=== PATIENT | female | born 1945 | race Caucasian/White ===

== ENCOUNTER → 2017-08-22 08:49 | Outpatient (CLI) | payer BC, MEDICARE, SELFPAY ==
[2017-08-22 11:10] LABS: Color, Urine Yellow (Yellow); Glucose, Dipstick Normal (Normal); Ketone-Dipstick Negative (Negative); Leukocyte Esterase-Dipstick 25 /ul (Negative); Nitrite-Dipstick Negative (Negative); Occult Blood-Urine Negative /ul (Negative); Protein-Dipstick 15 mg/dl (Negative); Urine Bilirubin Dipstick Negative (Negative); Urine Clarity Clear (Clear); Urine Urobilinogen Normal (Normal); Urine pH 6.5 (5.0 - 8.0)
[2017-08-22 11:22] LABS: Absolute Lymphocyte Count 2.54 X10^3/ul (0.83-4.51); Basophil# 0.05 X10^3/uL; Basophil% 0.8 % (0-1); Eosinophil# 0.22 X10^3/uL; Eosinophils% 3.4 % (0-5); Hematocrit 49.9 % (37-47); Hemoglobin 16.4 g/dl (12.0-15.0); Lymphocyte # 2.54 X10^3/ul (4.0); Lymphocyte % 39.8 % (19-41); Mean Corp Hgb Conc 32.9 g/gl (32-36); Mean Corpuscular Hgb 31.9 pg (27.0-32.0); Mean Corpuscular Volume 97.1 fL (81-99); Mean Platelet Vol. 11.7 fl (6.2-12.0); Monocyte# 0.52 X10^3/uL; Monocyte% 8.2 % (0-10); Neutrophil # 3.04 X10^3/uL (2.7-7.7); Neutrophil % 47.6 % (47-70); Platelet Count 203 K/mm3 (150-450); RBC Distribution Width CV 13.6 % (11.6-14.6); RBC Distribution Width SD 47.7 fl (35.1-43.9); Red Blood Count 5.14 M/mm3 (4.2-5.4); White Blood Count 6.4 K/mm3 (4.4-11.0)
[2017-08-22 11:25] LABS: POSITIVE COUNT NO; POSITIVE DIFFERENTIAL NO; POSITIVE MORPHOLOGY NO
[2017-08-22 11:36] LABS: Vitamin D,25 Hydroxy 32.9 ng/mL
[2017-08-22 12:19] LABS: ALB/GLOB Ratio 1.4 RATIO (0.9-2.4); AST(SGOT) 22 U/L (15-37); Alanine Aminotransfer ALT/SGPT 27 U/L (13-56); Albumin, Serum 3.9 g/dL (3.2-5.0); Alkaline Phosphatase 77 U/L (45-117); Anion Gap 7 (5-15); BUN 13 mg/dL (7-18); BUN/Creat Ratio 18.2 RATIO (10-20); Chloride 106 mmol/L (98-107); Cholesterol 159 mg/dL (200); Creatinine, Serum 0.72 mg/dL (0.55-1.02); EST Glomerular Filtration Rate 86 mL/min (>60); Est Glom Filt Rate - Afr Amer 104 mL/min (>60); Globulin 2.8 g/dL (2.2-4.2); Glucose 88 mg/dL (70-110); High Density Lipoprotein 81 mg/dL; Potassium 4.4 mmol/L (3.5-5.1); Protein, Total 6.7 g/dL (6.4-8.2); Sodium Level 142 mmol/L (136-145); Triglycerides 85 mg/dL; Very Low Density Lipoprotein 17 mg/dL (5-40)
== END ==
PROVIDERS: Family Provider Family Medicine; PCP Family Medicine; Visit Provider Family Medicine
DX: Z12.31 Encounter for screening mammogram for malignant neoplasm of breast (principal); Z00.00 Encounter for general adult medical examination without abnormal findings
CPT/HCPCS: 36415; 80053; 80061; 81002; 82306; 85025

== ENCOUNTER → 2017-08-29 12:22 | Outpatient (CLI) | payer BC, MEDICARE, SELFPAY ==
--- NOTE | 2017-08-29 12:25 | US_ITS ---
STUDY: ULTRASOUND TRANSVAGINAL CLINICAL: Female, 72 years old. Pelvic pain. TECHNIQUE: Transabdominal and transvaginal. COMPARISON: None. FINDINGS: The uterus is anteverted and tilted to the right. Uterus measures 5.4 x 4.2 x 3.3 cm. Scattered calcifications throughout the uterus suggestive of small calcified fibroids. No IUD. Cervix is normal. Endometrium measures 3 mm and is hyperechoic. Ovaries not visualized. There is no free fluid in the pelvis. Bladder volume 428 mL. US/Transvaginal Non- IMPRESSION: Small calcified uterine fibroids. Ovaries not visualized. Electronically Signed: Al Cornell MD at 4:41 EST , Service support ,
--- NOTE | 2017-08-29 12:25 | US_ITS ---
STUDY: ULTRASOUND TRANSVAGINAL CLINICAL: Female, 72 years old. Pelvic pain. TECHNIQUE: Transabdominal and transvaginal. COMPARISON: None. FINDINGS: The uterus is anteverted and tilted to the right. Uterus measures 5.4 x 4.2 x 3.3 cm. Scattered calcifications throughout the uterus suggestive of small calcified fibroids. No IUD. Cervix is normal. Endometrium measures 3 mm and is hyperechoic. Ovaries not visualized. There is no free fluid in the pelvis. Bladder volume 428 mL. US/Pelvic (Non ) IMPRESSION: Small calcified uterine fibroids. Ovaries not visualized. Electronically Signed: Al Cornell MD at 4:41 EST , Service support ,
== END ==
PROVIDERS: Family Provider Family Medicine; PCP Family Medicine; Visit Provider Nurse Practitioner Women's Health
DX: R10.2 Pelvic and perineal pain (principal)
CPT/HCPCS: 76830; 76856

== ENCOUNTER → 2017-09-07 07:51 | Outpatient (CLI) | payer BC, MEDICARE, SELFPAY ==
--- NOTE | 2017-09-07 07:56 | US_ITS ---
STUDY: ABDOMINAL ULTRASOUND - RIGHT UPPER QUADRANT REASON FOR VISIT: Female, 72 years old. Generalized abdominal pain. TECHNIQUE: Ultrasound evaluation of the right upper quadrant was performed with real-time and static scruggs-scale imaging. TECHNICAL QUALITY: Adequate. COMPARISON: None. FINDINGS: Liver: The liver measures 11.3 cm. There is normal echogenicity of the liver. The bile ducts are within normal limits. There is hepatic color flow. The direction of portal flow is hepatopetal. There is no demonstrated mass lesion. Gallbladder: Normal distended gallbladder. The gallbladder wall measures 2.4 mm. There is a negative sonographic Smith's sign. There is no pericholecystic fluid. There are no gallstones. Common Bile Duct (C.B.D.): The common bile duct measures 3.4 mm. Pancreas: Normal size of the head, body and tail of the pancreas. There is normal echogenicity of the pancreas. There is no demonstrated pancreatic mass or cyst. Right Kidney: Normal size of the right kidney. The right kidney measures 10.8 cm x 4.3 cm x 4.6 cm. Normal renal cortex. The right cortex measures 1.3 cm. There is no demonstrated renal mass or cyst. There is no right hydronephrosis. US/Gallbladder IMPRESSION: Normal right upper quadrant ultrasound examination. Electronically Signed: Marques Ford MD at 12:06 EST Tel [phone], Service support ,
== END ==
DX: R10.9 Unspecified abdominal pain (principal)
CPT/HCPCS: 76705

== ENCOUNTER → 2017-09-08 08:28 | Outpatient (CLI) | payer BC, MEDICARE, SELFPAY ==
--- NOTE | 2017-09-08 08:32 | RAD_ITS ---
STUDY: X-RAY - ACUTE ABDOMINAL SERIES REASON FOR EXAM: Female, 72 years old. Abdominal pain. TECHNIQUE: Single view of the chest. Supine, and erect view(s) of the abdomen were obtained. COMPARISON: None. FINDINGS: The lungs are clear and expanded. Normal size heart. Normal mediastinum and grace. Normal visualized pulmonary arteries. There is atherosclerotic calcification of the aortic arch with tortuosity. There is an abundance of fecal material throughout the colon. The soft tissue structures of the abdomen and pelvis are unremarkable. There are diffuse degenerative changes of the visualized lumbar spine. Dextroscoliosis. RAD/Acute Abdomen Inc Chest IMPRESSION: Large amount of fecal material is seen in the colon. Electronically Signed: Marques Ford MD at 12:42 EST Tel [phone], Service support ,
== END ==
DX: R10.9 Unspecified abdominal pain (principal)
CPT/HCPCS: 74022

== ENCOUNTER → 2017-09-15 10:25 | Outpatient (CLI) | payer BC, MEDICARE, SELFPAY ==
--- NOTE | 2017-09-15 10:30 | HPBI_ITS ---
MAMMOGRAPHY - BILATERAL SCREENING REASON FOR EXAM: Female, 72 years old. Routine annual screening examination. PERTINENT HISTORY: Sister with breast cancer. Aunt with breast cancer. TECHNIQUE: Digital bilateral breast brea (3D mammographic acquisition) in the CC and MLO projections. 2-D mediolateral oblique (MLO) and craniocaudad (CC) views of both breasts were obtained. CAD: Full Field Digital Mammography with Computer Added Detection was performed. COMPARISON: Comparison is made with prior study dated February 17, 2017 and August 18, 2015. FINDINGS: Breast Composition: There are scattered areas of fibroglandular density. There are no dominant masses or suspicious calcifications. No other significant abnormalities are identified. There has been no significant change since the prior study. HPBI/SCREENING MAMM (CAD), BILAT IMPRESSION: Stable bilateral screening mammogram. Yearly follow-up mammogram recommended. (A) ASSESSMENT CATEGORY: BIRADS Category 1: Negative. A letter regarding these results will be sent to the patient by the facility within 30 days. Approximately 10% of breast cancers are not detected by mammography. A normal mammogram should not delay biopsy of a clinically suspicious abnormality. [id number] Electronically Signed: Marques Ford MD at 13:07 EST Tel [phone], Service support ,
== END ==
PROVIDERS: Visit Provider Family Medicine
DX: Z12.31 Encounter for screening mammogram for malignant neoplasm of breast (principal)
CPT/HCPCS: 77063; 77067

== ENCOUNTER 2018-01-13 09:21 | Emergency (ER) | payer BC, MEDICARE, SELFPAY ==
[2018-01-13 09:21] VITALS: BP 158/81; PULSE 95; RESP 12; TEMP 36.5; O2SAT 97; BMI 25.4
[2018-01-13 09:38] VITALS: BP 137/79; PULSE 91; RESP 22; O2SAT 96
[2018-01-13 09:45] VITALS: BP 141/74; BP 143/60; BP 143/68; PULSE 88; PULSE 89; PULSE 98
--- NOTE | 2018-01-13 09:45 | CT_ITS ---
STUDY: CT BRAIN WITHOUT CONTRAST REASON FOR EXAM: Female, 72 years old. Dizziness and weakness. RADIATION DOSAGE (If Supplied By Facility): CTDIvol = ( 44.99 ) mGy, DLP = ( 745.49 ) mGycm TECHNIQUE: Transaxial CT imaging of the brain was performed without administration of intravenous contrast material. Individualized dose optimization techniques were used for this CT. COMPARISON: None. FINDINGS: Normal soft tissue structures. Normal calvarium. Normal size ventricles and extra-axial spaces for the patient's age. Normal white matter tracts of the cerebral hemispheres. Normal basal ganglia and thalami. Normal brainstem. Normal cerebellum. There is no intracranial hemorrhage. There are no findings of an acute ischemic infarction. Normal visualized paranasal sinuses. CT/Brain/Head without Contrast IMPRESSION: Normal unenhanced CT scan of the brain. Electronically Signed: Marques Ford MD at 10:31 EDT Tel [phone], Service support ,
--- NOTE | 2018-01-13 09:45 | EKG12_ITS ---
Test Reason : DIZZINESS Blood Pressure : / mmHG Vent. Rate : 088 BPM Atrial Rate : 088 BPM P-R Int : 164 ms QRS Dur : 086 ms QT Int : 392 ms P-R-T Axes : 072 019 044 degrees QTc Int : 474 ms Normal sinus rhythm Normal ECG Confirmed by DORIS CALHOUN ([id number]), supervising editor trailer RACHAEL WEBB ([id number]) on 01/16/2018 10:25:08 AM Referred By: RAKESH Confirmed By:DORIS CALHOUN
--- NOTE | 2018-01-13 09:50 | ED.VISSUMM ---
- ER Visit Summary Date of Service: 01/13/18 Chief Complaint: Dizziness History of Present Illness: The patient is a 72 F last week has had dizziness. She believes it may have began sometime around last Tuesday. She denies any headache or head trauma. She is on no blood thinners. She has had post prandial nausea and some epigastric abdominal pain for some time. She had negative ultrasound of her gallbladder. She denies any melena or hematemesis. She denies any fever. Over the last 2 months due to nausea after eating and some pain she has had about a 15 pound weight loss. She denies any chest pain or hemoptysis. She is a non-smoker. She denies any melena nor fever. She has had no recent head injury. She denies any stroke like symptoms. No visual change. No unilateral weakness. No change in her speech. She herself has never had vertigo and this does not change with change in position. She denies any urinary tract symptoms. Physical Examination: Ill-appearing older female. Vital signs are stable afebrile. Her pulse ox is 97% on room air no signs of hypoxia. HEENT exam normal. Except mildly dry mucous membranes. No facial droop. Pupils round reactive light. Normal speech. Neck nontender no lymphadenopathy. Lungs clear to auscultation bilaterally. Heart regular rate and rhythm no murmur rate about 85. Abdomen is soft and nontender. Normal bowel sounds no peritoneal signs. She is moving all 4 extremities. They are neurovascularly intact. 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 Dorsi and plantar flexion are intact. Calves are nontender without edema. Back exam is nontender. Neurologically she is awake and alert with no focal motor or sensory deficits. NIH is 0. Hallpike maneuver is normal. No signs of vertigo with exam. Her ear canals are unremarkable without cerumen impaction. Test Results: See normal. BMP normal. Normal creatinine and gap. Liver enzymes normal. Lipase normal 137. EKG sinus rhythm rate 88 with no signs of ischemia or dysrhythmia. CT of the brain shows no acute abnormality read by the radiologist and reviewed by myself. Emergency Department Course and Treatment: Older female with dizziness. Unremarkable exam other than possibly mild dehydration. Treatment Plan: Repeat exam the patient is doing well at 1115. She got up out of bed and walked easily. No ataxia. Patient, myself and her family had a long discussion. She needs a follow-up to see what is causing her postprandial nausea and abdominal pain. She may need a HIDA scan. She may also need upper endoscopy if this is not a gallbladder issue. She will be referred to Dr. Whitaker him speech communication professor for general surgery or Dr. Misael Costello who the family seen in the past. Disposition: Discharge Impression: Acute dizziness of uncertain etiology Postprandial nausea, abdominal pain and weight loss of uncertain etiology This note was generated with [employer] dictation software. It may contain incorrect words, spelling, and punctuation that were not noted in review of the chart prior to signing ED Disposition - Plan for ED Patient: Chief Complaint: Dizziness Referrals: Rigoberto White [Primary Care Provider] -
--- NOTE | 2018-01-13 09:54 | ED.DCSUM_ITS ---
- ER Visit Summary Date of Service: 01/13/18 Chief Complaint: Dizziness History of Present Illness: The patient is a 72 F last week has had dizziness. She believes it may have began sometime around last Tuesday. She denies any headache or head trauma. She is on no blood thinners. She has had post prandial nausea and some epigastric abdominal pain for some time. She had negative ultrasound of her gallbladder. She denies any melena or hematemesis. She denies any fever. Over the last 2 months due to nausea after eating and some pain she has had about a 15 pound weight loss. She denies any chest pain or hemoptysis. She is a non-smoker. She denies any melena nor fever. She has had no recent head injury. She denies any stroke like symptoms. No visual change. No unilateral weakness. No change in her speech. She herself has never had vertigo and this does not change with change in position. She denies any urinary tract symptoms. Physical Examination: Ill-appearing older female. Vital signs are stable afebrile. Her pulse ox is 97% on room air no signs of hypoxia. HEENT exam normal. Except mildly dry mucous membranes. No facial droop. Pupils round reactive light. Normal speech. Neck nontender no lymphadenopathy. Lungs clear to auscultation bilaterally. Heart regular rate and rhythm no murmur rate about 85. Abdomen is soft and nontender. Normal bowel sounds no peritoneal signs. She is moving all 4 extremities. They are neurovascularly intact. 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 Dorsi and plantar flexion are intact. Calves are nontender without edema. Back exam is nontender. Neurologically she is awake and alert with no focal motor or sensory deficits. NIH is 0. Hallpike maneuver is normal. No signs of vertigo with exam. Her ear canals are unremarkable without cerumen impaction. Test Results: See normal. BMP normal. Normal creatinine and gap. Liver enzymes normal. Lipase normal 137. EKG sinus rhythm rate 88 with no signs of ischemia or dysrhythmia. CT of the brain shows no acute abnormality read by the radiologist and reviewed by myself. Emergency Department Course and Treatment: Older female with dizziness. Unremarkable exam other than possibly mild dehydration. Treatment Plan: Repeat exam the patient is doing well at 1115. She got up out of bed and walked easily. No ataxia. Patient, myself and her family had a long discussion. She needs a follow-up to see what is causing her postprandial nausea and abdominal pain. She may need a HIDA scan. She may also need upper endoscopy if this is not a gallbladder issue. She will be referred to Dr. Whitaker him clinical rehabilitation liaison for general surgery or Dr. Misael Costello who the family seen in the past. Disposition: Discharge Impression: Acute dizziness of uncertain etiology Postprandial nausea, abdominal pain and weight loss of uncertain etiology This note was generated with [employer] dictation software. It may contain incorrect words, spelling, and punctuation that were not noted in review of the chart prior to signing ED Disposition - Plan for ED Patient: Chief Complaint: Dizziness Referrals: Rigoberto White [Primary Care Provider] -
[2018-01-13 10:43] LABS: Absolute Lymphocyte Count 1.42 X10^3/ul (0.83-4.51); Absolute Neutrophil Count 4.5 X10^3/uL (2.0-7.7); Basophil# 0.05 X10^3/uL; Basophil% 0.7 % (0-1); Eosinophil# 0.25 X10^3/uL; Eosinophils% 3.7 % (0-5); Hematocrit 46.3 % (37-47); Hemoglobin 15.3 g/dl (12.0-15.0); Lymphocyte # 1.42 X10^3/ul (4.0); Lymphocyte % 20.8 % (19-41); Mean Corpuscular Hgb 32.1 pg (27.0-32.0); Mean Corpuscular Volume 97.1 fL (81-99); Mean Platelet Vol. 10.3 fl (6.2-12.0); Monocyte# 0.63 X10^3/uL; Monocyte% 9.2 % (0-10); Neutrophil # 4.46 X10^3/uL (2.7-7.7); Neutrophil % 65.5 % (47-70); Platelet Count 229 K/mm3 (150-450); RBC Distribution Width CV 13.1 % (11.6-14.6); RBC Distribution Width SD 45.6 fl (35.1-43.9); Red Blood Count 4.77 M/mm3 (4.2-5.4); White Blood Count 6.8 K/mm3 (4.4-11.0)
[2018-01-13 10:45] LABS: POSITIVE COUNT NO; POSITIVE DIFFERENTIAL NO; POSITIVE MORPHOLOGY NO
[2018-01-13 11:00] LABS: AST(SGOT) 22 U/L (15-37); Alanine Aminotransfer ALT/SGPT 23 U/L (13-56); Albumin, Serum 3.8 g/dL (3.2-5.0); Alkaline Phosphatase 87 U/L (45-117); Anion Gap 5 (5-15); BUN 15 mg/dL (7-18); BUN/Creat Ratio 19.7 RATIO (10-20); Bilirubin, Direct 0.14 mg/dL (0.00-0.30); Calcium,Total 8.9 mg/dL (8.5-10.1); Chloride 106 mmol/L (98-107); Creatinine, Serum 0.76 mg/dL (0.55-1.02); EST Glomerular Filtration Rate 80 mL/min (>60); Est Glom Filt Rate - Afr Amer 97 mL/min (>60); Globulin 3.3 g/dL (2.2-4.2); Glucose 120 mg/dL (74-106); Lipase 137 U/L (73-393); Potassium 3.9 mmol/L (3.5-5.1); Protein, Total 7.1 g/dL (6.4-8.2); Sodium Level 140 mmol/L (136-145)
--- NOTE | 2018-01-13 11:21 | ED.DEP ---
ED Disposition - Plan for ED Patient: Disposition: Home or Assisted Living Chief Complaint: Dizziness Instructions: ED Dizziness [facility] Referrals: Rigoberto White [Primary Care Provider] - As Needed Pineda Costello MD [STAFF PHYSICIAN] - As soon as possible Frida Whitaker MD [STAFF PHYSICIAN] - As soon as possible Additional Instructions: Zofran as needed for nausea. Fluids and rest. Follow-up with 1 of the local general surgeon for further evaluation for possible gallbladder disease. You may need a HIDA scan and/or upper endoscopy.
[2018-01-13] MEDS: 0.9% Normal Saline 1,000 ML 1000 ML IV (11:53)
[2018-01-13] MEDS: Ondansetron 4 MG/2 ML Vial IV (11:53)
[2018-01-13 13:21] VITALS: BP 120/60; PULSE 81; RESP 20
== END 2018-01-13 13:24 | disposition home or self-care (01) ==
PROVIDERS: Emergency Provider Emergency Medicine
DX: R42 Dizziness and giddiness (principal); R10.13 Epigastric pain; R63.4 Abnormal weight loss; R11.0 Nausea; M06.9 Rheumatoid arthritis, unspecified; Z79.899 Other long term (current) drug therapy
CPT/HCPCS: 70450; 80048; 80076; 83690; 85025; 93005; 96361; 96374; 99285; J7030; A4216; J2405

== ENCOUNTER → 2018-01-30 16:29 | Outpatient (CLI) | payer BC, MEDICARE, SELFPAY ==
--- NOTE | 2018-01-30 | IMM_PTH ---
PATIENT: NUHA SAEED LOC: [facility] U#:[id number] AGE/SX: 80/F ROOM: RE01/30/[address]: Dr. Rakesh Sanford MD : 1945 BED: DIS: SPEC #: [id number] RECD: 02/01/18 13:08 STATUS: SANTANA DEMAR #: [id number] JOJO: 01/30/18 00:[address]: Rakesh Sanford DEPT: IMMUNOHISTOCHEMISTRY RECD BY: Amy Steinberg ENTERED: 02/01/18 13:14 SP TYPE: IMMUNO OTHR DR: Rigoberto White Tissues: A - Stomach, NOS Procedures: H Pylori (initial) PHYSICIAN & INSTITUTION [place] [id number] SPECIMEN INFORMATION: Tissue Source: A ? Gastric antrum and body biopsy Clinical Info: Weight loss, nausea Specimen Number: [id number] CPT code: 69778 METHODOLOGY: Deparaffinized sections of prefer/formalin-fixed tissue or PAP/DQ stained slides are incubated with monoclonal/polyclonal antibodies/oligonucleotide probes. Localization is made via biotin free immunoperoxidase method. Appropriate controls are performed and reacted as expected. Results on target cell population are indicated in the following table: RESULTS: ANTIBODY / CLONE RESULT Block A H Pylori (polyclonal) negative These tests were developed and their performance characteristics determined by [facility]. They may not have been cleared or approved by the U.S. Food and Drug Administration. The FDA has determined that such clearance or approval is not necessary. INTERPRETATION: A. Gastric antrum and body, biopsy: Negative for Helicobacter pylori organisms. SJ:binh 02/01/18
--- NOTE | 2018-01-30 | EGD_PTH ---
PATIENT: NUHA SAEED LOC: [facility] U#:[id number] AGE/SX: 80/F ROOM: RE01/30/[address]: Dr. Rakesh Sanford MD : 1945 BED: DIS: SPEC #: [id number] RECD: 01/30/18 15:23 STATUS: SANTANA DEMAR #: [id number] JOJO: 01/30/18 00:[address]: Rakesh Sanford DEPT: SURGICAL PATHOLOGY RECD BY: Felix Mcmahon ENTERED: 01/31/18 08:29 SP TYPE: EGD BIOPSY OTHR DR: Rigoberto White [facility] Tissues: A - Gastric mucous membrane B - Duodenum, NOS Procedures: Surgery Specimen Level IV HEADER OPERATION: EGD with biopsies PRE-OP DIAGNOSIS: Weight loss/nausea TISSUE SUBMITTED: A. Gastric antrum and body biopsies, rule out gastritis, B. Small bowel (duodenal) biopsies, rule out malabsorption MICROSCOPIC DIAGNOSIS A. Gastric antrum and body biopsy: Mild gastritis. See microscopic description and comment. B. Duodenal biopsy: Fragments of duodenal mucosa with Kaya gland hyperplasia. KAY:binh 02/01/18 COMMENT A. The results of immunohistochemistry for Helicobacter pylori will be reported separately ([id number]). MICROSCOPIC DESCRIPTION Slides are reviewed. A. The specimen shows fragments of gastric mucosa with chronic inflammatory cell infiltrates in the lamina propria consisting of lymphocytes and plasma cells, consistent with mild chronic gastritis. GROSS DESCRIPTION A - Received in fixative is one container labeled with the patient's name and designated gastric antrum and body biopsy. The specimen consists of two irregular fragments of light zaman soft tissue that in aggregate measure 0.5 x 0.5 x 0.1 cm. The specimen is totally submitted in one cassette. B - Received in fixative is one container labeled with the patient's name and designated duodenal biopsy, small bowel. The specimen consists of multiple irregular fragments of light zaman soft tissue that in aggregate measure 1 x 0.2 x 0.1 cm. The specimen is totally submitted in one cassette. / SJ:binh 01/31/18 TC:3 CPT: 17906 x2
== END ==
PROVIDERS: Visit Provider Internal Medicine Gastroenterology
DX: R63.4 Abnormal weight loss (principal); R11.0 Nausea
CPT/HCPCS: 88305; 88342

== ENCOUNTER 2018-02-15 10:00 | Outpatient (RCR) | payer BC, MEDICARE, SELFPAY ==
--- NOTE | 2018-01-27 12:38 | HP.PTEVAL_ITS ---
Patient's Visit Information NUHA SAEED is a 72 year old F referred to Physical Therapy by Rigoberto White with a diagnosis of vertigo.. Date of Evaluation: 01/27/18 Physical Therapist: Quang Montana DPT, OC - Visit Plan Frequency: 1x/Week Duration: 2-4 Weeks Plan: Pt to do VOR ex while on vacationa nd f/u in two weeks to check VOR and subjective dizzyness and progress as needed. Check dizzy meds. - Subjective Subjective: Dr. White thinks she has vertigo. Gets dizzy once in a while. Works at [employer], turning too quickly made her dizzy for a few seconds. Nothing else seemed to cause it. She is off work due to stomach problems right now. One fall two weeks ago just losing balance, no dizzyness. Sleep is OK. Activities at home are pretty normal. No pain outside of stomach aches. No neuropathy. Has RA. Last dizzy spell was the other day turning while walking transiently. - Objective Walks without deficit into and out of PT, c/s AROM WFL and painfree. Scores well on FGA. - B hallpike jarrett, - roll test. Oculomotor: no nystagmus with gaze or head shake. normal convergence. - skew eye deviation. + R head thrust. Pursuit and saccades appear normal. VOR is very challenging seated and more so standing. and makes her slightly transiently dizzy after 35 seconds. - Balance Scores Functional Gait Assessment Score: 29 % Disability: 3.3400 - Goals Goal 1:: abolish dizzyness for one week. 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 Rehabilitation Potential: Fair - Anticipated Interventions Patient/Client Instruction: Educate patient on: Condition, Plan of Care Other: to diminish dizzyness. Comment: oculomotor ex Other: to diminish dizzyness. Thank you for the opportunity to evaluate your patient. For Medicare and Medicare HMO plans, please review the plan of care and approve it. It will need to be FAXED BACK to us at [phone] for Medicare purposes. Please let me know if there are questions or concerns regarding this plan of care. Physician Signature: Date:
--- NOTE | 2018-02-15 10:15 | HP.PTDCSUM ---
HP - PT D/C Summary It has been my pleasure to treat NUHA SAEED under orders from Rigoberto White, for the diagnosis of vertigo. for a total of 2 visit(s). Discharge Date: 02/15/18 Please see the following information for a summary of their discharge status. - Subjective Subjective: A lot better. Driving again. Vacation went well without limitations. Last dizzyness was over the previous weekend quickly and not limiting. No dizzy meds since before her vacation over a week ago. - Overall Improvement % Improvement: 85 - Objective Objective/Function: FGA very good, No dizzyness with VOR, VORx2 or walking VOR. No dizzyness ellicited with MSQ positions. OVERALL SIGNIFICANTLY BETTER. - Goals Goal 1:: abolish dizzyness for one week. Goal Progress: Goal Met - Plan Plan: D/C - D/C Information Discharge Comments: d/c , PT TO CONTACT DOCTOR IF ANY DIZZYNESS RETURNS. If there are questions or concerns regarding this patient's physical therapy, please feel free to call me at [phone]. Thank you for the referral of this patient. Sincerely, Quang Montana, DPT, OC
== END 2018-02-15 19:00 | disposition home or self-care (01) ==
LOC: PT 10:00
PROVIDERS: Visit Provider Family Medicine
DX: R42 Dizziness and giddiness (principal)
CPT/HCPCS: 97162; 97530

== ENCOUNTER → 2018-03-03 10:41 | Outpatient (CLI) | payer BC, MEDICARE, SELFPAY ==
--- NOTE | 2018-03-03 10:44 | NM_ITS ---
CLINICAL: 72-year-old female with reported history of abdominal pain and nausea. RADIONUCLIDE HEPATOBILIARY SCINTIGRAPHY COMPARISON: Abdominal ultrasound report 09/07/2017 FINDINGS: Following the intravenous administration of 5.8 mCi of 99m Tc Mebrofenin, hepatobiliary images reveal: 1. Relatively prompt and homogeneous radiopharmaceutical concentration is noted by a normal sized liver. No parenchymal defects are identified. 2. Gallbladder activity is identified at 15 minutes post radiopharmaceutical administration. 3. Small intestinal tract is observed at 60 minutes following tracer injection. 4. Washout of the radiopharmaceutical by the hepatic parenchyma appears qualitatively normal. The patient was administered a fatty meal (8 ounces BOOST-30 grams fat). The post fatty meal consumption gallbladder ejection fraction calculated at 30 minutes was noted to be 70.0 % (normal greater than 30%). [place]/Hepatobilliary Img w/Pharm Int IMPRESSION: 1. NORMAL 99m Tc Mebrofenin hepatobiliary imaging examination with fatty meal ingestion. A. A gallbladder ejection fraction calculated to be greater than 30% following the administration of a consumed fatty meal makes the probability of functional hepatobiliary disease (gallbladder and/or sphincter of Oddi dyskinesia) and/or organic hepatobiliary disease (chronic acalculous cholecystitis and/or cystic duct syndrome) to be low. (Nayeli and Thiago, J Nucl Med 43: 1603, 2002). Electronically Signed: Pineda Lujan DO at 11:56 EDT Tel , Service support ,
== END ==
PROVIDERS: Visit Provider Internal Medicine Gastroenterology
DX: R10.9 Unspecified abdominal pain (principal); R11.0 Nausea
CPT/HCPCS: 78227; A9537

== ENCOUNTER → 2018-06-19 17:09 | Outpatient (CLI) | payer BC, MEDICARE, SELFPAY ==
--- NOTE | 2018-06-19 15:00 | EMB_PTH ---
PATIENT: NUHA SAEED LOC: [facility] U#:[id number] AGE/SX: 80/F ROOM: RE06/19/[address]: KATHERINE Cotto : 1945 BED: DIS: SPEC #: [id number] RECD: 06/19/18 16:50 STATUS: SANTANA DEMAR #: [id number] JOJO: 06/19/18 15:[address]: Marlen Garza NP DEPT: SURGICAL PATHOLOGY RECD BY: Felix Mcmahon ENTERED: 06/20/18 10:02 SP TYPE: ENDOM FERNANDO/Colt ENRIQUE DR: Rigoberto White Tissues: Endometrium, NOS Procedures: Surgery Specimen Level IV HEADER OPERATION: Endometrial biopsy PRE-OP DIAGNOSIS: Postmenopausal bleeding TISSUE SUBMITTED: Endometrial lining MICROSCOPIC DIAGNOSIS Endometrium, biopsy: Scant strips of benign superficial glandular mucosa. See comment. AM:binh 06/21/18 COMMENT The specimen primarily consists of mucous. Clinical correlation is suggested. MICROSCOPIC DESCRIPTION Slides are reviewed. GROSS DESCRIPTION Received is one container labeled with the patient's name and not further designated. The specimen consists of multiple irregular fragments of zaman mucoid tissue that in aggregate measure 2.5 x 2.5 x 0.2 cm. The specimen is totally submitted in one cassette. / SJ:binh 06/20/18 TC:5 [facility]: [id number]
[2018-06-19 15:13] VITALS: BMI 25.4
--- OUTSIDE RECORDS SUMMARY | 2018-08-01 16:25 | XMS RPT_ITS ---
:1945 Author Organization OHIP Support Name Relationship Address Phone October Unavailable Unavailable + GRETA TRIPLETT Unavailable Unavailable + WALWO Unavailable [address] + [place] [address] October Unavailable .1 + [place] [address] WALWO Unavailable [address] + [place] [address] October Unavailable Unavailable + [place] [address] WALWO Unavailable [address] + [place] [address] October Unavailable [address] [place] [address] WALWO Unavailable [address] + [place] [address] October Unavailable [address] [place] [address] WALWO Unavailable [address] + [place] [address] WALWO Unavailable [address] + [place] [address] WALWO Unavailable [address] + [place] [address] WALWO Unavailable [address] + [place] [address] WALWO Unavailable [address] + [place] [address] WALWO Unavailable [address] + [place] [address] WALWO Unavailable [address] + [place] [address] WALWO Unavailable [address] + [place] [address] WALWO Unavailable [address] + [place] [address] PARISA STEINBERG Unavailable . + [place] [address] W[place] Unavailable [address] + [place] [address] WALWO Unavailable [address] + [place] [address] WALWO Unavailable [address] + [place] [address] Care Team Providers Name Role Ryan Barahona Attending Unavailable Christopher, Rigoberto Referring Unavailable Christopher, Rigoberto Primary Care Unavailable Christopher, Rigoberto Attending Unavailable Christopher, Rigoberto Referring Unavailable Christopher, Rigoberto Primary Care Unavailable Greg, Marlen Attending Unavailable Christopher, Rigoberto Referring Unavailable Christopher, Rigoberto Primary Care Unavailable Greg, Marlen Attending Unavailable [place], Marlen Referring Unavailable Christopher, Rigoberto Primary Care Unavailable Christopher, Rigoberto Attending Unavailable Christopher, Rigoberto Referring Unavailable Christopher, Rigoberto Primary Care Unavailable Christopher, Rigoberto Attending Unavailable Chrisotpher, Rigoberto Referring Unavailable Christopher, Rigoberto Primary Care Unavailable Christopher, Rigoberto Attending Unavailable Christopher, Rigoberto Referring Unavailable Christopher, Rigoberto Primary Care Unavailable Greg, Marlen Attending Unavailable Christopher, Rigoberto Referring Unavailable Christopher, Rigoberto Primary Care Unavailable Greg, Marlen Attending Unavailable Christopher, Rigoberto Referring Unavailable Christopher, Rigoberto Primary Care Unavailable Christopher, Rigoberto Primary Care Unavailable Heriberto Galindo Attending Unavailable Christopher, Rigoberto Attending Unavailable Christopher, Rigoberto Referring Unavailable Christopher, Rigoberto Primary Care Unavailable Jabour, Vincent Attending Unavailable Jabour, Vincent Referring Unavailable Christopher, Rigoberto Primary Care Unavailable Jabour, Vincent Attending Unavailable Jabour, Vincent Referring Unavailable Christopher, Rigoberto Primary Care Unavailable [place], Marlen Attending Unavailable Chrsitopher, Rigoberto Referring Unavailable [place], Marlen Attending Unavailable [place], Marlen Referring Unavailable Christopher, Rigoberto Primary Care Unavailable PROBLEMS PROBLEMS DATE TYPE CONDITION / CODE ATTENDING STATUS SOURCE 06/19/2018 Unknown N36.2 - Urethral [place], 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[facility] caruncle / Community N36.2(ICD-10) Hospital Repository 03/22/2018 Unknown R10.9 - Unspecified Rakesh Sanford Active [facility] abdominal pain / Community R10.9(ICD-10) Hospital Repository 02/17/2018 Unknown R42 - Dizziness and Rigoberto White Active [place] giddiness / Community R42(ICD-10) Hospital Repository 09/22/2017 Unknown 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[place], 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[facility] sclerosus et Community atrophicus / Hospital L90.0(ICD-10) Repository 09/22/2017 Unknown N95.2 - [place], 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[facility] Postmenopausal Community atrophic vaginitis / Hospital N95.2(ICD-10) Repository 11/29/2017 Unknown R10.2 - Pelvic and Greg, 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[place] perineal pain / Community R10.2(ICD-10) Hospital Repository 09/08/2017 Unknown H66.92 - Otitis [place], Ryan Active [place] media, unspecified, [facility] left ear / Hospital H66.92(ICD-10) Repository PROCEDURES PROCEDURES No Procedure Records FoundRESULTS RESULTS ONLINE ACTIVIST OFFICE VISIT Observed: 06/19/2018 Status: F Source: [place] REPORT 3:58 PM [facility] [place] [facility] [address] [place] [address] OFFICE VISIT Date of Service: 06/19/18 MR#: [id number] Acct: [id number] Name: NUHA SAEED Rep #: [id number] : 1945 Provider: KEIRY Garza Age/Sex: 73/F Location: [facility] Status: Signed Intake Vital Signs06/19/18 Body Mass Index (BMI) 25.4 06/19/18 Height 5 ft 1 in 06/19/18 Weight: 139 lb 06/19/18 Body Mass Index (BMI) 26.2 06/19/18 Blood Pressure 124/82 H Intake Visit Reasons: PMB - OK PER Police Surgeon Required: No Is patient in pain?: No Allergies aspirin [From Excedrin Back and Body] Allergy (Mild, Verified 06/19/18 15:10) Other calcium carbonate [From Excedrin Back and Body] Allergy (Mild, Verified 06/19/18 15:10) Other codeine Allergy (Mild, Verified 06/19/18 15:10) Nausea/Vom/Diarrhea morphine Allergy (Mild, Verified 06/19/18 15:10) Other Medications cholecalciferol (vitamin D3) 1,000 unit capsule 1,000 unit PO ONCE 08/24/17 [History Confirmed 06/19/18] clobetasol 0.05 % topical ointment 1 applic TOPICAL .COMPLEX #15 g 08/24/17 [Rx Confirmed 06/19/18] glucosamine-chondroitin 250 mg-200 mg tablet 2 tab PO TID 08/24/17 [History Confirmed 06/19/18] hydroxychloroquine 200 mg tablet 200 mg PO QDAY 08/24/17 [History Confirmed 06/19/18] multivitamin,dd-hnix-lgfaebaa tablet 1 tab PO QDAY 08/24/17 [History Confirmed 06/19/18] Estradiol 0 udc VAGINAL .COMPLEX 01/13/18 [History Confirmed 06/19/18] [place]-3/Dha/Epa/Fish Oil [Fish Oil 1,400 mg Softgel] 1 ea PO DAILY 01/13/18 [History Confirmed 06/19/18] Ondansetron [Zofran Odt] 4 mg PO Q4H PRN PRN #20 tab.rapdis 01/13/18 [Rx Confirmed 06/19/18] Is last menstrual period known: No Post menopausal: No Patient : No : No Nurse's Note: Pt. states she has had a few times of a larger amount of blood discharge and is now just spotting PFSH Medical History Arthritis (Acute) Shortness of breath (Acute) Surgical History H/O foot surgery (Acute) Family History Mother Diabetes Father Cancer prostate Sister Breast cancer Brother Diabetes Social History Smoking Status: Never smoker alcohol intake: never substance use type: does not use caffeine: No frequency: 1-2 times per week seatbelt use: always do you feel safe at home: Yes additional social history: - [employer] HPI PMB - OK PER MH: Details: NUHA SAEED is a 73 year old who presents for vaginal spotting 2-3 episodes in last 2 weeks with some lower pelvic cramping. Not sexually active. 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 DateName GA/Weeks Outcome Route Bth WeighInfant GeLabor LgtAnesthesiDel LocatProvider FOB t n h a n ROS Const Constitutional: Reports system reviewed and no additional complaints, except as docu GI GI: Denies abdominal pain or change in bowel habits Exam External Female Exam: lesion of urethra (slightly friable bulbous caruncle) Urethra: lesion (slightly friable bulbous caruncle) Speculum Exam - Vagina: normal appearance of the vagina, atrophic vaginal mucosa Speculum Exam - Cervix: normal appearance of the cervix Bimanual Exam- Vagina AND Uterus: normal bimanual exam Bimanual Exam- Adnexa, other: normal adnexae Office Procedures Endometrial Biopsy Endometrial Biopsy Test: Yes Not Applicable Consent Signed: Yes Time out checklist: patient, procedure, site marked/identified, positioning of patient, supplies available, allergies confirmed, team agrees on procedure Time out time: 15:54 tenaculum used: Yes dilator used: No Details: Cervix prepped with betadine and pipelle inserted into uterus 7cm without complication. Specimen obtained-minmal mucoid tissue and sent to lab for analysis. All instruments removed from vagina without complications. Excellent hemostasis noted. Patient tolerated well Assessment AND Plan Problems 1. Postmenopausal bleeding N95.0 2. Urethral caruncle N36.2 Plan Reviewed S AND S infection post EMB With limited amount of tissue and adequate biopsy attempt plus visualization of friable caruncle, this may be etiology of spotting she has noticed. Will refer for evaluation with Dr. Morataya. Orders Orders: Referrals: Coding Level of Care Code No Charge Diagnoses Postmenopausal bleeding N95.0 Urethral caruncle N36.2 Additional Codes Endometrial Biopsy (83140) 06/19/18 0241 <Electronically signed by Marlen MURPHY> Date Marlen Greg GUNNER'S MATE-C Cosigner Signature: Date (if applicable) CC: Yelena Morataya MD ENDOMETRIAL BX/CURETTINGS Observed: 06/19/2018 Status: F Source: [place] 3:00 PM [facility] [place] Patient: NUHA SAEED : 1945 (73/F) Acct Num: [id number] Phys: Marlen KEIRY Garza Unit Num: [id number] Loc: LABSPEC Specimen: [id number] Received: 06/19/181649 Spec Type: ENDOM BX/C TISSUES 1 TISSUES: Endometrium, NOS COMMENT The specimen primarily consists of mucous. Clinical correlation is suggested. GROSS DESCRIPTION Received is one container labeled with the patient's name and not further designated. The specimen consists of multiple irregular fragments of zaman mucoid tissue that in aggregate measure 2.5 x 2.5 x 0.2 cm. The specimen is totally submitted in one cassette. / SJ:binh 06/20/18 TC:5 CPT: 69217 HEADER OPERATION: Endometrial biopsy PRE-OP DIAGNOSIS: Postmenopausal bleeding TISSUE SUBMITTED: Endometrial lining MICROSCOPIC DESCRIPTION Slides are reviewed. MICROSCOPIC DIAGNOSIS Endometrium, biopsy: Scant strips of benign superficial glandular mucosa. See comment. AM:binh 06/21/18 Signed [facility] 06/21/18 <signature on file> Performed By: #### PEMB #### [facility] [address] [place], [place], [address] HEPATOBILLIARY IMG Observed: 03/03/2018 Status: F Source: [place] W/PHARM INT 10:45 AM [facility] [place] [facility] Imaging Services [address] [place] [address] Hepatobilliary Img w/Pharm Int MR#: [id number] Acct: [id number] Name: NUHA SAEED Rep #: [id number] : 1945 F 72 From: Pineda Lujan DO PCP: Rigoberto White Status: REG CLI Study: Hepatobilliary Img w/Pharm Int Date of Exam: 03/03/18 Exam# [id number] Ordering Dr: Rakesh Sanford MD CLINICAL: 72-year-old female with reported history of abdominal pain and nausea. RADIONUCLIDE HEPATOBILIARY SCINTIGRAPHY COMPARISON: Abdominal ultrasound report 09/07/2017 FINDINGS: Following the intravenous administration of 5.8 mCi of 99m Tc Mebrofenin, hepatobiliary images reveal: 1. Relatively prompt and homogeneous radiopharmaceutical concentration is noted by a normal sized liver. No parenchymal defects are identified. 2. Gallbladder activity is identified at 15 minutes post radiopharmaceutical administration. 3. Small intestinal tract is observed at 60 minutes following tracer injection. 4. Washout of the radiopharmaceutical by the hepatic parenchyma appears qualitatively normal. The patient was administered a fatty meal (8 ounces BOOST- 30 grams fat). The post fatty meal consumption gallbladder ejection fraction calculated at 30 minutes was noted to be 70.0 % (normal greater than 30%). NM/Hepatobilliary Img w/Pharm Int IMPRESSION: 1. NORMAL 99m Tc Mebrofenin hepatobiliary imaging examination with fatty meal ingestion. A. A gallbladder ejection fraction calculated to be greater than 30% following the administration of a consumed fatty meal makes the probability of functional hepatobiliary disease (gallbladder and/or sphincter of Oddi dyskinesia) and/or organic hepatobiliary disease (chronic acalculous cholecystitis and/or cystic duct syndrome) to be low. (Nayeli and Thiago, J Nucl Med 43: 1603, 2002). Electronically Signed: Pineda Lujan DO at 11:56 EDT Tel , Service support , CC: Rigoberto White; Rakesh Sanford Emt/Dispatcher: Signed PT D/C SUMMARY (1) Observed: 02/17/2018 Status: F Source: [place] 6:45 AM [facility] [place] [facility] [address] [place] [address]. [address] [place] [address] Fax REHABILITATION SERVICES DISCHARGE SUMMARY MR#: [id number] Acct: [id number] Name: NUHA SAEED Rep #: [id number] : 1945 72 From: Quang Montana DPT, AURELIA, CSCS Referring Dr.: Rigoberto White MD Status: REG RCR Insurance: ANTH MEDICARE PART A B HP - PT D/C Summary It has been my pleasure to treat NUHA SAEED under orders from Rigoberto White, for the diagnosis of vertigo. for a total of 2 visit(s). Discharge Date: 02/15/18 Please see the following information for a summary of their discharge status. - Subjective Subjective: A lot better. Driving again. Vacation went well without limitations. Last dizzyness was over the previous weekend quickly and not limiting. No dizzy meds since before her vacation over a week ago. - Overall Improvement % Improvement: 85 - Objective Objective/Function: FGA very good, No dizzyness with VOR, VORx2 or walking VOR. No dizzyness ellicited with MSQ positions. OVERALL SIGNIFICANTLY BETTER. - Goals Goal 1:: abolish dizzyness for one week. Goal Progress: Goal Met - Plan Plan: D/C - D/C Information Discharge Comments: d/c , PT TO CONTACT DOCTOR IF ANY DIZZYNESS RETURNS. If there are questions or concerns regarding this patient's physical therapy, please feel free to call me at [phone]. Thank you for the referral of this patient. Sincerely, Quang Montana DPT, OC <Electronically signed by Quang Montana DPT, AURELIA, CSCS> 02/17/18 0645 CC: Rigoberto White; Rigoberto White MD EBG Signed INITAL EVALUATION (1) Observed: 01/31/2018 Status: F Source: [place] - PT 9:21 AM [facility] [place] [facility] Therapy [address] [place] [address] Fax REHABILITATION SERVICES INITIAL EVALUATION MR#: [id number] Acct: [id number] Name: NUHA SAEED Rep #: [id number] : 1945 72 From: Quang Montana DPT, OCS, CSCS Referring Dr.: Rigoberto White MD Status: REG RCR Insurance: ANTHEM MEDICARE PART A B Patient's Visit Information NUHA SAEED is a 72 year old F referred to Physical Therapy by Rigoberto White with a diagnosis of vertigo.. Date of Evaluation: 01/27/18 Physical Therapist: Quang Montana, DPT, OC - Visit Plan Frequency: 1x/Week Duration: 2-4 Weeks Plan: Pt to do VOR ex while on vacationa nd f/u in two weeks to check VOR and subjective dizzyness and progress as needed. Check dizzy meds. - Subjective Subjective: Dr. White thinks she has vertigo. Gets dizzy once in a while. Works at [employer], turning too quickly made her dizzy for a few seconds. Nothing else seemed to cause it. She is off work due to stomach problems right now. One fall two weeks ago just losing balance, no dizzyness. Sleep is OK. Activities at home are pretty normal. No pain outside of stomach aches. No neuropathy. Has RA. Last dizzy spell was the other day turning while walking transiently. - Objective Walks without deficit into and out of PT, c/s AROM WFL and painfree. Scores well on FGA. - B hallpike jarrett, - roll test. Oculomotor: no nystagmus with gaze or head shake. normal convergence. - skew eye deviation. + R head thrust. Pursuit and saccades appear normal. VOR is very challenging seated and more so standing. and makes her slightly transiently dizzy after 35 seconds. - Balance Scores Functional Gait Assessment Score: 29 % Disability: 3.3400 - Goals Goal 1:: abolish dizzyness for one week. 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 Rehabilitation Potential: Fair - Anticipated Interventions Patient/Client Instruction: Educate patient on: Condition, Plan of Care Other: to diminish dizzyness. Comment: oculomotor ex Other: to diminish dizzyness. Thank you for the opportunity to evaluate your patient. For Medicare and Medicare HMO plans, please review the plan of care and approve it. It will need to be FAXED BACK to us at [phone] for Medicare purposes. Please let me know if there are questions or concerns regarding this plan of care. Physician Signature: Date: <Electronically signed by Quang Montana DPT, OCS, CSCS> 01/31/18 0921 CC: Rigoberto White; Rigoberto White MD EBG Signed For Medicare only, by signing this I certify the plan of care. Physicians Signature Date EGD (PICK SITE) Observed: 01/30/2018 Status: F Source: [place] 12:00 AM [facility] [place] [facility] Patient: NUHA SAEED : 1945 (72/F) Acct Num: [id number] Phys: Rakesh Sanford Unit Num: [id number] Loc: LABSPEC Specimen: [id number] Received: 01/30/181522 Spec Type: EGD BIOPSY TISSUES TISSUES: A. Gastric mucous membrane B. Duodenum, NOS COMMENT A. The results of immunohistochemistry for Helicobacter pylori will be reported separately ([id number]). GROSS DESCRIPTION A - Received in fixative is one container labeled with the patient's name and designated gastric antrum and body biopsy. The specimen consists of two irregular fragments of light zaman soft tissue that in aggregate measure 0.5 x 0.5 x 0.1 cm. The specimen is totally submitted in one cassette. B - Received in fixative is one container labeled with the patient's name and designated duodenal biopsy, small bowel. The specimen consists of multiple irregular fragments of light zaman soft tissue that in aggregate measure 1 x 0.2 x 0.1 cm. The specimen is totally submitted in one cassette. / SJ:binh 01/31/18 TC:3 CPT: 35120 x2 HEADER OPERATION: EGD with biopsies PRE-OP DIAGNOSIS: Weight loss/nausea TISSUE SUBMITTED: A. Gastric antrum and body biopsies, rule out gastritis, B. Small bowel (duodenal) biopsies, rule out malabsorption MICROSCOPIC DESCRIPTION Slides are reviewed. A. The specimen shows fragments of gastric mucosa with chronic inflammatory cell infiltrates in the lamina propria consisting of lymphocytes and plasma cells, consistent with mild chronic gastritis. MICROSCOPIC DIAGNOSIS A. Gastric antrum and body biopsy: Mild gastritis. See microscopic description and comment. B. Duodenal biopsy: Fragments of duodenal mucosa with Kaya gland hyperplasia. SJ:binh 02/01/18 Signed Leodan Moran 02/01/18 <signature on file> Performed By: #### LAND #### [facility] [address] [place] [address]. [place], [place], [id number] IMMUNOHISTOCHEMISTRY Observed: 01/30/2018 Status: F Source: [place] 12:00 AM [facility] [place] [facility] Patient: NUHA SAEED : 1945 (72/F) Acct Num: [id number] Phys: ClaribelBridgettmariya Unit Num: [id number] Loc: LABSPEC Specimen: [id number] Received: 02/01/18 - 1308 Spec Type: IMMUNO TISSUES TISSUES: A. Stomach, NOS SPECIMEN INFORMATION: Tissue Source: A Gastric antrum and body biopsy Clinical Info: Weight loss, nausea Specimen Number: [id number] CPT code: 46794 METHODOLOGY: Deparaffinized sections of prefer/formalin-fixed tissue or PAP/DQ stained slides are incubated with monoclonal/polyclonal antibodies/oligonucleotide probes. Localization is made via biotin free immunoperoxidase method. Appropriate controls are performed and reacted as expected. Results on target cell population are indicated in the following table: RESULTS: ANTIBODY / CLONE RESULT Block A H Pylori (polyclonal) negative These tests were developed and their performance characteristics determined by [facility]. They may not have been cleared or approved by the U.S. Food and Drug Administration. The FDA has determined that such clearance or approval is not necessary. INTERPRETATION: A. Gastric antrum and body, biopsy: Negative for Helicobacter pylori organisms. SJ:binh 02/01/18 PHYSICIAN [facility] INSTIT[facility] [address] [address] Signed Leodan Moran 02/01/18 <signature on file> Performed By: #### PIMM #### [facility] [address] [place], [address] 12 LEAD ELECTROCARDIOGRAM Observed: 01/16/2018 Status: F Source: [place] 10:25 AM [facility] Cardiovascular Services [address] [place] [address] 12 Lead EKG 01/13/18 0951 MR#: [id number] Acct: [id number] Name: NUHA SAEED Rep #: [id number] : 1945 72 From: Sage Calhoun MD Attending Dr: Status: DEP ER Ordering Dr: Heriberto Galindo MD Date: 01/13/18 Location: ED Sex: F C Admitted: Test Reason : DIZZINESS Blood Pressure : / mmHG Vent. Rate : 088 BPM Atrial Rate : 088 BPM P-R Int : 164 ms QRS Dur : 086 ms QT Int : 392 ms P-R-T Axes : 072 019 044 degrees QTc Int : 474 ms Normal sinus rhythm Normal ECG Confirmed by SAGE CALHOUN ([id number]), food expeditor RACHAEL WEBB ([id number]) on 01/16/2018 10:25:08 AM Referred By: JW Confirmed By:SAGE CALHOUN 01/16/18 1025 Date Sage Calhoun MD CC: Rigoberto White; Heriberto Galindo MD Signed EMERGENCY DEPARTMENT Observed: 01/13/2018 Status: F Source: [place] SUMMARY 4:12 PM [facility] Medical Records Department [address] [place] [address] Emergency Department Summary 01/13/18 0950 MR#: [id number] Acct: [id number] Name: NUHA SAEED Rep #: [id number] : 1945 72 From: Heriberto Galindo MD PCP: Rigoberto White Status: DEP ER - ER Visit Summary Date of Service: 01/13/18 Chief Complaint: Dizziness History of Present Illness: The patient is a 72 F last week has had dizziness. She believes it may have began sometime around last Tuesday. She denies any headache or head trauma. She is on no blood thinners. She has had post prandial nausea and some epigastric abdominal pain for some time. She had negative ultrasound of her gallbladder. She denies any melena or hematemesis. She denies any fever. Over the last 2 months due to nausea after eating and some pain she has had about a 15 pound weight loss. She denies any chest pain or hemoptysis. She is a non-smoker. She denies any melena nor fever. She has had no recent head injury. She denies any stroke like symptoms. No visual change. No unilateral weakness. No change in her speech. She herself has never had vertigo and this does not change with change in position. She denies any urinary tract symptoms. Physical Examination: Ill-appearing older female. Vital signs are stable afebrile. Her pulse ox is 97% on room air no signs of hypoxia. HEENT exam normal. Except mildly dry mucous membranes. No facial droop. Pupils round reactive light. Normal speech. Neck nontender no lymphadenopathy. Lungs clear to auscultation bilaterally. Heart regular rate and rhythm no murmur rate about 85. Abdomen is soft and nontender. Normal bowel sounds no peritoneal signs. She is moving all 4 extremities. They are neurovascularly intact. She has 5 out of 5 dental ceramist assistant strength. Dorsi and plantar flexion are intact. Calves are nontender without edema. Back exam is nontender. Neurologically she is awake and alert with no focal motor or sensory deficits. NIH is 0. Hallpike maneuver is normal. No signs of vertigo with exam. Her ear canals are unremarkable without cerumen impaction. Test Results: See normal. BMP normal. Normal creatinine and gap. Liver enzymes normal. Lipase normal 137. EKG sinus rhythm rate 88 with no signs of ischemia or dysrhythmia. CT of the brain shows no acute abnormality read by the radiologist and reviewed by myself. Emergency Department Course and Treatment: Older female with dizziness. Unremarkable exam other than possibly mild dehydration. Treatment Plan: Repeat exam the patient is doing well at 1115. She got up out of bed and walked easily. No ataxia. Patient, myself and her family had a long discussion. She needs a follow-up to see what is causing her postprandial nausea and abdominal pain. She may need a HIDA scan. She may also need upper endoscopy if this is not a gallbladder issue. She will be referred to Dr. Whitaker him production control clerk for general surgery or Dr. Misael Costello who the family seen in the past. Disposition: Discharge Impression: Acute dizziness of uncertain etiology Postprandial nausea, abdominal pain and weight loss of uncertain etiology This note was generated with [employer] software. It may contain incorrect words, spelling, and punctuation that were not noted in review of the chart prior to signing ED Disposition - Plan for ED Patient: Chief Complaint: Dizziness Referrals: Rigoberto White [Primary Care Provider] - What to do if you have Problems For any increased pain, shortness of breath, bleeding, nausea or vomiting, chest pain, or any unexpected problems, contact your Primary Care Provider. Call [facility] ([phone]) or report to the closest Emergency Room. Call 911 if necessary. 01/13/18 1612 <Electronically signed by Heriberto Galindo MD> Date Heriberto Galindo MD Cosigner Signature (If Indicated): Date CC: Rigoberto White DISCHARGE INSTRUCTION Observed: 01/13/2018 Status: F Source: [place] 4:12 PM [facility] [place] [facility] Medical Records Department [address] [place] [address] Discharge Instruction 01/13/18 1121 MR#: [id number] Acct: [id number] Name: NUHA SAEED Mary Kate Rep #: [id number] : 1945 72 From: Heriberto Galindo MD PCP: Rigoberto White Status: DEP ER ED Disposition - Plan for ED Patient: Disposition: Home or Assisted Living Chief Complaint: Dizziness Instructions: ED Dizziness [facility] Referrals: Rigoberto White [Primary Care Provider] - As Needed Pineda Costello MD [STAFF PHYSICIAN] - As soon as possible Frida Whitaker MD [STAFF PHYSICIAN] - As soon as possible Additional Instructions: Zofran as needed for nausea. Fluids and rest. Follow-up with 1 of the local general surgeon for further evaluation for possible gallbladder disease. You may need a HIDA scan and/or upper endoscopy. What to do if you have Problems For any increased pain, shortness of breath, bleeding, nausea or vomiting, chest pain, or any unexpected problems, contact your Primary Care Provider. Call [facility] [facility] ([phone]) or report to the closest Emergency Room. Call 911 if necessary. 01/13/18 1612 <Electronically signed by Heriberto Galindo MD> Date Heriberto Galindo MD Cosigner Signature (If Indicated): Date CC: Rigoberto White CBC W/DIFF, AUTOMATED Collected: 01/13/2018 Status: F Source: [place] 10:31 AM [facility] [place] TYPE CODE TESTS RESULT OUT OF RANGE REFERENCE UNITS LAB L100.1000 4.4-11.0 K/mm3 Normal WBC 6.8 LAB L100.1200 4.2-5.4 M/mm3 Normal RBC 4.77 LAB L100.1300 12.0-15.0 g/dl High HGB 15.3 LAB L100.1400 37-47 % Normal HCT 46.3 LAB L100.1500 81-99 fL Normal MCV 97.1 LAB L100.1600 27.0-32.0 pg High MCH 32.1 LAB L100.1700 32-36 g/gl Normal MCHC 33.0 LAB L100.1810 11.6-14.6 % Normal RDW CV 13.1 LAB L100.1820 35.1-43.9 fl High RDW SD 45.6 LAB L100.1900 150-450 K/mm3 Normal PLT 229 LAB L100.2000 6.2-12.0 fl Normal MPV 10.3 LAB L100.2100 47-70 % Normal NEUT% 65.5 LAB L100.2200 19-41 % Normal LY% 20.8 LAB L100.2300 0-10 % Normal MONO% 9.2 LAB L100.2400 0-5 % Normal EO% 3.7 LAB L100.2500 0-1 % Normal BASO% 0.7 LAB L100.2550 0.0-0.9 % Normal IM GRAN % 0.100 Result Comment: IG% - Immature Granulocytes (promyelocytes, myelocytes and metamyelocytes) > 1% indicates that a LEFT SHIFT is Present. LAB L100.2620 2.0-7.7 X10 3/uL Normal Absolute Neut 4.5 LAB L100.2720 0.83-4.51 X10 3/ul Normal Absolute Lymph 1.42 Performed By: #### L100.0100 #### [facility] [address] [place], [address] BASIC METABOLIC Collected: 01/13/2018 Status: F Source: [place] PROFILE ([facility]) 10:31 AM [facility] [place] [facility] TYPE CODE TESTS RESULT OUT OF RANGE REFERENCE UNITS LAB L501.0100 74-106 mg/dL High GLU 120 Result Comment: Fasting Glucose result from 100 to 125 mg/dL suggests IMPAIRED HOMEOSTASIS per A.D.A. criteria. Please note revised GLUCOSE reference range effective 2017. LAB L501.1000 7-18 mg/dL Normal BUN 15 LAB L501.1100 0.55-1.02 mg/dL Normal CREAT,SERUM 0.76 Result Comment: The validity of the calculated GFR AND GFRAA in patients over 70 years has not been determined. Clinical correlation is essential. LAB L501.1110 >60 mL/min Normal EST GFR 80 Result Comment: Non- GFR Calc LAB L501.1115 >60 mL/min Normal EST GFR - AA 97 Result Comment: GFR Calc LAB L501.1255 ml/min Normal Estimated CRCL 39.50 LAB L501.1300 10-20 RATIO Normal BUN/CRE 19.7 LAB L501.2200 8.5-10 mg/dL Normal .1 CA 8.9 LAB L501.5300 136-14 mmol/L Normal 5 NA 140 LAB L501.5600 3.5-5. mmol/L Normal 1 K 3.9 LAB L501.5900 98-107 mmol/L Normal CL 106 LAB L501.6100 21.0-3 mmol/L Normal 2.0 CO2 29.0 LAB L501.6200 5-15 Normal GAP 5 Performed By: #### L500.2500, L500.3400, L501.2450 #### [facility] [address] [place], [place], [id number] LIVER PROFILE Collected: 01/13/2018 Status: F Source: [place] 10:31 AM [facility] [place] TYPE CODE TESTS RESULT OUT OF RANGE REFERENCE UNITS LAB L501.1500 6.4-8.2 g/dL Normal T PROT 7.1 LAB L501.1800 3.2-5.0 g/dL Normal ALB 3.8 LAB L501.1950 2.2-4.2 g/dL Normal GLOB 3.3 LAB L501.4100 15-37 U/L Normal AST 22 LAB L501.4305 45-117 U/L Normal ALK P 87 LAB L501.4405 13-56 U/L Normal ALT 23 LAB L501.4600 0.20-1.00 mg/dL Normal T BILI 0.40 LAB L501.4700 0.00-0.30 mg/dL Normal D BILI 0.14 Performed By: #### L500.2500, L500.3400, L501.2450 #### [facility] [address] [place], [place], [id number] LIPASE Collected: 01/13/2018 Status: F Source: [place] 10:31 AM [facility] [place] TYPE CODE TESTS RESULT OUT OF RANGE REFERENCE UNITS LAB L501.2450 73-393 U/L Normal LIPASE 137 Performed By: #### L500.2500, L500.3400, L501.2450 #### [facility] [address] [place], [place], [id number] BRAIN/HEAD WITHOUT Observed: 01/13/2018 Status: F Source: [place] CONTRAST 9:48 AM [facility] [place] [facility] Imaging Services [address] [place] [address] Brain/Head without Contrast MR#: [id number] Acct: [id number] Name: NUHA SAEED Rep #: [id number] : 1945 F 72 From: Marques Ford MD PCP: Rigoberto White Status: REG ER Study: Brain/Head without Contrast Date of Exam: 01/13/18 Exam# [id number] Ordering Dr: Heriberto Galindo MD STUDY: CT BRAIN WITHOUT CONTRAST REASON FOR EXAM: Female, 72 years old. Dizziness and weakness. RADIATION DOSAGE (If Supplied By Facility): CTDIvol = ( 44.99 ) mGy, DLP = ( 745.49 ) mGycm TECHNIQUE: Transaxial CT imaging of the brain was performed without administration of intravenous contrast material. Individualized dose optimization techniques were used for this CT. COMPARISON: None. FINDINGS: Normal soft tissue structures. Normal calvarium. Normal size ventricles and extra-axial spaces for the patient's age. Normal white matter tracts of the cerebral hemispheres. Normal basal ganglia and thalami. Normal brainstem. Normal cerebellum. There is no intracranial hemorrhage. There are no findings of an acute ischemic infarction. Normal visualized paranasal sinuses. CT/Brain/Head without Contrast IMPRESSION: Normal unenhanced CT scan of the brain. Electronically Signed: Marques Ford MD at 10:31 EDT Tel [phone], Service support , CC: Rigoberto White; Heriberto Galindo MD Emt/Dispatcher: Signed ONLINE ACTIVIST OFFICE VISIT Observed: 10/24/2017 Status: F Source: [place] REPORT 8:42 AM [facility] [place] [address] [place] [address] OFFICE VISIT Date of Service: 10/24/17 MR#: [id number] Acct: [id number] Name: NUHA SAEED Rep #: [id number] : 1945 Provider: KEIRY Garza Age/Sex: 72/F Location: [facility] Status: Signed Intake Vital Signs10/24/17 Height 5 ft 1 in 10/24/17 Weight: 137 lb 4 oz 10/24/17 Body Mass Index (BMI) 25.9 10/24/17 Blood Pressure 116/70 Intake Visit Reasons: Lichen Schlerosis Follow Up Police Surgeon Required: No Is patient in pain?: No Allergies acetaminophen [From Excedrin Back and Body] Allergy (Mild, Verified 10/24/17 08:24) Other aspirin [From Excedrin Back and Body] Allergy (Mild, Verified 10/24/17 08:24) Other calcium carbonate [From Excedrin Back and Body] Allergy (Mild, Verified 10/24/17 08:24) Other codeine Allergy (Mild, Verified 10/24/17 08:24) Nausea/Vom/Diarrhea morphine Allergy (Mild, Verified 10/24/17 08:24) Other Medications cholecalciferol (vitamin D3) 1,000 unit capsule 1,000 unit PO ONCE 08/24/17 [History Confirmed 10/24/17] clobetasol 0.05 % topical ointment 1 applic TOPICAL .COMPLEX #15 g 08/24/17 [Rx Confirmed 10/24/17] glucosamine-chondroitin 250 mg-200 mg tablet 2 tab PO TID 08/24/17 [History Confirmed 10/24/17] hydroxychloroquine 200 mg tablet 200 mg PO QDAY 08/24/17 [History Confirmed 10/24/17] multivitamin,gh-ppva-ngphbect tablet 1 tab PO QDAY 08/24/17 [History Confirmed 10/24/17] estradiol 0.01% (0.1 mg/gram) vaginal cream See Dose Instructions VAGINAL .COMPLEX #42.5 g 09/22/17 [Rx Confirmed 10/24/17] Is last menstrual period known: No Post menopausal: Yes Patient : No : No PFSH Medical History Arthritis (Acute) Shortness of breath (Acute) Surgical History H/O foot surgery (Acute) Family History Mother Diabetes Father Cancer prostate Sister Breast cancer Brother Diabetes Social History Smoking Status: Never smoker alcohol intake: never substance use type: does not use caffeine: No frequency: 1-2 times per week seatbelt use: always do you feel safe at home: Yes additional social history: - [employer] HPI Lichen Schlerosis Follow Up: Details: NUHA SAEED is a 72 year old who presents for follow up use clobetesol and estrace cream for lichen sclerosis and atrophic vaginitis. States doing much better, no longer with itching. Pregancy History 5 Elective abortions Hx Para 5 Spontaneous abortions Past Pregnancies Del. DateName GA/Weeks Outcome Route Bth WeighInfant GeLabor LgtAnesthesiDel LocatProvider FOB t n h a n Exam Other: vulva is pale pink, no longer with silver whitening. Regression of minora but less adhesions at clitoral mendiola. Assessment AND Plan Problems 1. Lichen sclerosus L90.0 2. Atrophic vaginitis N95.2 Hold clobetesol except if symptomatic then daily X 5 days, thin layer continue estrace cream but increase to 3 times a week, thin layer as directed Coding Level of Care Code Off vis,est,level 3 Diagnoses Lichen sclerosus L90.0 Atrophic vaginitis N95.2 10/24/17 0842 <Electronically signed by Marlen MURPHY> Date Marlen MURPHY Cosigner Signature: Date (if applicable) CC: ONLINE ACTIVIST OFFICE VISIT Observed: 09/22/2017 Status: F Source: [place] REPORT 10:26 AM [facility] [address] [place] [address] OFFICE VISIT Date of Service: 09/22/17 MR#: [id number] Acct: [id number] Name: NUHA SAEED Rep #: [id number] : 1945 Provider: KEIRY Garza Age/Sex: 72/F Location: [facility] Status: Signed Intake Vital Signs09/22/17 Height 5 ft 1 in 09/22/17 Weight: 135 lb 8 oz 09/22/17 Body Mass Index (BMI) 25.6 09/22/17 Blood Pressure 121/72 Intake Visit Reasons: FOLLOW UP Chief Complaint: Lichen Schlerosis follow up Police Surgeon Required: No Is patient in pain?: No Allergies acetaminophen [From Excedrin Back and Body] Allergy (Mild, Verified 09/22/17 10:06) Other aspirin [From Excedrin Back and Body] Allergy (Mild, Verified 09/22/17 10:06) Other calcium carbonate [From Excedrin Back and Body] Allergy (Mild, Verified 09/22/17 10:06) Other codeine Allergy (Mild, Verified 09/22/17 10:06) Nausea/Vom/Diarrhea morphine Allergy (Mild, Verified 09/22/17 10:06) Other Medications cholecalciferol (vitamin D3) 1,000 unit capsule 1,000 unit PO ONCE 08/24/17 [History Confirmed 09/22/17] clobetasol 0.05 % topical ointment 1 applic TOPICAL .COMPLEX #15 g 08/24/17 [Rx Confirmed 09/22/17] glucosamine-chondroitin 250 mg-200 mg tablet 2 tab PO TID 08/24/17 [History Confirmed 09/22/17] hydroxychloroquine 200 mg tablet 200 mg PO QDAY 08/24/17 [History Confirmed 09/22/17] multivitamin,cb-msaf-abqqzrel tablet 1 tab PO QDAY 08/24/17 [History Confirmed 09/22/17] estradiol 0.01% (0.1 mg/gram) vaginal cream See Dose Instructions VAGINAL .COMPLEX #42.5 g 09/22/17 [Rx Confirmed 09/22/17] Is last menstrual period known: No Post menopausal: No Patient : No : No PFSH Medical History Arthritis (Acute) Shortness of breath (Acute) Surgical History H/O foot surgery (Acute) Family History Mother Diabetes Father Cancer prostate Sister Breast cancer Brother Diabetes Social History Smoking Status: Never smoker alcohol intake: never substance use type: does not use caffeine: No frequency: 1-2 times per week seatbelt use: always do you feel safe at home: Yes additional social history: - [employer] HPI FOLLOW UP: Details: NUHA SAEED is a 72 year old who presents for follow up start of chlobetesol for lichen sclerosis. States no longer having itching. Pregancy History 5 Elective abortions Hx Para 5 Spontaneous abortions Past Pregnancies Del. DateName GA/Weeks Outcome Route Bth WeighInfant GeLabor LgtAnesthesiDel LocatProvider FOB t n h a n Exam Urethra: other (urethra dilated with caruncle) Speculum Exam - Vagina: atrophic vaginal mucosa Other: Improvement of silver whitening of bilateral inner vulva from clitoris to anus. More pale pink. Still white at introitus. Assessment AND Plan Problems 1. Lichen sclerosus L90.0 2. Atrophic vaginitis N95.2 Plan Continue clobetesol daily X 4 weeks Add estrace cream twice a week RTO 4 weeks Medications New: Coding Level of Care Code Off vis,est,level 3 Diagnoses Lichen sclerosus L90.0 Atrophic vaginitis N95.2 09/22/17 1026 <Electronically signed by Marlen DIXONC> Date Marlen DIXONC Cosigner Signature: Date (if applicable) CC: SCREENING MAMM (CAD), Observed: 09/15/2017 Status: F Source: [place] 10:30 AM [facility] [place] Imaging Services [address] [place] [address] SCREENING MAMM (CAD), BILAT MR#: [id number] Acct: [id number] Name: NUHA SAEED Rep #: [id number] : 1945 F 72 From: Marques Ford MD PCP: Rigoberto White Status: REG CLI Study: SCREENING MAMM (CAD), BILAT Date of Exam: 09/15/17 Exam# [id number] Ordering Dr: Rima Hendrix o. MAMMOGRAPHY - BILATERAL SCREENING REASON FOR EXAM: Female, 72 years old. Routine annual screening examination. PERTINENT HISTORY: Sister with breast cancer. Aunt with breast cancer. TECHNIQUE: Digital bilateral breast brea (3D mammographic acquisition) in the CC and MLO projections. 2-D mediolateral oblique (MLO) and craniocaudad (CC) views of both breasts were obtained. CAD: Full Field Digital Mammography with Computer Added Detection was performed. COMPARISON: Comparison is made with prior study dated February 17, 2017 and August 18, 2015. FINDINGS: Breast Composition: There are scattered areas of fibroglandular density. There are no dominant masses or suspicious calcifications. No other significant abnormalities are identified. There has been no significant change since the prior study. HPBI/SCREENING MAMM (CAD), BILAT IMPRESSION: Stable bilateral screening mammogram. Yearly follow-up mammogram recommended. (A) ASSESSMENT CATEGORY: BIRADS Category 1: Negative. A letter regarding these results will be sent to the patient by the facility within 30 days. Approximately 10% of breast cancers are not detected by mammography. A normal mammogram should not delay biopsy of a clinically suspicious abnormality. [id number] Electronically Signed: Marques Ford MD at 13:07 EST Tel [phone], Service support , CC: Rigoberto White; OUT OF [facility] DOCTOR Emt/Dispatcher: Signed ACUTE ABDOMEN INC Observed: 09/08/2017 Status: F Source: [place] CHEST 8:32 AM [facility] [place] Imaging Services [address] [place] [address] Acute Abdomen Inc Chest MR#: [id number] Acct: [id number] Name: NUHA SAEED Rep #: [id number] : 1945 F 72 From: Marques Ford MD PCP: Rigoberto White Status: REG CLI Study: Acute Abdomen Inc Chest Date of Exam: 09/08/17 Exam# [id number] Ordering Dr: [facility] , Out o. STUDY: X-RAY - ACUTE ABDOMINAL SERIES REASON FOR EXAM: Female, 72 years old. Abdominal pain. TECHNIQUE: Single view of the chest. Supine, and erect view(s) of the abdomen were obtained. COMPARISON: None. FINDINGS: The lungs are clear and expanded. Normal size heart. Normal mediastinum and grace. Normal visualized pulmonary arteries. There is atherosclerotic calcification of the aortic arch with tortuosity. There is an abundance of fecal material throughout the colon. The soft tissue structures of the abdomen and pelvis are unremarkable. There are diffuse degenerative changes of the visualized lumbar spine. Dextroscoliosis. RAD/Acute Abdomen Inc Chest IMPRESSION: Large amount of fecal material is seen in the colon. Electronically Signed: Marques Ford MD at 12:42 EST Tel [phone], Service support , CC: Rigoberto White; OUT OF TOWN DOCTOR Emt/Dispatcher: Signed GALLBLADDER Observed: 09/07/2017 Status: F Source: [place] 7:57 AM [facility] [place] [facility] Imaging Services [address] [place] [address] Gallbladder MR#: [id number] Acct: [id number] Name: NUHA SAEED Rep #: [id number] : 1945 F 72 From: Marques Ford MD PCP: Rigoberto White Status: REG CLI Study: Gallbladder Date of Exam: 09/07/17 Exam# [id number] Ordering Dr: Coretta Hoover, Out o. STUDY: ABDOMINAL ULTRASOUND - RIGHT UPPER QUADRANT REASON FOR VISIT: Female, 72 years old. Generalized abdominal pain. TECHNIQUE: Ultrasound evaluation of the right upper quadrant was performed with real-time and static scruggs-scale imaging. TECHNICAL QUALITY: Adequate. COMPARISON: None. FINDINGS: Liver: The liver measures 11.3 cm. There is normal echogenicity of the liver. The bile ducts are within normal limits. There is hepatic color flow. The direction of portal flow is hepatopetal. There is no demonstrated mass lesion. Gallbladder: Normal distended gallbladder. The gallbladder wall measures 2.4 mm. There is a negative sonographic Smith's sign. There is no pericholecystic fluid. There are no gallstones. Common Bile Duct (C.B.D.): The common bile duct measures 3.4 mm. Pancreas: Normal size of the head, body and tail of the pancreas. There is normal echogenicity of the pancreas. There is no demonstrated pancreatic mass or cyst. Right Kidney: Normal size of the right kidney. The right kidney measures 10.8 cm x 4.3 cm x 4.6 cm. Normal renal cortex. The right cortex measures 1.3 cm. There is no demonstrated renal mass or cyst. There is no right hydronephrosis. US/Gallbladder IMPRESSION: Normal right upper quadrant ultrasound examination. Electronically Signed: Marques Ford MD at 12:06 EST Tel [phone], Service support , CC: Rigoberto White; OUT [facility] DOCTOR Emt/Dispatcher: Signed TRANSVAGINAL Observed: 08/29/2017 Status: F Source: [place] NON- 12:25 PM [facility] [place] [facility] Imaging Services [address] [place] [address] Transvaginal Non- MR#: [id number] Acct: [id number] Name: NUHA SAEED Rep #: [id number] : 1945 F 72 From: Al Cornell PCP: Rigoberto White MD Status: REG CLI Study: Transvaginal Non- Date of Exam: 08/29/17 Exam# [id number] Ordering Dr: Marlen Garza GUNNER'S MATE-C STUDY: ULTRASOUND TRANSVAGINAL CLINICAL: Female, 72 years old. Pelvic pain. TECHNIQUE: Transabdominal and transvaginal. COMPARISON: None. FINDINGS: The uterus is anteverted and tilted to the right. Uterus measures 5.4 x 4.2 x 3.3 cm. Scattered calcifications throughout the uterus suggestive of small calcified fibroids. No IUD. Cervix is normal. Endometrium measures 3 mm and is hyperechoic. Ovaries not visualized. There is no free fluid in the pelvis. Bladder volume 428 mL. US/Transvaginal Non- IMPRESSION: Small calcified uterine fibroids. Ovaries not visualized. Electronically Signed: Al Cornell MD at 4:41 EST , Service support , CC: KEIRY Garza; Rigoberto White MD Emt/Dispatcher: Signed PELVIC (NON ) Observed: 08/29/2017 Status: F Source: [place] 12:25 PM [facility] [place] [facility] Imaging Services [address] [place] [address] Pelvic (Non ) MR#: [id number] Acct: [id number] Name: NUHA SAEED Rep #: [id number] : 1945 F 72 From: Al Cornell PCP: Rigoberto White MD Status: REG CLI Study: Pelvic (Non ) Date of Exam: 08/29/17 Exam# [id number] Ordering Dr: Marlen Garza GUNNER'S MATE-Colt STUDY: ULTRASOUND TRANSVAGINAL CLINICAL: Female, 72 years old. Pelvic pain. TECHNIQUE: Transabdominal and transvaginal. COMPARISON: None. FINDINGS: The uterus is anteverted and tilted to the right. Uterus measures 5.4 x 4.2 x 3.3 cm. Scattered calcifications throughout the uterus suggestive of small calcified fibroids. No IUD. Cervix is normal. Endometrium measures 3 mm and is hyperechoic. Ovaries not visualized. There is no free fluid in the pelvis. Bladder volume 428 mL. US/Pelvic (Non ) IMPRESSION: Small calcified uterine fibroids. Ovaries not visualized. Electronically Signed: Al Cornell MD at 4:41 EST , Service support , CC: KEIRY Garza; Rigoberto White MD Emt/Dispatcher: Signed ONLINE ACTIVIST OFFICE VISIT Observed: 08/24/2017 Status: F Source: [place] REPORT 11:00 AM [facility] [place] [facility] [address] [place] [address] OFFICE VISIT Date of Service: 08/24/17 MR#: [id number] Acct: [id number] Name: NUHA SAEED Rep #: [id number] : 1945 Provider: KEIRY Garza Age/Sex: 72/F Location: [facility] Status: Signed Intake Vital Signs08/24/17 Height 5 ft 1 in 08/24/17 Weight: 141 lb 6 oz 08/24/17 Body Mass Index (BMI) 26.6 08/24/17 Blood Pressure 130/78 Intake Visit Reasons: Pelvic pain Chief Complaint: NEW Pelvic Pain Police Surgeon Required: No Is patient in pain?: No Allergies acetaminophen [From Excedrin Back and Body] Allergy (Mild, Verified 08/24/17 10:22) Other aspirin [From Excedrin Back and Body] Allergy (Mild, Verified 08/24/17 10:22) Other calcium carbonate [From Excedrin Back and Body] Allergy (Mild, Verified 08/24/17 10:22) Other codeine Allergy (Mild, Verified 08/24/17 10:22) Nausea/Vom/Diarrhea morphine Allergy (Mild, Verified 08/24/17 10:22) Other Medications cholecalciferol (vitamin D3) 1,000 unit capsule 1,000 unit PO ONCE 08/24/17 [History Confirmed 08/24/17] clobetasol 0.05 % topical ointment 1 applic TOPICAL .COMPLEX #15 g 08/24/17 [Rx Confirmed 08/24/17] glucosamine-chondroitin 250 mg-200 mg tablet 2 tab PO TID 08/24/17 [History Confirmed 08/24/17] hydroxychloroquine 200 mg tablet 200 mg PO QDAY 08/24/17 [History Confirmed 08/24/17] multivitamin,yp-abds-pqrzvcvj tablet 1 tab PO QDAY 08/24/17 [History Confirmed 08/24/17] Is last menstrual period known: No Post menopausal: Yes Patient : No : No PFSH Medical History Arthritis (Acute) Shortness of breath (Acute) Surgical History H/O foot surgery (Acute) Family History Mother Diabetes Father Cancer prostate Sister Breast cancer Brother Diabetes Social History Smoking Status: Never smoker alcohol intake: never substance use type: does not use caffeine: No frequency: 1-2 times per week seatbelt use: always do you feel safe at home: Yes additional social history: - [employer] HPI Pain in female pelvis: Details: NUHA SAEED is a 72 year old who presents for new patient concern of pelvic pain. Off and on X 1 year. Very significant on 08/19. Has resolved now. Also complains of vaginal itching. States also has had small amount pink discharge on panties but has not happened for several months. Never nears a pad. 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 Pregancy History 5 Elective abortions Hx Para 5 Spontaneous abortions Past Pregnancies Del. DateName GA/Weeks Outcome Route Bth WeighInfant GeLabor LgtAnesthesiDel LocatProvider FOB t n h a n Exam Const General: cooperative, no acute distress Nutritional Appearance: average body habitus Orientation: oriented x3 External Female Exam: other (atrophiy. minimal labia minora. Silver whitening inner bilat labia to anus) Urethra: other (dilated with 5mm caruncle. Nonfriable) Speculum Exam - Vagina: atrophic vaginal mucosa Speculum Exam - Cervix: other (stenotic cervix) Bimanual Exam- Vagina AND Uterus: uterine size normal, uterus non-tender Bimanual Exam- Adnexa, other: no adnexal masses, adnexal tenderness on the left, cystocele, enterocele Pelvic Support: cystocele, enterocele Assessment AND Plan 1. Pain in female pelvis R10.2 Orders Orders: 2. Lichen sclerosus L90.0 3. Cystocele and rectocele with incomplete uterovaginal prolapse N81.2 Plan Reviewed use of clobetesol Discussed management of prolapse if symptoms occur Schedule US RTO 4 weeks Plan Detail Other Medications New: clobetasol 0.05% 1 applic TOPICAL apply thin layer bid X 2 weeks then daily X 2 weeks; attila ly thin layer; massage gently into affected area Coding Level of Care Code Off vis,new,level 3 Diagnoses Pain in female pelvis R10.2 Lichen sclerosus L90.0 Cystocele and rectocele with incomplete uterovaginal prolapse N81.2 08/24/17 1100 <Electronically signed by Marlen MURPHY> Date Marlen MURPHY Cosigner Signature: Date (if applicable) CC: URINALYSIS, ROUTINE Collected: 08/22/2017 Status: F Source: [place] (DIPSTICK) 8:54 AM [facility] [place] [facility] Order Comment: How was Urine Obtained? CLEAN CATCH TYPE CODE TESTS RESULT OUT OF RANGE REFERENCE UNITS LAB L400.3000 Yellow COLOR Normal Yellow LAB L400.3050 Clear Normal CLARITY Clear LAB L400.3200 Normal mg/dl Normal GLUCOSE, UR Normal LAB L400.3300 Negative mg/dL Normal BILIRUBIN URINE Negative LAB L400.3400 Negative mg/dl Normal KETONE UR Negative LAB L400.3465 1.002-1.030 Normal SP.GR. DIPSTX 1.020 LAB L400.3550 5.0 - 8.0 pH UR Normal 6.5 LAB L400.3600 Negative mg/dl High PROT 15 DIPSTX LAB L400.3700 Normal mg/dl Normal UROBILI Normal LAB L400.3750 Negative Normal NITRITE UR Negative LAB L400.3780 Negative /ul Normal OCCULT BLOOD-UR Negative LAB L400.3800 Negative /ul High LEUK 25 ESTERASE Performed By: #### L400.2010 #### [facility] [address] [place], [address] CBC W/DIFF, AUTOMATED Collected: 08/22/2017 Status: F Source: [place] 8:54 AM [facility] [place] [facility] TYPE CODE TESTS RESULT OUT OF RANGE REFERENCE UNITS LAB L100.1000 4.4-11.0 K/mm3 Normal WBC 6.4 LAB L100.1200 4.2-5.4 M/mm3 Normal RBC 5.14 LAB L100.1300 12.0-15.0 g/dl High HGB 16.4 LAB L100.1400 37-47 % High HCT 49.9 LAB L100.1500 81-99 fL Normal MCV 97.1 LAB L100.1600 27.0-32.0 pg Normal MCH 31.9 LAB L100.1700 32-36 g/gl Normal MCHC 32.9 LAB L100.1810 11.6-14.6 % Normal RDW CV 13.6 LAB L100.1820 35.1-43.9 fl High RDW SD 47.7 LAB L100.1900 150-450 K/mm3 Normal PLT 203 LAB L100.2000 6.2-12.0 fl Normal MPV 11.7 LAB L100.2100 47-70 % Normal NEUT% 47.6 LAB L100.2200 19-41 % Normal LY% 39.8 LAB L100.2300 0-10 % Normal MONO% 8.2 LAB L100.2400 0-5 % Normal EO% 3.4 LAB L100.2500 0-1 % Normal BASO% 0.8 LAB L100.2550 0.0-0.9 % Normal IM GRAN % 0.200 Result Comment: IG% - Immature Granulocytes (promyelocytes, myelocytes and metamyelocytes) > 1% indicates that a LEFT SHIFT is Present. LAB L100.2620 2.0-7.7 X10 3/uL Normal Absolute Neut 3.0 LAB L100.2720 0.83-4.51 X10 3/ul Normal Absolute Lymph 2.54 Performed By: #### L100.0100 #### [facility] [address] [facility]. [place], [place], [address] VITAMIN D,25 HYDROXY Collected: 08/22/2017 Status: F Source: [place] 8:54 AM [facility] [place] [facility] TYPE CODE TESTS RESULT OUT OF RANGE REFERENCE UNITS LAB L506.1000 ng/mL Normal Vitamin D 32.9 25-OH Result Comment: Vitamin D 25(OH) Status Range Deficiency <20 ng/mL (50nmol/L) Insuffciency 20 - 30 ng/mL (50 - 75 nmol/L) Sufficiency 30 - 100 ng/mL (75 - 250 nmol/L) Toxicity >100 ng/mL (>250 nmol/L) Performed By: #### L506.1000 #### [facility] [address] [facility] [place], [address] COMPREHENSIVE METABOLIC Collected: 08/22/2017 Status: F Source: [facility] 8:54 AM [facility] [place] [facility] TYPE CODE TESTS RESULT OUT OF RANGE REFERENCE UNITS LAB L501.0100 70-110 mg/dL Normal GLU 88 LAB L501.1000 7-18 mg/dL Normal BUN 13 LAB L501.1100 0.55-1.02 mg/dL Normal 0.72 CREAT,SERUM Result Comment: The validity of the calculated GFR AND GFRAA in patients over 70 years has not been determined. Clinical correlation is essential. LAB L501.1110 >60 mL/min Normal EST GFR 86 Result Comment: Non- GFR Calc LAB L501.1115 >60 mL/min Normal EST GFR - AA 104 Result Comment: GFR Calc LAB L501.1300 10-20 RATIO Normal BUN/CRE 18.2 LAB L501.1500 6.4-8.2 g/dL T Normal PROT 6.7 LAB L501.1800 3.2-5.0 g/dL Normal ALB 3.9 LAB L501.1950 2.2-4.2 g/dL Normal GLOB 2.8 LAB L501.2000 0.9-2.4 RATIO Normal A/G 1.4 LAB L501.2200 8.5-10.1 mg/dL CA Normal 9.0 LAB L501.4100 15-37 U/L Normal AST 22 LAB L501.4305 45-117 U/L Normal ALK P 77 LAB L501.4405 13-56 U/L Normal ALT 27 Result Comment: Please note revised ALT reference range effective 2017. LAB L501.4600 0.20-1.00 mg/dL Normal T BILI 0.40 LAB L501.5300 136-145 mmol/L Normal NA 142 LAB L501.5600 3.5-5.1 mmol/L Normal K 4.4 LAB L501.5900 98-107 mmol/L Normal CL 106 LAB L501.6100 21.0-32.0 mmol/L Normal CO2 29.0 LAB L501.6200 5-15 Normal GAP 7 Performed By: #### L500.4050, L500.4100 #### [facility] [address] [place], [address] LIPID PROFILE Collected: 08/22/2017 Status: F Source: [place] 8:54 AM [facility] [place] [facility] TYPE CODE TESTS RESULT OUT OF RANGE REFERENCE UNITS LAB L501.4900 200 mg/dL Normal CHOL 159 Result Comment: <200 mg/dL Desirable 200-240 mg/dL Borderline >240 mg/dL High Risk LAB L501.5000 mg/dL Normal TRIG 85 Result Comment: The drugs N-Acetylcysteine and Metamizole may falsely depress this assay. Serum Triglycerides Reference Interval Normal <150 mg/dL Borderline high 150 - 199 mg/dL High 200 - 499 mg/dL Very High > or = 500 mg/dL LAB L501.6400 mg/dL Normal HDL 81 Result Comment: The drugs N-Acetylcysteine and Metamizole may falsely depress this assay. Reference Range HDL <40 mg/dL Low HDL Cholesterol HDL >or= 60 mg/dL High HDL Cholesterol LAB L501.6500 0-130 mg/dL Normal LDL 61 LAB L501.6600 5-40 mg/dL Normal VLDL 17 Performed By: #### L500.4050, L500.4100 #### [facility] [address] [place], [place], [address] URGENT CARE VISIT Observed: 07/23/2017 Status: F Source: [place] REPORT 10:11 AM [facility] [place] [facility] [address] [place] [address] 6 [place], [place] [address] OFFICE VISIT Date of Service: 07/23/17 MR#: [id number] Acct: [id number] Name: NUHA SAEED Rep #: [id number] : 1945 Provider: CHRISTI Denton Age/Sex: 72/F Location: [facility] Status: Signed Intake Vital Signs07/23/17 Height 5 ft 1 in 07/23/17 Weight: 145 lb 07/23/17 Body Mass Index (BMI) 27.3 Intake Visit Reasons: CHEST CONGESTION Allergies No Known Allergies Allergy (Unverified 07/23/17 09:10) Medications NK [NK] 07/23/17 [History Confirmed 07/23/17] amoxicillin 500 mg tablet 500 mg PO BID 10 Days #20 tab 07/23/17 [Rx Confirmed 07/23/17] PFSH Medical History Arthritis (Acute) Shortness of breath (Acute) Social History Smoking Status: Never smoker alcohol intake: never HPI CHEST CONGESTION: Details: NUHA SAEED, is a 72 F who presents to the office today for a two-week history of chest congestion tiredness and left ear pain that developed 3 days ago. She states she has had no fevers she has a nonproductive cough she continues to work at [employer]. She states she was treated for pneumonia 2 or 3 years ago. There is no one sick at home and she has not traveled internationally. ROS Const Constitutional: Positive for fatigue and decreased energy ENT ENT: Positive for ear pain (Left ear pain) Resp Respiratory: Positive for chest congestion (She reports a dry nonproductive cough) Cardio Cardiology: Positive for shortness of breath (Perceived shortness of breath with exertion relieved with rest) and dyspnea on exertion; no chest pain at rest, chest pain with exertion or orthopnea Endo Endocrine: Positive for fatigue Exam Const General: healthy appearing, no acute distress Orientation: oriented x3, oriented to person, oriented to place, oriented to time [facility] Head: normocephalic Ears: external ears normal, TM's abnormal bilaterally, EAC's normal, left TM abnormal (Left TM erythematous and bulging with moderate effusion), TM normal on the right Eyes General: appearance normal, both eyes and all related structures Conjunctivae: conjunctivae normal Sclera: sclerae normal Pupils: PERRL Neck Neck: no lymphadenopathy Thyroid: thyroid normal Chest Chest palpation AND inspection: normal inspection of the chest Resp Effort AND Inspection: normal respiratory effort, no cough, no respiratory distress Auscultation: Bilateral: Clear to Auscultation Cardio Rate: regular rate Rhythm: regular rhythm GI Inspection: normal to inspection Auscultation: normal bowel sounds Palpation: no hepatosplenomegaly, no splenomegaly, no masses Skin General: no pallor Rashes: no rashes Nails: no clubbing Neuro General: oriented x3, gait normal Extrem General: normal to inspection, no pedal edema, no calf tenderness, normal gait, no edema, no cyanosis, no clubbing, no calf tenderness bilaterally, no pedal edema Psych Mood: congruent mood Affect: normal affect Speech and Movement: speech and movement normal Assessment AND Plan Problems 1. Otitis media, left H66.92 Plan We will begin amoxicillin 500 mg every 12 hours 10 days the patient was encouraged to keep well-hydrated good handwashing technique reviewed return if symptoms worsen. Medications New: Coding Level of Care Code Off vis,new,level 3 Diagnoses Otitis media, left H66.92 07/23/17 1011 <Electronically signed by Ryan BARRAZA> Date yRan Britt Signature: Date (if applicable) CC: ALLERGIES ALLERGIES DATE TYPE / CODE NAME / CODE REACTION SEVERITY SOURCE 06/19/2018 Drug calcium Other [facility] Allergy/4160 carbonate/F006 Hospital 28811(SNOMED 084586(RXNORM) Repository CT) 06/19/2018 Drug morphine/F0060 Other [facility] Allergy/4160 52425(RXNORM) Hospital 23698(SNOMED Repository CT) 06/19/2018 Drug codeine/N98799 Nausea/Vom/Diar [facility] Allergy/4160 1550(RXNORM) [facility] Hospital 34408(SNOMED Repository CT) 06/19/2018 Drug aspirin/D19840 Other [facility] Allergy/4160 1587(RXNORM) Hospital 17295(SNOMED Repository CT) 10/24/2017 Drug acetaminophen/ Other [facility] Allergy/4160 [id number](RXN Hospital 99135(SNOMED ORM) Repository CT) 07/23/2017 Drug No Known Unknown [facility] Allergy/4160 Allergies/F001 Hospital 52230(SNOMED 794861(RXNORM) Repository CT) ENCOUNTERS ENCOUNTERS ADMIT/DISCHARGE ACCOUNT ADMITTING ENCOUNTER LOCATION SOURCE NUMBER CLASS 06/19/2018 [id number] Ambulatory [place] 2 [facility] ing:LABSPEC Repository 06/19/2018/ [id number] Ambulatory BMSBuilding:B [place] 8 3 [facility] Repository 03/03/2018 [id number] Ambulatory [place] 4 [facility] ing:NM Repository 02/15/2018/ [id number] Ambulatory [place] 8 8 [facility] ing:PT Repository 01/30/2018 [id number] Ambulatory [place] 5 [facility] ing:LABSPEC Repository 01/13/2018/ [id number] Emergency [place] 8 8 [facility] ing:ED Repository 10/24/2017/ [id number] Ambulatory BMSBuilding:B [place] 8 9 [facility] Repository 09/22/2017/ [id number] Ambulatory BMSBuilding:B [place] 8 2 [facility] Repository 09/15/2017 [id number] Ambulatory [place] 2 [facility] ing:BI Repository 09/08/2017 [id number] Ambulatory [place] 8 [facility] ing:HPRAD Repository 09/07/2017 [id number] Ambulatory [place] 8 [facility] ing:USHP Repository 08/29/2017 [id number] Ambulatory Jesse [place] 1 [facility] ing:US Repository 08/24/2017/ [id number] Ambulatory BMSBuilding:B [place] 8 1 [facility] Repository 08/22/2017 [id number] Ambulatory Jesse [place] 7 [facility] ing:MTLAB Repository 07/23/2017/ [id number] Ambulatory BMSBuilding:B [place] 7 4 [facility] Repository PAYERS PAYERS ENCOUNTER GUARANTOR PAYER SUBSCRIBER SOURCE 06/19/2018 NUHA D Primary NUHA D [place] [id number] Insurance:ANTHEMPolic POWERDOB: [facility] BETO DRALEJANDRA y Number: [id number] Repository [address]Myt: [phone]) ee Date:9776-66-47NV [phone] () [address] [place] [address]JD: 06/19/2018 Secondary NUHA D [place] Insurance:MEDICARE POWERDOB: [facility] PART A [facility] [id number] Hospital Number: Repository [id number] Date:2018-06-19 06/19/2018 Tertiary NOT GIVENUNK [place] Insurance:SELF PAY Community INS[employer]ANCEPolicy Hospital Number: Effective Repository Date:2018-06-19 06/19/2018 NUHA D Primary NUHA D [place] [id number] Insurance:ANTHEMPolic POWERDOB: [facility] BETO kelly Number: [id number] [id number] Repository [address]Xnz: [phone]) ve Date:5873-76-38AI [phone] () [address]HQZMQF, [place] [address]ND: 06/19/2018 Secondary NUHA D [place] Insurance:MEDICARE POWERDOB: Community PART A [facility] [id number] Hospital Number: Repository [id number] Date:2018-06-13 06/19/2018 Tertiary NOT GIVENUNK [place] Insurance:SELF PAY [facility] Hospital Number: Effective Repository Date:2018-06-19 03/03/2018 NUHA D Primary NUHA D [place] [id number] Insurance:ANTHEMPolic POWERDOB: [facility] BETO kelly Number: [id number] [id number] Repository 40[address]Cve: [phone]) ve Date:9024-31-29HA [phone] () [address]FEYVWS, [place] [address]FP: 03/03/2018 Secondary NUHA D [place] Insurance:MEDICARE POWERDOB: Community PART A [facility] [id number] Hospital Number: Repository [id number] Date:2018-02-28 03/03/2018 Tertiary NOT GIVENUNK [place] Insurance:SELF PAY [facility] Hospital Number: Effective Repository Date:2018-02-28 02/15/2018 NUHA D Primary NUHA D [place] [id number] Insurance:ANTHEMPolic POWERDOB: [facility] BETO kelly Number: [id number] [id number] Repository [address]Utv: (330) ve Date:4009-60-41LA [phone] () [address]NQASHB, [place] [address]JR: 02/15/2018 Secondary NUHA D [place] Insurance:MEDICARE POWERDOB: [facility] [id number] Hospital Number: Repository [id number] Date:2012-05-25 02/15/2018 Tertiary NOT GIVENUNK [place] Insurance:SELF PAY [facility] Number: Effective Repository Date:2018-01-19 01/30/2018 NUHA D Primary NUHA D [place] [id number] Insurance:ANTHEMPolic POWERDOB: [facility] BETO kelly Number: [id number] [id number] Repository [address]Wco: [phone]) ve Date:7590-50-22BT [phone] () [address]QWKFRNZ [place] [address]HD: 01/30/2018 Secondary NUHA D [place] Insurance:MEDICARE POWERDOB: Community PART A [facility] [id number] Hospital Number: Repository [id number] Date:2018-01-30 01/30/2018 Tertiary NOT GIVENUNK [place] Insurance:SELF PAY [facility] Hospital Number: Effective Repository Date:2018-01-30 01/13/2018 NUHA D Primary NUHA D [place] [id number] Insurance:ANTHEMPolic POWERDOB: [facility] BETO kelly Number: [id number] [id number] Repository [address]Gvc: (330) ve Date:5306-46-14TW [phone] () [address]BEPBPSC, [place] [address]ZF: 01/13/2018 Secondary NUHA D [place] Insurance:MEDICARE POWERDOB: Community PART A [facility] [id number] Hospital Number: Repository [id number] Date:2018-01-13 01/13/2018 Tertiary NOT GIVENUNK [place] Insurance:SELF PAY [facility] Number: Effective Repository Date:2018-01-13 10/24/2017 NUHA D Primary NUHA D [place] [id number] Insurance:ANTHEMPolic POWERDOB: Community BETO kelly Number: [id number] [id number] Repository [address]Rsv: (728) ve Date:9919-71-04QA [phone] () [address]CBQIALR, [place] [address]FQ: 10/24/2017 Secondary NUHA D [place] Insurance:MEDICARE POWERDOB: Community PART A [facility] [id number] Hospital Number: Repository [id number] Date:2017-09-22 10/24/2017 Tertiary NOT GIVENUNK [place] Insurance:SELF PAY [facility] Hospital Number: Effective Repository Date:2017-10-24 09/22/2017 NUHA D Primary NUHA D [place] [id number] Insurance:ANTHEMPolic POWERDOB: Community [address] y Number: [id number] [id number] Repository [address]Mhl: (330) ve Date:7783-42-67WR [phone] () [address]IBPVVOV, [place] [address]EH: 09/22/2017 Secondary NUHA D [place] Insurance:MEDICARE POWERDOB: Community PART A [facility] [id number] Hospital Number: Repository [id number] Date:2017-08-24 09/22/2017 Tertiary NOT GIVENUNK [place] Insurance:SELF PAY [facility] Hospital Number: Effective Repository Date:2017-08-24 09/15/2017 NUHA D Primary NUHA D [place] [id number] Insurance:ANTHEMPolic POWERDOB: Community [address] y Number: [id number] [id number] Repository [address]Tvh: (330) ve Date:4392-79-66ZK [phone] () [address]JXDPCOH, [place] [address]VA: 09/15/2017 Secondary NUHA D [place] Insurance:MEDICARE POWERDOB: Community PART A [facility] [id number] Hospital Number: Repository [id number] Date:2017-08-22 09/15/2017 Tertiary NOT GIVENUNK [place] Insurance:SELF PAY [facility] Hospital Number: Effective Repository Date:2017-08-22 09/08/2017 NUHA D Primary NUHA D [place] [id number] Insurance:ANTHEMPolic POWERDOB: Community [address] y Number: [id number] [id number] Repository [address]Jej: (330) ve Date:5287-94-00YJ [phone] () [address]SABZBVN, [place] [address]GT: 09/08/2017 Secondary NUHA D [place] Insurance:MEDICARE POWERDOB: Community PART A [facility] [id number] Hospital Number: Repository [id number] Date:2017-09-08 09/08/2017 Tertiary NOT GIVENUNK [place] Insurance:SELF PAY [facility] Hospital Number: Effective Repository Date:2017-09-08 09/07/2017 NUHA D Primary NUHA D [place] [id number] Insurance:ANTHEMPolic POWERDOB: [facility] BETO kelly Number: [id number] [id number] Repository [address]Xsb: (330) ve Date:8386-36-71VF [phone] () [address]VPYSQHX, [place] [address]RI: 09/07/2017 Secondary NUHA D [place] Insurance:MEDICARE POWERDOB: Community PART A [facility] [id number] Hospital Number: Repository [id number] Date:2017-09-05 09/07/2017 Tertiary NOT GIVENUNK [place] Insurance:SELF PAY [facility] Hospital Number: Effective Repository Date:2017-09-05 08/29/2017 NUHA D Primary NUHA D [place] [id number] Insurance:ANTHEMPolic POWERDOB: [facility] [address] y Number: [id number] [id number] Repository [address]Btd: (330) ve Date:9576-89-26CX [phone] () [address]MFZGKUF, [place] [address]NM: 08/29/2017 Secondary NUHA D [place] Insurance:MEDICARE POWERDOB: Community PART A olicy [id number] Hospital Number: Repository [id number] Date:2017-08-24 08/29/2017 Tertiary NOT GIVENUNK [place] Insurance:SELF PAY [facility] Hospital Number: Effective Repository Date:2017-08-24 08/24/2017 NUHA D Primary NUHA D [place] [id number] Insurance:ANTHEMPolic POWERDOB: Community [address] y Number: [id number] [id number] Repository [address]Pcb: (725) ve Date:5127-53-39AU [phone] () [address] [place] [address]YD: 08/24/2017 Secondary NUHA D [place] Insurance:MEDICARE POWERDOB: Community PART A [facility] [id number] Hospital Number: Repository [id number] Date:2017-08-22 08/24/2017 Tertiary NOT GIVENUNK [place] Insurance:SELF PAY [facility] Hospital Number: Effective Repository Date:2017-08-22 08/22/2017 NUHA D Primary NUHA D [place] [id number] Insurance:ANTHEMPolic POWERDOB: Community [address] y Number: [id number] [id number] Repository [address]Zwp: (330) ve Date:9369-17-00ZW [phone] () [address] [place] [address]ZS: 08/22/2017 Secondary NUHA D [place] Insurance:MEDICARE POWERDOB: Community [facility] [id number] Hospital Number: Repository [id number] Date:2017-08-22 08/22/2017 Tertiary NOT GIVENUNK [place] Insurance:SELF PAY [facility] Hospital Number: Effective Repository Date:2017-08-22 07/23/2017 NUHA D Primary NUHA D [place] [id number] Insurance:MEDICARE POWERDOB: Community [address] PART A BPolicy [id number] Number: Repository [address]Qbs: ([phone]) [id number] [phone] () Date:2017-07-23 07/23/2017 Secondary NUHA D [place] Insurance:ANTHEMPolic POWERDOB: Community y Number: [id number] Hospital [id number] Repository ve Date:5027-61-59NM[address] [address]DM: 07/23/2017 Tertiary NOT GIVENUNK [place] Insurance:SELF PAY [facility] Number: Effective Repository Date:2017-07-23
== END ==
PROVIDERS: Referring Provider Nurse Practitioner Women's Health; Visit Provider Nurse Practitioner Women's Health
DX: N95.0 Postmenopausal bleeding (principal)
CPT/HCPCS: 88305

== ENCOUNTER 2018-08-08 06:05 | Day surgery (SDC) | payer BC, MEDICARE, SELFPAY ==
[2018-06-19 15:13] VITALS: BMI 25.4
[2018-08-08 06:22] VITALS: BP 132/68; PULSE 79; RESP 14; TEMP 36.4; O2SAT 97; BMI 26.9
--- NOTE | 2018-08-08 08:00 | BLA_PTH ---
PATIENT: NUHA SAEED [place] [facility] [id number] AGE/SX: 73/F ROOM: RE08/08/[address]: Dr. Yelena Morataya MD : 1945 BED: DIS: 08/08/2018 SPEC #: [id number] RECD: 08/08/18 09:10 STATUS: SANTANA DEMAR #: [id number] JOJO: 08/08/18 08:[address]: Yelena Morataya DEPT: SURGICAL PATHOLOGY RECD BY: Jose Martinez ENTERED: 08/08/18 11:28 SP TYPE: BLADDER BX OTHR DR: Rigoberto White Tissues: A - Urinary bladder, NOS B - Urethra, NOS C - Vagina, NOS Procedures: Surgery Specimen Level IV HEADER OPERATION: Cysto, excision urethral caruncle, vaginal biopsy, bladder biopsy PRE-OP DIAGNOSIS: Urethral caruncle, postmenopausal atrophic vaginitis, urge incontinence, nocturia TISSUE SUBMITTED: A - Bladder biopsy, B - Urethral caruncle, C - Vaginal biopsy MICROSCOPIC DIAGNOSIS A. Urinary bladder, biopsy: Mild chronic cystitis. B. Urethral caruncle, excision: Benign mucosal polyp with cystic change and associated mild chronic inflammation. C. Vagina, biopsy: Squamous-lined mucosa with associated hyperkeratosis and mild chronic inflammation. AM:binh 08/09/18 COMMENT Case has been reviewed in consultation with Dr. Moran who concurs with the above diagnosis. IDC:SJ MICROSCOPIC DESCRIPTION Slides are reviewed. GROSS DESCRIPTION A - Received in fixative is one container labeled with the patient's name and designated bladder biopsy. The specimen consists of two minute fragments of zaman soft tissue each measuring 0.1 cm in greatest dimension. The specimen is totally submitted in one cassette. B - Received in fixative is one container labeled with the patient's name and designated urethral caruncle. The specimen consists of a piece of zaman-pink soft tissue measuring 0.7 x 0.6 x 0.3 cm. The specimen is totally submitted in one cassette. C - Received in fixative is one container labeled with the patient's name and designated vaginal biopsy. The specimen consists of a piece of zaman soft tissue measuring 0.7 x 0.2 x 0.1 cm. The specimen is totally submitted in one cassette. / KAY:binh 08/08/18 TC:3 CPT: 83628
[2018-08-08] MEDS: Cefazolin 2 GM in 0.9% Normal Saline 100 ML IV (08:09)
[2018-08-08 08:48] VITALS: BP 130/65; BP 132/68; PULSE 72; RESP 16; TEMP 36.8; O2SAT 98
--- NOTE | 2018-08-08 08:57 | PCM.DC.URO ---
Discharge Diet: No Restrictions Discharge Activity: May Shower Call your doctor if your incision/area has: Continuous Slow Oozing, Sudden Increased Bleeding, Increased Pain/ Swelling, Foul Smelling Discharge Call your doctor if you observe: Fever of 101 or Higher, Inability to urinate, Using more than one pad per hour, Shortness of breath, Chest pain, Calf discomfort Cleanse incision/area with: - - do not use soap on incisions in shower Allergies/Adverse Reactions: Allergies aspirin [From Excedrin Back and Body] Allergy (Mild, Verified 06/19/18 15:10) Other calcium carbonate [From Excedrin Back and Body] Allergy (Mild, Verified 06/19/18 15:10) Other morphine Allergy (Mild, Verified 06/19/18 15:10) Other perfume Allergy (Verified 08/02/18 14:59) Other SNEEZING, EYES WATER codeine Adverse Reaction (Mild, Verified 08/07/18 12:54) Nausea/Vom/Diarrhea acetaminophen [From Excedrin Migraine] Adverse Reaction (Verified 08/07/18 12:54) Nausea/Vom/Diarrhea caffeine [From Excedrin Migraine] Adverse Reaction (Verified 08/07/18 12:54) Nausea/Vom/Diarrhea Medications to take at Discharge cholecalciferol (vitamin D3) 1,000 unit capsule 1,000 unit PO ONCE 08/24/17 glucosamine-chondroitin 250 mg-200 mg tablet 2 tab PO TID 08/24/17 hydroxychloroquine 200 mg tablet 200 mg PO BID 08/24/17 multivitamin,qv-zopq-fxdabbml tablet 1 tab PO QDAY 08/24/17 Estradiol 0 udc VAGINAL .COMPLEX 01/13/18 [place]-3/Dha/Epa/Fish Oil [Fish Oil 1,400 mg Softgel] 1 ea PO DAILY 01/13/18 Primary Care Physician: Rigoberto White [Primary Care Provider] - Test Results: Test results from this visit will be discussed in further detail at your follow-up appointment, if applicable. Please Follow Up With: Yelena Morataya MD When: 1 week, call for appt Proposed Discharge Date: 08/08/18
[2018-08-08 09:00] VITALS: BP 113/92; BP 132/68; PULSE 80; RESP 18; O2SAT 100
--- NOTE | 2018-08-08 09:00 | DCINST_ITS ---
Discharge Diet: No Restrictions Discharge Activity: May Shower Call your doctor if your incision/area has: Continuous Slow Oozing, Sudden Increased Bleeding, Increased Pain/ Swelling, Foul Smelling Discharge Call your doctor if you observe: Fever of 101 or Higher, Inability to urinate, Using more than one pad per hour, Shortness of breath, Chest pain, Calf discomfort Cleanse incision/area with: - - do not use soap on incisions in shower Allergies/Adverse Reactions: Allergies aspirin [From Excedrin Back and Body] Allergy (Mild, Verified 06/19/18 15:10) Other calcium carbonate [From Excedrin Back and Body] Allergy (Mild, Verified 06/19/18 15:10) Other morphine Allergy (Mild, Verified 06/19/18 15:10) Other perfume Allergy (Verified 08/02/18 14:59) Other SNEEZING, EYES WATER codeine Adverse Reaction (Mild, Verified 08/07/18 12:54) Nausea/Vom/Diarrhea acetaminophen [From Excedrin Migraine] Adverse Reaction (Verified 08/07/18 12:54) Nausea/Vom/Diarrhea caffeine [From Excedrin Migraine] Adverse Reaction (Verified 08/07/18 12:54) Nausea/Vom/Diarrhea Medications to take at Discharge cholecalciferol (vitamin D3) 1,000 unit capsule 1,000 unit PO ONCE 08/24/17 glucosamine-chondroitin 250 mg-200 mg tablet 2 tab PO TID 08/24/17 hydroxychloroquine 200 mg tablet 200 mg PO BID 08/24/17 multivitamin,xy-wbhy-ivihqqzb tablet 1 tab PO QDAY 08/24/17 Estradiol 0 udc VAGINAL .COMPLEX 01/13/18 [place]-3/Dha/Epa/Fish Oil [Fish Oil 1,400 mg Softgel] 1 ea PO DAILY 01/13/18 Primary Care Physician: Rigoberto White [Primary Care Provider] - Test Results: Test results from this visit will be discussed in further detail at your follow- up appointment, if applicable. Please Follow Up With: Yelena Morataya MD When: 1 week, call for appt Proposed Discharge Date: 08/08/18
--- NOTE | 2018-08-08 09:03 | PCM.IMDPSTOP ---
Immediate Post-Op Note Date of Procedure: 08/08/18 Primary Surgeon/Physician: Yelena Morataya MD press tender: Yelena Morataya Pre-Operative Diagnosis: urethral caruncle, vaginal mucosal lesion Post-Operative Diagnosis: same and bladder neoplasm unspecified Surgery/Procedure Performed:: cystoscopy with bladder biopsy, excision urethral caruncle, vaginal biopsy Description of Surgical Findings:: biopsy bladder lesion, consistent clinically with ulceration excision urethral caruncle vaginal biopsy consistent with severe refractory atrophy vs dysplasia Estimated Blood Loss: 5cc Specimen's removed: bladder biopsy posterior wall. urethral caruncle. vaginal/vulvar mucosa Type of Anesthesia:: General - Admit VTE Documentation VTE Present on Admission: Yes VTE Mechan Device Prophylaxis: SCD's VTE Pharm Prophylaxis ordered?: No Reason prophylaxis not ordered:: Treatment Not Indicated
--- NOTE | 2018-08-08 09:06 | OP.PN_ITS ---
Immediate Post-Op Note Date of Procedure: 08/08/18 Primary Surgeon/Physician: Yelena Morataya MD title insurance sales representative: Yelena Morataya Pre-Operative Diagnosis: urethral caruncle, vaginal mucosal lesion Post-Operative Diagnosis: same and bladder neoplasm unspecified Surgery/Procedure Performed:: cystoscopy with bladder biopsy, excision urethral caruncle, vaginal biopsy Description of Surgical Findings:: biopsy bladder lesion, consistent clinically with ulceration excision urethral caruncle vaginal biopsy consistent with severe refractory atrophy vs dysplasia Estimated Blood Loss: 5cc Specimen's removed: bladder biopsy posterior wall. urethral caruncle. vaginal/vulvar mucosa Type of Anesthesia:: General - Admit VTE Documentation VTE Present on Admission: Yes VTE Mechan Device Prophylaxis: SCD's VTE Pharm Prophylaxis ordered?: No Reason prophylaxis not ordered:: Treatment Not Indicated
[2018-08-08 09:17] VITALS: BP 113/92; BP 132/68; PULSE 80; RESP 18; TEMP 36.4; O2SAT 100
--- NOTE | 2018-08-08 10:13 | OP.PCM_ITS ---
Problem List (1) Urethral caruncle Status: Acute (2) Vagina neoplasm Status: Acute Report of Operation Date of Procedure: 08/08/18 Pre-Operative Diagnosis: urethral caruncle, vaginal mucosal lesion Post-Operative Diagnosis: same and bladder neoplasm unspecified Surgery/Procedure Performed:: cystoscopy with bladder biopsy, excision urethral caruncle, vaginal biopsy Description of Surgical Findings:: biopsy bladder lesion, consistent clinically with ulceration excision urethral caruncle vaginal biopsy consistent with severe refractory atrophy vs dysplasia [employer] financials consultant: Yelena Morataya Type of Anesthesia:: General Specimen's removed: bladder biopsy posterior wall. urethral caruncle. vaginal/vulvar mucosa Estimated Blood Loss (mL): 5cc Description of Procedure: The patient is a 73-year-old female that was seen in the office for evaluation of urethral carbuncle and severe vaginal atrophy with geographic appearance and refractory to estrogen replacement. She also has some voiding issues. After discussing the risks benefits and alternatives, she agreed to proceed with cystoscopy, excision urethral carbuncle, vaginal biopsy under anesthesia. The patient was taken to the operating room and placed on the operating room table. Anesthesia monitored the head, neck, airway, IV access and vital signs throughout the case. Once anesthesia was appropriately administered the patient was placed into dorsal lithotomy position was prepped and draped in usual sterile fashion. A cystourethroscopy was 70 degree lens was then performed. Bilateral ureteral orifices were located on the area of the trigone. The bladder mucosa was very thin. On the posterior bladder wall there was an area approximately in diameter which was erythematous and consistent with possible ulceration versus chronic inflammation. Biopsy forceps were used to sample the tissue which was then cauterized for hemostatic control and tissue treatment. At this time the bladder was emptied and the case was turned to the urethral carbuncle. Using forceps and a knife, the carbuncle was excised in its entirety. It extended from the 3:00 to the 6 o'clock position and was approximately 0.75 cm in size. Interrupted 3-0 chromic suture was used for hemostatic control and tissue closure. At this time an elliptical incision in the area of the vulva which was consistent with the remaining atrophic area was made. Full-thickness mucosa was sent for pathologic evaluation. Clinically this may be consistent with a diagnosis of lichen sclerosis versus severe atrophy versus dysplasia. 3 interrupted sutures of 3-0 chromic were used for hemostatic control and tissue approximation. At this point the patient was awakened and taken to the recovery room in good condition. There were no complications during this procedure. Grafts/Implants Used: none - Complications none - Admit VTE Documentation VTE Present on Admission: Yes VTE Mechan Device Prophylaxis: SCD's VTE Pharm Prophylaxis ordered?: No Reason prophylaxis not ordered:: Treatment Not Indicated
[2018-08-08 10:15] VITALS: BP 132/68; BP 90/74; PULSE 82; RESP 18; TEMP 36.7; O2SAT 97
--- NOTE | 2018-08-18 10:00 | HP.PCM_ITS ---
Problem List (1) Urethral caruncle Status: Acute (2) Vagina neoplasm Status: Acute History of Present Illness Date of Admission: 08/08/18 The patient is a 73 year old F [] Past Medical History Past Medical History (Chronic Problems): Chronic Problems (Last Reviewed 06/19/18 @ 15:13 by Arpita Tolentino) Atrophic vaginitis (Chronic) Hold clobetesol except if symptomatic then daily X 5 days, thin layer continue estrace cream but increase to 3 times a week, thin layer as directed Medical History: Medical History (Last Reviewed 06/19/18 @ 15:13 by Arpita Tolentino) Arthritis M19.90 Shortness of breath R06.02 Allergies aspirin [From Excedrin Back and Body] Allergy (Mild, Verified 06/19/18 15:10) Other calcium carbonate [From Excedrin Back and Body] Allergy (Mild, Verified 06/19/18 15:10) Other morphine Allergy (Mild, Verified 06/19/18 15:10) Other perfume Allergy (Verified 08/02/18 14:59) Other SNEEZING, EYES WATER codeine Adverse Reaction (Mild, Verified 08/07/18 12:54) Nausea/Vom/Diarrhea acetaminophen [From Excedrin Migraine] Adverse Reaction (Verified 08/07/18 12:54) Nausea/Vom/Diarrhea caffeine [From Excedrin Migraine] Adverse Reaction (Verified 08/07/18 12:54) Nausea/Vom/Diarrhea Home Medications: Ambulatory Orders Medication Instructions Recorded cholecalciferol (vitamin D3) 1,000 1,000 unit PO ONCE 08/24/17 unit capsule glucosamine-chondroitin 250 mg-200 2 tab PO TID 08/24/17 mg tablet hydroxychloroquine 200 mg tablet 200 mg PO BID 08/24/17 multivitamin,yj-zbmz-cvtiksik 1 tab PO QDAY 08/24/17 tablet Estradiol 0 udc VAGINAL .COMPLEX 01/13/18 [place]-3/Dha/Epa/Fish Oil [Fish Oil 1 ea PO DAILY 01/13/18 1,400 mg Softgel] Surgical History: Surgical History (Last Reviewed 06/19/18 @ 15:13 by Arpita Tolentino) H/O foot surgery Z98.890 Smoking Status: Never smoker Review of Systems Constitutional: Denies: Chills, Fever, Night Sweats Eyes: Denies: Blurred vision, Vision Change HEENT: Denies: Difficulty Swallowing Cardiovascular: Denies: Chest Pain, Chest Tightness, Light Headedness Respiratory: Denies: Cough, Shortness of Breath Gastrointestinal: Denies: Abdominal Pain, Nausea, Vomiting Genitourinary: Reports: Dysuria, Frequency, Incontinence. Denies: Hematuria, Hesitancy Gynecological: Denies: Vaginal discharge Musculoskeletal: Denies: Muscle pain Skin: Denies: Rash Neurological: Denies: Confusion, Headaches, Numbness Endocrine: Denies: Change in Body Habitus Hematologic/ Lymphatic: Denies: Easy Bruising, Hx of blood clot VTE Information - Inpt Only VTE Present on Admission: Yes VTE Mechan Device Prophylaxis: SCD's VTE Pharm Prophylaxis ordered?: No Reason prophylaxis not ordered:: Treatment Not Indicated - Physical Exam General: Alert, Oriented x3, Cooperative, No apparent distress HEENT: Atraumatic, Normocephalic Oral: Moist Mucosa Neck: Supple Lungs: Clear to auscultation, Normal air movement Cardiovascular: Regular rate, Regular Rhythm Abdomen: Soft, Non Tender Extremities: No clubbing Skin: No rashes Neurological: Cranial nerves II-XII grossly intact, Neuro grossly intact Psych/Mental Status: Normal Affect Vital Signs Temp Pulse Resp BP Pulse Ox 98.0 F 82 18 90/74 97 08/08/18 10:15 08/08/18 10:15 08/08/18 10:15 08/08/18 10:15 08/08/18 10:15 Oxygen Delivery Method Room Air Weight: 63.5 kg Body Mass Index (BMI) 26.9 Assessment/Plan All Active Problems (Last Reviewed 06/19/18 @ 15:13 by Arpita Tolentino) Urethral caruncle (Acute) Vagina neoplasm (Acute) Rheumatoid arthritis (Acute) Lichen sclerosus (Acute) excision urethral caruncle vaginal biopsy risks benefits and alternatives were discussed pre-operatively including the risks of anesthesia, bleeding, infection, injury. She understood and agreed to proceed.
== END 2018-08-08 10:19 | disposition home or self-care (01) ==
LOC: SDC 06:07 → AC 06:09
PROVIDERS: Referring Provider Urology; Visit Provider Urology
PROC: 0TJB8ZZ Inspection of Bladder, Via Natural or Artificial Opening Endoscopic (ICD-10-PCS; CPT 52000; principal; 2018-08-08 07:45)
DX: N36.2 Urethral caruncle (principal); N30.20 Other chronic cystitis without hematuria; L90.0 Lichen sclerosus et atrophicus; N95.2 Postmenopausal atrophic vaginitis; M06.9 Rheumatoid arthritis, unspecified; R06.02 Shortness of breath; Z79.899 Other long term (current) drug therapy; Z78.0 Asymptomatic menopausal state; Z85.828 Personal history of other malignant neoplasm of skin; Z85.528 Personal history of other malignant neoplasm of kidney
CPT/HCPCS: 00942; 52204; 53265; 56605; 88305; J7120; J2405

== ENCOUNTER → 2018-09-21 11:27 | Outpatient (CLI) | payer BC, MEDICARE, SELFPAY ==
--- NOTE | 2018-09-21 11:30 | US_ITS ---
STUDY: ULTRASOUND TRANSVAGINAL CLINICAL: Female, 73 years old. Hematuria TECHNIQUE: Transvaginal (Transvaginal imaging performed for enhanced visualization of uterus and endometrium, and posterior adnexal structures). COMPARISON: None. FINDINGS: The uterus is anteflexed, tilted toward the left. The uterus measures 5.4 x 3.9 cm. Endometrial stripe 2.8 mm, normal echotexture. No suspicious features are observed. Normal appearance of the cervix. Senescent vascular calcifications are present in the subserosal myometrium. The ovaries are not visualized. There is no visualized right or left adnexal mass or cyst or free fluid and there is no visualized cul-de-sac free fluid. US/Transvaginal Non- IMPRESSION: Ovaries not visualized. Age-appropriate appearance of the myometrium. Normal slender endometrial stripe. Electronically Signed: Pineda Donis MD at 15:10 EST Tel , Service support ,
--- NOTE | 2018-09-21 11:30 | US_ITS ---
STUDY: ULTRASOUND TRANSVAGINAL CLINICAL: Female, 73 years old. Hematuria TECHNIQUE: Transvaginal (Transvaginal imaging performed for enhanced visualization of uterus and endometrium, and posterior adnexal structures). COMPARISON: None. FINDINGS: The uterus is anteflexed, tilted toward the left. The uterus measures 5.4 x 3.9 cm. Endometrial stripe 2.8 mm, normal echotexture. No suspicious features are observed. Normal appearance of the cervix. Senescent vascular calcifications are present in the subserosal myometrium. The ovaries are not visualized. There is no visualized right or left adnexal mass or cyst or free fluid and there is no visualized cul-de-sac free fluid. US/Pelvic (Non ) IMPRESSION: Ovaries not visualized. Age-appropriate appearance of the myometrium. Normal slender endometrial stripe. Electronically Signed: Pineda Donis MD at 15:10 EST Tel , Service support ,
== END ==
PROVIDERS: Referring Provider Urology; Visit Provider Urology
DX: R31.9 Hematuria, unspecified (principal)
CPT/HCPCS: 76830; 76856

== ENCOUNTER 2019-02-26 09:31 | Emergency (ER) | payer BC, MEDICARE, SELFPAY ==
[2019-02-26 09:31] VITALS: BP 120/74; PULSE 80; RESP 18; TEMP 36.6; O2SAT 100; BMI 28.9
--- NOTE | 2019-02-26 09:53 | CT_ITS ---
STUDY: CT CERVICAL SPINE WITHOUT CONTRAST REASON FOR EXAM: Female, 73 years old. Laceration overlying the left orbit following a fall. RADIATION DOSAGE (If Supplied By Facility): CTDIvol = ( 18.34 ) mGy, DLP = ( 863.22 ) mGycm TECHNIQUE: High resolution transaxial imaging was performed without contrast material. Sagittal and coronal images were reconstructed. Individualized dose optimization techniques were used for this CT. COMPARISON: None FINDINGS: Normal craniovertebral junction. There are degenerative changes of the anterior atlantoaxial articulation. Normal odontoid process. Normal cervical lordosis. Normal vertebral bodies and posterior osseous elements. C2-3: Normal endplates. Normal disc height and morphology. Normal central canal and intervertebral neuroforamina. C3-4: Normal endplates. Normal disc height and morphology. Normal central canal and intervertebral neuroforamina. C4-5: Moderate degree of disc space narrowing with spondylosis. Uncovertebral arthrosis. Mild degree of bilateral neural foraminal stenosis. C5-6: Normal endplates. Normal disc height and morphology. Normal central canal and intervertebral neuroforamina. C6-7: Moderate degree of disc space narrowing and spondylosis. Uncovertebral arthrosis is worse on the left side with a moderate degree of left neural foraminal stenosis. C7-T1: Normal endplates. Normal disc height and morphology. Normal central canal and intervertebral neuroforamina. Normal visualized soft tissue structures. CT/Spine Cervical without Contras IMPRESSION: Multilevel degenerative changes, as described above. Electronically Signed: Marques Ford, at 10:40 EDT , Service support ,
--- NOTE | 2019-02-26 09:53 | CT_ITS ---
STUDY: CT BRAIN WITHOUT CONTRAST REASON FOR EXAM: Female, 73 years old. Laceration overlying the left orbit following a fall. RADIATION DOSAGE (If Supplied By Facility): CTDIvol = ( 44.99 ) mGy, DLP = ( 745.49 ) mGycm TECHNIQUE: Transaxial CT imaging of the brain was performed without administration of intravenous contrast material. Individualized dose optimization techniques were used for this CT. COMPARISON: Comparison is made with prior study dated January 13, 2018. FINDINGS: Minimal soft tissue swelling overlying the left orbit. Normal calvarium. Slightly depressed fracture of the left orbital floor with the possible entrapment of the inferior rectus muscle. Normal size ventricles and extra-axial spaces for the patient's age. Normal white matter tracts of the cerebral hemispheres. Normal basal ganglia and thalami. Normal brainstem. Normal cerebellum. There is no intracranial hemorrhage. There are no findings of an acute ischemic infarction. Small air-fluid level in the base of the left maxillary sinus. Mucosal thickening of the ethmoid sinuses. CT/Brain/Head without Contrast IMPRESSION: Mildly depressed fracture of the left orbital floor with possible entrapment of the inferior rectus muscle. Small air-fluid level in the left maxillary sinus. Electronically Signed: Marques Ford, at 10:39 EDT , Service support ,
--- NOTE | 2019-02-26 09:53 | RAD_ITS ---
STUDY: X-RAY - LEFT WRIST REASON FOR EXAM: Female, 73 years old. Pain and soft tissue swelling following a fall. TECHNIQUE: 3 view(s) of the wrist were obtained. COMPARISON: None. FINDINGS: Nondisplaced vertical fracture of the distal metaphysis of the ulnar aspect of the radius. Avulsion fracture of the ulnar styloid. Normal radiocarpal articulation. Normal distal radioulnar articulation. I suspect an avulsion fracture of the triquetrum. Normal carpal articulations. There is degenerative arthrosis of the carpometacarpal articulation of the thumb. Normal second through fifth carpometacarpal articulations. Normal visualized metacarpal bones. Diffuse dorsal soft tissue swelling. RAD/Wrist min 3 Views IMPRESSION: Nondisplaced vertical fracture of the distal radial metaphysis along its ulnar aspect. Avulsion fracture of the ulnar styloid as well as the triquetrum. Soft tissue swelling. Electronically Signed: Marques Ford, at 10:42 EDT , Service support ,
--- NOTE | 2019-02-26 09:53 | RAD_ITS ---
STUDY: X-RAY - RIGHT KNEE REASON FOR EXAM: Female, 73 years old. Anterior knee pain and abrasion following a fall. TECHNIQUE: 4 view(s) of the knee. COMPARISON: None. FINDINGS: Normal visualized distal femur. Normal visualized proximal tibia and fibula. Normal proximal tibiofibular articulation. There is moderate degenerative arthrosis of the medial femorotibial compartment with moderate joint space narrowing. Normal lateral femorotibial compartment. There is moderate degenerative arthrosis of the patellofemoral articulation. The soft tissue structures are unremarkable. RAD/Knee 4 or More Views IMPRESSION: Degenerative arthrosis. Electronically Signed: Marquse Ford, at 10:43 EDT , Service support ,
[2019-02-26] MEDS: Ondansetron ODT 4 MG Tablet PO (10:03)
--- NOTE | 2019-02-26 10:19 | ED.VISSUMM ---
- ER Visit Summary Date of Service: 02/26/19 Chief Complaint: Fall History of Present Illness: The patient is a 73 F who states she was walking today did not see a small step up and sustained a fall. She notes injury to the right knee left wrist states that she fell striking her head glasses. EMS notes laceration to the left eyebrow. She denies any back or hip pain. No chest pain. No loss of consciousness. Is nauseated. Physical Examination: Afebrile vital signs are stable Gen: Well-nourished well-developed Head: Normocephalic there is a superficial abrasion in the left lateral eyebrow. No active bleeding. Wound edges are approximated and clotted blood in place. Patient has several areas of contusion and abrasion over the forehead and periorbital areas bilaterally. Eyes: Perrl EOMI ENT: TMs clear no rhinorrhea moist mucous membranes Neck: Supple no lymphadenopathy no JVD nontender CVS: Regular rate rhythm no murmurs normal S1-S2 Respiratory: No distress clear to auscultation bilaterally chest nontender Abdomen: Soft nontender nondistended normal bowel sounds no masses Back: Nontender Extremity: Swelling over the dorsum of the left wrist and hand. Limited range of motion due to pain. There is superficial abrasion/contusion over the anterior aspect of the right knee. No significant joint effusion. Skin: Normal color no rash Neuro: alert orientated ?3 CN II-XII intact normal strength sensation reflexes gait cerebellar Psych: Normal affect normal mood Test Results: X-rays of the right knee left wrist, and CT brain and cervical spine were obtained. X-rays of the knee were negative for acute fracture. X-rays of the wrist demonstrated a distal radius/ulna/triquetral fracture. CT of the cervical spine was negative for acute fracture. CT of the brain demonstrated a left inferior orbital floor fracture. Emergency Department Course and Treatment: Patient received Zofran for nausea. She declined pain medication she is now hungry. I reassessed the extraocular movements and I do not see any obvious clinical and signs of entrapment. The left wrist was placed in the anterior posterior plaster splint. Neurovascular intact pre-and post application. She will be referred to on-call orthopedics and plastic surgery for further care. Impression: 1. Mechanical fall 2. Left distal radius/ulnar/triquetral fracture 3. Left inferior orbital floor fracture 4. Knee contusion 5. Splint by physician This note was generated with [employer] dictation software. It may contain incorrect words, spelling, and punctuation that were not noted in review of the chart prior to signing ED Disposition - Plan for ED Patient: Disposition: Home or Assisted Living Instructions: Facial Fracture, FRACTURE, Wrist [General] Referrals: Hernesto Sandra MD [STAFF PHYSICIAN] - (Call to arrange follow-up for your left orbital fracture) Alan Pearson MD [STAFF PHYSICIAN] - (Call to arrange follow-up for the wrist fracture)
[2019-02-26 11:45] VITALS: RESP 18
== END 2019-02-26 11:48 | disposition home or self-care (01) ==
PROVIDERS: Emergency Provider Emergency Medicine
DX: S52.592A Other fractures of lower end of left radius, initial encounter for closed fracture (principal); S52.612A Displaced fracture of left ulna styloid process, initial encounter for closed fracture; S62.112A Displaced fracture of triquetrum [cuneiform] bone, left wrist, initial encounter for closed fracture; S02.32XA Fracture of orbital floor, left side, initial encounter for closed fracture; S80.01XA Contusion of right knee, initial encounter; S00.212A Abrasion of left eyelid and periocular area, initial encounter; W10.9XXA Fall (on) (from) unspecified stairs and steps, initial encounter; Y93.01 Activity, walking, marching and hiking; Y92.9 Unspecified place or not applicable; Y99.9 Unspecified external cause status
CPT/HCPCS: 29125; 70450; 72125; 73110; 73564; 99284

== ENCOUNTER → 2019-03-22 07:15 | Outpatient (CLI) | payer BC, MEDICARE, SELFPAY ==
[2019-03-02 16:05] VITALS: BMI 28.1
--- NOTE | 2019-03-22 07:17 | CT_ITS ---
STUDY: CT FACIAL BONES WITHOUT CONTRAST REASON FOR EXAM: Female, 73 years old. Left orbital floor fracture secondary to a recent fall. RADIATION DOSAGE (If Supplied By Facility): CTDIvol = ( 29.38 ) mGy, DLP = ( 642.95 ) mGycm TECHNIQUE: The patient was scanned in a multi detector CT scanner. Sagittal and coronal images were reconstructed. Individualized dose optimization techniques were used for this CT. COMPARISON: Comparison is made with prior CT scan of the brain dated February 26, 2019. FINDINGS: Normal soft tissue structures. Stable appearance of the slightly depressed fracture of the floor of the left orbit with soft tissue density suggestive of a possible entrapment of the inferior rectus muscle. Normal nasal bones and anterior nasal spine. Normal facial bones. Normal visualized paranasal sinuses. CT/Sinus/Facial Bone IMPRESSION: Slightly depressed fracture of the floor of the left orbit with possible entrapment of the muscle. Electronically Signed: Marques Ford, at 10:27 EDT , Service support ,
== END ==
PROVIDERS: PCP Family Medicine; Referring Provider Surgery; Visit Provider Surgery
DX: S02.32XA Fracture of orbital floor, left side, initial encounter for closed fracture (principal); S05.12XA Contusion of eyeball and orbital tissues, left eye, initial encounter; W19.XXXA Unspecified fall, initial encounter; Y92.009 Unspecified place in unspecified non-institutional (private) residence as the place of occurrence of the external cause
CPT/HCPCS: 70486

== ENCOUNTER → 2019-07-23 08:48 | Outpatient (CLI) | payer BC, MEDICARE, SELFPAY ==
[2019-03-02 16:05] VITALS: BMI 28.1
[2019-07-23 09:11] LABS: Absolute Lymphocyte Count 2.07 X10^3/uL (0.83-4.51); Absolute Neutrophil Count 4.5 X10^3/uL (2.0-7.7); Basophil# 0.07 X10^3/uL; Basophil% 0.9 % (0-1); Eosinophil# 0.34 X10^3/uL; Eosinophils% 4.6 % (0-5); Hematocrit 47.5 % (37-47); Hemoglobin 15.4 g/dL (12.0-15.0); Lymphocyte # 2.07 X10^3/ul (4.0); Lymphocyte % 27.9 % (19-41); Mean Corp Hgb Conc 32.4 g/dL (32-36); Mean Corpuscular Hgb 31.3 pg (27.0-32.0); Mean Corpuscular Volume 96.5 fL (81-99); Mean Platelet Vol. 10.2 fl (6.2-12.0); Monocyte# 0.45 X10^3/uL; Monocyte% 6.1 % (0-10); NRBC Flagged by Analyzer 0 % (0-5); Neutrophil # 4.47 X10^3/uL (2.7-7.7); Neutrophil % 60.4 % (47-70); Platelet Count 224 K/mm3 (150-450); RBC Distribution Width SD 46.6 fl (35.1-43.9); Red Blood Count 4.92 M/mm3 (4.2-5.4); White Blood Count 7.4 K/mm3 (4.4-11.0)
[2019-07-23 09:29] LABS: ALB/GLOB Ratio 1.2 RATIO (0.9-2.4); AST(SGOT) 20 U/L (15-37); Alanine Aminotransfer ALT/SGPT 21 U/L (13-56); Albumin, Serum 3.8 g/dL (3.2-5.0); Alkaline Phosphatase 85 U/L (45-117); Anion Gap 4 (5-15); BUN 14 mg/dL (7-18); BUN/Creat Ratio 19.7 RATIO (10-20); Calcium,Total 8.9 mg/dL (8.5-10.1); Chloride 109 mmol/L (98-107); Cholesterol 166 mg/dL (200); Creatinine, Serum 0.71 mg/dL (0.55-1.02); EST Glomerular Filtration Rate 86 mL/min (>60); Est Glom Filt Rate - Afr Amer 104 mL/min (>60); Globulin 3.1 g/dL (2.2-4.2); Glucose 102 mg/dL (74-106); High Density Lipoprotein 80 mg/dL; Potassium 4.4 mmol/L (3.5-5.1); Protein, Total 6.9 g/dL (6.4-8.2); Sodium Level 142 mmol/L (136-145); Triglycerides 101 mg/dL; Very Low Density Lipoprotein 20 mg/dL (5-40)
[2019-07-23 12:58] LABS: Color, Urine Yellow (Yellow); Glucose, Dipstick Normal (Normal); Ketone-Dipstick Negative (Negative); Leukocyte Esterase-Dipstick 25 /ul (Negative); Nitrite-Dipstick Negative (Negative); Occult Blood-Urine Negative /ul (Negative); Protein-Dipstick Negative (Negative); Specific Gravity, Urine 1.015 (1.002-1.030); Urine Bilirubin Dipstick Negative (Negative); Urine Clarity Sl. Cloudy (Clear); Urine Urobilinogen Normal (Normal)
--- NOTE | 2019-07-23 14:17 | BI_ITS ---
MAMMOGRAPHY - BILATERAL SCREENING 3-D TOMOSYNTHESIS REASON FOR EXAM: Female, 74 years old. FAM HX OF SISTER UNKNOWN AGE PAT AUNT @ ? -- HX OF RT STEREO BX 1991 -- LTD LT SHOULDER ROM FROZEN SHOULDER PERTINENT HISTORY: No significant family history. TECHNIQUE: 2-D mammograms and 3-D Tomosynthesis of the breast (s) were performed. CAD was performed. COMPARISON: September 15, 2017. FINDINGS: The breast composition is composed of scattered fibroglandular density. Scattered benign calcifications are seen. No dense spiculated masses or suspicious microcalcifications are identified. No architectural distortion is identified. There is no skin thickening or retraction. There has been no significant change since the prior study. BI/SCREEN MAMM (CAD) W/SHELBIE BILAT IMPRESSION: No mammographic signs of malignancy. Routine yearly mammograms recommended. ASSESSMENT CATEGORY: BIRADS Category 1: Negative. A letter regarding these results will be sent to the patient by the facility within 30 days. FOLLOW UP RECOMMENDATION: Yearly follow up mammogram recommended. (A) Approximately 10% of breast cancers are not detected by mammography. A normal mammogram should not delay biopsy of a clinically suspicious abnormality. Electronically Signed: Spenser Vasquez MD at 8:31 EST , Service support ,
== END ==
PROVIDERS: PCP Family Medicine; Referring Provider Family Medicine; Visit Provider Family Medicine
DX: Z00.00 Encounter for general adult medical examination without abnormal findings (principal); M06.9 Rheumatoid arthritis, unspecified; Z12.31 Encounter for screening mammogram for malignant neoplasm of breast
CPT/HCPCS: 36415; 77063; 77067; 80053; 80061; 81002; 85025

== ENCOUNTER 2020-06-13 05:12 | Day surgery (SDC) | payer MEDICARE, SELFPAY ==
[2020-04-04 10:28] VITALS: BMI 28.1
[2020-06-02 12:04] VITALS: BMI 25.5
--- NOTE | 2020-06-06 10:54 | EKG12_ITS ---
Test Reason : PREO Blood Pressure : / mmHG Vent. Rate : 081 BPM Atrial Rate : 081 BPM P-R Int : 158 ms QRS Dur : 088 ms QT Int : 384 ms P-R-T Axes : 045 001 039 degrees QTc Int : 446 ms Normal sinus rhythm Normal ECG Confirmed by JAMMIE WILSON, ABY ([id number]), video news editor TU TIRADO ([id number]) on 06/09/2020 1:28:03 PM Referred By: Danni Edmond Confirmed By:ABY AGUDELO MD
[2020-06-06 11:18] LABS: Hematocrit 47.2 % (37-47); Hemoglobin 14.7 g/dL (12.0-15.0); Mean Corp Hgb Conc 31.1 g/dL (32-36); Mean Corpuscular Hgb 31.3 pg (27.0-32.0); Mean Corpuscular Volume 100.6 fL (81-99); Mean Platelet Vol. 10.3 fl (6.2-12.0); Platelet Count 260 K/mm3 (150-450); RBC Distribution Width CV 12.9 % (11.6-14.6); Red Blood Count 4.69 M/mm3 (4.2-5.4); White Blood Count 7.2 K/mm3 (4.4-11.0)
[2020-06-06 11:43] LABS: Anion Gap 2 (5-15); BUN 11 mg/dL (7-18); BUN/Creat Ratio 15.4 RATIO (10-20); Calcium,Total 8.7 mg/dL (8.5-10.1); Chloride 105 mmol/L (98-107); Creatinine, Serum 0.72 mg/dL (0.55-1.02); EST Glomerular Filtration Rate 85 mL/min (>60); Est Glom Filt Rate - Afr Amer 103 mL/min (>60); Glucose 107 mg/dL (74-106); Potassium 3.7 mmol/L (3.5-5.1); Sodium Level 140 mmol/L (136-145)
[2020-06-06 11:45] LABS: Magnesium 2.3 mg/dL (1.6-2.6)
[2020-06-13] VITALS (16 sets, daily range): BP systolic 83–143; BP diastolic 7–71; PULSE 70–82; RESP 14–18; TEMP 36.4–37.7; O2SAT 94–100; BMI 26.2
--- NOTE | 2020-06-13 05:50 | PCM.HPOB.BLA ---
- Problem List (1) Prolapse of female pelvic organs Status: Acute History and Physical Date of Admission: 06/13/20 Intake Vital Signs 06/02/20 Height 5 ft 1 in 06/02/20 Weight: 135 lb 4 oz 06/02/20 BMI 25.5 06/02/20 BP 134/78 H Intake Visit Reasons: [facility]/medicare consent Master Printer Required: No Accompanied by: self Allergies hydrocodone [From Vicodin] Allergy (Intermediate, Verified 06/02/20 12:04) Vomiting aspirin [From Excedrin Back and Body] Allergy (Mild, Verified 06/02/20 12:04) Other calcium carbonate [From Excedrin Back and Body] Allergy (Mild, Verified 06/02/20 12:04) Other morphine Allergy (Mild, Verified 06/02/20 12:04) Vomiting perfume Allergy (Verified 06/02/20 12:04) Other codeine Adverse Reaction (Mild, Verified 06/02/20 12:04) Nausea/Vom/Diarrhea acetaminophen [From Excedrin Migraine] Adverse Reaction (Verified 06/02/20 12:04) Nausea/Vom/Diarrhea caffeine [From Excedrin Migraine] Adverse Reaction (Verified 06/02/20 12:04) Nausea/Vom/Diarrhea Medications cholecalciferol (vitamin D3) 25 mcg (1,000 unit) capsule 1,000 unit PO ONCE 08/24/17 [History Confirmed 06/02/20] glucosamine-chondroitin 250 mg-200 mg tablet 2 tab PO TID 08/24/17 [History Confirmed 06/02/20] hydroxychloroquine 200 mg tablet 200 mg PO BID 08/24/17 [History Confirmed 06/02/20] multivitamin,ye-rtjf-qyjyhnpf 1 tab PO QDAY 08/24/17 [History Confirmed 06/02/20] Estradiol 0 udc VAGINAL .COMPLEX 01/13/18 [History Confirmed 06/02/20] [place]-3/Dha/Epa/Fish Oil [Fish Oil 1,400 mg Softgel] 1 ea PO DAILY 01/13/18 [History Confirmed 06/02/20] Is last menstrual period known: No Post menopausal: Yes Patient : No : No PFSH Medical History Arthritis (Acute) Shortness of breath (Acute) Skin cancer (Acute) Surgical History H/O foot surgery (Acute) History of bladder surgery (Acute) Family History Mother Diabetes Father Cancer prostate Prostate cancer Sister Breast cancer A-fib Kidney disease Brother Diabetes Social History (Updated 06/03/20 @ 13:[address] Danni Edmond MD) Smoking Status: Never smoker alcohol intake: never substance use type: does not use caffeine: No frequency: 1-2 times per week seatbelt use: always do you feel safe at home: Yes additional social history: - [employer] DOES NOT USE ASPIRIN DOES USE IBUPROFEN NEEDED DOES USE TYLENOL NEEDED [facility]/medicare consent: Details: NUHA SAEED is a 74 year old who presents for preop visit for total vaginal hysterectomy and bilateral salpingo-oophorectomy. Patient reports continued symptoms associated with cystocele including difficulty urinating and having to reduce prolapse in order to initiate urination. Denies bowel symptoms. Pregancy History 5 Elective abortions Hx Para 5 Spontaneous abortions Hx # Term Pregnancies Ectopic pregnancies Hx # Pregnancies Multiple births # of living children Past Pregnancies Del. Date Name GA/Weeks Outcome Route Bth Weight Gen Labor Lgth Anesthesia Del Locatn Provider FOB Unknown 1965 Nafisa Unknown 1967 Rashad Unknown 1969 Daiana Unknown 1979 Bennie ROS Const Constitutional: Reports system reviewed and no additional complaints, except as docu; denies chills or fever(s) ENT ENT: Reports system reviewed and no additional complaints, except as docu Cardio Card: Reports system reviewed and no additional complaints, except as docu Resp Resp: Reports system reviewed and no additional complaints, except as docu GI GI: Reports system reviewed and no additional complaints, except as docu : Reports system reviewed and no additional complaints, except as docu Musc Musc: Reports system reviewed and no additional complaints, except as docu Skin Skin/Breast: Reports system reviewed and no additional complaints, except as docu Neuro Neuro: Reports system reviewed and no additional complaints, except as docu Psych Psych: Reports system reviewed and no additional complaints, except as docu Exam Const General: cooperative, healthy appearing, comfortable, well developed, well groomed Neck Neck: normal visual inspection, full ROM Resp Effort & Inspection: normal respiratory effort, able to speak in complete sentences, symmetric chest movement Cardio Rate: regular rate Skin General: no rashes or lesions noted, elasticity normal, turgor normal Lesions: no lesions Rashes: no rashes Neuro General: alert, awake, oriented x3 Cranial Nerves: CN's II-XI intact bilaterally, PERRL, EOM intact bilaterally Cognition: normal cognition Speech: speech normal Gait: normal gait Extrem General: normal to inspection, full ROM, no pedal edema Psych Appearance: grossly normal Mental Status: mental status grossly normal Mood: congruent mood Affect: normal affect Speech and Movement: speech and movement normal Attitude: cooperative Thought Process: normal Thought Content: normal Assessment & Plan 1. Incomplete uterovaginal prolapse N81.2 Plan Patient presents for preop visit for total vaginal hysterectomy and bilateral salpingo-oophorectomy for pelvic organ prolapse. No changes in past medical history since prior visit. Plan for combo case with Dr. Morataya for pelvic floor repair. Again discussed risks and benefits of the procedure with the patient. Discussed that we are planning on removing tubes and ovaries if possible, however that there is a chance that these would not be easily accessible and may be left in place as long as they look normal. Consent was signed with the patient in the office today. UPDATE- I have seen the patient and performed any clinically relevant updates to the history and physical exam. Danni Edmond MD
[2020-06-13] MEDS: Gabapentin 600 MG Tablet PO (06:10)
[2020-06-13] MEDS: Celecoxib 200 MG Capsule 400 MG PO (06:11)
[2020-06-13] MEDS: Acetaminophen 500 MG Tablet 1000 MG PO ×3 (06:11→22:28)
[2020-06-13] MEDS: Lactated Ringers 1,000 ML 40 ML IV (06:26)
[2020-06-13 07:00] LABS: Bedside Glucose 103 mg/dL (70-110)
[2020-06-13] MEDS: Cefazolin 2 GM in 0.9% Normal Saline 100 ML IV (07:21)
--- NOTE | 2020-06-13 07:30 | HYST_PTH ---
PATIENT: NUHA SAEED LOC: [facility] U#:[id number] AGE/SX: 75/F ROOM: RE06/13/[address]: Dr. Yelena Morataya MD : 1945 BED: DIS: 06/14/2020 SPEC #: [id number] RECD: 06/13/20 14:45 STATUS: SANTANA DEMAR #: [id number] JOJO: 06/13/20 07:[address]: Yelena Morataya DEPT: SURGICAL PATHOLOGY RECD BY: Brittni Valenzuela ENTERED: 06/16/20 07:29 SP TYPE: HYSTERECT OTHR DR: MD Dr. Rigoberto Alfaro MD Tissues: Uterus, NOS Procedures: Surgery Specimen Level V HEADER OPERATION: ERAS, vaginal hysterectomy PRE-OP DIAGNOSIS: Incomplete uterovaginal prolapse TISSUE SUBMITTED: Uterus, cervix MICROSCOPIC DIAGNOSIS Uterus, hysterectomy: Cervix - squamous metaplasia and hyperkeratosis. Endometrium - inactive endometrium with focal cystic change. Myometrium - adenomyosis and vessel wall calcifications. AM:binh 06/17/20 MICROSCOPIC DESCRIPTION Slides are reviewed. GROSS DESCRIPTION Received in fixative is one container labeled with the patient's name and designated uterus. The specimen consists of a uterus with attached cervix without fallopian tube and ovaries measuring 11.5 x 4 x 3.6 cm and weighing 63.6 gm. The ectocervix is unremarkable. The cervical os is oval in contour. The endocervical canal measures 4.8 cm in length and is grossly unremarkable. The triangular endometrial cavity measures 2.3 x 1.5 cm. The light zaman endometrium measures up to 0.1 cm in thickness. The myometrium measures 1.2 cm in average thickness and is free of mass lesions. No distinct mass lesions are identified. 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 / AM:binh 06/16/20 TC:5 CPT: 04832
[2020-06-13] MEDS: Vasopressin 20 UNITS/ML Vial (08:00)
[2020-06-13] MEDS: Lubricating Jelly 60 GM Tube 30 GM TOPICAL (08:00)
[2020-06-13] MEDS: Estrogens,Conj. 1 Tube 1 DOSE (10:28)
[2020-06-13] MEDS: Lactated Ringers 1,000 ML 70 ML IV (10:35)
--- NOTE | 2020-06-13 10:43 | PCM.OPRPT ---
Problem List (1) Prolapse of female pelvic organs Status: Acute Qualifiers: Prolapse type: incomplete uterovaginal prolapse Qualified Code(s): N81.2 - Incomplete uterovaginal prolapse Report of Operation Date of Procedure: 06/13/20 Pre-Operative Diagnosis: Incomplete uterovaginal prolapse Post-Operative Diagnosis: Same Surgery/Procedure Performed:: Anterior repair with dermis, bilateral sacrospinous ligament fixation, perineoplasty, cystoscopy with bilateral ureteral catheterization Type of Anesthesia:: General Specimen's removed: None Estimated Blood Loss (mL): 25 cc Description of Procedure: Patient is a 74-year-old female with incomplete uterovaginal prolapse who desired to proceed with surgical intervention. She was evaluated with urodynamics and cystoscopy and informed consent was obtained and included a discussion regarding the current issues with COVEVELIO-[place]ub[place]. Patient was taken to the operating room and placed on the operating room table. Anesthesia monitored the head, neck, airway, IV access and vital signs throughout the case. Once anesthesia was appropriately ministered, the patient was placed into the dorsal lithotomy in Trendelenburg position. A Mathews catheter was inserted and the bladder was emptied. Dr. Edmond proceeded with hysterectomy and cuff closure. At completion of this, I began with anterior vaginal wall. It was isolated with Allis clamps and the submucosa was injected with vasopressin for hydrostatic dissection and hemostatic control. A vertical midline 2.5 cm incision was made. Sharp and blunt dissection was performed until the ischial spines were palpable and the sacrospinous ligaments were freed from surrounding tissues. The patient's left side was much more scarred in than the right side. After the dissection was complete from the area of the bladder neck to the apex and to the sacrospinous ligaments bilaterally, the [employer] device was used to pass Monodek suture through the sacrospinous ligaments bilaterally. The suture was then brought through the dermis and out into the full thickness vaginal mucosa at the apex. The dermis was then trimmed to length and using interrupted 2-0 Vicryl suture was tacked into position around the apex, bilaterally along the areas of the white line of pubocervical fascia and at the area of the bladder neck. At the conclusion of this, the incision was closed using running interlocking 2-0 Vicryl. The sacrospinous ligament sutures were tied into position and the prolapse was reduced. At this time the significant defect posteriorly was at the area of the perineum. The submucosa was injected here with vasopressin as well and a midline incision was made. Sharp dissection was performed bilaterally. The the perineal body was constructed with interrupted sutures in 2 layer closure of with 2-0 Vicryl. The mucosa was then closed over the repair with running interlocking 2-0 Vicryl. The Mathews catheter was removed and a cystoscope was inserted through the urethra under direct visualization into the urinary bladder. The bladder mucosa in its entirety was visualized. There were no injuries to the bladder or the urethra identified. Bilateral ureteral orifices were each intubated with a 5 Syriac whistle-tip catheter which was inserted to 20 cm without evidence of obstruction or injury. Good ureteral jets were observed. The cystoscope was removed and the Mathews catheter was reinserted. The vagina was packed with vaginal estrogen cream and packing. The patient was awakened and taken to the recovery room in good condition. There were no complications during this procedure. Grafts/Implants Used: Dermis - Complications None - Admit VTE Documentation VTE Present on Admission: Yes VTE Mechan Device Prophylaxis: SCD's VTE Pharm Prophylaxis ordered?: Yes
--- NOTE | 2020-06-13 10:50 | PCM.DC.URO ---
Discharge Diet: No Restrictions Discharge Activity: May Shower, - - no tub bathing, hot tubs or swimming. no exercise or strenuous activity. no lifting over 5 pounds. ok to do stairs. no sexual activity. continue vaginal estrogen cream May resume sexual activity in: 8 weeks Call your doctor if your incision/area has: Continuous Slow Oozing, Sudden Increased Bleeding, Increased Pain/ Swelling, Increased Redness, Foul Smelling Discharge, Swelling at the incision site Call your doctor if you observe: Fever of 101 or Higher, Inability to urinate, Inability to have a bowel movement Allergies/Adverse Reactions: Allergies hydrocodone [From Vicodin] Allergy (Intermediate, Verified 06/13/20 05:55) Vomiting aspirin [From Excedrin Back and Body] Allergy (Mild, Verified 06/13/20 05:55) Other calcium carbonate [From Excedrin Back and Body] Allergy (Mild, Verified 06/13/20 05:55) Other morphine Allergy (Mild, Verified 06/13/20 05:55) Vomiting perfume Allergy (Verified 06/13/20 05:55) Other SNEEZING, EYES WATER codeine Adverse Reaction (Mild, Verified 06/13/20 05:55) Nausea/Vom/Diarrhea caffeine [From Excedrin Migraine] Adverse Reaction (Verified 06/13/20 05:55) Nausea/Vom/Diarrhea Medications to take at Discharge cholecalciferol (vitamin D3) 25 mcg (1,000 unit) capsule 1,000 unit PO ONCE 08/24/17 glucosamine-chondroitin 250 mg-200 mg tablet 2 tab PO TID 08/24/17 hydroxychloroquine 200 mg tablet 200 mg PO BID 08/24/17 multivitamin,yd-znfn-amzjmgrq 1 tab PO QDAY 08/24/17 RX: Estradiol 0 udc VAGINAL .COMPLEX 01/13/18 RX: [place]-3/Dha/Epa/Fish Oil [Fish Oil 1,400 mg Softgel] 1 ea PO DAILY 01/13/18 Primary Care Physician: Rigoberto White MD [Primary Care Provider] - Test Results: Test results from this visit will be discussed in further detail at your follow-up appointment, if applicable. Please Follow Up With: Yelena Morataya MD When: call office for appt Proposed Discharge Date: 06/14/20
--- NOTE | 2020-06-13 12:20 | OP.PCM_ITS ---
Problem List (1) Prolapse of female pelvic organs Status: Acute Qualifiers: Prolapse type: incomplete uterovaginal prolapse Qualified Code(s): N81.2 - Incomplete uterovaginal prolapse Report of Operation Date of Procedure: 06/13/20 Pre-Operative Diagnosis: Pelvic organ prolapse Post-Operative Diagnosis: same Surgery/Procedure Performed:: Total vaginal hysterectomy Description of Surgical Findings:: Complete uterovaginal prolapse. Normal appearing cervix. telecom specialist: Yelena Morataya Type of Anesthesia:: General Specimen's removed: Uterus, cervix Drains: Mathews Estimated Blood Loss (mL): 100ml Description of Procedure: Patient was taken to the operating room and was placed under general anesthesia was prepped and draped in normal sterile fashion in the dorsal lithotomy pos ition. Preoperative antibiotics and SCDs and Mathews catheter was placed inside the bladder. Weighted speculum was placed in the vagina and the anterior and posterior lip of the cervix was grasped with 2 Vasquez clamps and circumferentially injected with dilute vasopressin. A circumferential incision was made with a scalpel and the posterior cul-de-sac was entered into sharply and a longneck speculum was placed. The anterior cul-de-sac was also dissected down and entered into sharply and the uterosacral ligaments were clamped cut and suture ligated bilaterally followed by the cardinal ligaments which were Clamped cut and suture ligated bilaterally with 0 Vicryl. The uterus serially descended and progressive bites were taken bilaterally up to the level of the utero- ovarian ligament bilaterally which was clamped transected and double ligated with 0 Vicryl suture and 0 Vicryl free tie. Bilateral fallopian tubes and ovaries were well visualized and noted be within normal limits, but were noted to be well out of the operative field and high in the pelvis. The decision was made to leave the tubes and ovaries in place. This possibility had been discussed with the patient in the office. Excellent hemostasis was noted. Posterior peritoneum and the vagina were closed with [id number] 0 Vicryl pop offs including the posterior and anterior peritoneum in the reapproximation. Excellent hemostasis was noted. All instruments removed from the vagina clear urine was noted at the end of the procedure and counts were correct. Next Dr. Morataya proceeded with her portion of the procedure. - Complications None - Admit VTE Documentation VTE Present on Admission: No VTE Mechan Device Prophylaxis: SCD's VTE Pharm Prophylaxis ordered?: No Multi Select Codes - Urinary/Genital Urinary/Genital CPT Codes: 09516 TVH <250 gr uterus
[2020-06-13] MEDS: FLUCONAZOLE 150 MG TABLET PO (13:38)
[2020-06-13] MEDS: Ketorolac 15 MG/ML Vial IV ×2 (13:38→19:34)
[2020-06-13] MEDS: Lactated Ringers 1,000 ML 75 ML IV (13:45)
[2020-06-13] MEDS: Cefazolin 1 GM/50 ML BAG IV ×2 (15:16→22:29)
[2020-06-14 02:20] VITALS: RESP 16
[2020-06-14] MEDS: Ketorolac 15 MG/ML Vial IV ×2 (02:40→08:39)
[2020-06-14] MEDS: Lactated Ringers 1,000 ML 75 ML IV (02:44)
[2020-06-14 02:52] VITALS: BP 115/56; PULSE 69; RESP 16; TEMP 36.9; O2SAT 94
[2020-06-14] MEDS: Acetaminophen 500 MG Tablet 1000 MG PO (05:50)
[2020-06-14 06:21] LABS: Hematocrit 38.4 % (37-47); Hemoglobin 11.7 g/dL (12.0-15.0); Mean Corp Hgb Conc 30.5 g/dL (32-36); Mean Corpuscular Hgb 31.1 pg (27.0-32.0); Mean Corpuscular Volume 102.1 fL (81-99); Mean Platelet Vol. 10.1 fl (6.2-12.0); Platelet Count 194 K/mm3 (150-450); RBC Distribution Width CV 13.1 % (11.6-14.6); RBC Distribution Width SD 49.1 fl (35.1-43.9); Red Blood Count 3.76 M/mm3 (4.2-5.4); White Blood Count 7.9 K/mm3 (4.4-11.0)
[2020-06-14 06:46] LABS: Creatinine, Serum 0.61 mg/dL (0.55-1.02); EST Glomerular Filtration Rate 103 mL/min (>60); Est Glom Filt Rate - Afr Amer 124 mL/min (>60); Estimated Creatinine Clearance 35.99 ml/min
[2020-06-14] MEDS: FLUCONAZOLE 150 MG TABLET PO (08:39)
[2020-06-14] MEDS: 0.9% Saline Lock 10 ML Syringe IV (08:39)
[2020-06-14 09:03] VITALS: BP 116/50; PULSE 73; RESP 18; TEMP 36.8; O2SAT 94
--- NOTE | 2020-06-14 09:06 | NURSING ---
vaginal packing and escamilla removed. scant brown drainage noted on vaginal packing. ambulated with pt in hallway x1 lap, pt tolerated well. pt resting in chair, call light within reach.
--- NOTE | 2020-06-14 09:48 | PCM.PN.OB ---
Patient Problems: Active and Suspected Problems (Last Reviewed 06/02/20 @ 12:04 by Luly Tolentino) Prolapse of female pelvic organs (Acute) Subjective: Patient seen and examined. Reports doing well. Pain is minimal. Ate breakfast without difficulty. Mathews removed this morning. Has not yet voided since removal. Denies bleeding. Passing gas. Objective: Laboratory Tests 06/14/20 06/14/20 06/13/20 Range/Units 05:45 05:45 06:05 WBC 7.9 (4.4-11.0) K/mm3 RBC 3.76 L (4.2-5.4) M/mm3 Hgb 11.7 L (12.0-15.0) g/dL Hct 38.4 (37-47) % MCV 102.1 H (81-99) fL MCH 31.1 (27.0-32.0) pg MCHC 30.5 L (32-36) g/dL RDW Std Deviation 49.1 H (35.1-43.9) fl RDW Coeff of Jenny 13.1 (11.6-14.6) % Plt Count 194 (150-450) K/mm3 MPV 10.1 (6.2-12.0) fl Sodium (136-145) mmol/L Potassium (3.5-5.1) mmol/L Chloride (98-107) mmol/L Carbon Dioxide (21.0-32.0) mmol/L Anion Gap (5-15) BUN (7-18) mg/dL Creatinine 0.61 (0.55-1.02) mg/dL Estim Creat Clear Calc 35.99 ml/min Est GFR (MDRD) Af Amer 124 (>60) mL/min Est GFR (MDRD) Non-Af 103 (>60) mL/min BUN/Creatinine Ratio (10-20) RATIO Glucose (74-106) mg/dL Calcium (8.5-10.1) mg/dL Magnesium (1.6-2.6) mg/dL POC Glucose 103 (70-110) mg/dL Blood Type Antibody Screen 06/06/20 06/06/20 06/06/20 Range/Units 10:46 10:46 10:46 WBC 7.2 (4.4-11.0) K/mm3 RBC 4.69 (4.2-5.4) M/mm3 Hgb 14.7 (12.0-15.0) g/dL Hct 47.2 H (37-47) % MCV 100.6 H (81-99) fL MCH 31.3 (27.0-32.0) pg MCHC 31.1 L (32-36) g/dL RDW Std Deviation 48.0 H (35.1-43.9) fl RDW Coeff of Jenny 12.9 (11.6-14.6) % Plt Count 260 (150-450) K/mm3 MPV 10.3 (6.2-12.0) fl Sodium 140 (136-145) mmol/L Potassium 3.7 (3.5-5.1) mmol/L Chloride 105 (98-107) mmol/L Carbon Dioxide 33.0 H (21.0-32.0) mmol/L Anion Gap 2 L (5-15) BUN 11 (7-18) mg/dL Creatinine 0.72 (0.55-1.02) mg/dL Estim Creat Clear Calc ml/min Est GFR (MDRD) Af Amer 103 (>60) mL/min Est GFR (MDRD) Non-Af 85 (>60) mL/min BUN/Creatinine Ratio 15.4 (10-20) RATIO Glucose 107 H (74-106) mg/dL Calcium 8.7 (8.5-10.1) mg/dL Magnesium (1.6-2.6) mg/dL POC Glucose (70-110) mg/dL Blood Type O POSITIVE Antibody Screen NEGATIVE 06/06/20 Range/Units 10:45 WBC (4.4-11.0) K/mm3 RBC (4.2-5.4) M/mm3 Hgb (12.0-15.0) g/dL Hct (37-47) % MCV (81-99) fL MCH (27.0-32.0) pg MCHC (32-36) g/dL RDW Std Deviation (35.1-43.9) fl RDW Coeff of Jenny (11.6-14.6) % Plt Count (150-450) K/mm3 MPV (6.2-12.0) fl Sodium (136-145) mmol/L Potassium (3.5-5.1) mmol/L Chloride (98-107) mmol/L Carbon Dioxide (21.0-32.0) mmol/L Anion Gap (5-15) BUN (7-18) mg/dL Creatinine (0.55-1.02) mg/dL Estim Creat Clear Calc ml/min Est GFR (MDRD) Af Amer (>60) mL/min Est GFR (MDRD) Non-Af (>60) mL/min BUN/Creatinine Ratio (10-20) RATIO Glucose (74-106) mg/dL Calcium (8.5-10.1) mg/dL Magnesium 2.3 (1.6-2.6) mg/dL POC Glucose (70-110) mg/dL Blood Type Antibody Screen - Physical Exam Vitals/I&O's: Vital Signs Temp Pulse Resp BP Pulse Ox 98.3 F 73 18 116/50 L 94 06/14/20 09:03 06/14/20 09:03 06/14/20 09:03 06/14/20 09:03 06/14/20 09:03 Oxygen Flow Rate (L/min) 6 Oxygen Delivery Method Room Air Weight: 136 lb 7.458 oz Body Mass Index (BMI) 26.2 Intake and Output for Last 24 Hours 06/12/20 06/13/20 06/14/20 23:59 23:59 23:59 Intake Total 2622.0 / 2622.0 280 / 280 Output Total 2105 / 2105 700 / 700 Balance 517.0 / 517.0 -420 / -420 General: Alert, Oriented x3, Cooperative, No apparent distress, Well developed, Well nourished HEENT: Atraumatic, PERRLA, EOMI, Normocephalic Neck: Supple, No JVD Lungs: Clear to auscultation, Normal air movement, No rhonchi, No wheeze, No rales Cardiovascular: Regular rate, Regular Rhythm Abdomen: Bowel Sounds Present, Soft, Non Tender, Non-Distended Extremities: No edema, No Calf Tenderness Neurological: Cranial nerves II-XII grossly intact, Neuro grossly intact Psych/Mental Status: Normal Affect, Appropriate Microbiology Past 72 Hours 06/12/20 11:30 Interface Orders SARS-CoV-2 Antigen (Rapid) - Final Laboratory Results 06/14/20 05:45: WBC 7.9, RBC 3.76 L, Hgb 11.7 L, Hct 38.4, MCV 102.1 H, MCH 31.1, MCHC 30.5 L, RDW Std Deviation 49.1 H, RDW Coeff of Jenny 13.1, Plt Count 194, MPV 10.1 06/14/20 05:45: Creatinine 0.61, Estim Creat Clear Calc 35.99, Est GFR (MDRD) Af Amer 124, Est GFR (MDRD) Non-Af 103 Current Medications Acetaminophen (Acetaminophen 500 Mg Tablet) 1,000 mg PO Q8H [facility] Last Admin: 06/14/20 05:50 Dose: 1,000 mg Documented by: Fluconazole (Fluconazole 150 Mg Tablet) 150 mg PO DAILY SARAH Stop: 06/14/20 10:01 Last Admin: 06/14/20 08:39 Dose: 150 mg Documented by: Lactated Ringer's () 1,000 mls @ 75 mls/hr IV .[id number] SARAH Last Admin: 06/14/20 02:44 Dose: 75 mls/hr Documented by: Sodium Chloride () 250 mls @ 15 mls/hr IV .[id number] PRN PRN Reason: Saline Flush Ketorolac Tromethamine (Ketorolac 15 Mg/Ml Vial) 15 mg IV Q6H SARAH Stop: 06/18/20 14:01 Last Admin: 06/14/20 08:39 Dose: 15 mg Documented by: Ondansetron HCl (Ondansetron 4 Mg/2 Ml Vial) 4 mg IV Q4H PRN PRN PRN Reason: NAUSEA Oxycodone HCl (Oxycodone 5 Mg Tablet) 5 - 10 mg PO Q4H PRN PRN PRN Reason: Pain Score 4-10 Sodium Chloride (0.9% Saline Lock 10 Ml Syringe) 10 - 40 ml IV UD PRN PRN Reason: SALINE FLUSH Last Admin: 06/14/20 08:39 Dose: 10 ml Documented by: Medical Necessity - Tobacco Use Smoking Status: Never smoker Assessment/Plan All Active Problems (Last Reviewed 06/02/20 @ 12:04 by Luly Tolentino) History of total vaginal hysterectomy (TVH) (Resolved ~06/13/20) Prolapse of female pelvic organs (Acute) Periorbital contusion of left eye (Acute) Fracture of left orbital floor (Acute) Fall as cause of accidental injury at home as place of occurrence (Acute) Urethral caruncle (Acute) Vagina neoplasm (Acute) Rheumatoid arthritis (Acute) Lichen sclerosus (Acute) 75-year-old female postop day 1 status post total vaginal hysterectomy and pelvic floor reconstruction. Postop state -Patient reports doing well. -Postop hemoglobin stable. -Vital signs stable. -Mathews catheter removed this morning. Patient has not yet voided since Mathews catheter removed. -Tolerating p.o. intake without nausea vomiting. -Reports minimal pain. -Anticipate discharge to home later this morning.
--- NOTE | 2020-06-14 10:59 | PCM.PN.BLA ---
Progress Note Braeden doing well overnight. Tolerating p.o., ambulating without trouble. Catheter is out, has yet to void. Vital signs are good Abdomen soft, up in chair no calf tenderness on exam Postop day #1 hysterectomy with pelvic floor reconstruction Await trial of void home Later today STROKE Vital Signs/Narrative: Vital Signs Temp Pulse Resp BP Pulse Ox 06/14/20 09:03 98.3 F 73 18 116/50 L 94
== END 2020-06-14 13:15 | disposition home or self-care (01) ==
LOC: SDC 05:12 → AC 05:14 → MS3 08:00
PROVIDERS: Anesthesiology; PCP Family Medicine; Referring Provider Obstetrics & Gynecology; Visit Provider Urology
PROC: (CPT 58260; principal; 2020-06-13 07:10)
PROC: (CPT 57260; 2020-06-13 07:10)
DX: N81.2 Incomplete uterovaginal prolapse (principal); N87.9 Dysplasia of cervix uteri, unspecified; N88.0 Leukoplakia of cervix uteri; N80.0 Endometriosis of uterus; N95.2 Postmenopausal atrophic vaginitis; N39.41 Urge incontinence; R35.1 Nocturia; N36.2 Urethral caruncle; L90.0 Lichen sclerosus et atrophicus; Z20.828 Contact with and (suspected) exposure to other viral communicable diseases; M06.9 Rheumatoid arthritis, unspecified; Z79.899 Other long term (current) drug therapy; Z78.0 Asymptomatic menopausal state
CPT/HCPCS: 00944; 57240; 57267; 57282; 58260; 36415; 80048; 82565; 82962; 83735; 85027; 86850; 86900; 86901; 87426; 88307; 93005; C9803; J7120; A4216; C1758; J2405

== ENCOUNTER 2020-11-19 16:24 | Emergency (ER) | payer MEDICARE, SELFPAY ==
[2020-11-19 15:52] VITALS: BMI 24.7
[2020-11-19 16:25] VITALS: BP 138/87; PULSE 87; RESP 16; TEMP 37; O2SAT 98; BMI 25.9
--- NOTE | 2020-11-19 16:36 | EDS_ITS ---
HPI History of Present Illness Chief Complaint: General Illness Informant: patient Narrative Narrative: Patient presents with not feeling well, runny nose. Been ongoing for a couple of days. She thinks that the allergens at her work are acting up. She has not ate well the past couple of days. She believes that she may be dehydrated. She went to urgent care and they directed her here. She denies any abdominal pain, nausea, vomiting or diarrhea at this time. She did not take anything for allergies at home. She denies any fever or cough. She has not had a Covid vaccination. She is having no back pain, urinary symptoms. [facility] Medical History Arthritis Rheumatoid arthritis Shortness of breath Skin cancer Home Medications cholecalciferol (vitamin D3) 25 mcg (1,000 unit) capsule 1,000 unit PO ONCE 08/24/17 [History Last Taken Unknown] hydroxychloroquine 200 mg tablet 200 mg PO BID 08/24/17 [History Last Taken Unknown] multivitamin,ur-savc-lzhrqxaw 1 tab PO QDAY 08/24/17 [History Last Taken Unknown] estradiol 0 udc VAGINAL .COMPLEX 01/13/18 [History Last Taken Unknown] omega 3-cbx-ldl-fish oil 1 ea PO DAILY 01/13/18 [History Last Taken Unknown] calcium 600 mg PO DAILY 11/19/20 [History Last Taken Unknown] fluticasone propionate [Flonase Allergy Relief] 1 spray INTRANASAL BID #16 g 11/19/20 [Rx Last Taken Unknown] Allergy/AdvReac Type Severity Reaction Status Date / Time hydrocodone [From Vicodin] Allergy Intermediate Vomiting Verified 11/19/20 16:27 aspirin Allergy Mild Other Verified 11/19/20 16:27 [From Excedrin Back and Body] calcium carbonate Allergy Mild Other Verified 11/19/20 16:27 [From Excedrin Back and Body] morphine Allergy Mild Vomiting Verified 11/19/20 16:27 perfume Allergy Other Verified 11/19/20 16:27 codeine AdvReac Mild Nausea/Vom/ Verified 11/19/20 16:27 Diarrhea caffeine AdvReac Nausea/Vom/ Verified 11/19/20 16:27 [From Excedrin Migraine] Diarrhea Family History Mother Diabetes Father Cancer prostate Prostate cancer Sister Breast cancer A-fib Kidney disease Brother Diabetes Surgical History H/O foot surgery History of bladder surgery History of total vaginal hysterectomy (TVH) (~06/13/20) Social History Smoking Status: Never smoker alcohol intake: never substance use type: does not use caffeine: No frequency: 1-2 times per week seatbelt use: always do you feel safe at home: Yes additional social history: - [employer] DOES NOT USE ASPIRIN DOES USE IBUPROFEN NEEDED DOES USE TYLENOL NEEDED ROS ROS ED Constitutional Constitutional ED: Denies chills or fever(s) Eyes Eyes: Denies blurry vision, change in vision, diplopia or loss of vision ENT ENT ED: Reports nasal congestion and nasal discharge Cardiovascular Cardiovascular: Denies chest pain, palpitations or racing heartbeat Respiratory/Chest Respiratory/Chest: Denies cough, dyspnea, dyspnea on exertion or sputum Gastrointestinal Gastrointestinal: Denies abdominal pain, diarrhea, nausea or vomiting Genitourinary Genitourinary ED: Denies dysuria, hematuria or urinary frequency Musculoskeletal Musculoskeletal: Denies back pain, myalgias or neck pain Integumentary Denies abscess or rash Neurologic Neurologic: Denies headache(s) or weakness Psychiatric Psychiatric: Denies anxiety or depression Endocrine Endocrinology: Denies polydipsia or polyuria Hematologic/Lymphatic Hematologic/Lymphatic: Denies easy bleeding or easy bruising Allergic/Immunologic Allergic/Immunologic ED: Denies urticaria EXAM Physical Exam Const Vital Signs: 11/19/20 16:25 11/19/20 17:26 Temperature 98.6 F Temperature Source Temporal Pulse Rate 87 72 Respiratory Rate 16 16 Blood Pressure 138/87 H 137/74 H Blood Pressure Mean 104 95 Pulse Ox 98 98 Oxygen Delivery Method Room Air Room Air Positive well nourished and well developed General Appearance ED: well developed and NAD HEENT Reports normocephalic, head/scalp atraumatic and dry mucous membranes normocephalic and atraumatic; Negative for tenderness Mouth ED: Yes dry mucous membranes Mouth: dry mucous membranes Eyes PERRL and EOMs intact bilaterally General Eye ED: Negative for scleral icterus Neck supple and no JVD Chest Wall palpation of chest normal Chest: Negative for tenderness Resp normal respiratory effort and clear to auscultation bilaterally Effort and Inspection: Negative for respiratory distress Cardio regular rate and regular rhythm; Negative for no murmurs GI soft to palpation, non-tender and non-distended Palpation: soft Back/Spine no CVA tenderness and no thoracic nor lumbar tenderness Cervical Spine: Negative for cervical spine tenderness Extremity normal to inspection General Extremety ED: Negative for tenderness Neuro oriented x3, CN's II-XII intact bilaterally and no sensory deficits noted Sensorium / Orientation: awake and alert Motor Exam: strength 5/5 throughout Psych mental status grossly normal Skin no rashes or lesions noted MDM MDM MDM Narrative Medical decision making narrative: The patient was given IV fluids. Laboratory studies are unremarkable except for a glucose of 73 and an anion gap of 3. Her Covid test is negative. The patient felt better after IV fluids. She was able to ambulate to the bathroom under her own power without difficulty. She could be having another URI causing her sinus symptoms. I will give her Flonase for this. She will increase her hydration at home and will follow up with her PCP. Lab Data Labs: Laboratory Results - last 24 hr 11/19/20 11/19/20 17:05 17:05 WBC 5.1 RBC 4.70 Hgb 14.5 Hct 44.8 MCV 95.3 MCH 30.9 MCHC 32.4 RDW Std Deviation 44.7 H RDW Coeff of Jenny 12.7 Plt Count 228 MPV 10.3 Immature Gran % (Auto) 0.200 Neut % (Auto) 44.9 L Lymph % (Auto) 38.4 [place] % (Auto) 11.3 H Eos % (Auto) 4.6 Baso % (Auto) 0.6 Absolute Neuts (auto) 2.3 Absolute Lymphs (auto) 1.94 Nucleated RBC % 0 Sodium 137 Potassium 4.1 Chloride 105 Carbon Dioxide 29.0 Anion Gap 3 L BUN 10 Creatinine 0.66 Estim Creat Clear Calc 35.99 Est GFR (MDRD) Af Amer 112 Est GFR (MDRD) Non-Af 92 BUN/Creatinine Ratio 15.0 Glucose 73 L Calcium 8.9 Total Bilirubin 0.40 AST 31 ALT 19 Alkaline Phosphatase 85 Total Protein 7.0 Albumin 3.4 Globulin 3.6 Albumin/Globulin Ratio 0.9 Discharge Plan Triage Chief Complaint: General Illness ED Provider: Jhonatan Proctor Dx/Rx/DC Orders Clinical Impression: Sinusitis Instructions: ED Sinusitis (No Antibiotics) Prescriptions: New fluticasone propionate [Flonase Allergy Relief] 50 mcg/actuation spray,suspension 1 spray intranasal BID Qty: 16 RF: 0 No Action hydroxychloroquine [Plaquenil] 200 mg tablet 200 mg PO BID RF: 0 multivitamin,cu-wuth-xkjvhqzy tablet tablet 1 tab PO QDAY RF: 0 cholecalciferol (vitamin D3) 1,000 unit capsule 1,000 unit PO ONCE RF: 0 omega 7-tmd-yib-fish oil 1 EACH capsule,delayed release(DR/EC) 1 ea PO DAILY RF: 0 estradiol 42.5 GM cream 0 udc VAGINAL .COMPLEX RF: 0 calcium 600 mg Capsule 600 mg PO DAILY RF: 0 Primary Care Provider: Rigoberto White Referrals: Rigoberto White MD [Primary Care Provider] - Disposition Disposition: Home, self care
[2020-11-19] MEDS: 0.9% Normal Saline 1,000 ML 1000 ML IV (17:02)
[2020-11-19 17:17] LABS: Absolute Lymphocyte Count 1.94 X10^3/uL (0.83-4.51); Absolute Neutrophil Count 2.3 X10^3/uL (2.0-7.7); Basophil# 0.03 X10^3/uL; Basophil% 0.6 % (0-1); Eosinophil# 0.23 X10^3/uL; Eosinophils% 4.6 % (0-5); Hematocrit 44.8 % (37-47); Hemoglobin 14.5 g/dL (12.0-15.0); Lymphocyte # 1.94 X10^3/ul (0.83-4.51); Lymphocyte % 38.4 % (19-41); Mean Corp Hgb Conc 32.4 g/dL (32-36); Mean Corpuscular Hgb 30.9 pg (27.0-32.0); Mean Corpuscular Volume 95.3 fL (81-99); Mean Platelet Vol. 10.3 fl (6.2-12.0); Monocyte# 0.57 X10^3/uL; Monocyte% 11.3 % (0-10); NRBC Flagged by Analyzer 0 % (0-5); Neutrophil # 2.27 X10^3/uL (2.7-7.7); Neutrophil % 44.9 % (47-70); Platelet Count 228 K/mm3 (150-450); RBC Distribution Width CV 12.7 % (11.6-14.6); RBC Distribution Width SD 44.7 fl (35.1-43.9); White Blood Count 5.1 K/mm3 (4.4-11.0)
[2020-11-19 17:26] VITALS: BP 137/74; PULSE 72; RESP 16; O2SAT 98
[2020-11-19 18:00] LABS: ALB/GLOB Ratio 0.9 RATIO (0.9-2.4); AST(SGOT) 31 U/L (15-37); Alanine Aminotransfer ALT/SGPT 19 U/L (13-56); Albumin, Serum 3.4 g/dL (3.2-5.0); Alkaline Phosphatase 85 U/L (45-117); Anion Gap 3 (5-15); BUN 10 mg/dL (7-18); Calcium,Total 8.9 mg/dL (8.5-10.1); Chloride 105 mmol/L (98-107); Creatinine, Serum 0.66 mg/dL (0.55-1.02); EST Glomerular Filtration Rate 92 mL/min (>60); Est Glom Filt Rate - Afr Amer 112 mL/min (>60); Estimated Creatinine Clearance 35.99 ml/min; Globulin 3.6 g/dL (2.2-4.2); Glucose 73 mg/dL (74-106); Potassium 4.1 mmol/L (3.5-5.1); Sodium Level 137 mmol/L (136-145)
--- NOTE | 2020-11-19 18:22 | EX.ED.DYSGE1 ---
HPI History of Present Illness Chief Complaint: General Illness [facility] Medical History Arthritis Rheumatoid arthritis Shortness of breath Skin cancer Home Medications cholecalciferol (vitamin D3) 25 mcg (1,000 unit) capsule 1,000 unit PO ONCE 08/24/17 [History Last Taken Unknown] hydroxychloroquine 200 mg tablet 200 mg PO BID 08/24/17 [History Last Taken Unknown] multivitamin,gw-ojzy-pbmcsudv 1 tab PO QDAY 08/24/17 [History Last Taken Unknown] estradiol 0 udc VAGINAL .COMPLEX 01/13/18 [History Last Taken Unknown] omega 6-uat-zuf-fish oil 1 ea PO DAILY 01/13/18 [History Last Taken Unknown] calcium 600 mg PO DAILY 11/19/20 [History Last Taken Unknown] fluticasone propionate [Flonase Allergy Relief] 1 spray INTRANASAL BID #16 g 11/19/20 [Rx Last Taken Unknown] Allergy/AdvReac Type Severity Reaction Status Date / Time hydrocodone [From Vicodin] Allergy Intermediate Vomiting Verified 11/19/20 16:27 aspirin Allergy Mild Other Verified 11/19/20 16:27 [From Excedrin Back and Body] calcium carbonate Allergy Mild Other Verified 11/19/20 16:27 [From Excedrin Back and Body] morphine Allergy Mild Vomiting Verified 11/19/20 16:27 perfume Allergy Other Verified 11/19/20 16:27 codeine AdvReac Mild Nausea/Vom/ Verified 11/19/20 16:27 Diarrhea caffeine AdvReac Nausea/Vom/ Verified 11/19/20 16:27 [From Excedrin Migraine] Diarrhea Family History Mother Diabetes Father Cancer prostate Prostate cancer Sister Breast cancer A-fib Kidney disease Brother Diabetes Surgical History H/O foot surgery History of bladder surgery History of total vaginal hysterectomy (TVH) (~06/13/20) Social History Smoking Status: Never smoker alcohol intake: never substance use type: does not use caffeine: No frequency: 1-2 times per week seatbelt use: always do you feel safe at home: Yes additional social history: - [employer] DOES NOT USE ASPIRIN DOES USE IBUPROFEN NEEDED DOES USE TYLENOL NEEDED EXAM Physical Exam Const Vital Signs: 11/19/20 16:25 11/19/20 17:26 Temperature 98.6 F Temperature Source Temporal Pulse Rate 87 72 Respiratory Rate 16 16 Blood Pressure 138/87 H 137/74 H Blood Pressure Mean 104 95 Pulse Ox 98 98 Oxygen Delivery Method Room Air Room Air MDM MDM Lab Data Labs: Laboratory Results - last 24 hr 11/19/20 11/19/20 17:05 17:05 WBC 5.1 RBC 4.70 Hgb 14.5 Hct 44.8 MCV 95.3 MCH 30.9 MCHC 32.4 RDW Std Deviation 44.7 H RDW Coeff of Jenny 12.7 Plt Count 228 MPV 10.3 Immature Gran % (Auto) 0.200 Neut % (Auto) 44.9 L Lymph % (Auto) 38.4 [place] % (Auto) 11.3 H Eos % (Auto) 4.6 Baso % (Auto) 0.6 Absolute Neuts (auto) 2.3 Absolute Lymphs (auto) 1.94 Nucleated RBC % 0 Sodium 137 Potassium 4.1 Chloride 105 Carbon Dioxide 29.0 Anion Gap 3 L BUN 10 Creatinine 0.66 Estim Creat Clear Calc 35.99 Est GFR (MDRD) Af Amer 112 Est GFR (MDRD) Non-Af 92 BUN/Creatinine Ratio 15.0 Glucose 73 L Calcium 8.9 Total Bilirubin 0.40 AST 31 ALT 19 Alkaline Phosphatase 85 Total Protein 7.0 Albumin 3.4 Globulin 3.6 Albumin/Globulin Ratio 0.9 Discharge Plan Triage Chief Complaint: General Illness ED Provider: Jhonatan Proctor Dx/Rx/DC Orders Clinical Impression: Sinusitis Instructions: ED Sinusitis (No Antibiotics) Prescriptions: New fluticasone propionate [Flonase Allergy Relief] 50 mcg/actuation spray,suspension 1 spray intranasal BID Qty: 16 RF: 0 No Action hydroxychloroquine [Plaquenil] 200 mg tablet 200 mg PO BID RF: 0 multivitamin,jp-rhwa-jcqinwhp tablet tablet 1 tab PO QDAY RF: 0 cholecalciferol (vitamin D3) 1,000 unit capsule 1,000 unit PO ONCE RF: 0 omega 1-aqu-mqe-fish oil 1 EACH capsule,delayed release(DR/EC) 1 ea PO DAILY RF: 0 estradiol 42.5 GM cream 0 udc VAGINAL .COMPLEX RF: 0 calcium 600 mg Capsule 600 mg PO DAILY RF: 0 Primary Care Provider: Rigoberto White Referrals: Rigoberto White MD [Primary Care Provider] - Disposition Disposition: Home, self care
[2020-11-19 18:42] VITALS: BP 133/60; PULSE 75; RESP 18; O2SAT 99
== END 2020-11-19 18:43 | disposition home or self-care (01) ==
PROVIDERS: Emergency Provider Emergency Medicine; PCP Family Medicine
DX: J32.9 Chronic sinusitis, unspecified (principal); M06.9 Rheumatoid arthritis, unspecified; Z20.822 Contact with and (suspected) exposure to COVID-19; Z79.899 Other long term (current) drug therapy
CPT/HCPCS: 80053; 85025; 87426; 96360; 96361; 99284; J7030; A4216

== ENCOUNTER 2021-04-29 17:21 | Emergency (ER) | payer MEDICARE, SELFPAY ==
[2021-04-29 17:22] VITALS: BP 137/69; BP 155/71; PULSE 81; PULSE 83; PULSE 86; RESP 16; RESP 21; TEMP 36.7; TEMP 37.3; O2SAT 95; O2SAT 97; BMI 25.0
--- NOTE | 2021-04-29 17:54 | CT_ITS ---
STUDY: CT Abdomen And Pelvis W/O Contrast Injection 04/29/2021 7:29 PM REASON FOR EXAM: Female, 75 years old. Abdominal pain Pain -- lower abd pain Individualized dose optimization techniques were used for this CT. COMPARISON: 01/15/2014 TECHNIQUE: CT Abdomen And Pelvis W/O Contrast Injection FINDINGS: There are atherosclerotic calcifications of visualized coronary arteries. The visualized portions of the heart are within normal limits. Normal liver. Normal gallbladder and extrahepatic biliary system. Normal spleen. Normal pancreas. Normal bilateral adrenal glands. Non obstructive 1 to 2 mm right renal parenchymal stones. No acute findings of the left kidney. Focal wall thickening of the antrum of stomach. This can suggest a gastritis. Normal small intestine. There are multiple colonic diverticula consistent with diverticulosis. The appendix is visualized and appears normal. There are calcifications of the abdominal aorta. This is consistent for atherosclerotic disease. There is no abdominal aortic aneurysm. Normal inferior vena cava. Subcentimeter mesenteric lymph nodes. Normal urinary bladder. There is absence of the uterus consistent with a prior hysterectomy. There is an umbilical hernia containing fat. There is scoliosis of the lumbar spine. Degenerative findings of the hips. There is bilateral neural foraminal stenosis at L4-5 and L5-S1. IMPRESSION: (NOT LISTED IN ORDER OF SIGNIFICANCE) Gastritis. There are multiple colonic diverticula consistent with diverticulosis. Other findings as above. Electronically Signed: Ming Brown MD at 19:31 EDT , Service support , CT/Abdomen/Pelvis without Cont
--- NOTE | 2021-04-29 17:56 | EDS_ITS ---
HPI HPI - GI History of Present Illness Chief Complaint: Abd Pain Informant: patient and family Narrative Narrative: Presents with lower abdominal discomfort since Tuesday radiating around to the back both sides. Denies pain down the legs. Denies trauma. Denies vomiting or diarrhea. Decreased p.o. intake. No urinary symptoms. Also yesterday for mild cough headache. No loss of taste or smell. No fevers. States pain is increasing worse with walking therefore came here. Partial hysterectomy in the past. Bladder lifting in the past. History of rheumatoid arthritis on hydroxychloroquine. Colonoscopy a year ago reported negative. Prior similar symptoms: No PFSH PFSH Medical History Arthritis Rheumatoid arthritis Shortness of breath Skin cancer Home Medications cholecalciferol (vitamin D3) 25 mcg (1,000 unit) capsule 1,000 unit PO ONCE 08/24/17 [History Last Taken Unknown] hydroxychloroquine 200 mg tablet 200 mg PO BID 08/24/17 [History Last Taken Unknown] multivitamin,bi-srqj-gqdctlsu 1 tab PO QDAY 08/24/17 [History Last Taken Unknown] estradiol 0 udc VAGINAL .COMPLEX 01/13/18 [History Last Taken Unknown] omega 5-qav-xpv-fish oil 1 ea PO DAILY 01/13/18 [History Last Taken Unknown] calcium 600 mg PO DAILY 11/19/20 [History Last Taken Unknown] fluticasone propionate [Flonase Allergy Relief] 1 spray INTRANASAL BID #16 g 11/19/20 [Rx Last Taken Unknown] Allergy/AdvReac Type Severity Reaction Status Date / Time hydrocodone [From Vicodin] Allergy Intermediate Vomiting Verified 04/29/21 18:34 aspirin Allergy Mild Other Verified 04/29/21 18:34 [From Excedrin Back and Body] morphine Allergy Mild Vomiting Verified 04/29/21 18:34 perfume Allergy Other Verified 04/29/21 18:34 codeine AdvReac Mild Nausea/Vom/ Verified 04/29/21 18:34 Diarrhea caffeine AdvReac Nausea/Vom/ Verified 04/29/21 18:34 [From Excedrin Migraine] Diarrhea Family History Mother Diabetes Father Cancer prostate Prostate cancer Sister Breast cancer A-fib Kidney disease Brother Diabetes Surgical History H/O foot surgery History of bladder surgery History of total vaginal hysterectomy (TVH) (~06/13/20) Social History Smoking Status: Never smoker alcohol intake: never substance use type: does not use caffeine: No frequency: 1-2 times per week seatbelt use: always do you feel safe at home: Yes additional social history: - [employer] DOES NOT USE ASPIRIN DOES USE IBUPROFEN NEEDED DOES USE TYLENOL NEEDED ROS ROS ED Constitutional Constitutional ED: Denies chills, fever(s) or sweats Eyes Eyes: Denies change in vision ENT ENT ED: Denies dysphagia or sore throat Cardiovascular Cardiovascular: Denies chest pain, leg edema, palpitations or racing heartbeat Respiratory/Chest Respiratory/Chest: Reports cough; Denies dyspnea or dyspnea on exertion Gastrointestinal Gastrointestinal: Reports abdominal pain; Denies diarrhea, nausea or vomiting Genitourinary Genitourinary ED: Denies dysuria, hematuria or urinary frequency Musculoskeletal Musculoskeletal: Denies back pain, extremity pain or neck pain Integumentary Denies rash or wounds Neurologic Neurologic: Reports headache(s); Denies paresthesias or weakness EXAM Physical Exam Const Vital Signs: 04/29/21 17:22 04/29/21 19:25 04/29/21 19:26 Temperature 99.1 F 98.3 F Temperature Source Temporal Oral Pulse Rate 83 77 77 Respiratory Rate 21 H 15 15 Blood Pressure 155/71 H 141/68 H 141/68 H Blood Pressure Mean 99 92 92 Pulse Ox 95 99 99 Oxygen Delivery Method Room Air Room Air Room Air 04/29/21 19:33 04/29/21 21:11 Temperature Temperature Source Pulse Rate 80 69 Respiratory Rate 17 Blood Pressure 122/61 H 133/62 H Blood Pressure Mean 81 85 Pulse Ox 96 96 Oxygen Delivery Method Room Air Room Air Positive well nourished and well developed General Appearance ED: well developed and NAD HEENT Reports dry mucous membranes normocephalic and atraumatic Mouth ED: Yes dry mucous membranes Mouth: dry mucous membranes Eyes PERRL, EOMs intact bilaterally and conjunctivae normal General Eye ED: Yes normal appearance of both eyes Neck no lymphadenopathy and supple General: Negative for tenderness Chest Wall Chest: Negative for tenderness Resp normal respiratory effort and normal air movement Effort and Inspection: symmetric chest movement; Negative for respiratory distress Cardio regular rate, regular rhythm and no murmurs Peripheral Pulses: pulses 2+ throughout GI normal to inspection, nondistended, normoactive bowel sounds GI Narrative: Mild suprapubic left lower quadrant tenderness. No guarding or rebound. Negative Smtih's or McBurney's tenderness. Palpation: Negative for guarding or rebound tenderness present Back/Spine no CVA tenderness and no thoracic nor lumbar tenderness Extremity normal to inspection General Extremety ED: Negative for edema or tenderness General Extremity: Negative for edema Neuro oriented x3 and no sensory deficits noted Sensorium / Orientation: awake and alert Skin no rashes or lesions noted and no wounds MDM MDM MDM Narrative Medical decision making narrative: Patient vital signs stable. Nonsurgical abdomen on exam. Reports increasing lower abdominal pain which brought her in. Patient declined any medications. Urine basic labs normal white count of 6. CT scan negative for any acute process in lower abdomen. Normal appendix. Reported thickened gastrum per radiology. She states she had upper endoscopy with her lower endoscopy a year ago by her specialist locally. She cannot recall the name. She has no epigastric tenderness. There is no concerns for gastritis. She has had normal bowel movements. Discussed with patient follow- up with specialists for reevaluation. She will use Tylenol continue fluids. Return precautions discussed. All questions were answered. Lab Data Attestation: I reviewed the patient's lab results. Labs: Laboratory Results - last 24 hr 04/29/21 04/29/21 04/29/21 18:45 18:45 Unknown WBC 6.0 RBC 4.73 Hgb 14.9 Hct 45.2 MCV 95.6 MCH 31.5 MCHC 33.0 RDW Std Deviation 46.8 H RDW Coeff of Jenny 13.2 Plt Count 225 MPV 10.1 Immature Gran % (Auto) 0.200 Neut % (Auto) 51.7 Lymph % (Auto) 27.4 [place] % (Auto) 11.1 H Eos % (Auto) 8.6 H Baso % (Auto) 1.0 Absolute Neuts (auto) 3.1 Absolute Lymphs (auto) 1.63 Nucleated RBC % 0 Sodium 142 Potassium 3.9 Chloride 107 Carbon Dioxide 29.0 Anion Gap 6 BUN 8 Creatinine 0.68 Estim Creat Clear Calc 35.99 Est GFR (MDRD) Af Amer 108 Est GFR (MDRD) Non-Af 89 BUN/Creatinine Ratio 11.7 Glucose 89 Calcium 8.7 Urine Color Yellow Urine Clarity Clear Urine pH 7.0 Ur Specific [place] 1.010 Urine Protein 15 H Urine Glucose (UA) Normal Urine Ketones Negative Urine Occult Blood Negative Urine Nitrite Negative Urine Bilirubin Negative Urine Urobilinogen Normal Ur Leukocyte Esterase Negative Urine RBC 0 SEEN Urine WBC 0 SEEN Ur Squamous Epith Cells 0-5 SEEN Urine Bacteria 0 SEEN Urine Mucus 0 SEEN Radiography Diagnostic Testing: Clinical Impression(s) from Imaging Studies Abdomen/Pelvis CT 04/29/21 17:54 Discharge Plan Triage Chief Complaint: Abd Pain ED Provider: Krunal Epperson Dx/Rx/DC Orders Clinical Impression: Abdominal pain, URI (upper respiratory infection), Gastric wall thickening Instructions: Abdominal Pain, ED URI, Viral, No Abx (Adult) Prescriptions: No Action hydroxychloroquine [Plaquenil] 200 mg tablet 200 mg PO BID RF: 0 multivitamin,en-uiqf-qlokpmtd tablet tablet 1 tab PO QDAY RF: 0 cholecalciferol (vitamin D3) 1,000 unit capsule 1,000 unit PO ONCE RF: 0 omega 1-gzd-roa-fish oil 1 EACH capsule,delayed release(DR/EC) 1 ea PO DAILY RF: 0 estradiol 42.5 GM cream 0 udc VAGINAL .COMPLEX RF: 0 calcium 600 mg Capsule 600 mg PO DAILY RF: 0 fluticasone propionate [Flonase Allergy Relief] 50 mcg/actuation spray,suspension 1 spray intranasal BID Qty: 16 RF: 0 Primary Care Provider: Rigoberto White Referrals: Rigoberto White MD [Primary Care Provider] - Activity Restrictions/Additional Instructions: CT scan abdomen pelvis negative with exception of thickened gastrum. Reported he had upper and lower endoscopy a year ago by your specialist. Follow-up with them for reevaluation. No other acute findings on CAT scan. Blood work urine test normal. Covid testing negative. Tylenol as needed continue oral fluids. Monitor symptoms. If anything worsens return for reevaluation. Disposition Disposition: Home, Self Care Discharge Date/Time: 04/29/21 21:18
[2021-04-29] MEDS: 0.9% Normal Saline 1,000 ML 1000 ML IV (18:42)
[2021-04-29 19:01] LABS: Bacteria 0 SEEN /hpf (None Seen); Mucous, Urine 0 SEEN /hpf (<or=2+); Red Blood Cells-Urine 0 SEEN /hpf (0-5); White Blood Cells 0 SEEN /hpf (0-5)
[2021-04-29 19:02] LABS: Color, Urine Yellow (Yellow); Glucose, Dipstick Normal (Normal); Ketone-Dipstick Negative (Negative); Leukocyte Esterase-Dipstick Negative /ul (Negative); Nitrite-Dipstick Negative (Negative); Occult Blood-Urine Negative /ul (Negative); Protein-Dipstick 15 mg/dl (Negative); Urine Bilirubin Dipstick Negative (Negative); Urine Clarity Clear (Clear); Urine Urobilinogen Normal (Normal)
[2021-04-29 19:04] LABS: Absolute Lymphocyte Count 1.63 X10^3/uL (0.83-4.51); Absolute Neutrophil Count 3.1 X10^3/uL (2.0-7.7); Basophil# 0.06 X10^3/uL; Eosinophil# 0.51 X10^3/uL; Eosinophils% 8.6 % (0-5); Hematocrit 45.2 % (37-47); Hemoglobin 14.9 g/dL (12.0-15.0); Lymphocyte # 1.63 X10^3/ul (0.83-4.51); Lymphocyte % 27.4 % (19-41); Mean Corpuscular Hgb 31.5 pg (27.0-32.0); Mean Corpuscular Volume 95.6 fL (81-99); Mean Platelet Vol. 10.1 fl (6.2-12.0); Monocyte# 0.66 X10^3/uL; Monocyte% 11.1 % (0-10); NRBC Flagged by Analyzer 0 % (0-5); Neutrophil # 3.08 X10^3/uL (2.7-7.7); Neutrophil % 51.7 % (47-70); Platelet Count 225 K/mm3 (150-450); RBC Distribution Width CV 13.2 % (11.6-14.6); RBC Distribution Width SD 46.8 fl (35.1-43.9); Red Blood Count 4.73 M/mm3 (4.2-5.4)
[2021-04-29 19:08] LABS: Squamous Epithelial Cells - UA 0-5 SEEN /hpf (5-10)
[2021-04-29 19:14] LABS: Anion Gap 6 (5-15); BUN 8 mg/dL (7-18); BUN/Creat Ratio 11.7 RATIO (10-20); Calcium,Total 8.7 mg/dL (8.5-10.1); Chloride 107 mmol/L (98-107); Creatinine, Serum 0.68 mg/dL (0.55-1.02); EST Glomerular Filtration Rate 89 mL/min (>60); Est Glom Filt Rate - Afr Amer 108 mL/min (>60); Estimated Creatinine Clearance 35.99 ml/min; Glucose 89 mg/dL (74-106); Potassium 3.9 mmol/L (3.5-5.1); Sodium Level 142 mmol/L (136-145)
[2021-04-29 19:25] VITALS: BP 141/68; PULSE 77; RESP 15; TEMP 36.8; O2SAT 99
[2021-04-29 19:26] VITALS: BP 141/68; PULSE 77; RESP 15; O2SAT 99
[2021-04-29 19:33] VITALS: BP 122/61; PULSE 80; RESP 17; O2SAT 96
[2021-04-29 21:11] VITALS: BP 133/62; PULSE 69; O2SAT 96
== END 2021-04-29 21:18 | disposition home or self-care (01) ==
PROVIDERS: Emergency Provider Emergency Medicine; PCP Family Medicine
DX: J06.9 Acute upper respiratory infection, unspecified (principal); R10.30 Lower abdominal pain, unspecified; Z20.822 Contact with and (suspected) exposure to COVID-19; M06.9 Rheumatoid arthritis, unspecified; Z79.899 Other long term (current) drug therapy
CPT/HCPCS: 74176; 80048; 81001; 85025; 87426; 96360; 99284; J7030

== ENCOUNTER → 2021-05-05 08:17 | Outpatient (CLI) | payer MEDICARE, SELFPAY ==
[2021-05-05 09:13] LABS: Absolute Lymphocyte Count 1.68 X10^3/uL (0.83-4.51); Absolute Neutrophil Count 3.7 X10^3/uL (2.0-7.7); Basophil# 0.08 X10^3/uL; Basophil% 1.2 % (0-1); Eosinophil# 0.39 X10^3/uL; Eosinophils% 6.1 % (0-5); Hematocrit 46.5 % (37-47); Hemoglobin 15.2 g/dL (12.0-15.0); Lymphocyte # 1.68 X10^3/ul (0.83-4.51); Lymphocyte % 26.2 % (19-41); Mean Corp Hgb Conc 32.7 g/dL (32-36); Mean Corpuscular Hgb 31.3 pg (27.0-32.0); Mean Corpuscular Volume 95.9 fL (81-99); Mean Platelet Vol. 10.6 fl (6.2-12.0); Monocyte# 0.55 X10^3/uL; Monocyte% 8.6 % (0-10); NRBC Flagged by Analyzer 0 % (0-5); Neutrophil # 3.71 X10^3/uL (2.7-7.7); Neutrophil % 57.7 % (47-70); Platelet Count 234 K/mm3 (150-450); RBC Distribution Width CV 13.2 % (11.6-14.6); RBC Distribution Width SD 47.1 fl (35.1-43.9); Red Blood Count 4.85 M/mm3 (4.2-5.4); White Blood Count 6.4 K/mm3 (4.4-11.0)
[2021-05-05 09:37] LABS: ALB/GLOB Ratio 1.1 RATIO (0.9-2.4); AST(SGOT) 22 U/L (15-37); Alanine Aminotransfer ALT/SGPT 16 U/L (13-56); Albumin, Serum 3.5 g/dL (3.2-5.0); Alkaline Phosphatase 83 U/L (45-117); Anion Gap 7 (5-15); BUN 10 mg/dL (7-18); BUN/Creat Ratio 15.2 RATIO (10-20); Chloride 104 mmol/L (98-107); Cholesterol 153 mg/dL (200); Creatinine, Serum 0.66 mg/dL (0.55-1.02); EST Glomerular Filtration Rate 94 mL/min (>60); Est Glom Filt Rate - Afr Amer 113 mL/min (>60); Globulin 3.3 g/dL (2.2-4.2); Glucose 94 mg/dL (74-106); High Density Lipoprotein 75 mg/dL; Potassium 4.1 mmol/L (3.5-5.1); Protein, Total 6.8 g/dL (6.4-8.2); Sodium Level 142 mmol/L (136-145); Triglycerides 73 mg/dL; Very Low Density Lipoprotein 15 mg/dL (5-40)
== END ==
PROVIDERS: PCP Family Medicine; Referring Provider Family Medicine; Visit Provider Family Medicine
DX: Z12.31 Encounter for screening mammogram for malignant neoplasm of breast (principal); Z79.899 Other long term (current) drug therapy
CPT/HCPCS: 36415; 80053; 80061; 85025

== ENCOUNTER → 2021-05-22 07:37 | Outpatient (CLI) | payer MEDICARE, SELFPAY ==
--- NOTE | 2021-05-22 07:50 | BI_ITS ---
MAMMOGRAPHY - BILATERAL SCREENING REASON FOR EXAM: Female, 75 years old. Routine annual screening examination. PERTINENT HISTORY: Sister with breast cancer. Aunt with breast cancer. Prior right stereotactic breast biopsy. TECHNIQUE: Digital bilateral breast shelbie (3D mammographic acquisition) in the CC and MLO projections. 2-D mediolateral oblique (MLO) and craniocaudad (CC) views of both breasts were obtained. CAD: Full Field Digital Mammography with Computer Added Detection was performed. COMPARISON: Comparison is made with prior study dated 07/23/2019 and 09/15/2017. FINDINGS: Breast Composition: There are scattered areas of fibroglandular density. There are no dominant masses or suspicious calcifications. No other significant abnormalities are identified. There has been no significant change since the prior study. BI/SCRN MAMM (CAD)W/SHELBIE BILAT IMPRESSION: Stable bilateral screening mammogram. Yearly follow-up mammogram recommended. (A) ASSESSMENT CATEGORY: BIRADS Category 1: Negative. A letter regarding these results will be sent to the patient by the facility within 30 days. Approximately 10% of breast cancers are not detected by mammography. A normal mammogram should not delay biopsy of a clinically suspicious abnormality. [id number] Electronically Signed: Marques Ford MD at 10:14 EDT , Service support ,
== END ==
PROVIDERS: PCP Family Medicine; Referring Provider Family Medicine; Visit Provider Family Medicine
DX: Z12.31 Encounter for screening mammogram for malignant neoplasm of breast (principal); Z80.3 Family history of malignant neoplasm of breast
CPT/HCPCS: 77063; 77067

== ENCOUNTER 2021-09-19 18:04 | Observation (INO) | payer MEDICARE, SELFPAY ==
[2021-09-19 18:05] VITALS: BP 159/67; PULSE 86; RESP 16; TEMP 36.1; O2SAT 100; BMI 24.7
[2021-09-19 18:09] VITALS: BP 159/67; PULSE 88; RESP 22; TEMP 36.1; O2SAT 97; O2SAT 99
--- NOTE | 2021-09-19 18:29 | CT_ITS ---
INDICATION: Dysphagia EXAMINATION: CT NECK WITH CONTRAST - CT Soft Tissue Neck W/ Contrast Injection TECHNIQUE: Helically acquired images were obtained of the neck following IV contrast. A radiation dose optimization technique was used for this scan. IV Contrast dosage and agent: 100 mL of [id number] COMPARISON: Head CT obtained in conjunction with this exam. Also compared with 02/26/[address] FINDINGS: NASOPHARYNX: Unremarkable. SUPRAHYOID NECK: Unremarkable oropharynx, parapharyngeal space, and retropharyngeal space. There is asymmetry of the tongue with the right side smaller than the left potentially representing a hypoglossal nerve palsy. No edema or mass lesion to explain asymmetry. INFRAHYOID NECK: Unremarkable larynx, hypopharynx, and supraglottis. THYROID: No focal lesions. SALIVARY GLANDS: Unremarkable. LYMPH NODES: No cervical or supraclavicular lymphadenopathy. VASCULAR STRUCTURES: Unremarkable. VISUALIZED PORTIONS OF THE ORBITS, PARANASAL SINUSES, MASTOID AIR CELLS AND SKULL BASE: Unremarkable. BONES: Age expected degenerative changes noted. No fracture or focal osseous lesion. THORACIC INLET: Clear lung apices. CT/Soft Tissue Neck WITH Contrast IMPRESSION: Asymmetric tongue musculature smaller on the right than the left with no appreciable mass lesion or edema. Query possible hypoglossal nerve palsy. Correlate clinically with physical exam. Electronically Signed: Mohamud Santa DO at 23:35 EST ,
--- NOTE | 2021-09-19 18:29 | CT_ITS ---
INDICATION: dysphagia EXAMINATION: CT BRAIN - CT Head or Brain W/O Contrast Injection TECHNIQUE: Multiple axial images were obtained of the head without intravenous contrast. A radiation dose optimization technique was used for this scan. IV Contrast dosage and agent: None. COMPARISON: Head CT 02/26/2019 FINDINGS: BRAIN PARENCHYMA: No intra- or extra-axial hemorrhage. No intracranial mass or mass effect. Lomas/white matter differentiation is maintained and there is no blurring of the basal ganglia. There is no hyperdense vessel. Posterior fossa structures are unremarkable. CSF SPACES: Appropriate for age. No hydrocephalus. Basal cisterns are patent. CALVARIUM, SKULL BASE, PARANASAL SINUSES AND MASTOID AIR CELLS: No mucosal thickening or air-fluid levels. There is note of prominent rightward spurring bony nasal septum and a left middle turbinate bartolo bullosa. Inferior left orbital wall remote fracture identified. No lytic or blastic bone lesion. ORBITS: Both globes, extraocular muscles, optic nerves and retrobulbar fat appear unremarkable. Left inferior orbital wall fracture. ASPECTS Score for Acute Strokes: 10 CT/Brain/Head without Contrast IMPRESSION: Negative Brain CT without contrast. Left inferior orbital wall remote fracture. Electronically Signed: Mohamud Santa DO at 21:29 EST ,
[2021-09-19 19:07] LABS: Bacteria 0 SEEN /hpf (None Seen); Mucous, Urine 0 SEEN /hpf (<or=2+); Red Blood Cells-Urine 0 SEEN /hpf (0-5); Squamous Epithelial Cells - UA 0 SEEN /hpf (5-10); White Blood Cells 0 SEEN /hpf (0-5)
[2021-09-19 19:08] LABS: Color, Urine Yellow (Yellow); Glucose, Dipstick Normal (Normal); Ketone-Dipstick Negative (Negative); Leukocyte Esterase-Dipstick Negative /ul (Negative); Nitrite-Dipstick Negative (Negative); Occult Blood-Urine Negative /ul (Negative); Protein-Dipstick Negative (Negative); Urine Bilirubin Dipstick Negative (Negative); Urine Clarity Clear (Clear); Urine Urobilinogen Normal (Normal)
--- NOTE | 2021-09-19 19:25 | ED.VIS.DYS ---
HPI History of Present Illness Chief Complaint: Shortness of Breath Narrative Narrative: Patient apparently had no complaints this morning she went to take a nap which is normal for her when she woke up she felt short of breath. She also had difficulty swallowing but no painful swallowing. She is denying weakness in her arms or legs she has no confusion, no paresthesias or any neurological symptoms. She tells me she has no prior history of dyspnea or lung disease. She has no recent fevers or chills, no cough. No ingestion. [facility] Medical History Arthritis Rheumatoid arthritis Shortness of breath Skin cancer Home Medications cholecalciferol (vitamin D3) 25 mcg (1,000 unit) capsule 3,000 unit PO ONCE 08/24/17 [History Last Taken Unknown] hydroxychloroquine 200 mg tablet 200 mg PO BID 08/24/17 [History Last Taken Unknown] multivitamin,zr-stbr-ayehgzda 1 tab PO QDAY 08/24/17 [History Last Taken Unknown] estradiol 0 udc VAGINAL .COMPLEX 01/13/18 [History Last Taken Unknown] omega 8-ndv-ymj-fish oil 1 ea PO DAILY 01/13/18 [History Last Taken Unknown] calcium 600 mg PO DAILY 11/19/20 [History Last Taken Unknown] fluticasone propionate [Flonase Allergy Relief] 1 spray INTRANASAL BID #16 g 11/19/20 [Rx Last Taken Unknown] Allergy/AdvReac Type Severity Reaction Status Date / Time hydrocodone [From Vicodin] Allergy Intermediate Vomiting Verified 04/29/21 18:34 aspirin Allergy Mild Other Verified 04/29/21 18:34 [From Excedrin Back and Body] morphine Allergy Mild Vomiting Verified 04/29/21 18:34 perfume Allergy Other Verified 04/29/21 18:34 codeine AdvReac Mild Nausea/Vom/ Verified 04/29/21 18:34 Diarrhea caffeine AdvReac Nausea/Vom/ Verified 04/29/21 18:34 [From Excedrin Migraine] Diarrhea Family History Mother Diabetes Father Cancer prostate Prostate cancer Sister Breast cancer A-fib Kidney disease Brother Diabetes Surgical History H/O foot surgery History of bladder surgery History of total vaginal hysterectomy (TVH) (~06/13/20) Social History Smoking Status: Never smoker alcohol intake: never substance use type: does not use caffeine: No frequency: 1-2 times per week seatbelt use: always do you feel safe at home: Yes additional social history: - [employer] DOES NOT USE ASPIRIN DOES USE IBUPROFEN NEEDED DOES USE TYLENOL NEEDED ROS ROS ED ROS Narrative Past medical history: Reviewed Medications: Reviewed Social history: Noncontributory Review of systems: All systems negative except as indicated General: No fever Eyes: No visual changes ENT: No upper airway congestion, normal voice. She does have dysphagia but not odynophagia. Neck: No neck pain Cardiovascular: No chest pain Respiratory: Dyspnea as in HPI. No cough. Gastrointestinal: No abdominal pain, nausea vomiting or diarrhea Genitourinary: No dysuria Musculoskeletal: Denies myalgias no difficulty with ambulation Skin: No rash Neurological: No memory loss, confusion or any focal weakness Psych: No recent behavioral changes Hematologic: No easy bleeding or easy bruising EXAM Physical Exam Narrative Exam Narrative: Physical exam General: Well nourished, Well developed, No Acute Distress Head: Normocephalic, Atraumatic Eyes: Conjunctiva not pale ENT: Moist mucous membranes. Normal posterior oropharynx very slight postnasal drip. Normal soft palate normal uvula. Normal voice. Normal tongue. Some nasal congestion. Neck: Supple, Nontender, No lymphadenopathy. No mass. No stridor. Cardiovascular: Regular rate, Regular rhythm Respiratory: No distress, CTA bilaterally. She is speaking in full sentences. Abdomen: Soft, Nontender, Nondistended Back: Nontender, Normal Inspection. Negative for: CVA tenderness Extremities: Nontender, No edema Skin: Normal color, No rash Neurological: Alert, Normal Strength, Normal Sensation Psychological: Normal affect Const Vital Signs: 09/19/21 18:05 09/19/21 18:09 09/19/21 20:03 Temperature 97.0 F L 97.0 F L Temperature Source Temporal Temporal Pulse Rate 86 88 79 Respiratory Rate 16 22 H 20 H Respiratory Effort Normal Respiratory Depth Normal Respiratory Pattern Normal Blood Pressure 159/67 H 159/67 H Blood Pressure Mean 97 97 Pulse Ox 100 99 97 Oxygen Delivery Method Room Air Room Air Room Air 09/19/21 22:03 Temperature Temperature Source Pulse Rate 80 Respiratory Rate 21 H Respiratory Effort Respiratory Depth Respiratory Pattern Blood Pressure 136/74 H Blood Pressure Mean 94 Pulse Ox 98 Oxygen Delivery Method Room Air MDM MDM MDM Narrative Medical decision making narrative: Patient has a work-up consistent with a 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 I will admit for an MRI. Otherwise she appears well. Lab Data Labs: Laboratory Results - last 24 hr 09/19/21 09/19/21 09/19/21 19:00 19:12 19:12 WBC Cancelled Corrected WBC Cancelled RBC Cancelled Hgb Cancelled Hct Cancelled MCV Cancelled MCH Cancelled MCHC Cancelled RDW Std Deviation Cancelled RDW Coeff of Jenny Cancelled Plt Count Cancelled MPV Cancelled Immature Gran % (Auto) Cancelled Neut % (Auto) Cancelled Lymph % (Auto) Cancelled [place] % (Auto) Cancelled Eos % (Auto) Cancelled Baso % (Auto) Cancelled Absolute Neuts (auto) Cancelled Absolute Lymphs (auto) Cancelled Total Counted Cancelled Neutrophils % (Manual) Cancelled Band Neutrophils % Cancelled Lymphocytes % (Manual) Cancelled Monocytes % (Manual) Cancelled Eosinophils % (Manual) Cancelled Basophils % (Manual) Cancelled Metamyelocytes % Cancelled Myelocytes % Cancelled Promyelocytes % Cancelled Blast Cells % Cancelled Plasma Cell % (Manual) Cancelled Other Cells % Cancelled Nucleated RBC % Cancelled Nucleated RBCs/100 WBC Cancelled Differential Comment Cancelled Diff Path Review Cancelled Hypersegmented Neuts Cancelled Atypical Lymphocytes Cancelled Reactive Lymphocytes Cancelled Smudge Cells Cancelled Toxic Granulation Cancelled Toxic Vacuolation Cancelled Dohle Bodies Cancelled Tevin Rods Cancelled Platelet Estimate Cancelled Plt Morphology Comment Cancelled RBC Morphology Cancelled Polychromasia Cancelled Hypochromasia Cancelled Poikilocytosis Cancelled Basophilic Stippling Cancelled Anisocytosis Cancelled Microcytosis Cancelled Macrocytosis Cancelled Spherocytes Cancelled Sickle Cells Cancelled Target Cells Cancelled Tear Drop Cells Cancelled Ovalocytes Cancelled Stomatocytes Cancelled Vora-Arma Bodies Cancelled Raymond Cells Cancelled Bite Cells Cancelled Crenated Cell Cancelled Acanthocytes (Spur) Cancelled Rouleaux Cancelled Schistocytes Cancelled PT Cancelled INR Cancelled D-Dimer Quant (PE/DVT) Cancelled Sodium Potassium Chloride Carbon Dioxide Anion Gap BUN Creatinine Estim Creat Clear Calc Est GFR (MDRD) Af Amer Est GFR (MDRD) Non-Af BUN/Creatinine Ratio Glucose Calcium Total Bilirubin AST ALT Alkaline Phosphatase Troponin I High Sens Total Protein Albumin Globulin Albumin/Globulin Ratio Urine Color Yellow Urine Clarity Clear Urine pH 7.0 Ur Specific [place] 1.010 Urine Protein Negative Urine Glucose (UA) Normal Urine Ketones Negative Urine Occult Blood Negative Urine Nitrite Negative Urine Bilirubin Negative Urine Urobilinogen Normal Ur Leukocyte Esterase Negative Urine RBC 0 SEEN Urine WBC 0 SEEN Ur Squamous Epith Cells 0 SEEN Urine Bacteria 0 SEEN Urine Mucus 0 SEEN 09/19/21 09/19/21 09/19/21 19:30 19:30 19:30 WBC 7.5 Corrected WBC RBC 4.78 Hgb 15.5 H Hct 45.4 MCV 95.0 MCH 32.4 H MCHC 34.1 RDW Std Deviation 45.8 H RDW Coeff of Jenny 13.1 Plt Count 177 MPV 10.7 Immature Gran % (Auto) 0.400 Neut % (Auto) 65.5 Lymph % (Auto) 22.1 [place] % (Auto) 9.0 Eos % (Auto) 2.3 Baso % (Auto) 0.7 Absolute Neuts (auto) 4.9 Absolute Lymphs (auto) 1.65 Total Counted Neutrophils % (Manual) Band Neutrophils % Lymphocytes % (Manual) Monocytes % (Manual) Eosinophils % (Manual) Basophils % (Manual) Metamyelocytes % Myelocytes % Promyelocytes % Blast Cells % Plasma Cell % (Manual) Other Cells % Nucleated RBC % 0 Nucleated RBCs/100 WBC Differential Comment Diff Path Review Hypersegmented Neuts Atypical Lymphocytes Reactive Lymphocytes Smudge Cells Toxic Granulation Toxic Vacuolation Dohle Bodies Tevin Rods Platelet Estimate Plt Morphology Comment RBC Morphology Polychromasia Hypochromasia Poikilocytosis Basophilic Stippling Anisocytosis Microcytosis Macrocytosis Spherocytes Sickle Cells Target Cells Tear Drop Cells Ovalocytes Stomatocytes [place]ora-Arma Bodies Hue Cells Bite Cells Crenated Cell Acanthocytes (Spur) Rouleaux Schistocytes PT 12.4 INR 1.0 D-Dimer Quant (PE/DVT) 0.51 H* Sodium 141 Potassium 3.6 Chloride 110 H Carbon Dioxide 26.0 Anion Gap 5 BUN 11 Creatinine 0.70 Estim Creat Clear Calc 35.45 Est GFR (MDRD) Af Amer 105 Est GFR (MDRD) Non-Af 86 BUN/Creatinine Ratio 15.6 Glucose 103 Calcium 9.2 Total Bilirubin 0.40 AST 19 ALT 19 Alkaline Phosphatase 72 Troponin I High Sens 10 Total Protein 6.4 Albumin 3.5 Globulin 2.9 Albumin/Globulin Ratio 1.2 Urine Color Urine Clarity Urine pH Ur Specific [place] Urine Protein Urine Glucose (UA) Urine Ketones Urine Occult Blood Urine Nitrite Urine Bilirubin Urine Urobilinogen Ur Leukocyte Esterase Urine RBC Urine WBC Ur Squamous Epith Cells Urine Bacteria Urine Mucus Radiography Diagnostic Testing: Clinical Impression(s) from Imaging Studies Brain CT 09/19/21 18:29 IMPRESSION: Negative Brain CT without contrast. Left inferior orbital wall remote fracture. Electronically Signed: Mohamud Santa DO at 21:29 EST , Soft Tissue Neck CT 09/19/21 18:29 IMPRESSION: Asymmetric tongue musculature smaller on the right than the left with no appreciable mass lesion or edema. Query possible hypoglossal nerve palsy. Correlate clinically with physical exam. Electronically Signed: Mohamud Santa DO at 23:35 EST , Chest X-Ray 09/19/21 20:22 IMPRESSION: Nonacute portable x-ray examination of the chest. Electronically Signed: Edilson Lopez MD ([place]) at 21:16 EST , EKG Initial EKG: Comments: Normal sinus rhythm with a rate of 77. Normal GA and QTc intervals. No ischemic changes. Interpreted by emergency doctor Discharge Plan Triage Chief Complaint: Shortness of Breath ED Provider: Abraham Pearce Dx/Rx/DC Orders Clinical Impression: Dysphagia Prescriptions: No Action hydroxychloroquine [Plaquenil] 200 mg tablet 200 mg PO BID RF: 0 multivitamin,us-pazx-nnrhtgws tablet tablet 1 tab PO QDAY RF: 0 cholecalciferol (vitamin D3) 1,000 unit capsule 3,000 unit PO ONCE RF: 0 omega 5-csv-kgz-fish oil 1 EACH capsule,delayed release(DR/EC) 1 ea PO DAILY RF: 0 estradiol 42.5 GM cream 0 udc VAGINAL .COMPLEX RF: 0 calcium 600 mg Capsule 600 mg PO DAILY RF: 0 fluticasone propionate [Flonase Allergy Relief] 50 mcg/actuation spray,suspension 1 spray intranasal BID Qty: 16 RF: 0 Primary Care Provider: Rigoberto White Referrals: Rigoberto White MD [Primary Care Provider] - 2 Days Disposition Disposition: Acute Care Hospital [facility]
[2021-09-19 19:46] LABS: Absolute Lymphocyte Count 1.65 X10^3/uL (0.83-4.51); Absolute Neutrophil Count 4.9 X10^3/uL (2.0-7.7); Basophil# 0.05 X10^3/uL; Basophil% 0.7 % (0-1); Eosinophil# 0.17 X10^3/uL; Eosinophils% 2.3 % (0-5); Hematocrit 45.4 % (37-47); Hemoglobin 15.5 g/dL (12.0-15.0); Lymphocyte # 1.65 X10^3/ul (0.83-4.51); Lymphocyte % 22.1 % (19-41); Mean Corp Hgb Conc 34.1 g/dL (32-36); Mean Corpuscular Hgb 32.4 pg (27.0-32.0); Mean Platelet Vol. 10.7 fl (6.2-12.0); Monocyte# 0.67 X10^3/uL; NRBC Flagged by Analyzer 0 % (0-5); Neutrophil # 4.89 X10^3/uL (2.7-7.7); Neutrophil % 65.5 % (47-70); Platelet Count 177 K/mm3 (150-450); RBC Distribution Width CV 13.1 % (11.6-14.6); RBC Distribution Width SD 45.8 fl (35.1-43.9); Red Blood Count 4.78 M/mm3 (4.2-5.4); White Blood Count 7.5 K/mm3 (4.4-11.0)
[2021-09-19 20:03] VITALS: PULSE 79; RESP 20; O2SAT 97
[2021-09-19 20:04] LABS: ALB/GLOB Ratio 1.2 RATIO (0.9-2.4); AST(SGOT) 19 U/L (15-37); Alanine Aminotransfer ALT/SGPT 19 U/L (13-56); Albumin, Serum 3.5 g/dL (3.2-5.0); Alkaline Phosphatase 72 U/L (45-117); Anion Gap 5 (5-15); BUN 11 mg/dL (7-18); BUN/Creat Ratio 15.6 RATIO (10-20); Calcium,Total 9.2 mg/dL (8.5-10.1); Chloride 110 mmol/L (98-107); EST Glomerular Filtration Rate 86 mL/min (>60); Est Glom Filt Rate - Afr Amer 105 mL/min (>60); Estimated Creatinine Clearance 35.45 ml/min; Globulin 2.9 g/dL (2.2-4.2); Glucose 103 mg/dL (74-106); Potassium 3.6 mmol/L (3.5-5.1); Protein, Total 6.4 g/dL (6.4-8.2); Sodium Level 141 mmol/L (136-145); Troponin-I HS 10 pg/mL (3.0-54.0)
--- NOTE | 2021-09-19 20:22 | RAD_ITS ---
STUDY: X-RAY CHEST REASON FOR EXAM: Female, 76 years old. sob TECHNIQUE: AP COMPARISON: 09/08/2017 FINDINGS: EKG leads project over the chest. The lungs are clear and expanded. There is no demonstrated pleural abnormality. Normal size heart. Normal mediastinum and grace. Normal visualized pulmonary arteries. Normal visualized aortic arch and descending thoracic aorta. Normal visualized thoracic spine. There is degenerative osteoarthritis of the bilateral shoulders. There is no demonstrated abnormality of the visualized soft tissue structures of the upper abdomen. RAD/Chest 1 View (Portable) IMPRESSION: Nonacute portable x-ray examination of the chest. Electronically Signed: Edilson Lopez MD (Brooks) at 21:16 EST ,
[2021-09-19 21:01] LABS: Prothrombin Time (Protime)PT. 12.4 SECONDS (11.7-14.9)
[2021-09-19 21:40] LABS: D-Dimer Quantitative (DVT/PE) 0.51 FEU/ug/m (0.27-0.49)
[2021-09-19 22:03] VITALS: BP 136/74; PULSE 80; RESP 21; O2SAT 98
--- NOTE | 2021-09-19 22:09 | ED.RN ---
PT STATES SHE TAKES OTC IRON, MAG, ZINC, BUT DOES NOT KNOW DOSES.
[2021-09-20] VITALS (12 sets, daily range): BP systolic 129–145; BP diastolic 66–73; PULSE 76–80; RESP 16–18; TEMP 36.2–36.8; O2SAT 95–100; BMI 23.0
--- NOTE | 2021-09-20 00:24 | PCM.HP.STD ---
Documented by User: KATHERINE Hinson 09/20/21 00:39 HPI - General General Date of Admission: 09/20/21 Date of Service: 09/20/21 Chief Complaint: Dysphagia HPI Narrative NUHA SAEED, is a 76 F who presents with complaints of dysphagia. Patient states that she was fine this morning when she woke up and laid down to take a nap. Upon waking from a nap she noticed that she had difficulty swallowing. Patient denies any weakness, confusion, numbness or tingling. Patient states that this was her only symptom. Patient NIHSS 0 per ER report. Patient reports a history of rheumatoid arthritis and cataracts as her only medical history. [facility] Medical History Arthritis Rheumatoid arthritis Shortness of breath Skin cancer Home Medications cholecalciferol (vitamin D3) 25 mcg (1,000 unit) capsule 3,000 unit PO ONCE 08/24/17 [History Last Taken Unknown] hydroxychloroquine 200 mg tablet 200 mg PO BID 08/24/17 [History Last Taken Unknown] multivitamin,xl-vcjq-gtzqwudo 1 tab PO QDAY 08/24/17 [History Last Taken Unknown] estradiol 0 udc VAGINAL .COMPLEX 01/13/18 [History Last Taken Unknown] omega 4-mkw-toc-fish oil 1 ea PO DAILY 01/13/18 [History Last Taken Unknown] calcium 600 mg PO DAILY 11/19/20 [History Last Taken Unknown] fluticasone propionate [Flonase Allergy Relief] 1 spray INTRANASAL BID #16 g 11/19/20 [Rx Last Taken Unknown] Allergy/AdvReac Type Severity Reaction Status Date / Time hydrocodone [From Vicodin] Allergy Intermediate Vomiting Verified 04/29/21 18:34 aspirin Allergy Mild Other Verified 04/29/21 18:34 [From Excedrin Back and Body] morphine Allergy Mild Vomiting Verified 04/29/21 18:34 perfume Allergy Other Verified 04/29/21 18:34 codeine AdvReac Mild Nausea/Vom/ Verified 04/29/21 18:34 Diarrhea caffeine AdvReac Nausea/Vom/ Verified 04/29/21 18:34 [From Excedrin Migraine] Diarrhea Family History Mother Diabetes Father Cancer prostate Prostate cancer Sister Breast cancer A-fib Kidney disease Brother Diabetes Surgical History H/O foot surgery History of bladder surgery History of total vaginal hysterectomy (TVH) (~06/13/20) Social History Smoking Status: Never smoker alcohol intake: never substance use type: does not use caffeine: No frequency: 1-2 times per week seatbelt use: always do you feel safe at home: Yes additional social history: - [employer] DOES NOT USE ASPIRIN DOES USE IBUPROFEN NEEDED DOES USE TYLENOL NEEDED ROS Constitutional Constitutional: Denies anorexia, chills, fatigue, fever(s), malaise or weakness Cardiovascular Cardiovascular: Denies chest pain, edema, palpitations or syncope Respiratory/Chest Respiratory/Chest: Denies cough, shortness of breath at rest, shortness of breath with exertion or wheezing Gastrointestinal Gastrointestinal: Denies abdominal pain, constipation, diarrhea, nausea or vomiting Genitourinary Genitourinary: Denies dysuria Musculoskeletal Musculoskeletal: Denies back pain, extremity pain, joint pain or joint stiffness Integumentary Integumentary: Denies dry skin Neurologic Neurologic: Reports other Details: Difficulty swallowing ; Denies abnormal gait, abnormal speech, confusion, dizziness, paresthesias or weakness Psychiatric Psychiatric: Denies anxiety or depression Endocrine Endocrinology: Denies change in body appearance Hematologic/Lymphatic Hematologic/Lymphatic: Denies anemia Vital Signs Vital Signs Vital Signs: 09/19/21 18:05 09/19/21 18:09 09/19/21 20:03 Temperature 97.0 F L 97.0 F L Temperature Source Temporal Temporal Pulse Rate 86 88 79 Respiratory Rate 16 22 H 20 H Respiratory Effort Normal Respiratory Depth Normal Respiratory Pattern Normal Blood Pressure 159/67 H 159/67 H Blood Pressure Mean 97 97 Pulse Ox 100 99 97 Oxygen Delivery Method Room Air Room Air Room Air 09/19/21 22:03 09/20/21 00:19 Temperature Temperature Source Pulse Rate 80 76 Respiratory Rate 21 H 18 Respiratory Effort Respiratory Depth Respiratory Pattern Blood Pressure 136/74 H 136/67 H Blood Pressure Mean 94 90 Pulse Ox 98 Oxygen Delivery Method Room Air Weight Weight: 126 lb 12.253 oz Body Mass Index (BMI) 24.7 Physical Exam Const alert, oriented x3 and no apparent distress General Appearance: cooperative HEENT normocephalic and head/scalp atraumatic Eyes conjunctivae normal and no scleral icterus Neck supple General: trachea midline Resp normal respiratory effort, normal air movement and clear to auscultation bilaterally Cardio regular rate, regular rhythm, S1 normal heart sound, S2 normal heart sound and peripheral pulses 2+ throughout GI normal to inspection, nondistended, normoactive bowel sounds, soft to palpation and non-tender Extremity normal capillary refill and no clubbing, cyanosis or edema General Extremity: no tenderness to palpation of joints or extremities Skin General Skin Exam: no breakdown and turgor normal Lesions: no lesions Rashes: no rashes Neuro oriented x3, moves all extremities, no focal motor deficits and no sensory deficits noted Neuro Narrative: Dysphagia noted Sensorium / Orientation: awake and alert Speech: speech normal Motor Exam: Negative for general weakness Psych thought process normal, cooperative and affect normal Appearance: appropriate Results Lab / Micro Data Result Diagrams: 09/19/21 19:30 09/19/21 19:30 Labs: Laboratory Results - last 24 hr 09/19/21 19:00: Urine Color Yellow, Urine Clarity Clear, Urine pH 7.0, Ur Specific [place] 1.010, Urine Protein Negative, Urine Glucose (UA) Normal, Urine Ketones Negative, Urine Occult Blood Negative, Urine Nitrite Negative, Urine Bilirubin Negative, Urine Urobilinogen Normal, Ur Leukocyte Esterase Negative, Urine RBC 0 SEEN, Urine WBC 0 SEEN, Ur Squamous Epith Cells 0 SEEN, Urine Bacteria 0 SEEN, Urine Mucus 0 SEEN 09/19/21 19:12: WBC Cancelled, Corrected WBC Cancelled, RBC Cancelled, Hgb Cancelled, Hct Cancelled, MCV Cancelled, MCH Cancelled, MCHC Cancelled, RDW Std Deviation Cancelled, RDW Coeff of Jenny Cancelled, Plt Count Cancelled, MPV Cancelled, Immature Gran % (Auto) Cancelled, Neut % (Auto) Cancelled, Lymph % (Auto) Cancelled, Dubois % (Auto) Cancelled, Eos % (Auto) Cancelled, Baso % (Auto) Cancelled, Absolute Neuts (auto) Cancelled, Absolute Lymphs (auto) Cancelled, Total Counted Cancelled, Neutrophils % (Manual) Cancelled, Band Neutrophils % Cancelled, Lymphocytes % (Manual) Cancelled, Monocytes % (Manual) Cancelled, Eosinophils % (Manual) Cancelled, Basophils % (Manual) Cancelled, Metamyelocytes % Cancelled, Myelocytes % Cancelled, Promyelocytes % Cancelled, Blast Cells % Cancelled, Plasma Cell % (Manual) Cancelled, Other Cells % Cancelled, Nucleated RBC % Cancelled, Nucleated RBCs/100 WBC Cancelled, Differential Comment Cancelled, Diff Path Review Cancelled, Hypersegmented Neuts Cancelled, Atypical Lymphocytes Cancelled, Reactive Lymphocytes Cancelled, Smudge Cells Cancelled, Toxic Granulation Cancelled, Toxic Vacuolation Cancelled, Dohle Bodies Cancelled, Tevin Rods Cancelled, Platelet Estimate Cancelled, Plt Morphology Comment Cancelled, RBC Morphology Cancelled, Polychromasia Cancelled, Hypochromasia Cancelled, Poikilocytosis Cancelled, Basophilic Stippling Cancelled, Anisocytosis Cancelled, Microcytosis Cancelled, Macrocytosis Cancelled, Spherocytes Cancelled, Sickle Cells Cancelled, Target Cells Cancelled, Tear Drop Cells Cancelled, Ovalocytes Cancelled, Stomatocytes Cancelled, Vora-Gillham Bodies Cancelled, Edison Cells Cancelled, Bite Cells Cancelled, Crenated Cell Cancelled, Acanthocytes (Spur) Cancelled, Rouleaux Cancelled, Schistocytes Cancelled 09/19/21 19:12: PT Cancelled, INR Cancelled, D-Dimer Quant (PE/DVT) Cancelled 09/19/21 19:30: Sodium 141, Potassium 3.6, Chloride 110 H, Carbon Dioxide 26.0, Anion Gap 5, BUN 11, Creatinine 0.70, Estim Creat Clear Calc 35.45, Est GFR (MDRD) Af Amer 105, Est GFR (MDRD) Non-Af 86, BUN/Creatinine Ratio 15.6, Glucose 103, Calcium 9.2, Total Bilirubin 0.40, AST 19, ALT 19, Alkaline Phosphatase 72, Troponin I High Sens 10, Total Protein 6.4, Albumin 3.5, Globulin 2.9, Albumin/Globulin Ratio 1.2 09/19/21 19:30: PT 12.4, INR 1.0, D-Dimer Quant (PE/DVT) 0.51 H* 09/19/21 19:30: WBC 7.5, RBC 4.78, Hgb 15.5 H, Hct 45.4, MCV 95.0, MCH 32.4 H, MCHC 34.1, RDW Std Deviation 45.8 H, RDW Coeff of Jenny 13.1, Plt Count 177, MPV 10.7, Immature Gran % (Auto) 0.400, Neut % (Auto) 65.5, Lymph % (Auto) 22.1, Dubois % (Auto) 9.0, Eos % (Auto) 2.3, Baso % (Auto) 0.7, Absolute Neuts (auto) 4.9, Absolute Lymphs (auto) 1.65, Nucleated RBC % 0 Micro: Microbiology 09/19/21 19:25 Nasal Secretion SARS-CoV-2 Antigen (Rapid) - Final Radiology Impression Brain CT 09/19/21 18:29 IMPRESSION: Negative Brain CT without contrast. Left inferior orbital wall remote fracture. Electronically Signed: Mohamud Santa DO at 21:29 EST , Soft Tissue Neck CT 09/19/21 18:29 IMPRESSION: Asymmetric tongue musculature smaller on the right than the left with no appreciable mass lesion or edema. Query possible hypoglossal nerve palsy. Correlate clinically with physical exam. Electronically Signed: Mohamud Santa DO at 23:35 EST , Chest X-Ray 09/19/21 20:22 IMPRESSION: Nonacute portable x-ray examination of the chest. Electronically Signed: Edilson Lopez MD (Brooks) at 21:16 EST , Assessment & Plan Assessment/Plan (1) Dysphagia: QUALIFIERS: Dysphagia type: unspecified Qualified Code(s): R13.10 - Dysphagia, unspecified (2) Rheumatoid arthritis: QUALIFIERS: Rheumatoid arthritis location: unspecified site Rheumatoid factor presence: unspecified presence Qualified Code(s): M06.9 - Rheumatoid arthritis, unspecified PLAN: 1. Dysphagia, stroke rule out -Admit to PCU for NIHSS monitoring -MRA head and neck and MRI brain ordered, CT brain negative for acute findings, CT soft tissue neck demonstrates asymmetric tongue musculature smaller on the right than the left with no appreciable mass lesion or edema. Query possible hypoglossal nerve palsy. -Patient will remain n.p.o. -PT, OT, ST ordered -Echocardiogram ordered -NIH stroke scale monitoring per policy -CBC, BMP, TSH, lipid panel ordered for a.m. -Trend cardiac enzymes -Normal saline 75 mL/h -As needed hydralazine and labetalol ordered per stroke protocol 2. Elevated D-dimer -When age adjusted WNL 3. Rheumatoid arthritis -Patient home medication regimen of hydroxychloroquine which she takes Tuesday through Tuesday. -We will hold home medications secondary to dysphagia at this time DVT prophylaxis-SCDs This patient was seen by KATHERINE Hinson under the supervision of Dr. Ty 31 minutes spent in clinical coordination of patient's plan of care. Documented by User: Dr. Jose Ty MD 09/20/21 00:55 [facility] Medical History Arthritis Rheumatoid arthritis Shortness of breath Skin cancer Home Medications cholecalciferol (vitamin D3) 25 mcg (1,000 unit) capsule 3,000 unit PO ONCE 08/24/17 [History Last Taken Unknown] hydroxychloroquine 200 mg tablet 200 mg PO BID 08/24/17 [History Last Taken Unknown] multivitamin,ic-bple-ooqkvtmh 1 tab PO QDAY 08/24/17 [History Last Taken Unknown] estradiol 0 udc VAGINAL .COMPLEX 01/13/18 [History Last Taken Unknown] omega 4-ulj-mtp-fish oil 1 ea PO DAILY 01/13/18 [History Last Taken Unknown] calcium 600 mg PO DAILY 11/19/20 [History Last Taken Unknown] fluticasone propionate [Flonase Allergy Relief] 1 spray INTRANASAL BID #16 g 11/19/20 [Rx Last Taken Unknown] Allergy/AdvReac Type Severity Reaction Status Date / Time hydrocodone [From Vicodin] Allergy Intermediate Vomiting Verified 04/29/21 18:34 aspirin Allergy Mild Other Verified 04/29/21 18:34 [From Excedrin Back and Body] morphine Allergy Mild Vomiting Verified 04/29/21 18:34 perfume Allergy Other Verified 04/29/21 18:34 codeine AdvReac Mild Nausea/Vom/ Verified 04/29/21 18:34 Diarrhea caffeine AdvReac Nausea/Vom/ Verified 04/29/21 18:34 [From Excedrin Migraine] Diarrhea Family History Mother Diabetes Father Cancer prostate Prostate cancer Sister Breast cancer A-fib Kidney disease Brother Diabetes Surgical History H/O foot surgery History of bladder surgery History of total vaginal hysterectomy (TVH) (~06/13/20) Social History Smoking Status: Never smoker alcohol intake: never substance use type: does not use caffeine: No frequency: 1-2 times per week seatbelt use: always do you feel safe at home: Yes additional social history: - [employer] DOES NOT USE ASPIRIN DOES USE IBUPROFEN NEEDED DOES USE TYLENOL NEEDED Results Lab / Micro Data Result Diagrams: 09/19/21 19:30 09/19/21 19:30 Charges/Coding Addendum Addendum: Patient was seen and examined independently. I agree with assessment and plan by ZACK HinsonC Patient is a 76-year-old female with a significant history of rheumatoid arthritis and lichen sclerosis who presents to the emergency department with shortness of breath. Patient woke up from a nap and used the bathroom after which she felt she could not breath. She (patient) called family who also called the paramedics and patient was brought to the emergency department. Emergency department ED upon evaluating patient realized that patient was having difficulty swallowing her saliva. Emergency department doctor obtain CT of patient's neck which showed asymmetrical tongue musculature with radiologist querying possible hypoglossal nerve palsy. Emergency Department doctor discussed the case with ENT doctor on-call who said stroke could not be ruled out. Physical exam: General: Well-nourished, well-developed. Head: Normocephalic, atraumatic, no tenderness Eyes: PERRLA, EOMI ENT, no trauma, moist mucous membranes, no rhinorrhea. Uvula is midline Neck: Nontender, full range of motion, no spinal tenderness, deformities, step-off CVS: Regular rate and rhythm. S1-S2 present. No murmur, gallop or rub. Respiratory : clear to auscultation bilaterally, chest wall nontender, no wheezing Abdomen: Soft, nontender, nondistended, normal bowel sounds, no masses : Deferred Back: Nontender, no CVA tenderness, no midline spinal tenderness, deformities, step-offs Extremities: Nontender full range of motion, no trauma Skin: Normal color, no trauma, abrasions Neuro: Alert, oriented, cranial nerves II through XII grossly intact. Strength 5/5 throughout. Finget to nose test normal. Heel to andino test normal. Psychiatry: Normal mood. Normal affect. Not depressed. Not anxious. Dyspnea/Possible Hypoglossal nerve palsy / rule out stroke Serial NINDS NIH Scale ordered Brain CT was visualized and independently interpreted:-No acute bleed or infarction. Soft tissue neck CT was also visualized and independently interpreted and I agree radiologist interpretation of symmetric tongue musculature small on the right than the left with no appreciable mass lesion or edema Chest x-ray was visualized and independently platypnea. Radiologist reputation of no acute cardiopulmonary process. BMP unremarkable except chloride of 110 CBC showed white count and mild erythrocytosis. Lipid profile and A1c ordered. Physical therapy, occupational therapy and speech therapy to work with patient. N.p.o. until bedside swallow eval by speech therapy. Permissive hypertension. Control blood pressure with labetalol for systolic blood pressure of more than 220 or diastolic blood pressure of more than 120. MRI/MRA of head; brain; and neck. Echocardiogram ordered. Visit Charges OBSV E&M: [id number] Initial observation care L2
[2021-09-20 01:32] LABS: Troponin-I HS 12 pg/mL (3.0-54.0)
--- NOTE | 2021-09-20 03:07 | MRI_ITS ---
HISTORY: stroke, difficulty swallowing. TECHNIQUE: Multiplanar and multisequence MR images of the brain were obtained without gadolinium. # of images incl. paperwork: 264. COMPARISON: CT prior day. FINDINGS: BRAIN PARENCHYMA: Very mild T2 FLAIR hyperintense signal in the periventricular white matter. No abnormal focus of restricted diffusion. INTRACRANIAL HEMORRHAGE: No acute intracranial hemorrhage. CSF SPACES: Cerebral ventricles, cortical sulci, and other extra-axial CSF spaces within normal limits in size for patient's age.No midline shift or other significant mass effect. No extra-axial fluid collection. VASCULAR SYSTEM: Major intracranial flow-voids maintained. ORBITS: Bilateral lens resections. PARANASAL SINUSES AND MASTOID AIR CELLS: Clear. MRI/Brain without Contrast IMPRESSION: No evidence for acute infarct. Mild chronic small vessel ischemic gliosis. at 1109 Reported and signed by: Mirella Reeder MD Electronically Signed: Mirella Reeder MD at 11:08 EST ,
--- NOTE | 2021-09-20 03:07 | MRI_ITS ---
HISTORY: stroke, difficulty swallowing. TECHNIQUE: Routine carotid MR angiogram protocol was performed. 3D reconstructions were reviewed. Nascet criteria using the distal ICAs for comparison were used for evaluation of stenoses. IV Contrast dosage and agent: None. # of images incl. paperwork: 551. COMPARISON: None. FINDINGS: AORTIC ARCH AND BRANCHES: No significant stenosis at the visualized portions. RIGHT COMMON CAROTID ARTERY: No occlusion, significant stenosis, or dissection. LEFT COMMON CAROTID ARTERY: No occlusion, significant stenosis, or dissection. RIGHT INTERNAL CAROTID ARTERY: Mild less than 30% stenosis at the origin. No occlusion or significant stenosis. LEFT INTERNAL CAROTID ARTERY: Approximately 50% stenosis at the origin. Otherwise patent. RIGHT VERTEBRAL ARTERY: No occlusion, significant stenosis, or dissection. LEFT VERTEBRAL ARTERY: No occlusion, significant stenosis, or dissection. MRI/MRA Neck without Contrast IMPRESSION: Left internal carotid artery with approximately 50% stenosis at the origin. No occlusion of the carotid or vertebral arteries in the neck. at 1115 Reported and signed by: Mirella Reeder MD Electronically Signed: Mirella Reeder MD at 11:14 EST ,
[2021-09-20] MEDS: 0.9% Normal Saline 1,000 ML 75 ML IV (03:26)
[2021-09-20] MEDS: 0.9% Saline Lock 10 ML Syringe IV (03:26)
[2021-09-20 03:41] LABS: Absolute Lymphocyte Count 1.65 X10^3/uL (0.83-4.51); Absolute Neutrophil Count 3.6 X10^3/uL (2.0-7.7); Basophil# 0.04 X10^3/uL; Basophil% 0.7 % (0-1); Eosinophil# 0.12 X10^3/uL; Hematocrit 44.3 % (37-47); Hemoglobin 15.3 g/dL (12.0-15.0); Lymphocyte # 1.65 X10^3/ul (0.83-4.51); Lymphocyte % 27.4 % (19-41); Mean Corp Hgb Conc 34.5 g/dL (32-36); Mean Corpuscular Hgb 32.2 pg (27.0-32.0); Mean Corpuscular Volume 93.3 fL (81-99); Mean Platelet Vol. 10.2 fl (6.2-12.0); Monocyte# 0.63 X10^3/uL; Monocyte% 10.5 % (0-10); NRBC Flagged by Analyzer 0 % (0-5); Neutrophil # 3.57 X10^3/uL (2.7-7.7); Neutrophil % 59.2 % (47-70); Platelet Count 209 K/mm3 (150-450); RBC Distribution Width CV 13.2 % (11.6-14.6); RBC Distribution Width SD 45.3 fl (35.1-43.9); Red Blood Count 4.75 M/mm3 (4.2-5.4)
[2021-09-20 03:59] LABS: Troponin-I HS 12 pg/mL (3.0-54.0)
[2021-09-20 04:24] LABS: Anion Gap 5 (5-15); BUN 9 mg/dL (7-18); BUN/Creat Ratio 14.5 RATIO (10-20); Calcium,Total 8.7 mg/dL (8.5-10.1); Chloride 110 mmol/L (98-107); Cholesterol 145 mg/dL (200); Creatinine, Serum 0.62 mg/dL (0.55-1.02); EST Glomerular Filtration Rate 100 mL/min (>60); Est Glom Filt Rate - Afr Amer 121 mL/min (>60); Estimated Creatinine Clearance 35.45 ml/min; Glucose 113 mg/dL (74-106); High Density Lipoprotein 67 mg/dL; Potassium 3.9 mmol/L (3.5-5.1); Sodium Level 140 mmol/L (136-145); Thyroid Stim Hormone (TSH) 2.33 uIU/mL (0.358-3.74); Triglycerides 94 mg/dL; Very Low Density Lipoprotein 19 mg/dL (5-40)
[2021-09-20 07:09] LABS: Hemoglobin A1c 5.6 % (3.8-5.6)
--- NOTE | 2021-09-20 09:44 | MRI_ITS ---
HISTORY: STROKE, difficulty swallowing. TECHNIQUE: Routine [place]/brain 3D time of flight MR angiogram protocol was performed without gadolinium. 3D reconstructions were reviewed. Number of images including paperwork: 195. COMPARISON: None. FINDINGS: RIGHT VERTEBRAL ARTERY: No occlusion, significant stenosis, or aneurysm. LEFT VERTEBRAL ARTERY: No occlusion, significant stenosis, or aneurysm. BASILAR ARTERY: No occlusion, significant stenosis, or aneurysm. RIGHT BOOM OPERATOR: No occlusion, significant stenosis, or aneurysm. LEFT BOOM OPERATOR: No occlusion, significant stenosis, or aneurysm. RIGHT ICA:No occlusion, significant stenosis, or aneurysm. LEFT ICA: No occlusion, significant stenosis, or aneurysm. RIGHT MCA:No occlusion, significant stenosis, or aneurysm. LEFT MCA: No occlusion, significant stenosis, or aneurysm. RIGHT LYNDA: No occlusion, significant stenosis, or aneurysm. LEFT LYNDA: No occlusion, significant stenosis, or aneurysm. MRI/MRA Head ONLY without Contrast IMPRESSION: No evidence for focal vascular abnormality in the [place] region. at 1110 Reported and signed by: Mirella Reeder MD Electronically Signed: Mirella Reeder MD at 11:09 EST ,
[2021-09-20] MEDS: OFLOXACIN 5 ML DROPS 1 ML LEFT EYE (09:50)
--- NOTE | 2021-09-20 11:34 | PCM.DC ---
Discharge Instructions Diet Discharge Diet: No restrictions Activity Discharge Activity: Return to Normal Activity Dressing / Incision Call your doctor if you observe: Numbness or Tingling, Shortness of breath, Dizziness and Chest pain Follow Up Care Test Results: Test results from this visit will be discussed in further detail at your follow-up appointment, if applicable. Discharge Plan Admission Admit Date/Time: 09/20/21 00:14 Primary Reason for Your Visit: Dyspagia, Stroke ruled out Attending Provider: Wilman Kerr Primary Care Provider: Rigoberto White Instructions Additional Instructions / Restrictions: Recommend referral to ENT if recurrent swallowing issues. Discharge Orders/Prescriptions Prescriptions: Continued hydroxychloroquine [Plaquenil] 200 mg tablet 200 mg PO BID RF: 0 multivitamin,cs-kfku-oohqfqvd tablet tablet 1 tab PO QDAY RF: 0 omega 6-djq-adm-fish oil 1 EACH capsule,delayed release(DR/EC) 1 ea PO DAILY RF: 0 estradiol 42.5 GM cream 0 udc VAGINAL .COMPLEX RF: 0 calcium 600 mg Capsule 600 mg PO DAILY RF: 0 ofloxacin 0.3 % drops 1 drp LEFT EYE 4X/DAY RF: 0 Referrals / Follow Up: Rigoberto White MD [Primary Care Provider] - Within 1 Week Disposition Disposition (needs filled in before D/C Order can be placed): Home, Self Care
--- NOTE | 2021-09-20 11:38 | PCM.DC.SUM ---
Documented by User: Stacia Gutierrez NP, [employer]-C 09/20/21 11:43 Providers Date of Admission: 09/20/21 Date of Discharge: 09/20/21 Primary Care Physician: Dr. Rigoberto White MD Reason For Visit: DYSPHAGIA Diagnosis Discharge Diagnosis (1) Dysphagia: Status: Acute Code(s): R13.10 - Dysphagia, unspecified Qualifiers: Dysphagia type: unspecified Qualified Code(s): R13.10 - Dysphagia, unspecified (2) Rheumatoid arthritis: Status: Acute Code(s): M06.9 - Rheumatoid arthritis, unspecified Qualifiers: Rheumatoid arthritis location: unspecified site Rheumatoid factor presence: unspecified presence Qualified Code(s): M06.9 - Rheumatoid arthritis, unspecified Medications at Discharge Home Medications hydroxychloroquine 200 mg tablet 200 mg PO BID 08/24/17 multivitamin,tc-qhkc-sxxawxvg 1 tab PO QDAY 08/24/17 estradiol 0 udc VAGINAL .COMPLEX 01/13/18 omega 3-hjs-jck-fish oil 1 ea PO DAILY 01/13/18 calcium 600 mg PO DAILY 11/19/20 ofloxacin 1 drp LEFT EYE 4X/DAY 09/20/21 Hospital Course Operations None Procedures None Summary of Care Provided Hospital Course: Patient is a 76-year-old female admitted 09/20/2021 due to dysphagia. 1. Dysphagia-CVA ruled out. Questionable hypoglossal nerve palsy. Soft tissue neck CT with asymmetric tongue musculature smaller on the right than the left with no appreciable mass, lesion or edema. Query possible hypoglossal nerve palsy. MRI of brain negative for stroke. MRA of neck with left internal carotid artery approximate 50% stenosis, no occlusion of the carotid or vertebral arteries. MRA of head with no evidence of focal vascular abnormality. Evaluated by speech therapy and cleared for regular diet and thin liquids. No further speech therapy recommended. If patient has recurrent swallowing concerns, consider outpatient modified barium swallow study which can be arranged by primary care provider as well as referral to ENT. Follow-up with PCP within 1 week. 2. Rheumatoid arthritis-on hydroxychloroquine. 3. Recent cataract surgery-continue ophthalmologic regimen. Patient seen and examined prior to discharge. Physical assessment as noted below. Patient is stable for discharge with follow up recommendations as noted above. This patient was seen by ZACK JonesC under the supervision of Dr. Kerr Physical Exam Const alert, oriented x3 and no apparent distress Orientation / Consciousness: awake, oriented to person, oriented to place and oriented to time HEENT normocephalic and moist oral mucous membranes Eyes PERRL, EOMs intact bilaterally and conjunctivae normal Neck no lymphadenopathy Resp normal respiratory effort and clear to auscultation bilaterally Cardio regular rate, regular rhythm and no murmurs Peripheral Pulses: pulses 2+ throughout GI normal to inspection, nondistended, normoactive bowel sounds, non-tender and non-distended Extremity normal to inspection Skin no rashes or lesions noted Lesions: no lesions Rashes: no rashes Trauma: no lacerations or abrasions Neuro CN's II-XII intact bilaterally, no focal motor deficits, no sensory deficits noted and deep tendon reflexes 2+ bilaterally Psych mental status grossly normal and affect normal Weight / BMI Weight Weight: 117 lb 11.629 oz Body Mass Index (BMI) 23.0 ABG / Lab / Microbiology Data Result Diagrams: 09/20/21 03:35 09/20/21 03:35 Laboratory: Laboratory Results - last 24 hr 09/19/21 19:00: Urine Color Yellow, Urine Clarity Clear, Urine pH 7.0, Ur Specific [place] 1.010, Urine Protein Negative, Urine Glucose (UA) Normal, Urine Ketones Negative, Urine Occult Blood Negative, Urine Nitrite Negative, Urine Bilirubin Negative, Urine Urobilinogen Normal, Ur Leukocyte Esterase Negative, Urine RBC 0 SEEN, Urine WBC 0 SEEN, Ur Squamous Epith Cells 0 SEEN, Urine Bacteria 0 SEEN, Urine Mucus 0 SEEN 09/19/21 19:12: WBC Cancelled, Corrected WBC Cancelled, RBC Cancelled, Hgb Cancelled, Hct Cancelled, MCV Cancelled, MCH Cancelled, MCHC Cancelled, RDW Std Deviation Cancelled, RDW Coeff of Jenny Cancelled, Plt Count Cancelled, MPV Cancelled, Immature Gran % (Auto) Cancelled, Neut % (Auto) Cancelled, Lymph % (Auto) Cancelled, [place] % (Auto) Cancelled, Eos % (Auto) Cancelled, Baso % (Auto) Cancelled, Absolute Neuts (auto) Cancelled, Absolute Lymphs (auto) Cancelled, Total Counted Cancelled, Neutrophils % (Manual) Cancelled, Band Neutrophils % Cancelled, Lymphocytes % (Manual) Cancelled, Monocytes % (Manual) Cancelled, Eosinophils % (Manual) Cancelled, Basophils % (Manual) Cancelled, Metamyelocytes % Cancelled, Myelocytes % Cancelled, Promyelocytes % Cancelled, Blast Cells % Cancelled, Plasma Cell % (Manual) Cancelled, Other Cells % Cancelled, Nucleated RBC % Cancelled, Nucleated RBCs/100 WBC Cancelled, Differential Comment Cancelled, Diff Path Review Cancelled, Hypersegmented Neuts Cancelled, Atypical Lymphocytes Cancelled, Reactive Lymphocytes Cancelled, Smudge Cells Cancelled, Toxic Granulation Cancelled, Toxic Vacuolation Cancelled, Dohle Bodies Cancelled, Tevin Rods Cancelled, Platelet Estimate Cancelled, Plt Morphology Comment Cancelled, RBC Morphology Cancelled, Polychromasia Cancelled, Hypochromasia Cancelled, Poikilocytosis Cancelled, Basophilic Stippling Cancelled, Anisocytosis Cancelled, Microcytosis Cancelled, Macrocytosis Cancelled, Spherocytes Cancelled, Sickle Cells Cancelled, Target Cells Cancelled, Tear Drop Cells Cancelled, Ovalocytes Cancelled, Stomatocytes Cancelled, [place] Bodies Cancelled, Hue Cells Cancelled, Bite Cells Cancelled, Crenated Cell Cancelled, Acanthocytes (Spur) Cancelled, Rouleaux Cancelled, Schistocytes Cancelled 09/19/21 19:12: PT Cancelled, INR Cancelled, D-Dimer Quant (PE/DVT) Cancelled 09/19/21 19:30: Sodium 141, Potassium 3.6, Chloride 110 H, Carbon Dioxide 26.0, Anion Gap 5, BUN 11, Creatinine 0.70, Estim Creat Clear Calc 35.45, Est GFR (MDRD) Af Amer 105, Est GFR (MDRD) Non-Af 86, BUN/Creatinine Ratio 15.6, Glucose 103, Calcium 9.2, Total Bilirubin 0.40, AST 19, ALT 19, Alkaline Phosphatase 72, Troponin I High Sens 10, Total Protein 6.4, Albumin 3.5, Globulin 2.9, Albumin/Globulin Ratio 1.2 09/19/21 19:30: PT 12.4, INR 1.0, D-Dimer Quant (PE/DVT) 0.51 H* 09/19/21 19:30: WBC 7.5, RBC 4.78, Hgb 15.5 H, Hct 45.4, MCV 95.0, MCH 32.4 H, MCHC 34.1, RDW Std Deviation 45.8 H, RDW Coeff of Jenny 13.1, Plt Count 177, MPV 10.7, Immature Gran % (Auto) 0.400, Neut % (Auto) 65.5, Lymph % (Auto) 22.1, [place] % (Auto) 9.0, Eos % (Auto) 2.3, Baso % (Auto) 0.7, Absolute Neuts (auto) 4.9, Absolute Lymphs (auto) 1.65, Nucleated RBC % 0 09/20/21 01:05: Troponin I High Sens 12 09/20/21 03:35: Hemoglobin A1c 5.6 09/20/21 03:35: WBC 6.0, RBC 4.75, Hgb 15.3 H, Hct 44.3, MCV 93.3, MCH 32.2 H, MCHC 34.5, RDW Std Deviation 45.3 H, RDW Coeff of Jenny 13.2, Plt Count 209, MPV 10.2, Immature Gran % (Auto) 0.200, Neut % (Auto) 59.2, Lymph % (Auto) 27.4, [place] % (Auto) 10.5 H, Eos % (Auto) 2.0, Baso % (Auto) 0.7, Absolute Neuts (auto) 3.6, Absolute Lymphs (auto) 1.65, Nucleated RBC % 0 09/20/21 03:35: Sodium 140, Potassium 3.9, Chloride 110 H, Carbon Dioxide 25.0, Anion Gap 5, BUN 9, Creatinine 0.62, Estim Creat Clear Calc 35.45, Est GFR (MDRD) Af Amer 121, Est GFR (MDRD) Non-Af 100, BUN/Creatinine Ratio 14.5, Glucose 113 H, Calcium 8.7, Triglycerides 94, Cholesterol 145, LDL Cholesterol 59, VLDL Cholesterol 19, HDL Cholesterol 67, TSH 2.33 09/20/21 03:35: Troponin I High Sens 12 Microbiology: Microbiology 09/19/21 19:25 Nasal Secretion SARS-CoV-2 Antigen (Rapid) - Final Radiography Diagnostic Testing: Radiology Impression Brain CT 09/19/21 18:29 IMPRESSION: Negative Brain CT without contrast. Left inferior orbital wall remote fracture. Electronically Signed: Mohamud Santa DO at 21:29 EST , Soft Tissue Neck CT 09/19/21 18:29 IMPRESSION: Asymmetric tongue musculature smaller on the right than the left with no appreciable mass lesion or edema. Query possible hypoglossal nerve palsy. Correlate clinically with physical exam. Electronically Signed: Mohamud StaplesDO tc at 23:35 EST , Chest X-Ray 09/19/21 20:22 IMPRESSION: Nonacute portable x-ray examination of the chest. Electronically Signed: Edilson Lopez MD ([place]) at 21:16 EST , Brain MRI 09/20/21 03:07 IMPRESSION: No evidence for acute infarct. Mild chronic small vessel ischemic gliosis. at 1109 Reported and signed by: Mirella Reeder MD Electronically Signed: Mirella Reeder MD at 11:08 EST , Neck MRA 09/20/21 03:07 IMPRESSION: Left internal carotid artery with approximately 50% stenosis at the origin. No occlusion of the carotid or vertebral arteries in the neck. at 1115 Reported and signed by: Mirella Reeder MD Electronically Signed: Mirella Reeder MD at 11:14 EST , Head MRA 09/20/21 09:44 IMPRESSION: No evidence for focal vascular abnormality in the [place]. at 1110 Reported and signed by: Mirella Reeder MD Electronically Signed: Mirella Reeder MD at 11:09 EST , D/C Instructions Discharge Diet: No restrictions Call your doctor if you observe: Numbness or Tingling, Shortness of breath, Dizziness and Chest pain Meaningful Use Info Meaningful Use Diagnoses (Choose all that apply): None applicable Discharge Plan Admission Admit Date/Time: 09/20/21 00:14 Primary Reason for Your Visit: Dyspagia, Stroke ruled out Attending Provider: Wilman Kerr Primary Care Provider: Rigoberto White Instructions Additional Instructions / Restrictions: Recommend referral to ENT if recurrent swallowing issues. Discharge Orders/Prescriptions Prescriptions: Continued hydroxychloroquine [Plaquenil] 200 mg tablet 200 mg PO BID RF: 0 multivitamin,px-gneo-pnngvgui tablet tablet 1 tab PO QDAY RF: 0 omega 5-ipv-iif-fish oil 1 EACH capsule,delayed release(DR/EC) 1 ea PO DAILY RF: 0 estradiol 42.5 GM cream 0 udc VAGINAL .COMPLEX RF: 0 calcium 600 mg Capsule 600 mg PO DAILY RF: 0 ofloxacin 0.3 % drops 1 drp LEFT EYE 4X/DAY RF: 0 Referrals / Follow Up: Rigoberto White MD [Primary Care Provider] - Within 1 Week Disposition Disposition (needs filled in before D/C Order can be placed): Home, Self Care Documented by User: Dr. Wilman Kerr MD 09/20/21 12:10 Providers Date of Admission: 09/20/21 Reason For Visit: DYSPHAGIA Medications at Discharge Home Medications hydroxychloroquine 200 mg tablet 200 mg PO BID 08/24/17 multivitamin,if-doxm-xiplkhbf 1 tab PO QDAY 08/24/17 estradiol 0 udc VAGINAL .COMPLEX 01/13/18 omega 1-zio-yyh-fish oil 1 ea PO DAILY 01/13/18 calcium 600 mg PO DAILY 11/19/20 ofloxacin 1 drp LEFT EYE 4X/DAY 09/20/21 Hospital Course Operations None Summary of Care Provided Minutes Spent on Discharge: 35 Hospital Course: This patient was seen in conjunction with KATHERINE Jones . I have independently interviewed and examined the patient and reviewed pertinent historical, laboratory, and other data. Please refer to KATHERINE Jones note for details of this patient's presentation, findings, and recommendations. I have reviewed KATHERINE Jones note and concur with documented findings. In brief, patient is a 76-year-old lady with history of rheumatoid arthritis who presented with dysphagia. Admitted to monitored bed where she underwent subsequent evaluation. An acute CVA was ruled out with MRI. Physical Examination: GENERAL: cooperative HEENT: Atraumatic; EYES; Anicteric, Normal Conjunctiva NECK; supple, normal thyroid, RESPIRATORY: Diminished to auscultation CARDIOVASCULAR: Regular S1 S2, GI: soft, normoactive bowel sounds, : No Renal angle tenderness; EXTREMITIES: No edema, no clubbing, MUSCULOSKELETAL: no muscle wasting NEURO: Awake; no lateralizing signs. SKIN: No Rash PSYCH; Flat affect Hospital course: As documented above Total time spent by myself and the advanced practice practitioner evaluating patient, reviewing labs, subsequent management decisions, discussion with patient as well as other providers 25 minutes ( 15 of which was spent by myself) ABG / Lab / Microbiology Data Result Diagrams: 09/20/21 03:35 09/20/21 03:35 Discharge Plan Admission Admit Date/Time: 09/20/21 00:14 Primary Reason for Your Visit: Dyspagia, Stroke ruled out Attending Provider: Wilman Kerr Primary Care Provider: Rigoberto White Instructions Additional Instructions / Restrictions: Recommend referral to ENT if recurrent swallowing issues. Discharge Orders/Prescriptions Prescriptions: Continued hydroxychloroquine [Plaquenil] 200 mg tablet 200 mg PO BID RF: 0 multivitamin,fc-imzr-ktshiwyg tablet tablet 1 tab PO QDAY RF: 0 omega 6-vtx-sfe-fish oil 1 EACH capsule,delayed release(DR/EC) 1 ea PO DAILY RF: 0 estradiol 42.5 GM cream 0 udc VAGINAL .COMPLEX RF: 0 calcium 600 mg Capsule 600 mg PO DAILY RF: 0 ofloxacin 0.3 % drops 1 drp LEFT EYE 4X/DAY RF: 0 Referrals / Follow Up: Rigoberto White MD [Primary Care Provider] - Within 1 Week Disposition Disposition (needs filled in before D/C Order can be placed): Home, Self Care Charges/Coding Visit Charges OBSV E&M: 09078 Observation care discharge Hospital Course Imaging Results Imaging Results: 09/20/21 03:07 Echo Complete [ECHO] Routine Brain without Contrast [MRI] Urgent MRA Neck without Contrast [MRI] Urgent 09/20/21 09:44 MRA Head ONLY without Contrast [MRI] Urgent Operations None
== END 2021-09-20 11:36 | disposition home or self-care (01) ==
LOC: ED 09-20 00:07 → PCU 09-20 01:56
PROVIDERS: Nurse Practitioner Family; Admitting Provider Hospitalist; Emergency Provider Emergency Medicine; PCP Family Medicine; Visit Provider Internal Medicine
DX: R13.10 Dysphagia, unspecified (principal); M06.9 Rheumatoid arthritis, unspecified; R06.02 Shortness of breath; I65.22 Occlusion and stenosis of left carotid artery; M19.90 Unspecified osteoarthritis, unspecified site; R29.700 NIHSS score 0; L90.0 Lichen sclerosus et atrophicus; Z79.899 Other long term (current) drug therapy; Z79.82 Long term (current) use of aspirin
CPT/HCPCS: 36415; 70450; 70491; 70544; 70547; 70551; 71045; 80048; 80053; 80061; 81001; 83036; 84443; 84484; 85025; 85379; 85610; 87426; 92610; 93005; 94762; 96360; 96361; 99218; 99251; 99283; J7030; Q9967; A4216; G0378; G0463

== ENCOUNTER 2021-09-25 11:51 | Outpatient (CLI) | payer MEDICARE, SELFPAY ==
[2021-09-25 12:34] LABS: Absolute Lymphocyte Count 1.76 X10^3/uL (0.83-4.51); Absolute Neutrophil Count 4.9 X10^3/uL (2.0-7.7); Basophil# 0.06 X10^3/uL; Basophil% 0.8 % (0-1); Eosinophils% 1.3 % (0-5); Hematocrit 48.3 % (37-47); Hemoglobin 16.1 g/dL (12.0-15.0); Lymphocyte # 1.76 X10^3/ul (0.83-4.51); Lymphocyte % 23.7 % (19-41); Mean Corp Hgb Conc 33.3 g/dL (32-36); Mean Corpuscular Hgb 31.9 pg (27.0-32.0); Mean Corpuscular Volume 95.8 fL (81-99); Mean Platelet Vol. 11.1 fl (6.2-12.0); Monocyte% 8.1 % (0-10); NRBC Flagged by Analyzer 0 % (0-5); Platelet Count 207 K/mm3 (150-450); RBC Distribution Width SD 46.4 fl (35.1-43.9); Red Blood Count 5.04 M/mm3 (4.2-5.4); White Blood Count 7.4 K/mm3 (4.4-11.0)
[2021-09-25 13:28] LABS: ALB/GLOB Ratio 1.1 RATIO (0.9-2.4); AST(SGOT) 23 U/L (15-37); Alanine Aminotransfer ALT/SGPT 21 U/L (13-56); Albumin, Serum 3.7 g/dL (3.2-5.0); Alkaline Phosphatase 72 U/L (45-117); Amylase 57 U/L (25-115); Anion Gap 5 (5-15); BUN 10 mg/dL (7-18); BUN/Creat Ratio 16.1 RATIO (10-20); Calcium,Total 8.8 mg/dL (8.5-10.1); Chloride 105 mmol/L (98-107); Creatinine, Serum 0.62 mg/dL (0.55-1.02); EST Glomerular Filtration Rate 100 mL/min (>60); Est Glom Filt Rate - Afr Amer 121 mL/min (>60); Globulin 3.3 g/dL (2.2-4.2); Glucose 86 mg/dL (74-106); Lipase 100 U/L (73-393); Sodium Level 138 mmol/L (136-145); Thyroid Stim Hormone (TSH) 2.03 uIU/mL (0.358-3.74)
[2021-09-25 13:49] LABS: Hepatitis C Antibody Non-Reactive (Nonreactive); Vitamin D,25 Hydroxy 61.5 ng/mL
== END 2021-09-25 23:59 | disposition home or self-care (01) ==
LOC: POLAB3 11:51
PROVIDERS: PCP Family Medicine; Visit Provider Family Medicine Geriatric Medicine
DX: Z00.00 Encounter for general adult medical examination without abnormal findings (principal); R10.9 Unspecified abdominal pain; E55.9 Vitamin D deficiency, unspecified; R53.83 Other fatigue
CPT/HCPCS: 36415; 80053; 82150; 82306; 83690; 84443; 85025; 86803

== ENCOUNTER 2021-09-25 12:48 | Outpatient (CLI) | payer MEDICARE, SELFPAY ==
--- NOTE | 2021-09-25 12:55 | CT_ITS ---
STUDY: CT ABDOMEN AND PELVIS WITH CONTRAST REASON FOR EXAM: Female, 76 years old. Abdominal pain. RADIATION DOSAGE (If Supplied By Facility): CTDIvol = ( 8.07 ) mGy, DLP = ( 309.19 ) mGycm TECHNIQUE: Transaxial images were obtained from the dome of the diaphragm to the symphysis pubis with oral contrast. 100 mL of ISOVUE-300 was administered. Sagittal and coronal images were reconstructed. Individualized dose optimization techniques were used for this CT. COMPARISON: 04/29/2021. FINDINGS: The visualized lung bases are unremarkable. The visualized portions of the heart are within normal limits. Normal liver. Normal gallbladder and extrahepatic biliary system. Normal spleen. Normal pancreas. Normal bilateral adrenal glands. Normal right kidney. Normal left kidney. Normal visualized ureters. Normal visualized stomach. Normal small intestine. Scanner colonic diverticuli without acute inflammatory change. There is no mass or obstruction. There is non-visualization of the appendix. Normal abdominal aorta. Normal inferior vena cava. Normal retroperitoneum. Normal urinary bladder. Unremarkable vaginal cough. Is no pelvic lymphadenopathy. No free air or free fluid is seen within the peritoneal cavity. Normal abdominal wall. Normal osseous structures. CT/Abdomen/Pelvis WITH Contrast IMPRESSION: 1. No evidence for acute intra-abdominal process. 2. Nonvisualization of the right upper pole renal calculus seen on the previous study. There is no other significant interval change. Electronically Signed: Robert Guadalupe DO at 17:02 EST Reading Location ID and State: [id number] Tel [phone], Service support ,
== END 2021-09-25 23:59 | disposition home or self-care (01) ==
PROVIDERS: PCP Family Medicine Geriatric Medicine; Referring Provider Family Medicine Geriatric Medicine; Visit Provider Family Medicine Geriatric Medicine
DX: Z00.00 Encounter for general adult medical examination without abnormal findings (principal); R10.9 Unspecified abdominal pain; R10.2 Pelvic and perineal pain; R68.83 Chills (without fever); E55.9 Vitamin D deficiency, unspecified; R53.83 Other fatigue
CPT/HCPCS: 36415; 74177; 80053; 82150; 82306; 83690; 84443; 85025; 86803; 87635; 87804; 87807; C9803; Q9967; U0003; U0005

== ENCOUNTER → 2021-12-24 | Outpatient (CLI) | payer MEDICARE, SELFPAY ==
[2021-12-24 12:25] LABS: Absolute Lymphocyte Count 1.85 X10^3/uL (0.83-4.51); Basophil# 0.06 X10^3/uL; Basophil% 0.6 % (0-1); Eosinophil# 0.08 X10^3/uL; Eosinophils% 0.8 % (0-5); Hemoglobin 15.5 g/dL (12.0-15.0); Lymphocyte # 1.85 X10^3/ul (0.83-4.51); Lymphocyte % 18.6 % (19-41); Mean Corp Hgb Conc 32.3 g/dL (32-36); Mean Corpuscular Hgb 31.8 pg (27.0-32.0); Mean Corpuscular Volume 98.6 fL (81-99); Mean Platelet Vol. 10.5 fl (6.2-12.0); Monocyte# 0.89 X10^3/uL; NRBC Flagged by Analyzer 0 % (0-5); Neutrophil # 6.99 X10^3/uL (2.7-7.7); Neutrophil % 70.5 % (47-70); Platelet Count 284 K/mm3 (150-450); RBC Distribution Width CV 12.9 % (11.6-14.6); RBC Distribution Width SD 46.8 fl (35.1-43.9); Red Blood Count 4.87 M/mm3 (4.2-5.4); White Blood Count 9.9 K/mm3 (4.4-11.0)
[2021-12-24 12:51] LABS: AST(SGOT) 20 U/L (15-37); Alanine Aminotransfer ALT/SGPT 24 U/L (13-56); Albumin, Serum 3.8 g/dL (3.2-5.0); Alkaline Phosphatase 82 U/L (45-117); Anion Gap 5 (5-15); BUN 13 mg/dL (7-18); BUN/Creat Ratio 19.5 RATIO (10-20); Calcium,Total 9.2 mg/dL (8.5-10.1); Chloride 106 mmol/L (98-107); Creatinine, Serum 0.67 mg/dL (0.55-1.02); EST Glomerular Filtration Rate 92 mL/min (>60); Est Glom Filt Rate - Afr Amer 111 mL/min (>60); Globulin 3.7 g/dL (2.2-4.2); Glucose 105 mg/dL (74-106); Potassium 4.7 mmol/L (3.5-5.1); Protein, Total 7.5 g/dL (6.4-8.2); Sodium Level 139 mmol/L (136-145); Thyroid Stim Hormone (TSH) 1.69 uIU/mL (0.358-3.74)
== END | disposition home or self-care (01) ==
LOC: POLAB3 11:13
PROVIDERS: PCP Family Medicine Geriatric Medicine; Visit Provider Family Medicine Geriatric Medicine
DX: R53.83 Other fatigue (principal); E55.9 Vitamin D deficiency, unspecified
CPT/HCPCS: 36415; 80053; 82306; 84443; 85025

== ENCOUNTER 2022-01-06 13:42 | Emergency (ER) | payer MEDICARE, SELFPAY ==
[2022-01-06 13:44] VITALS: BP 139/57; PULSE 96; RESP 18; TEMP 36.7; O2SAT 99; BMI 23.0
[2022-01-06 13:58] VITALS: O2SAT 97
--- NOTE | 2022-01-06 14:40 | EDS_ITS ---
HPI History of Present Illness Chief Complaint: Shortness of Breath Narrative Narrative: 76-year-old female states that she has been short of breath for a couple of hours. She states that this is resolved currently. She feels as if its shortness of breath is coming from her throat. She has been seeing an helpdesk administrator to Dr. Basurto's office she is given her 2 steroid shots which do not seem to help. She states she does not have any history of asthma or COPD. She has not had chest pain, chest tightness, fever, chills, cough. She states she is eating and drinking normally. She is making normal urine and stool. She states that she was here a couple of months ago with similar symptoms and had a full work-up and images of her neck and her chest and nobody found out what it was. She followed up with Dr. Dumont who also did not have an answer for her symptoms. [facility] Medical History Arthritis Rheumatoid arthritis Rheumatoid arthritis Shortness of breath Skin cancer Home Medications hydroxychloroquine 200 mg tablet (Plaquenil) 200 mg PO BID RA 08/24/17 [History Last Taken Unknown] multivitamin,dd-necy-mvmsbvzt (Complete Multivitamin) 1 tab PO QDAY supplement 08/24/17 [History Last Taken Unknown] estradiol 0 udc vaginal .COMPLEX Check with primary doctor 01/13/18 [History Last Taken Unknown] omega 4-ukq-hww-fish oil 900 mg-1,400 mg capsule,delayed release 1 ea PO DAILY supplement 01/13/18 [History Last Taken Unknown] calcium 600 mg capsule 600 mg PO DAILY 11/19/20 [History Last Taken Unknown] ofloxacin 0.3 % eye drops 1 drp LEFT EYE 4X/DAY Check with primary doctor 09/20/21 [History Last Taken Unknown] Allergy/AdvReac Type Severity Reaction Status Date / Time hydrocodone [From Vicodin] Allergy Intermediate Vomiting Verified 01/06/22 13:46 aspirin Allergy Mild Other Verified 01/06/22 13:46 [From Excedrin Back and Body] morphine Allergy Mild Vomiting Verified 01/06/22 13:46 perfume Allergy Other Verified 01/06/22 13:46 codeine AdvReac Mild Nausea/Vom/ Verified 01/06/22 13:46 Diarrhea caffeine AdvReac Nausea/Vom/ Verified 01/06/22 13:46 [From Excedrin Migraine] Diarrhea Family History Mother Diabetes Father Cancer prostate Prostate cancer Sister Breast cancer A-fib Kidney disease Brother Diabetes Surgical History H/O foot surgery History of bladder surgery History of total vaginal hysterectomy (TVH) (~06/13/20) Social History Smoking Status: Never smoker alcohol intake: never substance use type: does not use caffeine: No frequency: 1-2 times per week seatbelt use: always do you feel safe at home: Yes additional social history: - [employer] DOES NOT USE ASPIRIN DOES USE IBUPROFEN NEEDED DOES USE TYLENOL NEEDED ROS ROS ED Constitutional Constitutional ED: Denies chills or fever(s) Eyes Eyes: Denies change in vision or diplopia ENT ENT ED: Denies rhinorrhea or sore throat Cardiovascular Cardiovascular: Denies chest pain or palpitations Respiratory/Chest Respiratory/Chest: Reports dyspnea Gastrointestinal Gastrointestinal: Denies abdominal pain or constipation Genitourinary Genitourinary ED: Denies dysuria or hematuria Musculoskeletal Musculoskeletal: Denies arthralgias or back pain Integumentary Denies abscess Neurologic Neurologic: Denies headache(s) or paresthesias Psychiatric Psychiatric: Denies anxiety or depression EXAM Physical Exam Const Vital Signs: 01/06/22 13:44 01/06/22 13:58 Temperature 98.1 F Temperature Source Temporal Pulse Rate 96 Respiratory Rate 18 Respiratory Effort Short of Breath Respiratory Depth Shallow Respiratory Pattern Tachypnea Blood Pressure 139/57 H Blood Pressure Mean 84 Pulse Ox 99 Oxygen Delivery Method Room Air Room Air Positive well nourished General Appearance ED: NAD; Negative for pallor HEENT Reports moist mucous membranes Eyes PERRL and EOMs intact bilaterally General Eye ED: Negative for pale conjunctiva or scleral icterus Neck no lymphadenopathy and supple Neck Narrative: No stridor Resp normal respiratory effort and clear to auscultation bilaterally Auscultation: Negative for rales, rhonchi or wheezes Cardio regular rate and regular rhythm Extremity normal to inspection General Extremety ED: Negative for edema or tenderness General Extremity: Negative for edema Neuro oriented x3 and CN's II-XII intact bilaterally Sensorium / Orientation: alert, oriented to person, oriented to place and oriented to time Speech: speech normal Motor Exam: strength 5/5 throughout Psych mental status grossly normal Thought Process: normal thought process Skin no wounds General Skin Exam: Negative for jaundice or pallor MDM MDM MDM Narrative Medical decision making narrative: Patient presenting with subjective shortness of breath which has resolved. He still feels as if there is something in her throat. Her lungs are clear to auscultation. She has no stridor on examination. She is speaking in full sentences. Her respiratory rate is 18 and her pulse ox is 99% on room air. She does not have any chest pain. She has not had any infectious symptoms. She states she is eating and drinking normally. She is offered images of her neck and upper chest as well as lab work to evaluate her and she declines. She states she would prefer me to call Dr. Dumont and see what he wants to do. I spoke with Dr. Dumont and explained to him that she has a normal exam and she is offered multiple options. He recommended just sending her home and he would make an appointment with her tomorrow. 's office reach out to her. After speaking with her she seems very amenable to this. I do not believe she needs blood work or imaging. Patient discharged home to medication. Impression: 1. Dyspnea Discharge Plan Triage Chief Complaint: Shortness of Breath ED Provider: Vamshi Lindquist Dx/Rx/DC Orders Instructions: ED Dyspnea Prescriptions: No Action hydroxychloroquine [Plaquenil] 200 mg tablet 200 mg PO BID Rx Instructions: 5 days a week, BID multivitamin,sw-vpgr-qvuqdgbn tablet tablet 1 tab PO QDAY omega 0-erj-kgp-fish oil 1 EACH capsule,delayed release(DR/EC) 1 ea PO DAILY estradiol 42.5 GM cream 0 udc VAGINAL .COMPLEX Rx Instructions: pea sized amount VAGINAL 2 time a week calcium 600 mg Capsule 600 mg PO DAILY ofloxacin 0.3 % drops 1 drp LEFT EYE 4X/DAY Label Comments: INSTILL 1 DROP INTO LEFT EYE 4 TIMES DAILY Primary Care Provider: Vincent Dumont Chi Referrals: Vincent Dumont Chi, MD [Primary Care Provider] - Disposition Disposition: Home, Self Care
== END 2022-01-06 15:01 | disposition home or self-care (01) ==
PROVIDERS: Emergency Provider Student in an Organized Health Care Education/Training Program; PCP Family Medicine Geriatric Medicine; Visit Provider Student in an Organized Health Care Education/Training Program
DX: R06.00 Dyspnea, unspecified (principal); M06.9 Rheumatoid arthritis, unspecified; R09.89 Other specified symptoms and signs involving the circulatory and respiratory systems; Z79.899 Other long term (current) drug therapy
CPT/HCPCS: 99282

== ENCOUNTER → 2022-01-22 | Outpatient (CLI) | payer MEDICARE, SELFPAY ==
--- NOTE | 2022-01-23 07:17 | PFT ---
INTRODUCTION: The patient is a 76-year-old female that presents for pulmonary function studies secondary to a diagnosis of shortness of breath. Respiratory therapy reported good patient effort. Bronchodilators were used during testing. INTERPRETATION: Forced expiration spirometry demonstrates no evidence of a large airways obstructive ventilatory defect. There was no significant response to aerosolized bronchodilators. Spirograms are of good quality and plateau normally. Body plethysmography was performed and reveals lung volumes to be within normal limits. Diffusing capacity by single breath CO is also within normal limits. IMPRESSION: Grossly normal pulmonary function studies.
== END | disposition home or self-care (01) ==
PROVIDERS: PCP Family Medicine Geriatric Medicine; Referring Provider Family Medicine Geriatric Medicine; Visit Provider Family Medicine Geriatric Medicine
DX: R06.02 Shortness of breath (principal)
CPT/HCPCS: 94060; 94726; 94729

== ENCOUNTER → 2022-03-24 | Outpatient (CLI) | payer MEDICARE, SELFPAY ==
[2022-03-24 16:37] LABS: Absolute Lymphocyte Count 1.93 X10^3/uL (0.83-4.51); Absolute Neutrophil Count 4.7 X10^3/uL (2.0-7.7); Basophil# 0.05 X10^3/uL; Basophil% 0.7 % (0-1); Eosinophil# 0.25 X10^3/uL; Eosinophils% 3.3 % (0-5); Hematocrit 44.6 % (37-47); Hemoglobin 14.1 g/dL (12.0-15.0); Lymphocyte # 1.93 X10^3/ul (0.83-4.51); Lymphocyte % 25.3 % (19-41); Mean Corp Hgb Conc 31.6 g/dL (32-36); Mean Corpuscular Hgb 30.9 pg (27.0-32.0); Mean Corpuscular Volume 97.6 fL (81-99); Mean Platelet Vol. 12.2 fl (6.2-12.0); Monocyte# 0.71 X10^3/uL; Monocyte% 9.3 % (0-10); NRBC Flagged by Analyzer 0 % (0-5); Neutrophil # 4.67 X10^3/uL (2.7-7.7); Neutrophil % 61.1 % (47-70); Platelet Count 235 K/mm3 (150-450); RBC Distribution Width CV 13.3 % (11.6-14.6); RBC Distribution Width SD 48.4 fl (35.1-43.9); Red Blood Count 4.57 M/mm3 (4.2-5.4); White Blood Count 7.6 K/mm3 (4.4-11.0)
[2022-03-24 17:01] LABS: Vitamin D,25 Hydroxy 57.6 ng/mL
[2022-03-24 17:12] LABS: AST(SGOT) 25 U/L (15-37); Alanine Aminotransfer ALT/SGPT 21 U/L (13-56); Albumin, Serum 3.2 g/dL (3.2-5.0); Alkaline Phosphatase 77 U/L (45-117); Anion Gap 6 (5-15); BUN 8 mg/dL (7-18); BUN/Creat Ratio 13.9 RATIO (10-20); Calcium,Total 8.6 mg/dL (8.5-10.1); Chloride 107 mmol/L (98-107); Creatinine, Serum 0.58 mg/dL (0.55-1.02); EST Glomerular Filtration Rate 109 mL/min (>60); Est Glom Filt Rate - Afr Amer 132 mL/min (>60); Globulin 3.3 g/dL (2.2-4.2); Glucose 116 mg/dL (74-106); Potassium 4.3 mmol/L (3.5-5.1); Protein, Total 6.5 g/dL (6.4-8.2); Sodium Level 139 mmol/L (136-145); Thyroid Stim Hormone (TSH) 2.15 uIU/mL (0.358-3.74)
== END | disposition home or self-care (01) ==
LOC: POLAB3 10:45
PROVIDERS: PCP Family Medicine Geriatric Medicine; Visit Provider Family Medicine Geriatric Medicine
DX: R53.83 Other fatigue (principal); E55.9 Vitamin D deficiency, unspecified
CPT/HCPCS: 36415; 80053; 82306; 84443; 85025

== ENCOUNTER → 2022-07-06 | Outpatient (CLI) | payer MEDICARE, SELFPAY ==
[2022-07-06 17:23] LABS: Absolute Lymphocyte Count 1.57 X10^3/uL (0.83-4.51); Absolute Neutrophil Count 4.4 X10^3/uL (2.0-7.7); Basophil# 0.06 X10^3/uL; Basophil% 0.9 % (0-1); Eosinophil# 0.13 X10^3/uL; Eosinophils% 1.9 % (0-5); Hematocrit 44.8 % (37-47); Hemoglobin 14.6 g/dL (12.0-15.0); Lymphocyte # 1.57 X10^3/ul (0.83-4.51); Lymphocyte % 22.9 % (19-41); Mean Corp Hgb Conc 32.6 g/dL (32-36); Mean Corpuscular Volume 95.1 fL (81-99); Mean Platelet Vol. 11.7 fl (6.2-12.0); Monocyte# 0.67 X10^3/uL; Monocyte% 9.8 % (0-10); NRBC Flagged by Analyzer 0 % (0-5); Neutrophil # 4.41 X10^3/uL (2.7-7.7); Neutrophil % 64.4 % (47-70); Platelet Count 198 K/mm3 (150-450); RBC Distribution Width CV 13.3 % (11.6-14.6); RBC Distribution Width SD 46.9 fl (35.1-43.9); Red Blood Count 4.71 M/mm3 (4.2-5.4); White Blood Count 6.9 K/mm3 (4.4-11.0)
[2022-07-06 17:34] LABS: Vitamin D,25 Hydroxy 45.8 ng/mL
[2022-07-06 18:13] LABS: ALB/GLOB Ratio 1.1 RATIO (0.9-2.4); AST(SGOT) 23 U/L (15-37); Alanine Aminotransfer ALT/SGPT 24 U/L (13-56); Albumin, Serum 3.5 g/dL (3.2-5.0); Alkaline Phosphatase 78 U/L (45-117); Anion Gap 11 (5-15); BUN 13 mg/dL (7-18); BUN/Creat Ratio 19.5 RATIO (10-20); Calcium,Total 8.9 mg/dL (8.5-10.1); Chloride 106 mmol/L (98-107); Creatinine, Serum 0.66 mg/dL (0.55-1.02); EST Glomerular Filtration Rate 92 mL/min (>60); Est Glom Filt Rate - Afr Amer 111 mL/min (>60); Globulin 3.2 g/dL (2.2-4.2); Glucose 97 mg/dL (74-106); Potassium 4.1 mmol/L (3.5-5.1); Protein, Total 6.7 g/dL (6.4-8.2); Sodium Level 140 mmol/L (136-145); Thyroid Stim Hormone (TSH) 2.11 uIU/mL (0.358-3.74)
== END | disposition home or self-care (01) ==
LOC: POLAB3 14:07
PROVIDERS: PCP Family Medicine Geriatric Medicine; Visit Provider Family Medicine Geriatric Medicine
DX: R53.83 Other fatigue (principal); E55.9 Vitamin D deficiency, unspecified
CPT/HCPCS: 36415; 80053; 82306; 84443; 85025

== ENCOUNTER → 2022-09-27 | Outpatient (CLI) | payer MEDICARE, SELFPAY ==
[2022-09-27 17:29] LABS: Absolute Lymphocyte Count 0.78 X10^3/uL (0.83-4.51); Absolute Neutrophil Count 6.4 X10^3/uL (2.0-7.7); Basophil# 0.03 X10^3/uL; Basophil% 0.4 % (0-1); Eosinophil# 0.17 X10^3/uL; Eosinophils% 2.1 % (0-5); Hemoglobin 14.8 g/dL (12.0-15.0); Lymphocyte # 0.78 X10^3/ul (0.83-4.51); Lymphocyte % 9.8 % (19-41); Mean Corp Hgb Conc 32.2 g/dL (32-36); Mean Corpuscular Volume 96.4 fL (81-99); Mean Platelet Vol. 11.3 fl (6.2-12.0); Monocyte# 0.57 X10^3/uL; Monocyte% 7.1 % (0-10); NRBC Flagged by Analyzer 0 % (0-5); Neutrophil # 6.43 X10^3/uL (2.7-7.7); Neutrophil % 80.5 % (47-70); Platelet Count 246 K/mm3 (150-450); RBC Distribution Width CV 13.7 % (11.6-14.6); RBC Distribution Width SD 49.1 fl (35.1-43.9); Red Blood Count 4.77 M/mm3 (4.2-5.4)
[2022-09-27 17:40] LABS: Vitamin D,25 Hydroxy 47.3 ng/mL
[2022-09-27 17:50] LABS: AST(SGOT) 22 U/L (15-37); Alanine Aminotransfer ALT/SGPT 18 U/L (13-56); Albumin, Serum 3.3 g/dL (3.2-5.0); Alkaline Phosphatase 84 U/L (45-117); Anion Gap 9 (5-15); BUN 17 mg/dL (7-18); BUN/Creat Ratio 25.4 RATIO (10-20); Calcium,Total 8.7 mg/dL (8.5-10.1); Chloride 106 mmol/L (98-107); Creatinine, Serum 0.67 mg/dL (0.55-1.02); EST Glomerular Filtration Rate 91 mL/min (>60); Est Glom Filt Rate - Afr Amer 110 mL/min (>60); Globulin 3.4 g/dL (2.2-4.2); Glucose 99 mg/dL (74-106); Potassium 3.6 mmol/L (3.5-5.1); Protein, Total 6.7 g/dL (6.4-8.2); Sodium Level 139 mmol/L (136-145); Thyroid Stim Hormone (TSH) 1.03 uIU/mL (0.358-3.74)
== END | disposition home or self-care (01) ==
LOC: POLAB3 13:28
PROVIDERS: PCP Family Medicine Geriatric Medicine; Visit Provider Family Medicine Geriatric Medicine
DX: R53.83 Other fatigue (principal)
CPT/HCPCS: 36415; 80053; 82306; 84443; 85025

== ENCOUNTER 2022-11-19 08:30 | Outpatient (RCR) | payer MEDICARE, SELFPAY ==
--- NOTE | 2022-10-15 09:57 | HP.PTEVAL_ITS ---
Patient's Visit Information NUHA SAEED is a 77 year old F referred to Physical Therapy by ROCKY CORDERO MD with a diagnosis of CERVICAL DDD. Date of Evaluation: 10/15/22 Physical Therapist: Natalia Medley PT, Cert MDT - Visit Plan Frequency: 2-3x /Week Duration: 4-6 Weeks Plan: NECK AND L SHLD STM X 6-8 VISITS. VERY GENTLE POSTURE CORRECTION/STRENGTHENING, INSTRUCTION IN APPROPRIATE BODY MECHANICS AND ACTIVITY MODIFICATIONS. VERY GENTLY SIMON UE ROM, STRETCHING AND STRENGTHENING WITH LOW WEIGHTS AND HIGH REPS DUE TO RA. 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 HAS HELP TO AVOID HEAVY LIFTING. Present symptoms: SIMON NECK, SHLD AND UPPER ARM PAIN. SOME SIMON FINGER SWELLING AND NUMBNESS TOO. Present since: ABOUT A YEAR. Pain Scale: Worst - 8/10 Least - 3/10. Currently: 10/01. Commenced as a result of: NO APPARENT REASON OTHER THAN ARTHRITIS. Symptoms at onset: NECK AND SHLD STIFFNESS. Worse: PUTTING COAT ON, LIFTING SOME BOXES, AT NIGHT MAYBE FROM THE WAY I SLEEP. TURNING AT NIGHT. Better: LYING STILL. STANDING STILL OR SITTING STILL. Disturbed sleep: YES. Previous history/Previous treatment: H/O L FROZEN SHLD A FEW YEARS AGO. This episode: HEATING PAD, ADVIL, TYLONOL ARTHRITIS. Dizziness: NO. Tinnitis: NO. Nausea: NO. Shortness of Breath: NO. Difficulty Swollowing: NO. Gait: NORMAL. Accidents: NO. Unexplained weight loss: NO. Imaging: RECENT NECK X-RAYS AT [facility] IN [place]. PMH/Recent major surgery: RA - Objective Sitting Posture/Standing Posture: POOR. FH. RSH'S. NO TORTICOLLIS. Active Correction of posture: BETTER. REDUCES NECK AND SHLD PAIN. Other Observations: INDEP GAIT AND TRANSFERS. Sensory deficit: SIMON UE LIGHT TOUCH SENSATION GROSSLY INTACT AND SYMMETRICAL. ROM deficit: DECREASED NECK AND SIMON SHLD ROM. R UE: FLEX 130 DEG L UE: FLEX 70 DEG. Motor deficit: DECREASED SIMON UE STRENGTH GROSSLY 4-/5. Reflexes: UNABLE TO ELICIT SIMON UE DTR'S. Dural Signs: POSITIVE SIMON UE'S. Cervical Mvmt Loss: Flex: NIL. Pro: NIL. Ext: MOD. Ret: ES. RSB: MOD. LSB: ES. R Rot: MIN. L Rot: MOD. Postural strength: POOR. Palpation: TENDERNESS WITH LIGHT PALPATION OF CERVICAL SPINE AND LEFT SHLD. TREATMENT: NEUROMUSCULAR REEDUCATION - RETRAINING OF MVMT AND POSTURE FOR SITTING, LYING AND STANDING ACTIVITIES - Balance/Special Test Scores Oswestry Neck Score: 11 - Goals Goal 1:: DECREASE C/O NECK AND SIMON SHLD PAIN. Goal Time Frame: 4-6 Weeks Goal 2:: IMPROVE PERSONAL CARE, LIFTING, SLEEP, WORK, DRIVING AND RECREATIONAL FUNCTION. Goal Time Frame: 4-6 Weeks Goal 3:: INSTRUCT IN PROPHYLAXIS Goal Time Frame: 4-6 Weeks - Anticipated Interventions Patient/Client Instruction: Educate patient on: Condition, Plan of Care, Risk Factors For the Purpose of:: To improve self management Therapeutic Exercise to Include: Strength training, Body mechanics, Postural training, Flexibilty training, Neuromotor development, In an aquatic setting, Dynamic Lumbar Stabilization For the Purpose of:: To decrease pain, To increase ROM, To improve muscle performance and motor function, To increase tolerance to activity/condition/position, To improve ability of physical actions for home/community/work/leisure Thank you for the opportunity to evaluate your patient. For Medicare and Medicare HMO plans, please review the plan of care and approve it. It will need to be FAXED BACK to us at [phone] for Medicare purposes. For Medicare only, by signing this I certify the plan of care. Please let me know if there are questions or concerns regarding this plan of care. Physician Signature: Date:
--- NOTE | 2022-11-19 09:24 | HP.PTDCSUM_ITS ---
It has been my pleasure to treat NUHA SAEED referred by ROCKY CORDERO MD, with the diagnosis of CERVICAL DDD for a total of 7 visit(s). Discharge Date: 11/19/22 Please see the following information for a summary of their discharge status. Subjective: PATIENT REPORTS SHE IS DOING PRETTY GOOD. STATES SHE CAN USE HER ARM TO WORK OK NOW. PAIN STILL DISTURBS SLEEP AT TIMES BUT NOT EVERY NIGHT. LEFT NECK Pain Intensity (Out of 10): 0 L UE Pain Intensity (Out of 10): 0 % Improvement: 75 Objective/Function: PATIENT WAS SEEN TODAY FOR RE-ASSESSMENT OF PROGRESS TOWARD THE SET PT GOALS AND THE NEED FOR FURTHER PHYSICAL THERAPY VS READINESS FOR DISCHARGE. PATIENT HAS MADE GOOD PROGRESS WITH PT AND IS APPROPRIATE FOR DISCHARGE TO [facility] AT THIS TIME. UPON EXAM TODAY: AROM: R UE: FLEX 130 DEG L UE: FLEX 98 DEG (COMPARED TO 70 DEG AT EVAL). Motor deficit: DECREASED SIMON UE STRENGTH GROSSLY 4-/5. Cervical Mvmt Loss: Flex: NIL. Pro: NIL. Ext: MOD. Ret: ES. RSB: MOD. LSB: MOD. R Rot: MIN. L Rot: MIN. Palpation: NO ACUTE NECK OR SHLD TENDERNESS TODAY. PROGRESSION OF HEP WITH YTB MR'S, IR AND ER TODAY AND TOLERATED WELL. DECREASED PAIN AND INCREASED ROM POST SESSION. Goal 1:: DECREASE C/O NECK AND SIMON SHLD PAIN. Goal Progress: Goal Met Goal 2:: IMPROVE PERSONAL CARE, LIFTING, SLEEP, WORK, DRIVING AND RECREATIONAL FUNCTION. Goal Progress: Goal Met Goal 3:: INSTRUCT IN PROPHYLAXIS Goal Progress: Goal Met Plan: D/C TO HEP. PATIENT AGREEABLE. If there are questions or concerns regarding this patient's physical therapy, please feel free to call me at [phone]. Thank you for the referral of this patient. Sincerely, Natalia Medley, PT, Cert MDT Balance/Gait/Functional tests - Balance/Special Test Scores Oswestry Neck Score: 4
== END 2022-11-19 10:24 | disposition home or self-care (01) ==
LOC: PT 08:30
PROVIDERS: PCP Family Medicine Geriatric Medicine; Referring Provider Internal Medicine Rheumatology; Visit Provider Internal Medicine Rheumatology
DX: M50.30 Other cervical disc degeneration, unspecified cervical region (principal)
CPT/HCPCS: 97035; 97112; 97140; 97162; 97164; 97530

== ENCOUNTER → 2023-05-02 | Outpatient (CLI) | payer MEDICARE, SELFPAY | END | disposition home or self-care (01) | LOC: LABSPEC 17:15 | PROVIDERS: PCP Family Medicine Geriatric Medicine; Referring Provider Otolaryngology; Visit Provider Otolaryngology | DX: J02.9 Acute pharyngitis, unspecified (principal) | CPT/HCPCS: 87070 ==

== ENCOUNTER → 2023-06-08 | Outpatient (CLI) | payer MEDICARE, SELFPAY ==
[2023-06-08 15:17] LABS: Absolute Lymphocyte Count 1.63 X10^3/uL (0.83-4.51); Absolute Neutrophil Count 4.5 X10^3/uL (2.0-7.7); Basophil# 0.04 X10^3/uL; Basophil% 0.6 % (0-1); Eosinophil# 0.14 X10^3/uL; Hematocrit 45.3 % (37-47); Hemoglobin 14.2 g/dL (12.0-15.0); Lymphocyte # 1.63 X10^3/ul (0.83-4.51); Lymphocyte % 23.2 % (19-41); Mean Corp Hgb Conc 31.3 g/dL (32-36); Mean Corpuscular Volume 98.9 fL (81-99); Mean Platelet Vol. 11.9 fl (6.2-12.0); Monocyte# 0.67 X10^3/uL; Monocyte% 9.5 % (0-10); NRBC Flagged by Analyzer 0 % (0-5); Neutrophil # 4.52 X10^3/uL (2.7-7.7); Neutrophil % 64.4 % (47-70); Platelet Count 204 K/mm3 (150-450); RBC Distribution Width CV 13.4 % (11.6-14.6); RBC Distribution Width SD 49.2 fl (35.1-43.9); Red Blood Count 4.58 M/mm3 (4.2-5.4)
[2023-06-08 15:45] LABS: AST(SGOT) 17 U/L (15-37); Alanine Aminotransfer ALT/SGPT 17 U/L (13-56); Albumin, Serum 3.4 g/dL (3.2-5.0); Alkaline Phosphatase 77 U/L (45-117); Anion Gap 7 (5-15); BUN 14 mg/dL (7-18); BUN/Creat Ratio 24.1 RATIO (10-20); Calcium,Total 8.7 mg/dL (8.5-10.1); Chloride 106 mmol/L (98-107); Cholesterol 133 mg/dL (200); Creatinine, Serum 0.58 mg/dL (0.55-1.02); EST Glomerular Filtration Rate 107 mL/min (>60); Est Glom Filt Rate - Afr Amer 130 mL/min (>60); Globulin 3.4 g/dL (2.2-4.2); Glucose 105 mg/dL (74-106); High Density Lipoprotein 66 mg/dL; Potassium 4.3 mmol/L (3.5-5.1); Protein, Total 6.8 g/dL (6.4-8.2); Sodium Level 140 mmol/L (136-145); Triglycerides 93 mg/dL; Very Low Density Lipoprotein 19 mg/dL (5-40)
[2023-06-08 16:02] LABS: Vitamin D,25 Hydroxy 65.1 ng/mL
[2023-06-10 12:00] LABS: Hemoglobin A1c 5.6 % (3.8-5.6)
== END | disposition home or self-care (01) ==
LOC: MFPLAB 12:00
PROVIDERS: PCP Family Medicine; Visit Provider Family Medicine
DX: R73.09 Other abnormal glucose (principal); E55.9 Vitamin D deficiency, unspecified; E78.5 Hyperlipidemia, unspecified; K21.9 Gastro-esophageal reflux disease without esophagitis
CPT/HCPCS: 36415; 80053; 80061; 82306; 83036; 85025

== ENCOUNTER → 2023-08-08 | Outpatient (CLI) | payer MEDICARE, SELFPAY ==
--- NOTE | 2023-08-08 13:22 | CT_ITS ---
STUDY: CT MAXILLOFACIAL SINUSES REASON FOR EXAM: Female, 78 years old. SINUSITIS RADIATION DOSAGE (If Supplied By Facility): CTDIvol = ( 33.06 ) mGy, DLP = ( 742.94 ) mGycm TECHNIQUE: The patient was scanned in a multi detector CT scanner. High resolution axial imaging was performed without the administration of intravenous contrast material. Sagittal and coronal images were reconstructed. Individualized dose optimization techniques were used for this CT. COMPARISON: None. FINDINGS: FRONTAL SINUSES: Normal aeration, without mucosal inflammatory disease. ETHMOIDAL SINUSES: Normal aeration, without mucosal inflammatory disease. MAXILLARY SINUSES: Normal aeration, without mucosal inflammatory disease. SPHENOIDAL SINUSES: Normal aeration, without mucosal inflammatory disease. There is patency of the bilateral maxillary infundibuli with normal uncinate processes, ethmoid bullae, and hiatus semilunaris. Normal bilateral middle turbinates. Normal bilateral inferior turbinates. There is a right sided nasal septal deviation, but without a nasal septal spur. There is patency of the bilateral nasal airways. The visualized osseous structures are normal. The visualized bilateral orbital contents are normal. CT/Sinus/Facial Bone IMPRESSION: The sinuses are clear. Nasal septal deviation towards the right side. Electronically Signed: Marques Ford MD at 15:38 EST ,
== END | disposition home or self-care (01) ==
LOC: CT 13:16
PROVIDERS: PCP Family Medicine; Referring Provider Otolaryngology; Visit Provider Otolaryngology
DX: J32.9 Chronic sinusitis, unspecified (principal)
CPT/HCPCS: 70486

== ENCOUNTER 2023-09-30 14:00 | Outpatient (RCR) | payer MEDICARE, SELFPAY ==
--- NOTE | 2023-09-13 18:03 | HP.PTEVAL_ITS ---
Patient's Visit Information Visit Information Visit Information: NUHA SAEED is a 78 year old F referred to Physical Therapy by Dr. Chad Sheikh MD with a diagnosis of vertigo. Date of Evaluation: 09/13/23 Physical Therapist: Quang [place], DPT, OCS, CSCS Visit Plan Frequency: 1-2x /Week Duration: 2-4 Weeks Plan: 1-2x/week as needed for 2-4 weeks for positional treatments and monitor activity. + R HD today and treated 2x. Subjective Subjective: Gets dizzy all of a sudden for a couple months. Happens rolling to R in bed or looking up at work. Gets spinning and it lasts a few seconds if she stands still Feels pretty normal in between episode. Got dizzy today looking up to put shoes on a peg and it hit me. Activities are pretty normal but has to stop. Works at [employer] in [employer], missed one day of work. Sleep is OK most of time. Objective Objective: Walks into PT slowly but I, no signs of balance deficits. Trasnfer bed and chair I. steps reciprocal with one rail. cervical aROM WFL and without pain, - c/s compression. UE AROM R WNL, and L limited due to shoulder injury, strength flexion andelbow is 3+/5 B. - L hallp[lance jarrett + R Hallpike jarrett for up torsional nystagmus 15 seconds and then treated with R modified gregg and then much better. Treated x 2 today. Balance/Special Test Scores Functional Gait Assessment Score: 28 % Disability: 6.6700 CATSIB Score (Max score 120 seconds): 112 Dizziness Score: 22 Goals Goal 1:: abolish dizzyness with bed maneuvers and looking up Goal Time Frame: 2-4 Weeks Goal 2:: Pt feel 100% back to normal activity Goal Time Frame: 2-4 Weeks Goal 3:: DHI score 6 or less Goal Time Frame: 2-4 Weeks Rehabilitation Potential Physical Therapy Diagnosis: dizzyness affecting funciton at home, BPPV Rehabilitation Potential: Good Anticipated Interventions Patient/Client Instruction: Educate patient on: Condition and Risk Factors For the Purpose of:: To increase tolerance to activity/condition/position, To improve ability of physical actions for home/community/work/leisure and To improve gait and locomotor functions Comment: positional treatments and maneuvers For the Purpose of:: To increase tolerance to activity/condition/position Text: Thank you for the opportunity to evaluate your patient. For Medicare and Medicare HMO plans, please review the plan of care and approve it. It will need to be FAXED BACK to us at [phone] for Medicare purposes. For Medicare only, by signing this I certify the plan of care. Please let me know if there are questions or concerns regarding this plan of care. Physician Signature: Date:
== END 2023-09-30 19:00 | disposition home or self-care (01) ==
LOC: PT 14:00
PROVIDERS: PCP Family Medicine; Referring Provider Family Medicine; Visit Provider Family Medicine
DX: H81.10 Benign paroxysmal vertigo, unspecified ear (principal)
CPT/HCPCS: 97161; 97530

== ENCOUNTER → 2023-10-05 | Outpatient (CLI) | payer MEDICARE, SELFPAY ==
[2023-10-05 15:59] LABS: Absolute Lymphocyte Count 1.47 X10^3/uL (0.83-4.51); Absolute Neutrophil Count 4.4 X10^3/uL (2.0-7.7); Basophil# 0.06 X10^3/uL; Basophil% 0.9 % (0-1); Eosinophil# 0.17 X10^3/uL; Eosinophils% 2.5 % (0-5); Hemoglobin 14.5 g/dL (12.0-15.0); Lymphocyte # 1.47 X10^3/ul (0.83-4.51); Lymphocyte % 21.6 % (19-41); Mean Corp Hgb Conc 31.5 g/dL (32-36); Mean Corpuscular Hgb 30.8 pg (27.0-32.0); Mean Corpuscular Volume 97.7 fL (81-99); Mean Platelet Vol. 11.3 fl (6.2-12.0); Monocyte# 0.65 X10^3/uL; Monocyte% 9.6 % (0-10); NRBC Flagged by Analyzer 0 % (0-5); Neutrophil # 4.42 X10^3/uL (2.7-7.7); Neutrophil % 65.1 % (47-70); Platelet Count 245 K/mm3 (150-450); RBC Distribution Width CV 13.9 % (11.6-14.6); Red Blood Count 4.71 M/mm3 (4.2-5.4); White Blood Count 6.8 K/mm3 (4.4-11.0)
[2023-10-05 16:08] LABS: Vitamin D,25 Hydroxy 51.3 ng/mL
[2023-10-05 16:11] LABS: ALB/GLOB Ratio 1.1 RATIO (0.9-2.4); AST(SGOT) 29 U/L (15-37); Alanine Aminotransfer ALT/SGPT 23 U/L (13-56); Albumin, Serum 3.7 g/dL (3.2-5.0); Alkaline Phosphatase 77 U/L (45-117); Anion Gap 5 (5-15); BUN 12 mg/dL (7-18); BUN/Creat Ratio 17.6 RATIO (10-20); Calcium,Total 9.2 mg/dL (8.5-10.1); Chloride 103 mmol/L (98-107); Creatinine, Serum 0.68 mg/dL (0.55-1.02); EST Glomerular Filtration Rate 89 mL/min (>60); Est Glom Filt Rate - Afr Amer 108 mL/min (>60); Globulin 3.3 g/dL (2.2-4.2); Glucose 115 mg/dL (74-106); Potassium 4.2 mmol/L (3.5-5.1); Sodium Level 139 mmol/L (136-145)
[2023-10-07 15:43] LABS: Hemoglobin A1c 5.5 % (3.8-5.6)
== END | disposition home or self-care (01) ==
PROVIDERS: PCP Family Medicine; Visit Provider Family Medicine
DX: R73.09 Other abnormal glucose (principal); M06.9 Rheumatoid arthritis, unspecified; E55.9 Vitamin D deficiency, unspecified
CPT/HCPCS: 36415; 80053; 82306; 83036; 85025

== ENCOUNTER → 2024-02-24 | Outpatient (CLI) | payer MEDICARE, SELFPAY ==
[2024-02-24 16:05] LABS: Absolute Lymphocyte Count 1.75 X10^3/uL (0.83-4.51); Absolute Neutrophil Count 4.7 X10^3/uL (2.0-7.7); Basophil# 0.07 X10^3/uL; Eosinophils% 2.7 % (0-5); Hematocrit 45.3 % (37-47); Hemoglobin 14.3 g/dL (12.0-15.0); Lymphocyte # 1.75 X10^3/ul (0.83-4.51); Mean Corp Hgb Conc 31.6 g/dL (32-36); Mean Corpuscular Hgb 30.5 pg (27.0-32.0); Mean Corpuscular Volume 96.6 fL (81-99); Monocyte# 0.55 X10^3/uL; Monocyte% 7.5 % (0-10); NRBC Flagged by Analyzer 0 % (0-5); Neutrophil % 64.5 % (47-70); Platelet Count 265 K/mm3 (150-450); RBC Distribution Width CV 13.2 % (11.6-14.6); RBC Distribution Width SD 47.1 fl (35.1-43.9); Red Blood Count 4.69 M/mm3 (4.2-5.4); White Blood Count 7.3 K/mm3 (4.4-11.0)
[2024-02-24 16:14] LABS: ALB/GLOB Ratio 0.9 RATIO (0.9-2.4); AST(SGOT) 23 U/L (15-37); Alanine Aminotransfer ALT/SGPT 20 U/L (13-56); Albumin, Serum 3.3 g/dL (3.2-5.0); Alkaline Phosphatase 83 U/L (45-117); Anion Gap 5 (5-15); BUN 14 mg/dL (7-18); BUN/Creat Ratio 19.6 RATIO (10-20); Calcium,Total 9.4 mg/dL (8.5-10.1); Chloride 105 mmol/L (98-107); Creatinine, Serum 0.72 mg/dL (0.55-1.02); EST Glomerular Filtration Rate 84 mL/min (>60); Est Glom Filt Rate - Afr Amer 102 mL/min (>60); Globulin 3.7 g/dL (2.2-4.2); Glucose 107 mg/dL (74-106); Potassium 4.4 mmol/L (3.5-5.1); Sodium Level 139 mmol/L (136-145)
[2024-02-24 17:27] LABS: Vitamin B12 724 pg/mL (211-911)
== END | disposition home or self-care (01) ==
LOC: MTLAB 12:37
PROVIDERS: PCP Family Medicine; Referring Provider Family Medicine; Visit Provider Family Medicine
DX: R53.83 Other fatigue (principal)
CPT/HCPCS: 36415; 80053; 82306; 82607; 84439; 85025; 87086

== ENCOUNTER → 2024-04-02 | Outpatient (CLI) | payer MEDICARE, SELFPAY ==
--- NOTE | 2024-04-02 12:49 | BI_ITS ---
MAMMOGRAPHY - BILATERAL SCREENING 3-D TOMOSYNTHESIS REASON FOR EXAM: Female, 78 years old. screening PERTINENT HISTORY: No significant family history. TECHNIQUE: 2-D mammograms and 3-D Tomosynthesis of the breast (s) were performed. CAD was performed. COMPARISON: 05/22/2021 FINDINGS: The breast composition is composed of scattered fibroglandular density. Scattered benign calcifications are seen. No dense spiculated masses or suspicious microcalcifications are identified. No architectural distortion is identified. There is no skin thickening or retraction. There has been no significant change since the prior study. BI/SCRN MAMM (CAD)W/SHELBIE BILAT IMPRESSION: No mammographic signs of malignancy. Routine yearly mammograms recommended. ASSESSMENT CATEGORY: BIRADS Category 1: Negative. A letter regarding these results will be sent to the patient by the facility within 30 days. FOLLOW UP RECOMMENDATION: Yearly follow up mammogram recommended. (A) Approximately 10% of breast cancers are not detected by mammography. A normal mammogram should not delay biopsy of a clinically suspicious abnormality. Electronically Signed: Pineda Harding MD at 14:46 EDT ,
== END | disposition home or self-care (01) ==
LOC: OPBI 12:49
PROVIDERS: PCP Family Medicine; Referring Provider Family Medicine; Visit Provider Family Medicine
DX: Z12.31 Encounter for screening mammogram for malignant neoplasm of breast (principal)
CPT/HCPCS: 77063; 77067

== ENCOUNTER 2024-05-25 09:14 | Emergency (ER) | payer MEDICARE, SELFPAY ==
[2024-05-25 09:15] VITALS: BP 125/74; PULSE 92; RESP 18; TEMP 36.6; O2SAT 98
[2024-05-25] MEDS: Ondansetron ODT 4 MG Tablet PO (10:02)
[2024-05-25 10:03] VITALS: BMI 22.8
--- NOTE | 2024-05-25 11:14 | EX.ED.DYSGE1 ---
HPI History of Present Illness Chief Complaint: Dizziness Detail of Chief Complaint: Increased dizziness past several days Informant: patient Onset/Context/Timing Onset: Days Context: Sudden Onset Timing: Intermittent Quality: Dizziness defined as spinning Location: Vertigo Current Severity: Gone Maximum Severity: Severe Worsened by: Patient is not certain. Relieved by: Possibly remaining still Associated Symptoms Associated Symptoms: Nausea Narrative Narrative: Patient is a 78-year-old woman. 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 Patient is on Plaquenil. Uncertain why she is on Plaquenil. Patient denies fever, chills night sweats. Patient denies weight gain or weight loss. Patient denies headache. Denies double vision, blurred vision or loss of vision. She does have ringing or ears. She denies decreased hearing. She denies rhinorrhea, congestion or postnasal drainage. Denies sore throat. Denies trouble with speech or swallowing. Denies neck pain or neck stiffness. She denies paresthesia, anesthesia or motor weakness upper or lower extremity. She does report problems with balance when she is dizzy . Patient denies black or maroon-colored stool. Patient has no infectious symptoms. Prior similar symptoms: Yes (Due to M?ni?re's disease) Recent Illness/Hospitalization: No [facility] Medical History Rheumatoid arthritis Skin cancer Rheumatoid arthritis Shortness of breath Arthritis Home Medications ?Medication ?Instructions ?Recorded ?Last Taken ?Type hydroxychloroquine 200 mg tablet 200 mg PO BID RA 08/24/17 Unknown History (Plaquenil) multivitamin,lu-xwji-quxqlofj 1 tab PO QDAY supplement 08/24/17 Unknown History (Complete Multivitamin tablet) omega 8-xbr-xyk-fish oil 900 1 ea PO DAILY supplement 01/13/18 Unknown History mg-1,400 mg capsule,delayed release calcium 600 mg capsule 600 mg PO DAILY 11/19/20 Unknown History amoxicillin 875 mg-potassium 1 tab PO BID 05/25/24 Unknown History clavulanate 125 mg tablet diazepam 2 mg tablet 2 mg PO TID #7 tabs 05/25/24 Unknown Rx levofloxacin 500 mg tablet 500 mg PO DAILY 05/25/24 Unknown History Allergy/AdvReac Type Severity Reaction Status Date / Time hydrocodone (From Vicodin) Allergy Intermediate Vomiting Verified 05/25/24 09:18 aspirin (From Excedrin Back Allergy Mild Other Verified 05/25/24 09:18 and Body) morphine Allergy Mild Vomiting Verified 05/25/24 09:18 perfume Allergy Other Verified 05/25/24 09:18 codeine AdvReac Mild Nausea/Vom/ Verified 05/25/24 09:18 Diarrhea caffeine (From Excedrin AdvReac Nausea/Vom/ Verified 05/25/24 09:18 Migraine) Diarrhea Family History Mother Diabetes Father Cancer prostate Prostate cancer Sister Breast cancer A-fib Kidney disease Brother Diabetes Surgical History History of total vaginal hysterectomy (TVH) (~06/13/20) History of bladder surgery H/O foot surgery Social History Smoking Status: Never smoker alcohol intake: never substance use type: does not use caffeine: No frequency: 1-2 times per week seatbelt use: always do you feel safe at home: Yes additional social history: - [employer] DOES NOT USE ASPIRIN DOES USE IBUPROFEN NEEDED DOES USE TYLENOL NEEDED ROS ROS ED Constitutional Constitutional ED: Denies chills, fever(s), subjective or sweats Eyes Eyes: Denies blurry vision, change in vision or diplopia ENT ENT ED: Reports other Details: Bilateral tinnitus ; Denies ear pain, rhinorrhea or sore throat Cardiovascular Cardiovascular: Denies chest pain or palpitations Respiratory/Chest Respiratory/Chest: Denies cough, dyspnea or dyspnea on exertion Gastrointestinal Gastrointestinal: Denies abdominal pain, nausea or vomiting Genitourinary Genitourinary ED: Denies dysuria, hematuria or urinary frequency Musculoskeletal Musculoskeletal: Denies arthralgias, myalgias or neck pain Integumentary Denies rash Neurologic Neurologic: Denies headache(s), paresthesias or weakness Hematologic/Lymphatic Hematologic/Lymphatic: Reports systems reviewed and no addt'l complaints, except as documented EXAM Physical Exam Const Vital Signs: 05/25/24 09:15 Temperature 98 F Temperature Source Oral Pulse Rate 92 Respiratory Rate 18 Blood Pressure 125/74 H Blood Pressure Mean 91 Pulse Ox 98 Oxygen Delivery Method Room Air Positive well nourished and well developed General Appearance ED: well developed and NAD; Negative for cyanotic, diaphoretic or pallor HEENT Reports moist mucous membranes HEENT Narrative: Head is atraumatic normocephalic. Ears normal. TMs normal. External auditory canal normal. Nares patent. Uvula midline. No deviation with protrusion. Eyes PERRL and EOMs intact bilaterally Eyes Narrative: There is no nystagmus. Neck no lymphadenopathy, supple and no JVD Neck Narrative: There are no carotid bruits. General: Negative for tenderness Chest Wall inspection of chest normal and palpation of chest normal Resp normal respiratory effort and clear to auscultation bilaterally Cardio regular rate, regular rhythm, S1 normal heart sound, S2 normal heart sound and no murmurs Back/Spine no CVA tenderness Extremity normal to inspection General Extremety ED: Negative for edema or tenderness General Extremity: Negative for edema Neuro oriented x3, CN's II-XII intact bilaterally and no sensory deficits noted Neuro Narrative: Gait observed normal. Tandem gait normal. Romberg with eyes open and close normal. The eye askew test and hints test were both negative. Emmanuel-Hallpike maneuver was positive and worse when patient's head was to the left. Ironically when modified Jacek's test was performed she had greater symptoms when had to the right. Sensorium / Orientation: alert Motor Exam: strength 5/5 throughout Psych mental status grossly normal Skin no rashes or lesions noted, no wounds and No skin turgor normal General Skin Exam: Negative for jaundice or pallor MDM MDM MDM Narrative Medical decision making narrative: Differential diagnosis is central versus peripheral vertigo. Findings are not consistent with M?ni?re's disease. History and physical is consistent with peripheral. Will perform modified Jacek's test. Modified Jacek's test was performed. Total time of test 10 minutes. Patient had resolution of her symptoms. Patient able to ambulate. She reports slight dizziness when she sat down. Will place on short course of diazepam. History & Record Review Additional record(s) reviewed:: Prior outpatient record (Seen August 2021 for dysphagia by Stacia Gutierrez.), Prior ED visit (Sinusitis October 2020 and shortness of breath in December 2021.) and Prior labs Rhythm Strip Rhythm Strip: Sinus Rhythm Rate: 88 Ectopy: PVC(s) (Occasional) Discharge Plan Triage Chief Complaint: Dizziness ED Provider: Rubén Hardy Dx/Rx/DC Orders Clinical Impression: Benign paroxysmal positional vertigo due to bilateral vestibular disorder, Rheumatoid arthritis Instructions: ED BPV Vertigo Prescriptions: New diazepam 2 mg tablet 2 mg PO TID Qty: 7 0RF No Action hydroxychloroquine [Plaquenil] 200 mg tablet 200 mg PO BID Rx Instructions: 5 days a week, BID multivitamin,se-yhjx-itlscbhp [Complete Multivitamin] tablet 1 tab PO QDAY omega 6-njp-xsw-fish oil 1 EACH capsule,delayed release(DR/EC) 1 ea PO DAILY calcium 600 mg Capsule 600 mg PO DAILY levofloxacin 500 mg tablet 500 mg PO DAILY amoxicillin-pot clavulanate 875-125 mg tablet 1 tab PO BID Primary Care Provider: Chad Sheikh Referrals: Chad Sheikh MD [Primary Care Provider] - 3-5 Days if not improving Print Language: Mauritanian Disposition Disposition: Home, Self Care
[2024-05-25 11:27] VITALS: BP 125/74; PULSE 87; RESP 18; TEMP 36.6; O2SAT 99
== END 2024-05-25 11:30 | disposition home or self-care (01) ==
PROVIDERS: Emergency Provider Emergency Medicine; PCP Family Medicine; Visit Provider Emergency Medicine
DX: H81.13 Benign paroxysmal vertigo, bilateral (principal); M06.9 Rheumatoid arthritis, unspecified; Z79.899 Other long term (current) drug therapy
CPT/HCPCS: 99282

== ENCOUNTER → 2024-09-19 | Outpatient (CLI) | payer MEDICARE, SELFPAY ==
[2024-09-19 12:29] LABS: Absolute Lymphocyte Count 1.67 X10^3/uL (0.83-4.51); Absolute Neutrophil Count 3.7 X10^3/uL (2.0-7.7); Basophil# 0.06 X10^3/uL; Eosinophil# 0.22 X10^3/uL; Eosinophils% 3.5 % (0-5); Hematocrit 44.5 % (37-47); Hemoglobin 14.2 g/dL (12.0-15.0); Lymphocyte # 1.67 X10^3/ul (0.83-4.51); Lymphocyte % 26.6 % (19-41); Mean Corp Hgb Conc 31.9 g/dL (32-36); Mean Corpuscular Hgb 31.3 pg (27.0-32.0); Mean Platelet Vol. 11.2 fl (6.2-12.0); Monocyte# 0.63 X10^3/uL; NRBC Flagged by Analyzer 0 % (0-5); Neutrophil # 3.68 X10^3/uL (2.7-7.7); Neutrophil % 58.7 % (47-70); Platelet Count 221 K/mm3 (150-450); RBC Distribution Width CV 13.2 % (11.6-14.6); Red Blood Count 4.54 M/mm3 (4.2-5.4); White Blood Count 6.3 K/mm3 (4.4-11.0)
[2024-09-19 16:18] LABS: ALB/GLOB Ratio 1.7 RATIO (0.9-2.4); AST(SGOT) 32 U/L (<=31); Alanine Aminotransfer ALT/SGPT 11 U/L (<=34); Albumin, Serum 4.1 g/dL (3.4-4.8); Alkaline Phosphatase 77 U/L (35-104); Anion Gap 11 (5-15); BUN 12 mg/dL (4-19); BUN/Creat Ratio 19.7 RATIO (10-20); Calcium 9.5 mg/dL (7.6-11.0); Carbon Dioxide 24.1 mmol/L (22.0-29.0); Chloride 103 mmol/L (96-108); Cholesterol 151 mg/dL (<=200); Creatinine, Serum 0.6 mg/dL (0.6-1.0); EST Glomerular Filtration Rate 92 (>60); Globulin 2.5 g/dL (2.2-4.2); Glucose 100 mg/dL (70-99); High Density Lipoprotein 70 mg/dL; Low Density Lipoprotein Calc. 58 mg/dL; Potassium 4.4 mmol/L (3.3-5.1); Protein, Total 6.5 g/dL (5.9-8.4); Sodium Level 139 mmol/L (133-145); Total Bilirubin 0.28 mg/dL (0.00-1.30); Triglycerides 113 mg/dL; Very Low Density Lipoprotein 23 mg/dL (5-40); Vitamin D,25 Hydroxy 46.9 ng/mL (30-100); cholesterol:hdl ratio screen 2.15
== END | disposition home or self-care (01) ==
LOC: MFPLAB 11:21
PROVIDERS: PCP Family Medicine; Referring Provider Family Medicine; Visit Provider Family Medicine
DX: E78.5 Hyperlipidemia, unspecified (principal); E55.9 Vitamin D deficiency, unspecified; K21.9 Gastro-esophageal reflux disease without esophagitis
CPT/HCPCS: 36415; 80053; 80061; 82306; 85025

== ENCOUNTER → 2025-04-10 | Outpatient (CLI) | payer MEDICARE, SELFPAY ==
--- NOTE | 2025-04-10 10:00 | BI_ITS ---
EXAM: SCRN MAMM (CAD)W/SHELBIE BILAT DATE: 04/10/2025 CLINICAL HISTORY: F, Age 79 y/o , SCREENING FOR BREAST CANCER No family history. TECHNIQUE: Procedure Code: [id number] Modality: MG Procedure: SCRN MAMM (CAD)W/SHELBIE BILAT COMPARISON: Prior exam(s) dated April 02, 2024.. FINDINGS: TISSUE DENSITY: There are scattered areas of fibroglandular density. Bilateral Breast Mammographic Findings: No significant masses, calcifications or other abnormalities are identified. No suspicious masses, areas of developing architectural distortion, or suspicious calcifications. There has been no significant interval change. BI/SCRN MAMM (CAD)W/SHELBIE BILAT IMPRESSION: Stable bilateral screening mammogram. OVERALL FINAL ASSESSMENT BI-RADS 1: NEGATIVE. RECOMMENDATION: Routine annual follow-up in 1 Year A letter with findings and recommendations will be mailed to the patient. Reading Location: [place] [id number]
--- OUTSIDE RECORDS SUMMARY | 2025-04-10 12:43 | XMS RPT_ITS | CCD ---
Author Organization [facility] Care Team Providers Care Red Hat Engineer Name Role Phone Dr. Rigoberto White Primary Care Provider Dr. Abraham Pearce Emergency Provider Dr. Wilman Kerr Attending Provider Unavailable Dr. Vincent Dumont Chi Primary Care Provider [phone] Dr. Vincent Dumont Chi Referring Provider [phone]([phone] Vincent Dumont Chi Other Provider Dr. Gómez Das Attending Provider [phone] Unavailable Primary Care Provider Unavailjessie kapoor Unavailable Primary Care Provider UnavailDr. Chad Goode MD Primary Care Provider Dr. Chad Sheikh MD Attending Provider Dr. Chad Sheikh MD Referring Provider Dr. Chad Sheikh MD Primary Care Provider Dr. Chad Sheikh MD Referring Provider Zaria Lozano Attending Provider Chad Sheikh Primary Care Unavailable Rubén Hardy Attending Unavailable Chad Sheikh Primary Care Unavailable Robinorrow Aubrey RICCI Referring Unavailable Robinorrow Aubrey RICCI Attending Unavailable Chad Sheikh Primary Care Unavailable Zaria Rivera Attending Unavailable Chad Sheikh Referring Unavailable Chad Sheikh Referring Unavailable Chad Sheikh Attending Unavailable Chad Sheikh Primary Care Unavailable Allergies Allergy Classification Reported Allergen(s) Allergy Type Date of Onset Reaction(s) Facility (11 sources) Aspirin Drug Allergy 1 Other [facility] (11 sources) Caffeine Drug Allergy 1 Nausea/Vom/Diar lisa [facility] (11 sources) Codeine Drug Allergy 1 Nausea/Vom/Diar [facility] (11 sources) HYDROcodone Drug Allergy 1 Vomiting [facility] (11 sources) Morphine Drug Allergy 1 Vomiting [facility] (12 sources) perfume; Translations: [perfume] Allergy to substance 1 Other [facility] Comment on above: SNEEZING, EYES WATER (1 source) Aspirin Drug Allergy 5 [facility] Rep[facility] (1 source) Caffeine Drug Allergy 5 [facility] (1 source) Codeine Drug Allergy 5 [facility] (1 source) HYDROcodone Drug Allergy 5 [facility] (1 source) Morphine Drug Allergy 5 [facility] Medications Current Medications Medication Drug Class(es) Dates Sig (Normalized) Sig (Original) Calcium (11 sources) Phosphate Binder, Calcium Start: 11-19-2020 take 600 mg by mouth once daily Calcium Active 600 MG PO DAILY November 19, 2020 4:35pm Start: 11-19-2020 take 1 capsule by mouth once d aily Calcium 600 mg Capsule Active 600 mg PO DAILY November 19, 2020 12:00am Start: 11-19-2020 take 600 mg by mouth once melanie y Calcium Active 600 MG PO DAILY November 18, 2020 11:00pm Start: 11-19-2020 take 600 mg by mouth once melanie y Calcium Active 600 MG PO DAILY November 19, 2020 12:00am hydroxychloroquine sulfate 200 mg oral tablet (11 sources) Antimalarial, Antirheumatic Agent Start: 08-24-2017 Hydroxychloroquine (Plaquenil) 200 mg tablet Active 200 mg PO TWICE A DAY August 24, 2017 1:00am RA 5 days a week, BID Multivitamin,Tx-Iron-Min erals (Complete Multivitamin) tablet (2 sources) Start: 08-24-2017 Multivitamin,Tx-Iron-Min erals (Complete Multivitamin) tablet Active 1 {tbl} PO daily August 24, 2017 1:00am supplement Start: 08-24-2017 Multivitamin,T s-Zddj-Sfhorbix (Complete Multivitamin) tablet Active 1 {tbl} PO daily August 24, 2017 1:00am multivitamin,ze-mhaz-pjfdiys s tablet (9 sources) Start: 08-24-2017 take 1 tablet by mouth once daily multivitamin,xs-xebu-biduabyo tablet Active 1 TABLET PO daily August 24, 2017 11:23am Start: 08-24-2017 take 1 tablet by katherine th once daily multivitamin,nu-ttaq-azczfdnp tablet Act keira 1 TABLET PO daily August 24, 2017 12:00am Start: 08-24-2017 take 1 tablet by katherine th once daily multivitamin,zg-khta-akbmytjl tablet Act keira 1 TABLET PO daily August 24, 2017 1:00am Sandy 8-Yec-Idb-Fish Oil (9 sources) Start: 01-13-2018 Sandy 3-Dha-Ep a-Fish Oil Active 1 EACH PO DAILY January 13, 2018 9:24am Start: 01-13-2018 Sandy 3-Dha-Ep a-Fish Oil Active 1 EACH PO DAILY January 12, 2018 11:00pm Start: 01-13-2018 Sandy 3-Dha-Ep a-Fish Oil Active 1 EACH PO DAILY January 13, 2018 12:00am Sandy 5-Rxe-Nzp-Fish Oil 1 EACH capsule,delayed release(DR/EC) (2 sources) Start: 01-13-2018 take 1 capsule by mouth once daily Sandy 7-Kqk-Cco-Fish Oil 1 EACH capsule,delayed release(DR/EC) Active 1 NMA PO DAILY January 13, 2018 12:00am supplement Start: 01-13-2018 take 1 capsule by mo [facility] once daily Sandy 3-Vyj-Vkb-Fish Oil 1 EACH capsule,delayed release(DR/EC) Active 1 NMA PO DAILY January 13, 2018 12:00am Completed/Discontinued Medications Medication Drug Class(es) Dates Sig (Normalized) Sig (Original) acetaminophen 300 mg / codeine phosphate 30 mg oral tablet (11 sources) Opioid Agonist Start: 2020 End: 06-17-2020 Acetaminophen-Codei ne 1 TABLET tablet Discontinued 1 - 2 {tbl} PO EVERY 6 HOURS NEEDED as needed for Pain Score 6-10/10 20 3 0 2020 1:00am June 16, 2020 1:00am June 17, 2020 1:03am Female genital prolapse Female genital prolapse, unspecified Start: 2020 End: 06-17-2020 take 1 tablet by mouth every six hours as needed Acetaminophen-Codeine Discontinued 1 - 2 TABLET PO EVERY 6 HOURS NEEDED 20 3 2020 1:00am June 17, 2020 1:03am acetaminophen 325 mg / HYDROcodone bitartrate 5 mg oral tablet (11 sources) Opioid Agonist Start: 08-08-2018 End: 08-13-2018 Hydrocodone-Acetaminophen 1 EACH tablet Discontinued 1 NMA PO 4 TIMES DAILY NEEDED as needed for Pain 10 5 August 08, 2018 10:00am August 12, 2018 1:00am August 13, 2018 1:09am Urethral caruncle Urethral caruncle Start: 08-08-2018 End: 08-13-2018 Hydrocodone-Acetaminophen Di scontinued 1 EACH PO 4 TIMES DAILY NEEDED 10 August 08, 2018 10:00am August 13, 2018 1:09am amoxicillin 500 mg oral tablet (11 sources) Penicillin-class Antibacterial Start: 07-23-2017 End: 08-02-2017 take 1 tablet by mouth twice daily Amoxicillin 500 mg tablet Discontinued 500 mg PO TWICE A DAY 20 10 July 23, 2017 1:00am August 01, 2017 1:00am August 02, 2017 1:05am amoxicillin 875 mg / clavulanate 125 mg oral tablet (2 sources) Penicillin-class Antibacterial Start: 05-25-2024 End: 03-30-2025 Amoxicillin-Pot Clavulanate 875-125 mg tablet Discontinued 1 {tbl} PO TWICE A DAY May 25, 2024 12:00am March 30, 2025 12:39pm cephalexin 500 mg oral capsule (20 sources) Cephalosporin Antibacterial Start: 2020 End: 06-17-2020 take 1 capsule by mouth every twelve hours Cephalexin 500 MG capsule Discontinued 500 mg PO EVERY 12 HOURS 6 3 0 2020 1:00am June 16, 2020 1:00am June 17, 2020 1:03am post-operative Start: 08-08-2018 End: 08-11-2018 take 1 capsule by mouth twice daily Cephalexin 250 MG capsule Discontinued 250 mg PO TWICE A DAY 6 3 0 August 08, 2018 1:00am August 10, 2018 1:00am August 11, 2018 1:09am diazePAM 2 mg oral tablet (2 sources) Benzodiazepine Start: 05-25-2024 End: 03-30-2025 take 1 tablet by mouth three times daily Diazepam 2 mg tablet Discontinued 2 mg PO THREE TIMES A DAY 7 0 May 25, 2024 12:00am March 30, 2025 12:41pm Benign paroxysmal positional vertigo due to bilateral vestibular disorder Benign paroxysmal vertigo, bilateral estradiol 0.1 mg/ml vaginal cream (20 sources) Estrogen Start: 09-22-2017 End: 05-25-2024 Estradiol 42.5 GM cream Discontinued 0 NMA VAGINAL .COMPLEX January 13, 2018 9:25am May 25, 2024 10:06am Check with primary doctor pea sized amount VAGINAL 2 time a week levoFLOXacin 500 mg oral tablet (2 sources) Quinolone Antimicrobial Start: 05-25-2024 End: 03-30-2025 take 1 tablet by mouth once daily Levofloxacin 500 mg tablet Discontinued 500 mg PO DAILY May 25, 2024 12:00am March 30, 2025 12:39pm ofloxacin 3 mg/ml ophthalmic solution (11 sources) Quinolone Antimicrobial Start: 09-20-2021 End: 05-25-2024 take 0.3 drop(s) into the eye(s) four times daily Ofloxacin 0.3 % drops Discontinued 1 NMA LEFT EYE 4 TIMES DAILY September 20, 2021 1:00am May 25, 2024 10:06am Check with primary doctor Problems Active Problems Problem Classification Problem Date Documented Da te Episodic/Chronic Abdominal pain (11 sources) Abdominal pain; Translations: [Unspecified abdominal pain] 05-07-2021 Episodic Disorders of lipid metabolism (1 source) Hyperlipidemia, unspecified; Translations: [Hyperlipidemia, unspecified] Onset: 10-03-2024 Chronic E Codes: Fall (11 sources) Fall in home; Translations: [Unspecified fall, initial encounter] 06-13-2020 Episodic Menopausal disorders (11 sources) Atrophic vaginitis; Translations: [Postmenopausal atrophic vaginitis] 08-18-2018 Chronic Comment on above: Hold clobetesol exce pt if symptomatic then daily X 5 days, thin layercontinue estrace cream but increase to 3 times a week, thin layer as directed Neoplasms of unspecified nature or uncertain behavior (11 sources) Neoplasm of vagina; 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] 08-18-2018 Episodic Other diseases of bladder and urethra (11 sources) Urethral caruncle; Translations: [Urethral caruncle] 08-18-2018 Episodic Other disorders of stomach and duodenum (11 sources) Disorder of stomach; Translations: [Other diseases of stomach and duodenum] 05-07-2021 Episodic Other gastrointestinal disorders (11 sources) Dysphagia; Translations: [Dysphagia, unspecified] 09-28-2021 Episodic Other gastrointestinal disorders (2 sources) Dysphagia, unspecified; Translations: [Dysphagia, unspecified] Episodic Other screening for suspected conditions (not mental disorders or infectious disease) (1 source) Encounter for screening mammogram for malignant neoplasm of breast; Translations: [Encounter for screening mammogram for malignant neoplasm of breast] Onset: 04-08-2025 Episodic Other skin disorders (11 sources) Lichen sclerosus et atrophicus; 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] 08-18-2018 Chronic Other upper respiratory infections (11 sources) Sinusitis; Translations: [Chronic sinusitis, unspecified] 11-20-2020 Chronic Other upper respiratory infections (11 sources) Upper respiratory infection; Translations: [Acute upper respiratory infection, unspecified] 05-07-2021 Episodic Prolapse of female genital organs (11 sources) Prolapse of female genital organs; Translations: [Female genital prolapse, unspecified] 06-13-2020 Chronic Rheumatoid arthritis and related disease (2 sources) Rheumatoid arthritis; Translations: [Rheumatoid arthritis, unspecified] 06-02-2024 Chronic Skull and face fractures (11 sources) Fracture of orbital floor; Translations: [Fracture of orbital floor, left side, initial encounter for closed fracture] 06-13-2020 Episodic Superficial injury; contusion (11 sources) Contusion of orbital tissues; Translations: [Contusion of eyeball and orbital tissues, left eye, initial encounter] 06-13-2020 Episodic Comment on above: with orbital floor f racture Past or Other Problems Problem Classification Problem Date Documented Da te Episodic/Chronic Conditions associated with dizziness or vertigo (3 sources) Benign paroxysmal positional vertigo; Translations: [Benign paroxysmal vertigo, bilateral] Onset: 06-15-2024 06-02-2024 Episodic Results Test Name Value Interpretation Reference Range Facility Urgent Care Visit Reporton 0 03-30-2025 Urgent Care Visit Report [facility] [address], [address] [place] [address] OFFICE VISIT Date of Service: 03/30/25 MR#: [id number] Acct: [id number] Name: NUHA SAEED Rep #: [id number] : 1945 Provider: KATHERINE Rivera Age/Sex: 79/F Location: [facility] Status: Signed Intake Vital Signs 05/25/24 09:15 03/30/25 12:01 Height 5 ft 4 ft 11.5 in Weight: 117 lb 4 oz BMI 23.3 BP 132/62 H Blood Pressure Location Lt brachial Position Sitting Respiration 15 Pulse 83 Pulse Source NIBP Temp 98.0 F Temp Source Oral Pulse Oximetry (%) 96 Oxygen Delivery Method room air Intake Visit Reasons: CHILLS, BURNING LIPS Chief Complaint: mouth/tongue/lip burning [employer] Examiner Required: No Allergies hydrocodone (From Vicodin) Allergy (Intermediate, Verified 03/30/25 13:15) Vomiting aspirin (From Excedrin Back and Body) Allergy (Mild, Verified 03/30/25 13:15) Other morphine Allergy (Mild, Verified 03/30/25 13:15) Vomiting perfume Allergy (Verified 03/30/25 13:15) Other codeine Adverse Reaction (Mild, Verified 03/30/25 13:15) Nausea/Vom/Diarrhea caffeine (From Excedrin Migraine) Adverse Reaction (Verified 03/30/25 13:15) Nausea/Vom/Diarrhea Medications ???Medication ???Instructions ???Recorded ???Confirmed ???Type hydroxychloroquine 200 mg tablet 200 mg PO BID RA 08/24/17 03/30/25 History (Plaquenil) multivitamin,tx-iron-m inerals 1 tab PO QDAY supplement 08/24/17 03/30/25 History (Complete Multivitamin tablet) omega 9-opd-hvs-fish oil 900 1 ea PO DAILY supplement 01/13/18 03/30/25 History mg-1,400 mg capsule,delayed release calcium 600 mg capsule 600 mg PO DAILY 11/19/20 03/30/25 History lidocaine HCl 2 % mucosal solution 15 ml mucous membrane TID #300 m L 03/30/25 03/30/25 Rx (Lidocaine Viscous) Is last menstrual period known: No Post menopausal: Yes Patient : No Have you fallen in the past year?: No Nurse's Note: mouth/tongue/lip burning x 3 days without resolve. denies new foods/meds/ATB recently. PFSH Medical History Rheumatoid arthritis Skin cancer Rheumatoid arthritis Shortness of breath Arthritis Surgical History History of total vaginal hysterectomy (TVH) ( 06/13/20) History of bladder surgery H/O foot surgery Family History Mother Diabetes Father Cancer prostate Prostate cancer Sister Breast cancer A-fib Kidney disease Brother Diabetes Social History Smoking Status: Never smoker alcohol intake: never substance use type: does not use caffeine: No frequency: 1-2 times per week seatbelt use: always do you feel safe at home: Yes additional social history: - [employer] DOES NOT USE ASPIRIN DOES USE IBUPROFEN NEEDED DOES USE TYLENOL NEEDED HPI HPI Chief Complaint: mouth/tongue/lip burning Details: NUHA SAEED, is a 79 F who presents to the office today for burning mouth -sx started - started a work- mouth was hurting- upset stomach- felt had to have BM then couldn't- left work and had a BM - little round brown drops- constipation on occasion- denies blood in stool or black tarry stool- usually goes daily- no problems with upset stomach or bowels since -mouth feels burning, lips and tongue- denies recent atb or OSMAR- denies any recent inhaled or oral steroids- feels there all the time but burning can become more constant after she eats -tried so far nothing didn't know what to try -last dental appt few months ago had to get a filling- top has dentures and bottom are her teeth -has never had this before ROS Const Constitutional: Positive for other (ROS negative x6 except what was placed in HPI) Exam Const General: cooperative, comfortable and no acute distress Orientation: alert, awake and oriented x3 HENMT Head: normal to inspection and normocephalic Nose: external nose normal and other Mouth: oral mucosae normal, lip normal, tongue normal, oropharynx normal and moist mucous membranes Throat: posterior oropharynx normal, tonsils normal and uvula midline Other: -normal oral exam- tongue is not beefy red, swollen, cracked or dry. No thick white coating noted. Neck Neck: normal visual inspection, full ROM and no lymphadenopathy Resp Effort Inspection: normal respiratory effort, able to speak in complete sentences and symmetric chest movement Auscultation: Bilateral: Clear to Auscultation, Left: Clear to Auscultation and Right: Clear to Auscultation Cardio Rate: regular rate Rhythm: regular rhythm Heart Sounds: S1 normal and S2 normal GI Auscultation: normal bowel sounds Pa (more content not included)... Normal [facility] Absolute neutrophil countOrd ered By: Chad Sheikh on 09-19-2024 Neutrophils (Bld) [#/Vol] 3.7 10*3/uL 2.0-7.7 [facility] BUN/creatinine ratioOrdered By: Chad Sheikh on 09-19-2024 Urea nitrogen/Creatinine [Mass ratio] 19.7 mg/mg 10-20 [facility] Basophil percentageOrdered B y: Chad Sheikh on 09-19-2024 Basophils/100 WBC (Bld) 1.0 % 0-1 [facility] Bilirubin, totalOrdered By: Chad Sheikh on 09-19-2024 Bilirubin [Mass/Vol] 0.28 mg/dL 0.00-1.30 [facility] CBC W/Diff, Automatedon 08-26 Absolute Lymph 1.67 X10 3/uL Normal 0.83-4.51 [facility] Comment on above: Order Comment: Order Date: 09/19/24 Order Info: 0184-1 - CBCD Performed By: #### L 500.4050, L100.0100, L500.4100 #### [facility] Laboratory [address] [place], [place] [address] [place], [address] Absolute Neut 3.7 X10 3/uL Normal 2.0-7.7 [facility] Comment on above: Order Comment: Order Date: 09/19/24 Order Info: [id number] - CBCD Performed By: #### L 500.4050, L100.0100, L500.4100 #### [facility] [address] [place], [address] Basophils/100 WBC (Bld) 1.0 % Normal 0-1 [facility] Comment on above: Order Comment: Order Date: 09/19/24 Order Info: 0184-1 - CBCD Performed By: #### L 500.4050, L100.0100, L500.4100 #### [facility] [address] [place], [address] Eosinophils/100 WBC (Bld) 3.5 % Normal 0-5 [facility] Comment on above: Order Comment: Order Date: 09/19/24 Order Info: 0184-1 - CBCD Performed By: #### L 500.4050, L100.0100, L500.4100 #### [facility] [address] [place], [address] Erythrocyte distribution width (RBC) [Ratio] 13.2 % Normal 11.6-14.6 [facility] Comment on above: Order Comment: Order Date: 09/19/24 Order Info: 0184-1 - CBCD Performed By: #### L 500.4050, L100.0100, L500.4100 #### [facility] [address] [place], [address] Hematocrit (Bld) [Volume fraction] 44.5 % Normal 37-47 [facility] Comment on above: Order Comment: Order Date: 09/19/24 Order Info: 0184-1 - CBCD Performed By: #### L 500.4050, L100.0100, L500.4100 #### [facility] [address] [place], [address] Hemoglobin (Bld) [Mass/Vol] 14.2 g/dL Normal 12.0-15.0 [facility] Comment on above: Order Comment: Order Date: 09/19/24 Order Info: 0184- - CBCD Performed By: #### L 500.4050, L100.0100, L500.4100 #### [facility] [address] [place], [address] IG% 0.200 Normal 0.0-0.9 [facility] Comment on above: Order Comment: Order Date: 09/19/24 Order Info: 018- - CBCD Result Comment: IG% - Immature Granulocytes (promyelocytes, myelocytes and metamyelocytes) > 1% indicates that a LEFT SHIFT is Present. Performed By: #### L 500.4050, L100.0100, L500.4100 #### [facility] [address] [place], [address] Lymphocytes/100 WBC (Bld) 26.6 % Normal 19-41 [facility] Comment on above: Order Comment: Order Date: 09/19/24 Order Info: 018- - CBCD Performed By: #### L 500.4050, L100.0100, L500.4100 #### [facility] [address] [place], [address] MCH (RBC) [Entitic mass] 31.3 pg Normal 27.0-32.0 [facility] Comment on above: Order Comment: Order Date: 09/19/24 Order Info: 0184- - CBCD Performed By: #### L 500.4050, L100.0100, L500.4100 #### [facility] [address] [place], [address] MCHC (RBC) [Mass/Vol] 31.9 g/dL Low 32-36 [facility] Comment on above: Order Comment: Order Date: 09/19/24 Order Info: 0184- - CBCD Performed By: #### L 500.4050, L100.0100, L500.4100 #### [facility] [address] [place], [address] MCV (RBC) [Entitic vol] 98.0 fL Normal 81-99 [facility] Comment on above: Order Comment: Order Date: 09/19/24 Order Info: 0184-1 - CBCD Performed By: #### L 500.4050, L100.0100, L500.4100 #### [facility] [address] [place], [address] Monocytes/100 WBC (Bld) 10.0 % Normal 0-10 [facility] Comment on above: Order Comment: Order Date: 09/19/24 Order Info: 0184-1 - CBCD Performed By: #### L 500.4050, L100.0100, L500.4100 #### [facility] [address] [place], [address] Neutrophils/100 WBC (Bld) 58.7 % Normal 47-70 [facility] Comment on above: Order Comment: Order Date: 09/19/24 Order Info: 0184-1 - CBCD Performed By: #### L 500.4050, L100.0100, L500.4100 #### [facility] [address] [place], [address] Nucleated RBC (Bld) [#/Vol] 0 10*3/uL Normal 0-5 [facility] Comment on above: Order Comment: Order Date: 09/19/24 Order Info: 0184-1 - CBCD Performed By: #### L 500.4050, L100.0100, L500.4100 #### [facility] [address] [place], [address] Platelet mean volume (Bld) [Entitic vol] 11.2 fL Normal 6.2-12.0 [facility] Comment on above: Order Comment: Order Date: 09/19/24 Order Info: 0184-1 - CBCD Performed By: #### L 500.4050, L100.0100, L500.4100 #### [facility] [address] [place], [address] Platelets (Bld) [#/Vol] 221 10*3/uL Normal 150-450 [facility] Comment on above: Order Comment: Order Date: 09/19/24 Order Info: [id number] - CBCD Performed By: #### L 500.4050, L100.0100, L500.4100 #### [facility] [address] [place], [address] RBC (Bld) [#/Vol] 4.54 10*6/uL Normal 4.2-5.4 [facility] Comment on above: Order Comment: Order Date: 09/19/24 Order Info: 0184- - CBCD Performed By: #### L 500.4050, L100.0100, L500.4100 #### [facility] [address] [place], [address] RDW SD 48.0 fl High 35.1-43.9 [facility] Comment on above: Order Comment: Order Date: 09/19/24 Order Info: 0184- - CBCD Performed By: #### L 500.4050, L100.0100, L500.4100 #### [facility] [address] [place], [address] WBC (Bld) [#/Vol] 6.3 10*3/uL Normal 4.4-11.0 [facility] Comment on above: Order Comment: Order Date: 09/19/24 Order Info: 0184-1 - CBCD Performed By: #### L 500.4050, L100.0100, L500.4100 #### [facility] [address] [place], [address] Calculated very low density lipoprotein (VLDL) cholesterol measurementOrdered By: Chad Sheikh on 09-19-2024 VLDL Cholesterol 23 mg/dL 5-40 [facility] Carbon dioxide measurementOr dered By: Chad Sheikh on 09-19-2024 CO2 [Moles/Vol] 24.1 mmol/L 22.0-29.0 [facility] Chloride measurementOrdered By: Chad Sheikh on 09-19-2024 Chloride [Moles/Vol] 103 mmol/L 96-108 [facility] Comprehensive Metabolic Prof ilon 09-19-2024 Albumin [Mass/Vol] 4.1 g/dL Normal 3.4-4.8 [facility] Comment on above: Order Comment: Order Date: 09/19/24 Order Info: [id number] - CMP Order Info: [id number] - LIPID Performed By: #### L 500.4050, L100.0100, L500.4100 #### [facility] [address] [place], [address] Albumin/Globulin [Mass ratio] 1.7 {ratio} Normal 0.9-2.4 [facility] Comment on above: Order Comment: Order Date: 09/19/24 Order Info: [id number] - CMP Order Info: [id number] - LIPID Performed By: #### L 500.4050, L100.0100, L500.4100 #### [facility] [address] [place], [address] ALK PHOS 77 U/L Normal 35-104 [facility] Comment on above: Order Comment: Order Date: 09/19/24 Order Info: [id number] - CMP Order Info: [id number] - LIPID Performed By: #### L 500.4050, L100.0100, L500.4100 #### [facility] [address] [place], [address] ALT [Catalytic activity/Vol] 11 U/L Normal <=34 [facility] Comment on above: Order Comment: Order Date: 09/19/24 Order Info: [id number] - CMP Order Info: [id number] - LIPID Performed By: #### L 500.4050, L100.0100, L500.4100 #### [facility] [address] [place], [address] Anion gap [Moles/Vol] 11 mmol/L Normal 5-15 [facility] Comment on above: Order Comment: Order Date: 09/19/24 Order Info: [id number] - CMP Order Info: [id number] - LIPID Performed By: #### L 500.4050, L100.0100, L500.4100 #### [facility] [address] [place], [address] AST [Catalytic activity/Vol] 32 U/L Normal <=31 [facility] Comment on above: Order Comment: Order Date: 09/19/24 Order Info: [id number] - CMP Order Info: [id number] - LIPID Performed By: #### L 500.4050, L100.0100, L500.4100 #### [facility] [address] [place], [address] Bilirubin [Mass/Vol] 0.28 mg/dL Normal 0.00-1.30 [facility] Comment on above: Order Comment: Order Date: 09/19/24 Order Info: [id number] - CMP Order Info: [id number] - LIPID Performed By: #### L 500.4050, L100.0100, L500.4100 #### [facility] [address] [place], [address] BUN/CRE 19.7 RATIO Normal 10-20 [facility] Comment on above: Order Comment: Order Date: 09/19/24 Order Info: [id number] - CMP Order Info: [id number] - LIPID Performed By: #### L 500.4050, L100.0100, L500.4100 #### [facility] [address] [place], [address] Calcium [Mass/Vol] 9.5 mg/dL Normal 7.6-11.0 [facility] Comment on above: Order Comment: Order Date: 09/19/24 Order Info: [id number] - CMP Order Info: [id number] - LIPID Performed By: #### L 500.4050, L100.0100, L500.4100 #### [facility] [address] [place], [address] Chloride [Moles/Vol] 103 mmol/L Normal 96-108 [facility] Comment on above: Order Comment: Order Date: 09/19/24 Order Info: [id number] - CMP Order Info: [id number] - LIPID Performed By: #### L 500.4050, L100.0100, L500.4100 #### [facility] [address] [place], [address] CO2 [Moles/Vol] 24.1 mmol/L Normal 22.0-29.0 [facility] Comment on above: Order Comment: Order Date: 09/19/24 Order Info: [id number] - CMP Order Info: [id number] - LIPID Performed By: #### L 500.4050, L100.0100, L500.4100 #### [facility] [address] [place], [address] Creatinine [Mass/Vol] 0.6 mg/dL Normal 0.6-1.0 [facility] Comment on above: Order Comment: Order Date: 09/19/24 Order Info: [id number] - CMP Order Info: [id number] - LIPID Performed By: #### L 500.4050, L100.0100, L500.4100 #### [facility] [address] [place], [address] GFR/1.73 sq M.predicted among non-blacks MDRD (S/P/Bld) [Vol rate/Area] 92 mL/min/{1.73_m2} Normal >60 [facility] Comment on above: Order Comment: Order Date: 09/19/24 Order Info: [id number] - CMP Order Info: [id number] - LIPID Result Comment: mL/m in/1.73m2 CKD-EPI Creatinine Equation (2020) Performed By: #### L 500.4050, L100.0100, L500.4100 #### [facility] [address] [place], [address] Globulin (S) [Mass/Vol] 2.5 g/dL Normal 2.2-4.2 [facility] Comment on above: Order Comment: Order Date: 09/19/24 Order Info: [id number] - CMP Order Info: [id number] - LIPID Performed By: #### L 500.4050, L100.0100, L500.4100 #### [facility] [address] [place], [address] Glucose [Mass/Vol] 100 mg/dL High 70-99 [facility] Comment on above: Order Comment: Order Date: 09/19/24 Order Info: [id number] - CMP Order Info: [id number] - LIPID Performed By: #### L 500.4050, L100.0100, L500.4100 #### [facility] [address] [place], [address] Potassium [Moles/Vol] 4.4 mmol/L Normal 3.3-5.1 [facility] Comment on above: Order Comment: Order Date: 09/19/24 Order Info: [id number] - CMP Order Info: [id number] - LIPID Performed By: #### L 500.4050, L100.0100, L500.4100 #### [facility] [address] [place], [address] Sodium [Moles/Vol] 139 mmol/L Normal 133-145 [facility] Comment on above: Order Comment: Order Date: 09/19/24 Order Info: [id number] - CMP Order Info: [id number] - LIPID Performed By: #### L 500.4050, L100.0100, L500.4100 #### [facility] [address] [place], [place], [address] T PROT 6.5 g/dL Normal 5.9-8.4 [facility] Comment on above: Order Comment: Order Date: 09/19/24 Order Info: [id number] - CMP Order Info: [id number] - LIPID Performed By: #### L 500.4050, L100.0100, L500.4100 #### [facility] [address] [place], [address] Urea nitrogen [Mass/Vol] 12 mg/dL Normal 4-19 [facility] Comment on above: Order Comment: Order Date: 09/19/24 Order Info: [id number] - CMP Order Info: [id number] - LIPID Performed By: #### L 500.4050, L100.0100, L500.4100 #### [facility] [address] [place], [address] Eosinophil percentageOrdered By: Chad Sheikh on 09-19-2024 Eosinophils/100 WBC (Bld) 3.5 % 0-5 [facility] Erythrocyte distribution wid th ratioOrdered By: Chad Sheikh on 09-19-2024 Erythrocyte distribution width (RBC) [Ratio] 13.2 % 11.6-14.6 [facility] Erythrocyte distribution wid th standard deviationOrdered By: Chad Sheikh on 09-19-2024 Erythrocyte distribution width (RBC) [Entitic vol] 48.0 fL High 35.1-43.9 [facility] GFR/1.73 sq M.predicted huyen g non-blacks MDRD (S/P/Bld) [Vol rate/Area]Ordered By: Chad Sheikh on 09-19-2024 Estimated GFR (MDRD) Non-Af Amer 92 >60 [facility] Comment on above: mL/min/1.73m2 CKD-EP I Creatinine Equation (2020) Hematocrit Auto (Bld) [Volum e fraction]Ordered By: Chad Sheikh on 09-19-2024 Hematocrit (Bld) [Volume fraction] 44.5 % 37-47 [facility] Hemoglobin measurementOrdere d By: Chad Sheikh on 09-19-2024 Hemoglobin (Bld) [Mass/Vol] 14.2 g/dL 12.0-15.0 [facility] Immature granulocytes/100 WB C Auto (Bld)Ordered By: Chad Sheikh on 09-19-2024 Immature granulocytes/100 WBC (Bld) 0.200 % 0.0-0.9 [facility] Comment on above: IG% - Immature Granu locytes (promyelocytes, myelocytes and metamyelocytes) > 1% indicates that a LEFT SHIFT is Present. L506.1001on 09-19-2024 Vitamin D 25-OH 46.9 ng/mL Normal 30-100 [facility] Comment on above: Order Comment: Order Date: 09/19/24 Order Info: [id number] - CMP Order Info: [id number] - LIPID Result Comment: Karlee min D Status Deficiency: <20 ng/mL (50nmol/L) Insufficiency: 20-30 ng/mL (50-75 nmol/L) Sufficiency: 30-100 ng/mL (75-250 nmol/L) Toxicity: >100 ng/mL (>250 nmol/L) Performed By: #### L 506.1001 #### [facility] [address] [place], [place], [id number] LDL calc ser/plasOrdered By: Chad Sheikh on 09-19-2024 LDL Cholesterol, Calculated 58 mg/dL [facility] Comment on above: Uwuqbpnyqw=781-266 m g/dL & Higher Xvco=742 mg/dL or greater Laboratory - Chemistry and C hemistry - challengeOrdered By: Chad Sheikh on 09-19-2024 AST [Catalytic activity/Vol] 32 U/L <32 [facility] Lipid Profileon 09-19-2024 CHOL:HDL 2.15 Normal [facility] Comment on above: Order Comment: Order Date: 09/19/24 Order Info: [id number] - CMP Order Info: [id number] - LIPID Performed By: #### L 500.4050, L100.0100, L500.4100 #### [facility] [address] [place], [place], [address] [phone] Cholesterol [Mass/Vol] 151 mg/dL Normal <=200 [facility] Comment on above: Order Comment: Order Date: 09/19/24 Order Info: [id number] - CMP Order Info: [id number] - LIPID Result Comment: Chol esterol level, Desirable <200 mg/dL Borderline high cholesterol 200-239 mg/dL High cholesterol >=240 mg/dL Recommendations of the NCEP Adult Treatment Panel for the following risk-cutoff thresholds for the [place] population. Performed By: #### L 500.4050, L100.0100, L500.4100 #### [facility] [address] [place], [address] Cholesterol in HDL [Mass/Vol] 70 mg/dL Normal [facility] Comment on above: Order Comment: Order Date: 09/19/24 Order Info: [id number] - CMP Order Info: [id number] - LIPID Result Comment: [place] onal Cholesterol Education Program (NCEP) guidelines: <40 mg/dL: Low HDL-cholesterol (major risk factor for CHD) >= 60 mg/dL: High HDL-cholesterol (negative risk factor for CHD) HDL-cholesterol is affected by a number of factors, e.g. smoking, exercise, hormones, sex and age. Performed By: #### L 500.4050, L100.0100, L500.4100 #### [facility] [address] [place], [address] Cholesterol in LDL [Mass/Vol] 58 mg/dL Normal [facility] Comment on above: Order Comment: Order Date: 09/19/24 Order Info: [id number] - CMP Order Info: [id number] - LIPID Result Comment: Bord nzijdl=067-387 mg/dL Higher Pcxk=674 mg/dL or greater Performed By: #### L 500.4050, L100.0100, L500.4100 #### [facility] [address] [place], [address] Cholesterol in VLDL [Mass/Vol] 23 mg/dL Normal 5-40 [facility] [place] [facility] Comment on above: Order Comment: Order Date: 09/19/24 Order Info: [id number] - CMP Order Info: [id number] - LIPID Performed By: #### L 500.4050, L100.0100, L500.4100 #### [facility] [address] [place], [address] Triglyceride [Mass/Vol] 113 mg/dL Normal [facility] Comment on above: Order Comment: Order Date: 09/19/24 Order Info: [id number] - CMP Order Info: [id number] - LIPID Result Comment: The drugs N-Acetylcysteine and Metamizole may falsely depress this assay. Normal range: <150 mg/dL Borderline High: 150-199 mg/dL High: 200-499 mg/dL Very High: >500 mg/dL Performed By: #### L 500.4050, L100.0100, L500.4100 #### [facility] [address] [place], [address] Lymphocytes Auto (Unsp spec) [#/Vol]Ordered By: Chad Sheikh on 09-19-2024 Lymphocytes (Bld) [#/Vol] 1.67 10*3/uL 0.83-4.51 [facility] Lymphocytes/100 WBC Auto (Un sp spec)Ordered By: Chad Sheikh on 09-19-2024 Lymphocytes/100 WBC (Bld) 26.6 % 19-41 [facility] MCV (mean corpuscular volume ) determinationOrdered By: Chad Sheikh on 09-19-2024 MCV (RBC) [Entitic vol] 98.0 fL 81-99 [facility] Mean corpuscular hemoglobin (MCH) determinationOrdered By: Chad Sheikh on 09-19-2024 MCH (RBC) [Entitic mass] 31.3 pg 27.0-32.0 [facility] Mean corpuscular hemoglobin concentration (MCHC) determinationOrdered By: Chad Sheikh on 09-19-2024 MCHC (RBC) [Mass/Vol] 31.9 g/dL Low 32-36 [facility] Mean platelet volume determi nationOrdered By: Chad Sheikh on 09-19-2024 Platelet mean volume (Bld) [Entitic vol] 11.2 fL 6.2-12.0 [facility] Monocyte percentageOrdered B y: Chad Sheikh on 09-19-2024 Monocytes/100 WBC (Bld) 10.0 % 0-10 [facility] Neutrophil percentageOrdered By: Chad Sheikh on 09-19-2024 Neutrophils/100 WBC (Bld) 58.7 % 47-70 [facility] Nucleated red blood cell per centageOrdered By: Chad Sheikh on 09-19-2024 Nucleated RBC/100 WBC (Bld) [Ratio] 0 % 0-5 [facility] Platelet countOrdered By: Olivia Sheikh on 09-19-2024 Platelets (Bld) [#/Vol] 221 10*3/uL 150-450 [facility] RBC Auto (Bld) [#/Vol]Ordere d By: Chad Sheikh on 09-19-2024 RBC (Bld) [#/Vol] 4.54 10*6/uL 4.2-5.4 [facility] Screening total cholesterol/ high density lipoprotein (HDL) cholesterol ratioOrdered By: Chad Sheikh on 09-19-2024 Cholesterol.total/Mariana sterol in HDL [Mass ratio] 2.15 {ratio} [facility] Serum creatinine measurement (mass/volume)Ordered By: Chad Sheikh on 09-19-2024 Creatinine [Mass/Vol] 0.6 mg/dL 0.70-1.20 [facility] Serum globulin measurementOr dered By: Chad Sheikh on 09-19-2024 Globulin (S) [Mass/Vol] 2.5 g/dL 2.2-4.2 [facility] Serum glucose measurement (m ass/volume)Ordered By: Chad Sheikh on 09-19-2024 Glucose [Mass/Vol] 100 mg/dL High 70-99 [facility] Serum or plasma alanine rob otransferase (ALT) measurementOrdered By: Chad Sheikh on 09-19-2024 ALT [Catalytic activity/Vol] 11 U/L <35 [facility] Serum or plasma albumin ricardo urement (mass/volume)Ordered By: Chad Sheikh on 09-19-2024 Albumin [Mass/Vol] 4.1 g/dL 3.4-4.8 [facility] Serum or plasma albumin/glob ulin mass ratioOrdered By: Chad Sheikh on 09-19-2024 Albumin/Globulin [Mass ratio] 1.7 {ratio} 0.9-2.4 [facility] Serum or plasma alkaline brittani sphatase measurementOrdered By: Chad Sheikh on 09-19-2024 ALP [Catalytic activity/Vol] 77 U/L 35-104 [facility] Serum or plasma anion gap de termination (moles/volume)Ordered By: Chad Sheikh on 09-19-2024 Anion gap [Moles/Vol] 11 mmol/L 5-15 [facility] Serum or plasma calcium ricardo urement (mass/volume)Ordered By: Chad Sheikh on 09-19-2024 Calcium [Mass/Vol] 9.5 mg/dL 7.6-11.0 [facility] Serum or plasma cholesterol in HDL measurement (mass/volume)Ordered By: Chad Sheikh on 09-19-2024 Cholesterol in HDL [Mass/Vol] 70 mg/dL >40 [facility] Comment on above: National Cholesterol Education Program (NCEP) guidelines:<40 mg/dL: Low HDL-cholesterol (major risk factor for CHD)>= 60 mg/dL: High HDL-cholesterol (negative risk factor for CHD)HDL-cholesterol is affected by a number of factors, e.g. smoking, exercise, hormones, sex and age. Serum or plasma cholesterol measurement (mass/volume)Ordered By: Chad Sheikh on 09-19-2024 Cholesterol [Mass/Vol] 151 mg/dL <201 [facility] Comment on above: Cholesterol level, D esirable <200 mg/dLBorderline high cholesterol 200-239 mg/dLHigh cholesterol >=240 mg/dLRecommendations of the NCEP Adult Treatment Panel for the following risk-cutoff thresholds for the [place] population. Serum or plasma potassium me asurementOrdered By: Chad Sheikh on 09-19-2024 Potassium [Moles/Vol] 4.4 mmol/L 3.3-5.1 [facility] Serum or plasma sodium measu rement (moles/volume)Ordered By: Chad Sheikh on 09-19-2024 Sodium [Moles/Vol] 139 mmol/L 133-145 [facility] Serum or plasma urea nitroge n measurement (mass/volume)Ordered By: Chad Sheikh on 09-19-2024 Urea nitrogen [Mass/Vol] 12 mg/dL 4-19 [facility] Total proteinOrdered By: Ryder Sheikh on 09-19-2024 Protein [Mass/Vol] 6.5 g/dL 5.9-8.4 [facility] Triglycerides measurementOrd ered By: Chad Sheikh on 09-19-2024 Triglyceride [Mass/Vol] 113 mg/dL <199 [facility] Comment on above: The drugs N-Acetylcy steine and Metamizole may falsely depress this assay. Normal range: <150 mg/dLBorderline High: 150-199 mg/dLHigh: 200-499 mg/dLVery High: >500 mg/dL Vitamin D, 25-hydroxyOrdered By: Chad Sheikh on 09-19-2024 Vitamin D 25-Hydroxy 46.9 ng/mL 30-100 [facility] Comment on above: Vitamin D StatusDefi ciency: <20 ng/mL (50nmol/L)Insufficiency: 20-30 ng/mL (50-75 nmol/L)Sufficiency: 30-100 ng/mL (75-250 nmol/L)Toxicity: >100 ng/mL (>250 nmol/L) White blood cell (WBC) count Ordered By: Chad Sheikh on 09-19-2024 WBC (Bld) [#/Vol] 6.3 10*3/uL 4.4-11.0 [facility] Emergency Department Summary on 05-25-2024 Emergency Department Summary [facility] Medical Records Department [address] [place] [address] Emergency Department Summary 05/25/24 MR#: [id number] Acct: [id number] Name: NUHA SAEED Rep #: [id number] : 1945 78 From: Rubén Hardy MD PCP: Dr. Chad Sheikh MD Status:REG ER Location: ED HPI History of Present Illness Chief Complaint: Dizziness Detail of Chief Complaint: Increased dizziness past several days Informant: patient Onset/Context/Timing Onset: Days Context: Sudden Onset Timing: Intermittent Quality: Dizziness defined as spinning Location: Vertigo Current Severity: Gone Maximum Severity: Severe Worsened by: Patient is not certain. Relieved by: Possibly remaining still Associated Symptoms Associated Symptoms: Nausea Narrative Narrative: Patient is a 78-year-old woman. 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 Patient is on Plaquenil. Uncertain why she is on Plaquenil. Patient denies fever, chills night sweats. Patient denies weight gain or weight loss. Patient denies headache. Denies double vision, blurred vision or loss of vision. She does have ringing or ears. She denies decreased hearing. She denies rhinorrhea, congestion or postnasal drainage. Denies sore throat. Denies trouble with speech or swallowing. Denies neck pain or neck stiffness. She denies paresthesia, anesthesia or motor weakness upper or lower extremity. She does report problems with balance when she is dizzy . Patient denies black or maroon-colored stool. Patient has no infectious symptoms. Prior similar symptoms: Yes (Due to M???ni???re's disease) Recent Illness/Hospitalizatio n: No [facility] Medical History Rheumatoid arthritis Skin cancer Rheumatoid arthritis Shortness of breath Arthritis Home Medications ???Medication ???Instructions ???Recorded ???Last Taken ???Type hydroxychloroquine 200 mg tablet 200 mg PO BID RA 08/24/17 Unknown History (Plaquenil) multivitamin,tx-iron-m inerals 1 tab PO QDAY supplement 08/24/17 Unknown History (Complete Multivitamin tablet) omega 5-vqu-swi-fish oil 900 1 ea PO DAILY supplement 01/13/18 Unknown History mg-1,400 mg capsule,delayed release calcium 600 mg capsule 600 mg PO DAILY 11/19/20 Unknown History amoxicillin 875 mg-potassium 1 tab PO BID 05/25/24 Unknown History clavulanate 125 mg tablet diazepam 2 mg tablet 2 mg PO TID #7 tabs 05/25/24 Unknown Rx levofloxacin 500 mg tablet 500 mg PO DAILY 05/25/24 Unknown History Allergy/AdvReac Type Severity Reaction Status Date / Time hydrocodone (From Vicodin) Allergy Intermediate Vomiting Verified 05/25/24 09:18 aspirin (From Excedrin Back Allergy Mild Other Verified 05/25/24 09:18 and Body) morphine Allergy Mild Vomiting Verified 05/25/24 09:18 perfume Allergy Other Verified 05/25/24 09:18 codeine AdvReac Mild Nausea/Vom/ Verified 05/25/24 09:18 Diarrhea caffeine (From Excedrin AdvReac Nausea/Vom/ Verified 05/25/24 09:18 Migraine) Diarrhea Family History Mother Diabetes Father Cancer prostate Prostate cancer Sister Breast cancer A-fib Kidney disease Brother Diabetes Surgical History History of total vaginal hysterectomy (TVH) ( 06/13/20) History of bladder surgery H/O foot surgery Social History Smoking Status: Never smoker alcohol intake: never substance use type: does not use caffeine: No frequency: 1-2 times per week seatbelt use: always do you feel safe at home: Yes additional social history: - [employer] DOES NOT USE ASPIRIN DOES USE IBUPROFEN NEEDED DOES USE TYLENOL NEEDED ROS ROS ED Constitutional Constitutional ED: Denies chills, fever(s), subjective or sweats Eyes Eyes: Denies blurry vision, change in vision or diplopia ENT ENT ED: Reports other Details: Bilateral tinnitus ; Denies ear pain, rhinorrhea or sore throat Cardiovascular Cardiovascular: Denies chest pain or palpitations Respiratory/Chest Respiratory/Chest: Denies cough, dyspnea or dyspnea on exertion Gastrointestinal Gastrointestinal: Denies abdominal pain, nausea or vomiting Genitourinary Genitourinary ED: Denies dysuria, hematuria or urinary frequency Musculoskeletal Musculoskeletal: Denies arthralgias, myalgias or neck pain Integumentary Denies rash Neurologic Neurologic: Denies headache(s), paresthesias or weakness Hematologic/Lymphatic Hematologic/Lymphatic: Reports systems reviewed and no addt'l complaints, except as documented EXAM Physical Exam Const Vital Signs: 05/25/24 09:15 Temperature 98 F Temperature Source Oral Pulse Rate 92 Respiratory Rate 18 Blood Pressure 125/ (more content not included)... Normal [facility] Whole blood hemoglobin A1c/t otal hemoglobin ratio (mass fraction)Ordered By: Chad Sheikh on 10-07-2023 HbA1c (Bld) [Mass fraction] 5.5 % 3.8-5.6 [facility] Comment on above: Normal < 5.7 % Predi abetic 5.7 - 6.4 % Diabetic >or= 6.5 % Please note range changes. Absolute lymphocyte countOrd ered By: Chad Sheikh on 10-05-2023 Lymphocytes Auto (Unsp spec) [#/Vol] 1.47 10*3/uL 0.83-4.51 [facility] Automated lymphocyte count a s percentage of total leukocytesOrdered By: Chad Sheikh on 10-05-2023 Lymphocytes/100 WBC Auto (Unsp spec) 21.6 % 19-41 [facility] Basophil percentageOrdered B y: Chad Sheikh on 10-05-2023 Basophils/100 WBC (Bld) 0.9 % 0-1 [facility] Bilirubin [Mass/Vol] 0.40 mg/dL 0.20-1.00 [facility] Comment on above: For patients on eltr ombopag therapy, use of Dimension [place] TBIL is not recommended. Chloride [Moles/Vol] 103 mmol/L 98-107 [facility] Eosinophils/100 WBC (Bld) 2.5 % 0-5 [facility] Glucose [Mass/Vol] 115 mg/dL 74-106 [facility] Comment on above: Fasting Glucose resu lt from 100 to 125 mg/dL suggests IMPAIRED HOMEOSTASIS per A.D.A. criteria. Hemoglobin (Bld) [Mass/Vol] 14.5 g/dL 12.0-15.0 [facility] Monocytes/100 WBC (Bld) 9.6 % 0-10 [facility] Neutrophils (Bld) [#/Vol] 4.4 10*3/uL 2.0-7.7 [facility] Neutrophils/100 WBC (Bld) 65.1 % 47-70 [facility] Potassium [Moles/Vol] 4.2 mmol/L 3.5-5.1 [facility] Protein [Mass/Vol] 7.0 g/dL 6.4-8.2 [facility] Sodium [Moles/Vol] 139 mmol/L 136-145 [facility] WBC (Bld) [#/Vol] 6.8 10*3/uL 4.4-11.0 [facility] Determination of erythrocyte mean corpuscular volume (MCV)Ordered By: Chad Sheikh on 10-05-2023 MCV (RBC) [Entitic vol] 97.7 fL 81-99 [facility] Erythrocyte distribution wid th ratioOrdered By: Chad Sheikh on 10-05-2023 Erythrocyte distribution width (RBC) [Ratio] 13.9 % 11.6-14.6 [facility] Erythrocyte distribution wid th standard deviationOrdered By: Chad Sheikh on 10-05-2023 Erythrocyte distribution width (RBC) [Entitic vol] 50.0 fL 35.1-43.9 [facility] Hematocrit Auto (Bld) [Volum e fraction]Ordered By: Chad Sheikh on 10-05-2023 Hematocrit (Bld) [Volume fraction] 46.0 % 37-47 [facility] Immature granulocytes/100 WB C Auto (Bld)Ordered By: Chad Sheikh on 10-05-2023 Immature granulocytes/100 WBC (Bld) 0.300 % 0.0-0.9 [facility] Comment on above: IG% - Immature Granu locytes (promyelocytes, myelocytes and metamyelocytes) > 1% indicates that a LEFT SHIFT is Present. Laboratory - Chemistry and C hemistry - challengeOrdered By: Chad Sheikh on 10-05-2023 Albumin/Globulin [Mass ratio] 1.1 {ratio} 0.9-2.4 [facility] ALP [Catalytic activity/Vol] 77 U/L 45-117 [facility] ALT [Catalytic activity/Vol] 23 U/L 13-56 [facility] CO2 [Moles/Vol] 31.0 mmol/L 21.0-32.0 [facility] Globulin (S) [Mass/Vol] 3.3 g/dL 2.2-4.2 [facility] Urea nitrogen/Creatinine [Mass ratio] 17.6 mg/mg 10-20 [facility] Laboratory - Hematology and Cell countsOrdered By: Chad Sheikh on 10-05-2023 MCH (RBC) [Entitic mass] 30.8 pg 27.0-32.0 [facility] MCHC (RBC) [Mass/Vol] 31.5 g/dL 32-36 [facility] Nucleated RBC/100 WBC (Bld) [Ratio] 0 % 0-5 [facility] Platelet mean volume (Bld) [Entitic vol] 11.3 fL 6.2-12.0 [facility] Platelets (Bld) [#/Vol] 245 10*3/uL 150-450 [facility] No Panel InformationOrdered By: Chad Sheikh on 10-05-2023 Estimated GFR (MDRD) Amer 108 mL/min >60 [facility] Comment on above: GFR Calc Estimated GFR (MDRD) Non-Af Amer 89 mL/min >60 [facility] Comment on above: Non- GFR Calc Vitamin D 25-Hydroxy 51.3 ng/mL [facility] Comment on above: Vitamin D 25(OH) Sta tus Range Deficiency <20 ng/mL (50nmol/L) Insufficiency 20 - 30 ng/mL (50 - 75 nmol/L) Sufficiency 30 - 100 ng/mL (75 - 250 nmol/L) Toxicity >100 ng/mL (>250 nmol/L) RBC Auto (Bld) [#/Vol]Ordere d By: Chad Sheikh on 10-05-2023 RBC (Bld) [#/Vol] 4.71 10*6/uL 4.2-5.4 [facility] Serum or plasma calcium ricardo urement (mass/volume)Ordered By: Chad Sheikh on 10-05-2023 Calcium [Mass/Vol] 9.2 mg/dL 8.5-10.1 [facility] Serum or plasma creatinine m easurement (mass/volume)Ordered By: Chad Sheikh on 10-05-2023 Creatinine [Mass/Vol] 0.68 mg/dL 0.55-1.02 [facility] Comment on above: The validity of the calculated GFR & GFRAA in patients over 70 years has not been determined. Clinical correlation is essential. Serum or plasma urea nitroge n measurement (mass/volume)Ordered By: Chad Sheikh on 10-05-2023 Urea nitrogen [Mass/Vol] 12 mg/dL 7-18 [facility] Thin prep Papanicolaou smear with manual screeningOrdered By: Chad Sheikh on 10-05-2023 Thin prep Papanicolaou smear with manual screening 3.7 g/dL 3.2-5.0 [facility] Thin prep Papanicolaou smear with manual screening 29 U/L 15-37 [facility] Thin prep Papanicolaou smear with manual screening 5 5-15 [facility] Absolute lymphocyte countOrd ered By: Chad Sheikh on 06-08-2023 Lymphocytes Auto (Unsp spec) [#/Vol] 1.63 10*3/uL 0.83-4.51 [facility] Basophil percentageOrdered B y: Chad Sheikh on 06-08-2023 Basophils/100 WBC (Bld) 0.6 % 0-1 [facility] Bilirubin [Mass/Vol] 0.30 mg/dL 0.20-1.00 [facility] Comment on above: For patients on eltr ombopag therapy, use of Dimension [place] TBIL is not recommended. Chloride [Moles/Vol] 106 mmol/L 98-107 [facility] Cholesterol [Mass/Vol] 133 mg/dL <200 [facility] Comment on above: <200 mg/dL Desirable 200-240 mg/dL Borderline >240 mg/dL High Risk Eosinophils/100 WBC (Bld) 2.0 % 0-5 [facility] Glucose [Mass/Vol] 105 mg/dL 74-106 [facility] Comment on above: Fasting Glucose resu lt from 100 to 125 mg/dL suggests IMPAIRED HOMEOSTASIS per A.D.A. criteria. Neutrophils (Bld) [#/Vol] 4.5 10*3/uL 2.0-7.7 [facility] Neutrophils/100 WBC (Bld) 64.4 % 47-70 [facility] Potassium [Moles/Vol] 4.3 mmol/L 3.5-5.1 [facility] Protein [Mass/Vol] 6.8 g/dL 6.4-8.2 [facility] Sodium [Moles/Vol] 140 mmol/L 136-145 [facility] Triglyceride [Mass/Vol] 93 mg/dL <199 [facility] Comment on above: The drugs N-Acetylcy steine and Metamizole may falsely depress this assay.Serum Triglycerides Reference Interval Normal <150 mg/dL Borderline high 150 - 199 mg/dL High 200 - 499 mg/dL Very High > or = 500 mg/dL WBC (Bld) [#/Vol] 7.0 10*3/uL 4.4-11.0 [facility] Blood erythrocytes count (nu mber/volume)Ordered By: Chad Sheikh on 06-08-2023 RBC (Bld) [#/Vol] 4.58 10*6/uL 4.2-5.4 [facility] Blood hemoglobin measurement (mass/volume)Ordered By: Chad Sheikh on 06-08-2023 Hemoglobin (Bld) [Mass/Vol] 14.2 g/dL 12.0-15.0 [facility] Blood lymphocytes/100 leukoc ytesOrdered By: Chad Sheikh on 06-08-2023 Lymphocytes/100 WBC (Bld) 23.2 % 19-41 [facility] Blood monocytes/100 leukocyt esOrdered By: Chad Sheikh on 06-08-2023 Monocytes/100 WBC (Bld) 9.5 % 0-10 [facility] Blood platelet mean volumeOr dered By: Chad Sheikh on 06-08-2023 Platelet mean volume (Bld) [Entitic vol] 11.9 fL 6.2-12.0 [facility] Determination of erythrocyte mean corpuscular volume (MCV)Ordered By: Chad Sheikh on 06-08-2023 MCV (RBC) [Entitic vol] 98.9 fL 81-99 [facility] Hematocrit Auto (Bld) [Volum e fraction]Ordered By: Chad Sheikh on 06-08-2023 Hematocrit (Bld) [Volume fraction] 45.3 % 37-47 [facility] Laboratory - Chemistry and C hemistry - challengeOrdered By: Chad Sheikh on 06-08-2023 ALP [Catalytic activity/Vol] 77 U/L 45-117 [facility] ALT [Catalytic activity/Vol] 17 U/L 13-56 [facility] CO2 [Moles/Vol] 27.0 mmol/L 21.0-32.0 [facility] Globulin (S) [Mass/Vol] 3.4 g/dL 2.2-4.2 [facility] Urea nitrogen/Creatinine [Mass ratio] 24.1 mg/mg 10-20 [facility] Laboratory - Hematology and Cell countsOrdered By: Chad Sheikh on 06-08-2023 Erythrocyte distribution width (RBC) [Entitic vol] 49.2 fL 35.1-43.9 [facility] Erythrocyte distribution width (RBC) [Ratio] 13.4 % 11.6-14.6 [facility] Immature granulocytes/100 WBC (Bld) 0.300 % 0.0-0.9 [facility] Comment on above: IG% - Immature Granu locytes (promyelocytes, myelocytes and metamyelocytes) > 1% indicates that a LEFT SHIFT is Present. MCH (RBC) [Entitic mass] 31.0 pg 27.0-32.0 [facility] Nucleated RBC/100 WBC (Bld) [Ratio] 0 % 0-5 [facility] MCHC Auto (RBC) [Mass/Vol]Or dered By: Chad Sheikh on 06-08-2023 MCHC (RBC) [Mass/Vol] 31.3 g/dL 32-36 [facility] No Panel InformationOrdered By: Chad Sheikh on 06-08-2023 Estimated GFR (MDRD) Amer 130 mL/min >60 [facility] Comment on above: GFR Calc Estimated GFR (MDRD) Non-Af Amer 107 mL/min >60 [facility] Comment on above: Non- GFR Calc Vitamin D 25-Hydroxy 65.1 ng/mL [facility] Comment on above: Vitamin D 25(OH) Sta tus Range Deficiency <20 ng/mL (50nmol/L) Insufficiency 20 - 30 ng/mL (50 - 75 nmol/L) Sufficiency 30 - 100 ng/mL (75 - 250 nmol/L) Toxicity >100 ng/mL (>250 nmol/L) Platelets bldOrdered By: Ryder Sheikh on 06-08-2023 Platelets (Bld) [#/Vol] 204 10*3/uL 150-450 [facility] Serum or plasma albumin ricardo urement (mass/volume)Ordered By: Chad Sheikh on 06-08-2023 Albumin [Mass/Vol] 3.4 g/dL 3.2-5.0 [facility] Serum or plasma albumin/glob ulin mass ratioOrdered By: Chad Sheikh on 06-08-2023 Albumin/Globulin [Mass ratio] 1.0 {ratio} 0.9-2.4 [facility] Serum or plasma calcium ricardo urement (mass/volume)Ordered By: Chad Sheikh on 06-08-2023 Calcium [Mass/Vol] 8.7 mg/dL 8.5-10.1 [facility] Serum or plasma cholesterol in HDL measurement (mass/volume)Ordered By: Chad Sheikh on 06-08-2023 Cholesterol in HDL [Mass/Vol] 66 mg/dL >40 [facility] Comment on above: The drugs N-Acetylcy steine and Metamizole may falsely depress this assay. Reference Range HDL <40 mg/dL Low HDL Cholesterol HDL >or= 60 mg/dL High HDL Cholesterol Serum or plasma cholesterol in VLDL measurement (mass/volume)Ordered By: Chad Sheikh on 06-08-2023 Cholesterol in VLDL [Mass/Vol] 19 mg/dL 5-40 [facility] Serum or plasma creatinine m easurement (mass/volume)Ordered By: Chad Sheikh on 06-08-2023 Creatinine [Mass/Vol] 0.58 mg/dL 0.55-1.02 [facility] Comment on above: The validity of the calculated GFR & GFRAA in patients over 70 years has not been determined. Clinical correlation is essential. Serum or plasma low density lipoprotein (LDL) cholesterol measurement (mass/volume)Ordered By: Chad Sheikh on 06-08-2023 Cholesterol in LDL [Mass/Vol] 48 mg/dL 0-130 [facility] Serum or plasma urea nitroge n measurement (mass/volume)Ordered By: Chad Sheikh on 06-08-2023 Urea nitrogen [Mass/Vol] 14 mg/dL 7-18 [facility] Thin prep Papanicolaou smear with manual screeningOrdered By: Chad Sheikh on 06-08-2023 Thin prep Papanicolaou smear with manual screening 17 U/L 15-37 [facility] Thin prep Papanicolaou smear with manual screening 7 5-15 [facility] Whole blood hemoglobin A1c/t otal hemoglobin ratio (mass fraction)Ordered By: Chad Sheikh on 06-08-2023 HbA1c (Bld) [Mass fraction] 5.6 % 3.8-5.6 [facility] Comment on above: Normal < 5.7 % Predi abetic 5.7 - 6.4 % Diabetic >or= 6.5 % Please note range changes. Throat specimen bacteria erica ntification by cultureOrdered By: Martell Cerda on 05-02-2023 Bacteria identified Cx Nom (Throat) streptococcus isolated. [facility] Bacteria identified Cx Nom (Throat) streptococcus isolated. [facility] Absolute lymphocyte countOrd ered By: Dr. Dumont on 09-27-2022 Lymphocytes Auto (Unsp spec) [#/Vol] 0.78 10*3/uL 0.83-4.51 [facility] Basophil percentageOrdered B y: Dr. Dumont on 09-27-2022 Basophils/100 WBC (Bld) 0.4 % 0-1 [facility] Bilirubin [Mass/Vol] 0.40 mg/dL 0.20-1.00 [facility] Comment on above: For patients on eltr ombopag therapy, use of Dimension [place] TBIL is not recommended. Chloride [Moles/Vol] 106 mmol/L 98-107 [facility] Eosinophils/100 WBC (Bld) 2.1 % 0-5 [facility] Glucose [Mass/Vol] 99 mg/dL 74-106 [facility] Neutrophils (Bld) [#/Vol] 6.4 10*3/uL 2.0-7.7 [facility] Neutrophils/100 WBC (Bld) 80.5 % 47-70 [facility] Potassium [Moles/Vol] 3.6 mmol/L 3.5-5.1 [facility] Protein [Mass/Vol] 6.7 g/dL 6.4-8.2 [facility] Sodium [Moles/Vol] 139 mmol/L 136-145 [facility] WBC (Bld) [#/Vol] 8.0 10*3/uL 4.4-11.0 [facility] Blood erythrocytes count (nu mber/volume)Ordered By: Dr. Dumont on 09-27-2022 RBC (Bld) [#/Vol] 4.77 10*6/uL 4.2-5.4 [facility] Blood hemoglobin measurement (mass/volume)Ordered By: Dr. Dumont on 09-27-2022 Hemoglobin (Bld) [Mass/Vol] 14.8 g/dL 12.0-15.0 [facility] Blood lymphocytes/100 leukoc ytesOrdered By: Dr. Dumont on 09-27-2022 Lymphocytes/100 WBC (Bld) 9.8 % 19-41 [facility] Blood monocytes/100 leukocyt esOrdered By: Dr. Dumont on 09-27-2022 Monocytes/100 WBC (Bld) 7.1 % 0-10 [facility] Blood platelet mean volumeOr dered By: Dr. Dumont on 09-27-2022 Platelet mean volume (Bld) [Entitic vol] 11.3 fL 6.2-12.0 [facility] Determination of erythrocyte mean corpuscular volume (MCV)Ordered By: Dr. Dumont on 09-27-2022 MCV (RBC) [Entitic vol] 96.4 fL 81-99 [facility] Hematocrit Auto (Bld) [Volum e fraction]Ordered By: Dr. Dumont on 09-27-2022 Hematocrit (Bld) [Volume fraction] 46.0 % 37-47 [facility] Laboratory - Chemistry and C hemistry - challengeOrdered By: Dr. Dumont on 09-27-2022 ALP [Catalytic activity/Vol] 84 U/L 45-117 [facility] ALT [Catalytic activity/Vol] 18 U/L 13-56 [facility] CO2 [Moles/Vol] 24.0 mmol/L 21.0-32.0 [facility] Globulin (S) [Mass/Vol] 3.4 g/dL 2.2-4.2 [facility] Urea nitrogen/Creatinine [Mass ratio] 25.4 mg/mg 10-20 [facility] Laboratory - Hematology and Cell countsOrdered By: Dr. Dumont on 09-27-2022 Erythrocyte distribution width (RBC) [Entitic vol] 49.1 fL 35.1-43.9 [facility] Erythrocyte distribution width (RBC) [Ratio] 13.7 % 11.6-14.6 [facility] Immature granulocytes/100 WBC (Bld) 0.100 % 0.0-0.9 [facility] Comment on above: IG% - Immature Granu locytes (promyelocytes, myelocytes and metamyelocytes) > 1% indicates that a LEFT SHIFT is Present. MCH (RBC) [Entitic mass] 31.0 pg 27.0-32.0 [facility] Nucleated RBC/100 WBC (Bld) [Ratio] 0 % 0-5 [facility] MCHC Auto (RBC) [Mass/Vol]Or dered By: Dr. Dumont on 09-27-2022 MCHC (RBC) [Mass/Vol] 32.2 g/dL 32-36 [facility] No Panel InformationOrdered By: Dr. Dumont on 09-27-2022 Estimated GFR (MDRD) Amer 110 mL/min >60 [facility] Comment on above: GFR Calc Estimated GFR (MDRD) Non-Af Amer 91 mL/min >60 [facility] Comment on above: Non- GFR Calc Thyroid Stimulating Hormone (TSH) 1.03 uIU/mL 0.358-3.74 [facility] Vitamin D 25-Hydroxy 47.3 ng/mL [facility] Comment on above: Vitamin D 25(OH) Sta tus Range Deficiency <20 ng/mL (50nmol/L) Insufficiency 20 - 30 ng/mL (50 - 75 nmol/L) Sufficiency 30 - 100 ng/mL (75 - 250 nmol/L) Toxicity >100 ng/mL (>250 nmol/L) Platelets bldOrdered By: Dr. Dumont on 09-27-2022 Platelets (Bld) [#/Vol] 246 10*3/uL 150-450 [facility] Serum or plasma albumin ricardo urement (mass/volume)Ordered By: Dr. Dumont on 09-27-2022 Albumin [Mass/Vol] 3.3 g/dL 3.2-5.0 [facility] Serum or plasma albumin/glob ulin mass ratioOrdered By: Dr. Dumont on 09-27-2022 Albumin/Globulin [Mass ratio] 1.0 {ratio} 0.9-2.4 [facility] Serum or plasma calcium ricardo urement (mass/volume)Ordered By: Dr. Dumont on 09-27-2022 Calcium [Mass/Vol] 8.7 mg/dL 8.5-10.1 [facility] Serum or plasma creatinine m easurement (mass/volume)Ordered By: Dr. Dumont on 09-27-2022 Creatinine [Mass/Vol] 0.67 mg/dL 0.55-1.02 [facility] Comment on above: The validity of the calculated GFR & GFRAA in patients over 70 years has not been determined. Clinical correlation is essential. Serum or plasma urea nitroge n measurement (mass/volume)Ordered By: Dr. Dumnot on 09-27-2022 Urea nitrogen [Mass/Vol] 17 mg/dL 7-18 [facility] Thin prep Papanicolaou smear with manual screeningOrdered By: Dr. Dumont on 09-27-2022 Thin prep Papanicolaou smear with manual screening 22 U/L 15-37 [facility] Thin prep Papanicolaou smear with manual screening 9 5-15 [facility] Absolute lymphocyte counton 03-24-2022 Lymphocytes Auto (Unsp spec) [#/Vol] 1.93 10*3/uL 0.83-4.51 [facility] Work Phone: Basophil percentageon 2021 Basophils/100 WBC (Bld) 0.7 % 0-1 [facility] Work Phone: Bilirubin [Mass/Vol] 0.40 mg/dL 0.20-1.00 [facility] Work Phone: Comment on above: For patients on eltr ombopag therapy, use of Dimension [place] TBIL is not recommended. Chloride [Moles/Vol] 107 mmol/L 98-107 [facility] Work Phone: Eosinophils/100 WBC (Bld) 3.3 % 0-5 [facility] Work Phone: [phone] Glucose [Mass/Vol] 116 mg/dL 74-106 [facility] Work Phone: Comment on above: Fasting Glucose resu lt from 100 to 125 mg/dL suggests IMPAIRED HOMEOSTASIS per A.D.A. criteria. Neutrophils (Bld) [#/Vol] 4.7 10*3/uL 2.0-7.7 [facility] Work Phone: [phone] Neutrophils/100 WBC (Bld) 61.1 % 47-70 [facility] Work Phone: Potassium [Moles/Vol] 4.3 mmol/L 3.5-5.1 [facility] Work Phone: [phone] Protein [Mass/Vol] 6.5 g/dL 6.4-8.2 [facility] Work Phone: [phone] Sodium [Moles/Vol] 139 mmol/L 136-145 [facility] Work Phone: WBC (Bld) [#/Vol] 7.6 10*3/uL 4.4-11.0 [facility] Work Phone: Blood erythrocytes count (nu mber/volume)on 03-24-2022 RBC (Bld) [#/Vol] 4.57 10*6/uL 4.2-5.4 [facility] Work Phone: Blood hemoglobin measurement (mass/volume)on 03-24-2022 Hemoglobin (Bld) [Mass/Vol] 14.1 g/dL 12.0-15.0 [facility] Work Phone: [phone] Blood lymphocytes/100 leukoc yteson 03-24-2022 Lymphocytes/100 WBC (Bld) 25.3 % 19-41 [facility] Work Phone: [phone] Blood monocytes/100 leukocyt eson 03-24-2022 Monocytes/100 WBC (Bld) 9.3 % 0-10 [facility] Work Phone: [phone] Blood platelet mean volumeon 03-24-2022 Platelet mean volume (Bld) [Entitic vol] 12.2 fL 6.2-12.0 [facility] Work Phone: Determination of erythrocyte mean corpuscular volume (MCV)on 03-24-2022 MCV (RBC) [Entitic vol] 97.6 fL 81-99 [facility] Work Phone: Hematocrit Auto (Bld) [Volum e fraction]on 03-24-2022 Hematocrit (Bld) [Volume fraction] 44.6 % 37-47 [facility] Work Phone: Laboratory - Chemistry and C hemistry - challengeon 03-24-2022 ALP [Catalytic activity/Vol] 77 U/L 45-117 [facility] Work Phone: ALT [Catalytic activity/Vol] 21 U/L 13-56 [facility] Work Phone: CO2 [Moles/Vol] 26.0 mmol/L 21.0-32.0 [facility] Work Phone: Globulin (S) [Mass/Vol] 3.3 g/dL 2.2-4.2 [facility] Work Phone: Urea nitrogen/Creatinine [Mass ratio] 13.9 mg/mg 10-20 [facility] Work Phone: Laboratory - Hematology and Cell countson 03-24-2022 Erythrocyte distribution width (RBC) [Entitic vol] 48.4 fL 35.1-43.9 [facility] Work Phone: [phone] Erythrocyte distribution width (RBC) [Ratio] 13.3 % 11.6-14.6 [facility] Work Phone: Immature granulocytes/100 WBC (Bld) 0.300 % 0.0-0.9 [facility] Work Phone: Comment on above: IG% - Immature Granu locytes (promyelocytes, myelocytes and metamyelocytes) > 1% indicates that a LEFT SHIFT is Present. MCH (RBC) [Entitic mass] 30.9 pg 27.0-32.0 [facility] Work Phone: Nucleated RBC/100 WBC (Bld) [Ratio] 0 % 0-5 [facility] Work Phone: MCHC Auto (RBC) [Mass/Vol]on 03-24-2022 MCHC (RBC) [Mass/Vol] 31.6 g/dL 32-36 [facility] Work Phone: No Panel Informationon 03-24 Estimated GFR (MDRD) Amer 132 mL/min >60 [facility] Work Phone: Comment on above: GFR Calc Estimated GFR (MDRD) Non-Af Amer 109 mL/min >60 [facility] Work Phone: Comment on above: Non- GFR Calc Thyroid Stimulating Hormone (TSH) 2.15 uIU/mL 0.358-3.74 [facility] Work Phone: Vitamin D 25-Hydroxy 57.6 ng/mL [facility] Work Phone: Comment on above: Vitamin D 25(OH) Sta tus Range Deficiency <20 ng/mL (50nmol/L) Insufficiency 20 - 30 ng/mL (50 - 75 nmol/L) Sufficiency 30 - 100 ng/mL (75 - 250 nmol/L) Toxicity >100 ng/mL (>250 nmol/L) Platelets bldon 03-24-2022 Platelets (Bld) [#/Vol] 235 10*3/uL 150-450 [facility] Work Phone: Serum or plasma albumin ricardo urement (mass/volume)on 03-24-2022 Albumin [Mass/Vol] 3.2 g/dL 3.2-5.0 [facility] Work Phone: Serum or plasma albumin/glob ulin mass ratioon 03-24-2022 Albumin/Globulin [Mass ratio] 1.0 {ratio} 0.9-2.4 [facility] Work Phone: Serum or plasma calcium ricardo urement (mass/volume)on 03-24-2022 Calcium [Mass/Vol] 8.6 mg/dL 8.5-10.1 [facility] Work Phone: Serum or plasma creatinine m easurement (mass/volume)on 03-24-2022 Creatinine [Mass/Vol] 0.58 mg/dL 0.55-1.02 [facility] Work Phone: Comment on above: The validity of the calculated GFR & GFRAA in patients over 70 years has not been determined. Clinical correlation is essential. Serum or plasma urea nitroge n measurement (mass/volume)on 03-24-2022 Urea nitrogen [Mass/Vol] 8 mg/dL 7-18 [facility] Work Phone: Thin prep Papanicolaou smear with manual screeningon 03-24-2022 Thin prep Papanicolaou smear with manual screening 25 U/L 15-37 [facility] Work Phone: [phone] Thin prep Papanicolaou smear with manual screening 6 5-15 [facility] Work Phone: [phone] Absolute lymphocyte counton 12-24-2021 Lymphocytes Auto (Unsp spec) [#/Vol] 1.85 10*3/uL 0.83-4.51 [facility] Work Phone: Basophil percentageon 2021 Basophils/100 WBC (Bld) 0.6 % 0-1 [facility] Work Phone: Bilirubin [Mass/Vol] 0.50 mg/dL 0.20-1.00 [facility] Work Phone: Comment on above: For patients on eltr ombopag therapy, use of Dimension [place] TBIL is not recommended. Chloride [Moles/Vol] 106 mmol/L 98-107 [facility] Work Phone: Eosinophils/100 WBC (Bld) 0.8 % 0-5 [facility] [facility] Work Phone: Glucose [Mass/Vol] 105 mg/dL 74-106 [facility] Work Phone: Comment on above: Fasting Glucose resu lt from 100 to 125 mg/dL suggests IMPAIRED HOMEOSTASIS per A.D.A. criteria. Neutrophils (Bld) [#/Vol] 7.0 10*3/uL 2.0-7.7 [facility] Work Phone: Neutrophils/100 WBC (Bld) 70.5 % 47-70 [facility] Work Phone: Potassium [Moles/Vol] 4.7 mmol/L 3.5-5.1 [facility] Work Phone: Comment on above: Slight Hemolysis, Re sult may be falsely increased. Protein [Mass/Vol] 7.5 g/dL 6.4-8.2 [facility] Work Phone: Sodium [Moles/Vol] 139 mmol/L 136-145 [facility] Work Phone: WBC (Bld) [#/Vol] 9.9 10*3/uL 4.4-11.0 [facility] Work Phone: Blood erythrocytes count (nu mber/volume)on 12-24-2021 RBC (Bld) [#/Vol] 4.87 10*6/uL 4.2-5.4 [facility] Work Phone: Blood hemoglobin measurement (mass/volume)on 12-24-2021 Hemoglobin (Bld) [Mass/Vol] 15.5 g/dL 12.0-15.0 [facility] Work Phone: Blood lymphocytes/100 leukoc yteson 12-24-2021 Lymphocytes/100 WBC (Bld) 18.6 % 19-41 [facility] Work Phone: Blood monocytes/100 leukocyt eson 12-24-2021 Monocytes/100 WBC (Bld) 9.0 % 0-10 [facility] Work Phone: Blood platelet mean volumeon 12-24-2021 Platelet mean volume (Bld) [Entitic vol] 10.5 fL 6.2-12.0 [facility] Work Phone: Determination of erythrocyte mean corpuscular volume (MCV)on 12-24-2021 MCV (RBC) [Entitic vol] 98.6 fL 81-99 [facility] Work Phone: Hematocrit Auto (Bld) [Volum e fraction]on 12-24-2021 Hematocrit (Bld) [Volume fraction] 48.0 % 37-47 [facility] Work Phone: Laboratory - Chemistry and C hemistry - challengeon 12-24-2021 ALP [Catalytic activity/Vol] 82 U/L 45-117 [facility] Work Phone: ALT [Catalytic activity/Vol] 24 U/L 13-56 [facility] Work Phone: CO2 [Moles/Vol] 28.0 mmol/L 21.0-32.0 [facility] Work Phone: Globulin (S) [Mass/Vol] 3.7 g/dL 2.2-4.2 [facility] Work Phone: Urea nitrogen/Creatinine [Mass ratio] 19.5 mg/mg 10-20 [facility] Work Phone: Laboratory - Hematology and Cell countson 12-24-2021 Erythrocyte distribution width (RBC) [Entitic vol] 46.8 fL 35.1-43.9 [facility] Work Phone: Erythrocyte distribution width (RBC) [Ratio] 12.9 % 11.6-14.6 [facility] Work Phone: Immature granulocytes/100 WBC (Bld) 0.500 % 0.0-0.9 [facility] Work Phone: Comment on above: IG% - Immature Granu locytes (promyelocytes, myelocytes and metamyelocytes) > 1% indicates that a LEFT SHIFT is Present. MCH (RBC) [Entitic mass] 31.8 pg 27.0-32.0 [facility] Work Phone: Nucleated RBC/100 WBC (Bld) [Ratio] 0 % 0-5 [facility] Work Phone: MCHC Auto (RBC) [Mass/Vol]on 12-24-2021 MCHC (RBC) [Mass/Vol] 32.3 g/dL 32-36 [facility] Work Phone: No Panel Informationon 12-24 Estimated GFR (MDRD) Amer 111 mL/min >60 [facility] Work Phone: Comment on above: GFR Calc Estimated GFR (MDRD) Non-Af Amer 92 mL/min >60 [facility] Work Phone: Comment on above: Non- GFR Calc Thyroid Stimulating Hormone (TSH) 1.69 uIU/mL 0.358-3.74 [facility] Work Phone: Vitamin D 25-Hydroxy 50.0 ng/mL [facility] Work Phone: Comment on above: Vitamin D 25(OH) Sta tus Range Deficiency <20 ng/mL (50nmol/L) Insufficiency 20 - 30 ng/mL (50 - 75 nmol/L) Sufficiency 30 - 100 ng/mL (75 - 250 nmol/L) Toxicity >100 ng/mL (>250 nmol/L) Platelets bldon 12-24-2021 Platelets (Bld) [#/Vol] 284 10*3/uL 150-450 [facility] Work Phone: Serum or plasma albumin ricardo urement (mass/volume)on 12-24-2021 Albumin [Mass/Vol] 3.8 g/dL 3.2-5.0 [facility] Work Phone: Serum or plasma albumin/glob ulin mass ratioon 12-24-2021 Albumin/Globulin [Mass ratio] 1.0 {ratio} 0.9-2.4 [facility] Work Phone: Serum or plasma calcium ricardo urement (mass/volume)on 12-24-2021 Calcium [Mass/Vol] 9.2 mg/dL 8.5-10.1 [facility] Work Phone: Serum or plasma creatinine m easurement (mass/volume)on 12-24-2021 Creatinine [Mass/Vol] 0.67 mg/dL 0.55-1.02 [facility] Work Phone: Comment on above: The validity of the calculated GFR & GFRAA in patients over 70 years has not been determined. Clinical correlation is essential. Serum or plasma urea nitroge n measurement (mass/volume)on 12-24-2021 Urea nitrogen [Mass/Vol] 13 mg/dL 7-18 [facility] Work Phone: Thin prep Papanicolaou smear with manual screeningon 12-24-2021 Thin prep Papanicolaou smear with manual screening 20 U/L 15-37 [facility] Work Phone: Comment on above: Slight Hemolysis, Re sult may be falsely increased. Thin prep Papanicolaou smear with manual screening 5 5-15 [facility] Work Phone: Absolute lymphocyte counton 09-25-2021 Lymphocytes Auto (Unsp spec) [#/Vol] 1.76 10*3/uL 0.83-4.51 [facility] Work Phone: [phone] Basophil percentageon 2021 Amylase [Catalytic activity/Vol] 57 U/L 25-115 [facility] Work Phone: Basophils/100 WBC (Bld) 0.8 % 0-1 [facility] Work Phone: Bilirubin [Mass/Vol] 0.50 mg/dL 0.20-1.00 [facility] Work Phone: Comment on above: For patients on eltr ombopag therapy, use of Dimension [place] TBIL is not recommended. Chloride [Moles/Vol] 105 mmol/L 98-107 [facility] Work Phone: Eosinophils/100 WBC (Bld) 1.3 % 0-5 [facility] Work Phone: Glucose [Mass/Vol] 86 mg/dL 74-106 [facility] Work Phone: Neutrophils (Bld) [#/Vol] 4.9 10*3/uL 2.0-7.7 [facility] Work Phone: Neutrophils/100 WBC (Bld) 66.0 % 47-70 [facility] Work Phone: Potassium [Moles/Vol] 4.0 mmol/L 3.5-5.1 [facility] Work Phone: Protein [Mass/Vol] 7.0 g/dL 6.4-8.2 [facility] Work Phone: Sodium [Moles/Vol] 138 mmol/L 136-145 [facility] Work Phone: WBC (Bld) [#/Vol] 7.4 10*3/uL 4.4-11.0 [facility] Work Phone: Blood erythrocytes count (nu mber/volume)on 09-25-2021 RBC (Bld) [#/Vol] 5.04 10*6/uL 4.2-5.4 [facility] Work Phone: Blood hemoglobin measurement (mass/volume)on 09-25-2021 Hemoglobin (Bld) [Mass/Vol] 16.1 g/dL 12.0-15.0 [facility] Work Phone: Blood lymphocytes/100 leukoc yteson 09-25-2021 Lymphocytes/100 WBC (Bld) 23.7 % 19-41 [facility] Work Phone: Blood monocytes/100 leukocyt eson 09-25-2021 Monocytes/100 WBC (Bld) 8.1 % 0-10 [facility] Work Phone: Blood platelet mean volumeon 09-25-2021 Platelet mean volume (Bld) [Entitic vol] 11.1 fL 6.2-12.0 [facility] Work Phone: Determination of erythrocyte mean corpuscular volume (MCV)on 09-25-2021 MCV (RBC) [Entitic vol] 95.8 fL 81-99 [facility] Work Phone: Hematocrit Auto (Bld) [Volum e fraction]on 09-25-2021 Hematocrit (Bld) [Volume fraction] 48.3 % 37-47 [facility] Work Phone: Laboratory - Chemistry and C hemistry - challengeon 09-25-2021 ALP [Catalytic activity/Vol] 72 U/L 45-117 [facility] Work Phone: ALT [Catalytic activity/Vol] 21 U/L 13-56 [facility] Work Phone: CO2 [Moles/Vol] 28.0 mmol/L 21.0-32.0 [facility] Work Phone: Globulin (S) [Mass/Vol] 3.3 g/dL 2.2-4.2 [facility] Work Phone: Lipase [Catalytic activity/Vol] 100 U/L 73-393 [facility] Work Phone: Urea nitrogen/Creatinine [Mass ratio] 16.1 mg/mg 10-20 [facility] Work Phone: Laboratory - Hematology and Cell countson 09-25-2021 Erythrocyte distribution width (RBC) [Entitic vol] 46.4 fL 35.1-43.9 [facility] Work Phone: Erythrocyte distribution width (RBC) [Ratio] 13.0 % 11.6-14.6 [facility] Work Phone: Immature granulocytes/100 WBC (Bld) 0.100 % 0.0-0.9 [facility] Work Phone: Comment on above: IG% - Immature Granu locytes (promyelocytes, myelocytes and metamyelocytes) > 1% indicates that a LEFT SHIFT is Present. MCH (RBC) [Entitic mass] 31.9 pg 27.0-32.0 [facility] Work Phone: Nucleated RBC/100 WBC (Bld) [Ratio] 0 % 0-5 [facility] Work Phone: Laboratory - Microbiology an d Antimicrobial susceptibilityon 09-25-2021 SARS-CoV-2 (COVID-19) RNA ZULEYKA+probe Ql (Unsp spec) Not detected Not Detect [facility] Work Phone: Comment on above: Normal Reference Ran ge: Not DetectedMethod:(RT-PCR) real-time reverse transcriptase PCRLuminex RICCI Instrument*The Food and Drug Administration (FDA) has issued an Emergency Use Authorization (EAU) for the RICCI SARS-CoV-2 Assay for the rapid detection of the virus that causes COVID-19. This test has been validated, but the FDAs independent review of this validation is pending.*Negative results do not preclude infection and should not be used as the sole basis for treatment or patient management. Optimum specimen types and timing for peak viral levels during infections caused by SARS-CoV-2 have not been determined. Collection of multiple specimens from the same patient may be necessary to detect the virus. The possibility of a false negative result should be considered if the patient has clinical presentation or has had recent exposure. MCHC Auto (RBC) [Mass/Vol]on 09-25-2021 MCHC (RBC) [Mass/Vol] 33.3 g/dL 32-36 [facility] Work Phone: No Panel Informationon 09-25 Influenza Types A,B Direct FA (LAZARA) [facility] Work Phone: Estimated GFR (MDRD) Amer 121 mL/min >60 [facility] Work Phone: Comment on above: GFR Calc Estimated GFR (MDRD) Non-Af Amer 100 mL/min >60 [facility] Work Phone: Comment on above: Non- GFR Calc Hepatitis C Antibody Non-Reactive Nonreactive [facility] Work Phone: Comment on above: Non Reactive: < 0.8 Equivocal: >/= 0.8 to < 1.0 Reactive: >/= 1.0The CDC recommends that a reactive/equivocal HCV antibody result be followed up by the HCV Nucleic Acid Amplificationtest (896558) Thyroid Stimulating Hormone (TSH) 2.03 uIU/mL 0.358-3.74 [facility] Work Phone: Vitamin D 25-Hydroxy 61.5 ng/mL [facility] Work Phone: Comment on above: Vitamin D 25(OH) Sta tus Range Deficiency <20 ng/mL (50nmol/L) Insufficiency 20 - 30 ng/mL (50 - 75 nmol/L) Sufficiency 30 - 100 ng/mL (75 - 250 nmol/L) Toxicity >100 ng/mL (>250 nmol/L) Platelets bldon 09-25-2021 Platelets (Bld) [#/Vol] 207 10*3/uL 150-450 [facility] Work Phone: Serum or plasma albumin ricardo urement (mass/volume)on 09-25-2021 Albumin [Mass/Vol] 3.7 g/dL 3.2-5.0 [facility] Work Phone: Serum or plasma albumin/glob ulin mass ratioon 09-25-2021 Albumin/Globulin [Mass ratio] 1.1 {ratio} 0.9-2.4 [facility] Work Phone: Serum or plasma calcium ricardo urement (mass/volume)on 09-25-2021 Calcium [Mass/Vol] 8.8 mg/dL 8.5-10.1 [facility] Work Phone: Serum or plasma creatinine m easurement (mass/volume)on 09-25-2021 Creatinine [Mass/Vol] 0.62 mg/dL 0.55-1.02 [facility] Work Phone: Comment on above: The validity of the calculated GFR & GFRAA in patients over 70 years has not been determined. Clinical correlation is essential. Serum or plasma urea nitroge n measurement (mass/volume)on 09-25-2021 Urea nitrogen [Mass/Vol] 10 mg/dL 7-18 [facility] Work Phone: Thin prep Papanicolaou smear with manual screeningon 09-25-2021 Thin prep Papanicolaou smear with manual screening 23 U/L 15-37 [facility] Work Phone: Thin prep Papanicolaou smear with manual screening 5 5-15 [facility] Work Phone: Absolute lymphocyte counton 09-20-2021 Lymphocytes Auto (Unsp spec) [#/Vol] 1.65 10*3/uL 0.83-4.51 [facility] Work Phone: Basophil percentageon 2021 Basophils/100 WBC (Bld) 0.7 % 0-1 [facility] Work Phone: Chloride [Moles/Vol] 110 mmol/L 98-107 [facility] Work Phone: Cholesterol [Mass/Vol] 145 mg/dL <200 [facility] Work Phone: Comment on above: <200 mg/dL Desirable 200-240 mg/dL Borderline >240 mg/dL High Risk Eosinophils/100 WBC (Bld) 2.0 % 0-5 [facility] Work Phone: Glucose [Mass/Vol] 113 mg/dL 74-106 [facility] Work Phone: Comment on above: Fasting Glucose resu lt from 100 to 125 mg/dL suggests IMPAIRED HOMEOSTASIS per A.D.A. criteria. Neutrophils (Bld) [#/Vol] 3.6 10*3/uL 2.0-7.7 [facility] Work Phone: Neutrophils/100 WBC (Bld) 59.2 % 47-70 [facility] Work Phone: Potassium [Moles/Vol] 3.9 mmol/L 3.5-5.1 [facility] Work [facility]: Sodium [Moles/Vol] 140 mmol/L 136-145 [facility] Work Phone: Triglyceride [Mass/Vol] 94 mg/dL <199 [facility] Work Phone: Comment on above: The drugs N-Acetylcy steine and Metamizole may falsely depress this assay.Serum Triglycerides Reference Interval Normal <150 mg/dL Borderline high 150 - 199 mg/dL High 200 - 499 mg/dL Very High > or = 500 mg/dL WBC (Bld) [#/Vol] 6.0 10*3/uL 4.4-11.0 [facility] Work Phone: Blood erythrocytes count (nu mber/volume)on 09-20-2021 RBC (Bld) [#/Vol] 4.75 10*6/uL 4.2-5.4 [facility] Work Phone: Blood hemoglobin measurement (mass/volume)on 09-20-2021 Hemoglobin (Bld) [Mass/Vol] 15.3 g/dL 12.0-15.0 [facility] Work Phone: Blood lymphocytes/100 leukoc yteson 09-20-2021 Lymphocytes/100 WBC (Bld) 27.4 % 19-41 [facility] Work Phone: [phone] Blood monocytes/100 leukocyt eson 09-20-2021 Monocytes/100 WBC (Bld) 10.5 % 0-10 [facility] Work Phone: Blood platelet mean volumeon 09-20-2021 Platelet mean volume (Bld) [Entitic vol] 10.2 fL 6.2-12.0 [facility] Work Phone: Determination of erythrocyte mean corpuscular volume (MCV)on 09-20-2021 MCV (RBC) [Entitic vol] 93.3 fL 81-99 [facility] Work Phone: Hematocrit Auto (Bld) [Volum e fraction]on 09-20-2021 Hematocrit (Bld) [Volume fraction] 44.3 % 37-47 [facility] Work Phone: Laboratory - Chemistry and C hemistry - challengeon 09-20-2021 CO2 [Moles/Vol] 25.0 mmol/L 21.0-32.0 [facility] Work Phone: Urea nitrogen/Creatinine [Mass ratio] 14.5 mg/mg 10-20 [facility] Work Phone: Laboratory - Hematology and Cell countson 09-20-2021 Erythrocyte distribution width (RBC) [Entitic vol] 45.3 fL 35.1-43.9 [facility] Work Phone: Erythrocyte distribution width (RBC) [Ratio] 13.2 % 11.6-14.6 [facility] Work Phone: Immature granulocytes/100 WBC (Bld) 0.200 % 0.0-0.9 [facility] Work Phone: Comment on above: IG% - Immature Granu locytes (promyelocytes, myelocytes and metamyelocytes) > 1% indicates that a LEFT SHIFT is Present. MCH (RBC) [Entitic mass] 32.2 pg 27.0-32.0 [facility] Work Phone: Nucleated RBC/100 WBC (Bld) [Ratio] 0 % 0-5 [facility] Work Phone: MCHC Auto (RBC) [Mass/Vol]on 09-20-2021 MCHC (RBC) [Mass/Vol] 34.5 g/dL 32-36 [facility] Work Phone: No Panel Informationon 09-20 Estimated Creatinine Clearance Calc 35.45 ml/min [facility] Work Phone: Estimated GFR (MDRD) Amer 121 mL/min >60 [facility] Work Phone: Comment on above: GFR Calc Estimated GFR (MDRD) Non-Af Amer 100 mL/min >60 [facility] Work Phone: Comment on above: Non- GFR Calc Thyroid Stimulating Hormone (TSH) 2.33 uIU/mL 0.358-3.74 [facility] Work Phone: Troponin I High Sensitivity 12 pg/mL 3.0-54.0 [facility] Work Phone: Comment on above: Please Note: New Gricelda t Units and Gender Specific Reference Ranges. For more information see Policy Stat Procedure [place] High Sensitivity Troponin (TNIH) and attachments. Platelets bldon 09-20-2021 Platelets (Bld) [#/Vol] 209 10*3/uL 150-450 [facility] Work Phone: Serum or plasma calcium ricardo urement (mass/volume)on 09-20-2021 Calcium [Mass/Vol] 8.7 mg/dL 8.5-10.1 [facility] Work Phone: Serum or plasma cholesterol in HDL measurement (mass/volume)on 09-20-2021 Cholesterol in HDL [Mass/Vol] 67 mg/dL >40 [facility] Work Phone: Comment on above: The drugs N-Acetylcy steine and Metamizole may falsely depress this assay. Reference Range HDL <40 mg/dL Low HDL Cholesterol HDL >or= 60 mg/dL High HDL Cholesterol Serum or plasma cholesterol in VLDL measurement (mass/volume)on 09-20-2021 Cholesterol in VLDL [Mass/Vol] 19 mg/dL 5-40 [facility] Work Phone: Serum or plasma creatinine m easurement (mass/volume)on 09-20-2021 Creatinine [Mass/Vol] 0.62 mg/dL 0.55-1.02 [facility] Work Phone: Comment on above: The validity of the calculated GFR & GFRAA in patients over 70 years has not been determined. Clinical correlation is essential. Serum or plasma low density lipoprotein (LDL) cholesterol measurement (mass/volume)on 09-20-2021 Cholesterol in LDL [Mass/Vol] 59 mg/dL 0-130 [facility] Work Phone: Serum or plasma urea nitroge n measurement (mass/volume)on 09-20-2021 Urea nitrogen [Mass/Vol] 9 mg/dL 7-18 [facility] Work Phone: Thin prep Papanicolaou smear with manual screeningon 09-20-2021 Thin prep Papanicolaou smear with manual screening 5 5-15 [facility] Work Phone: Whole blood hemoglobin A1c/t otal hemoglobin ratio (mass fraction)on 09-20-2021 HbA1c (Bld) [Mass fraction] 5.6 % 3.8-5.6 [facility] Work Phone: Comment on above: Normal < 5.7 % Predi abetic 5.7 - 6.4 % Diabetic >or= 6.5 % Please note range changes. Basophil percentageon 2021 Bilirubin [Mass/Vol] 0.40 mg/dL 0.20-1.00 [facility] Work Phone: Comment on above: For patients on eltr ombopag therapy, use of Dimension [place] TBIL is not recommended. Protein [Mass/Vol] 6.4 g/dL 6.4-8.2 [facility] Work Phone: Basophil percentage 0 SEEN /hpf 0-5 [facility] Work Phone: Bilirubin Test strip Ql (U)o n 09-19-2021 Bilirubin Ql (U) Negative Negative [facility] Work Phone: INR in Blood by Coagulation assayon 09-19-2021 INR Coag (Bld) [Relative time] 1.0 {INR} [facility] Work Phone: Ketones Test strip Ql (U)on 09-19-2021 Ketones Ql (U) Negative Negative [facility] Work Phone: Laboratory - Chemistry and C hemistry - challengeon 09-19-2021 ALP [Catalytic activity/Vol] 72 U/L 45-117 [facility] Work Phone: ALT [Catalytic activity/Vol] 19 U/L 13-56 [facility] Work Phone: Globulin (S) [Mass/Vol] 2.9 g/dL 2.2-4.2 [facility] Work Phone: Laboratory - Coagulationon 0 09-19-2021 PT Coag (PPP) [Time] 12.4 s 11.7-14.9 [facility] Work Phone: Mucus LM Ql (Urine sed)on Mucus Ql (Urine sed) 0 SEEN /hpf [facility] Work Phone: Nitrite Test strip Ql (U)on 09-19-2021 Nitrite Ql (U) Negative Negative [facility] Work Phone: No Panel Informationon 09-19 D-Dimer Quantitative (PE/DVT) 0.51 FEU/ug/m 0.27-0.49 [facility] Work Phone: Comment on above: D-Dimer ELEVATED (>0 .49): Additional studies and clinicalassessments are indicated to conclude diagnosis of:Deep Vein Thrombosis (DVT) or Pulmonary Embolism (PE)CRITICAL VALUE VERIFIED. CALLED TO MARIAN DRISCOLL09/19/21Jay Gamez.RESULTS READ BACK BY SAME . SARS-CoV-2 Antigen (Rapid) [facility] Work Phone: Protein Test strip Ql (U)on 09-19-2021 Protein Ql (U) Negative Negative [facility] Work Phone: Serum or plasma albumin ricardo urement (mass/volume)on 09-19-2021 Albumin [Mass/Vol] 3.5 g/dL 3.2-5.0 [facility] Work Phone: Serum or plasma albumin/glob ulin mass ratioon 09-19-2021 Albumin/Globulin [Mass ratio] 1.2 {ratio} 0.9-2.4 [facility] Work Phone: Squamous epithelial cells de tection in urine sediment by light microscopyon 09-19-2021 Epithelial cells.squamous LM Ql (Urine sed) 0 SEEN /hpf 5-10 [facility] Work Phone: Thin prep Papanicolaou smear with manual screeningon 09-19-2021 Thin prep Papanicolaou smear with manual screening 19 U/L 15-37 [facility] Work Phone: Urine blood detectionon 08-26 RBC Ql (U) Negative Negative [facility] Work Phone: RBC Ql (U) 0 SEEN /hpf 0-5 [facility] Work Phone: Urine clarityon 09-19-2021 Clarity (U) Clear Clear [facility] Work Phone: Urine color determinationon 09-19-2021 Color (U) Yellow Yellow [facility] Work Phone: Urine glucose detectionon Glucose Ql (U) Normal mg/dl Normal [facility] Work Phone: Urine leukocyte esterase det ection by dipstickon 09-19-2021 Leukocyte esterase Test strip Ql (U) Negative Negative [facility] Work Phone: Urine pHon 09-19-2021 pH (U) 7.0 [pH] 5.0 - 8.0 [facility] Work Phone: Urine sediment bacteria coun t by microscopy (number/high power field)on 09-19-2021 Bacteria LM.HPF (Urine sed) [#/Area] 0 /[HPF] None Seen [facility] Work Phone: Urine specific gravity measu rementon 09-19-2021 Specific gravity (U) [Rel density] 1.010 1.002-1.030 [facility] Work Phone: Urobilinogen Auto test strip Ql (U)on 09-19-2021 Urobilinogen Ql (U) Normal mg/dl Normal [facility] Work Phone: No Panel Information Influenza Types A,B Direct FA (LAZARA) [facility] Work Phone: SARS-CoV-2 Antigen (Rapid) [facility] Work Phone: Vital Signs Date Time Vital Sign Value Performing Clinician Faci lity 03-30-2025 12:01-0400 Body height 151.[address] Chad Sheikh MD Work Phone: [facility] 03-30-2025 12:01-0400 Body mass index (BMI) [Ratio] 23.3 kg/m2 Dr. Chad Sheikh MD Work Phone: [facility] 03-30-2025 12:01-0400 Body temperature 98 [degF] Dr. Chad Sheikh MD Work Phone: [facility] 03-30-2025 12:01-0400 Body weight 53.[address] Chad Sheikh MD Work Phone: [facility] 03-30-2025 12:01-0400 Diastolic blood pressure 62 mm[Hg] Dr. Chad Sheikh MD Work Phone: [facility] 03-30-2025 12:01-0400 Heart rate 83 /min Dr. Chad Sheikh MD Work Phone: [facility] 03-30-2025 12:01-0400 Respiratory rate 15 /min Dr. Chad Sheikh MD Work Phone: [facility] 03-30-2025 12:01-0400 SaO2% (BldA) [Mass fraction] 96 % Dr. Chad Sheikh MD Work Phone: [facility] 03-30-2025 12:01-0400 Systolic blood pressure 132 mm[Hg] Dr. Chad Sheikh MD Work Phone: [facility] 01-06-2022 13:44-0400 Body height 153.[address] Rigoberto White Work Phone: [facility] Work Phone: 01-06-2022 13:44-0400 Body mass index (BMI) [Ratio] 23 kg/m2 Dr. Rigoberto White Work Phone: [facility] Work Phone: 01-06-2022 13:44-0400 Body temperature 98.1 [degF] Dr. Rigoberto White Work Phone: [facility] Work Phone: 01-06-2022 13:44-0400 Body weight 54.[address] Rigoberto White Work Phone: [facility] Work Phone: 01-06-2022 13:44-0400 Diastolic blood pressure 57 mm[Hg] Dr. Rigoberto White Work Phone: [facility] Work Phone: 01-06-2022 13:44-0400 Heart rate 96 /min Dr. Rigoberto White Work Phone: [facility] Work Phone: 01-06-2022 13:44-0400 Respiratory rate 18 /min Dr. Rigoberto White Work Phone: [facility] Work Phone: 01-06-2022 13:44-0400 SaO2% (BldA) [Mass fraction] 99 % Dr. Rigoberto White Work Phone: [facility] Work Phone: 01-06-2022 13:44-0400 Systolic blood pressure 139 mm[Hg] Dr. Rigoberto White Work Phone: [facility] Work Phone: 09-20-2021 12:42-0500 Body temperature 98 [degF] Dr. Rigoberto White Work Phone: [facility] Work Phone: 09-20-2021 12:42-0500 Diastolic blood pressure 72 mm[Hg] Dr. Rigoberto White Work Phone: [facility] Work Phone: 09-20-2021 12:42-0500 Heart rate 77 /min Dr. Rigoberto White Work Phone: [facility] Work Phone: 09-20-2021 12:42-0500 Respiratory rate 18 /min Dr. Rigoberto White Work Phone: [facility] Work Phone: 09-20-2021 12:42-0500 SaO2% (BldA) [Mass fraction] 96 % Dr. Rigoberto White Work Phone: [facility] Work Phone: 09-20-2021 12:42-0500 Systolic blood pressure 134 mm[Hg] Dr. Rigoberto White Work Phone: [facility] Work Phone: 09-20-2021 11:42-0500 Body temperature 98 [degF] Dr. Rigoberto White Work Phone: [facility] Work Phone: 09-20-2021 11:42-0500 Diastolic blood pressure 72 mm[Hg] Dr. Rigoberto White Work Phone: [facility] Work Phone: 09-20-2021 11:42-0500 Heart rate 77 /min Dr. Rigoberto White Work Phone: [facility] Work Phone: 09-20-2021 11:42-0500 Respiratory rate 18 /min Dr. Rigoberto White Work Phone: [facility] Work Phone: 09-20-2021 11:42-0500 SaO2% (BldA) [Mass fraction] 96 % Dr. Rigoberto White Work Phone: [facility] Work Phone: 09-20-2021 11:42-0500 Systolic blood pressure 134 mm[Hg] Dr. Rigoberto White Work Phone: [facility] Work Phone: 09-20-2021 04:00-0500 Body mass index (BMI) [Ratio] 23 kg/m2 Dr. Rigoberto White Work Phone: [facility] Work Phone: 09-20-2021 02:15-0500 Body weight 53.[address] Rigoberto White Work Phone: [facility] Work Phone: 09-20-2021 01:15-0500 Body height 152.[address] Rigoberto White Work Phone: [facility] Work Phone: 09-20-2021 01:15-0500 Body weight 53.[address] Rigoberto White Work Phone: [facility] Work Phone: Encounters Encounter Date Encounter Type Care Provider Facility Start: 04-10-2025 ambulatory Chad Chung y:[facility] Start: 03-30-2025 End: 03-30-2025 Patient encounter procedure Zaria MUR[facility] Work Phone: Start: 03-30-2025 End: 03-30-[address] Chad Sheikh MD Work Phone: -[facility] Start: 09-19-2024 End: 09-19-[address] Chad Sheikh MD Work Phone: [facility] Work Phone: Start: 09-19-2024 End: 09-19-[address] Chad Sheikh MD -[facility] Start: 09-19-2024 End: 09-19-2024 ambulatory Chad Sheikh Facility:[facility] Start: 05-25-2024 End: 05-25-2024 Emergency department patient visit [facility] Kapoor [facility] Facility:[facility] Start: 10-05-2023 End: 10-05-2023 ambulatory [facility] Work Phone: Start: 10-05-2023 End: 10-05-2023 Patient encounter procedure [facility] Start: 09-30-2023 Registered [facility] Work Phone: Start: 08-08-2023 End: 08-08-2023 ambulatory [facility] Work Phone: Start: 08-08-2023 End: 08-08-2023 Patient encounter procedure [facility]-Cat Scan, [facility] Work Phone: Start: 06-08-2023 End: 06-08-2023 ambulatory [facility] Work Phone: Start: 06-08-2023 End: 06-08-2023 [facility] Start: 05-02-2023 End: 05-02-2023 ambulatory [facility] Work Phone: Start: 05-02-2023 End: 05-02-2023 Patient encounter procedure [facility]-Laboratory, Specimen Work Phone: Start: 11-19-2022 End: 11-19-2022 ambulatory [facility] Work Phone: Start: 11-19-2022 End: 11-19-2022 [facility] Start: 10-06-2022 Patient encounter procedure [facility] Start: 09-27-2022 End: 09-27-2022 [facility] Start: 03-24-2022 End: 03-24-[address] Vincent Dumont Work Phone: [facility] Work Phone: Start: 03-24-2022 End: 03-24-[address] [facility] Dum[facility] Start: 03-18-2022 Patient encounter procedure [facility] Start: 01-23-2022 Non-patient / Non-visit Dr. Jasen Dumont Work Phone: [facility] Start: 01-22-2022 End: 01-22-[address] Vincent Dumont [facility] Start: 01-06-2022 End: 01-06-2022 Emergency department patient visit Dr. Rigoberto White [facility] Start: 12-24-2021 End: 12-24-[address] Rigoberto White [facility] Start: 09-25-2021 End: 09-25-[address] Rigoberto White [facility] Start: 09-20-2021 Non-patient / Non-visit Dr. Ra sultana White Work Phone: [facility] Start: 09-20-2021 End: 09-20-2021 Evaluation and management of inpatient Dr. Rigoberto White [facility] Date Procedure Procedure Detail Performing Clinician Start: 08-08-2023 CT of face Start: 05-02-2023 Bacteria identificat ion test Start: 05-02-2023 Microscopic observat ion [Identifier] in Unspecified specimen by Gram stain Start: 05-02-2023 Wound Culture Start: 09-25-2021 Influenza Types A,B Direct FA (LAZARA) Dr. Rigoberto White Work Phone: Start: 09-25-2021 End: 09-25-2021 Respiratory syncytial virus antigen assay Dr. Rigoberto White Work Phone: Start: 09-25-2021 Computed tomography of abdomen and pelvis with contrast Dr. Rigoberto White Work Phone: Start: 09-20-2021 Magnetic resonance angiography of head without contrast Dr. Rigoberto White Work Phone: Start: 09-20-2021 Magnetic resonance angiography of neck without contrast Dr. Rigoberto White Work Phone: Start: 09-20-2021 MRI of brain without contrast Dr. Rigoberto White Work Phone: Start: 09-19-2021 Plain chest X-ray Dr. Bennie White Work Phone: Start: 09-19-2021 CT of head without contrast Dr. Rigoberto White Work Phone: Start: 09-19-2021 CT of soft tissues o f neck with contrast Dr. Rigoberto White Work Phone: Start: 09-19-2021 SARS-CoV-2 Antigen (Rapid) Dr. Rigoberto White Work Phone: Start: 05-25-2020 H/O: hysterectomy History of t otal vaginal hysterectomy (TVH) Dr. Rigoberto White Work Phone: Comment on above: with pelvic floor re construction with Rafia. Influenza Types A,B Direct FA (LAZARA) Dr. Rigoberto White Work Phone: Respiratory syncytia l virus antigen assay Dr. Rigoberto White Work Phone: SARS-CoV-2 Antigen (Rapid) Dr. Rigoberto White Work Phone: Plan of Treatment Date Care Activity Detail Author Start: 09-20-2021 Patient discharge [facility] Work Phone: Start: 09-20-2021 Ambulation without limitation [facility] Work Phone: Start: 09-20-2021 Application of inter mittent pneumatic compression device [facility] Work Phone: Start: 09-20-2021 Assessment of risk o f venous thromboembolism [facility] Work Phone: Start: 09-20-2021 Cardiac monitoring [facility] Work Phone: Start: 09-20-2021 Catheterization of vein [facility] Work Phone: Start: 09-20-2021 Continuous pulse oximetry [facility] Work Phone: Start: 09-20-2021 Elevation of head of bed [facility] Work Phone: Start: 09-20-2021 Exercises [facility] Work Phone: Start: 09-20-2021 Insertion of cathete r into peripheral vein [facility] Work Phone: Start: 09-20-2021 Measuring intake and output [facility] Work Phone: Start: 09-20-2021 Notification of physician [facility] Work Phone: Start: 09-20-2021 Oxygen therapy [facility] Work Phone: Start: 09-20-2021 Patient referral to dietitian [facility] Work Phone: Start: 09-20-2021 Providing care accor ding to standard [facility] Work Phone: Start: 09-20-2021 Referral to occupational therapist [facility] Work Phone: Start: 09-20-2021 Referral to service [facility] Work Phone: Start: 09-20-2021 Speech therapy assessment [facility] Work Phone: Start: 09-20-2021 [facility] Work Phone: Start: 09-20-2021 Following clinical p athway protocol [facility] Work Phone: Start: 09-20-2021 Admission procedure [facility] Work Phone: Start: 09-20-2021 Patient referral to dietitian [facility] Work Phone: Start: 09-19-2021 Electrocardiographic procedure [facility] Work Phone: Patient Education ED Dyspnea [facility] Work Phone: Patient referral [facility] Work Phone: Payers Date Payer Category Payer Medicare [id number] 37 [id number] 2024 Self-pay [id number] 2016 Unknown [id number] 2012 Medicare [id number] Unknown [id number] Unknown [id number] Unknown [id number] Unknown [id number] Social History Date Type Detail Facility Start: 09-20-2021 End: 01-06-2022 Tobacco smoking status NHIS Unknown if ever smoked [facility] Start: 09-20-2021 Non-smoker [facility] Start: 1945 Sex Assigned At Female [facility] Start: 1945 Sex Assigned At Not on file [facility] Start: 05-25-2024 End: 03-30-2025 Tobacco smoking status NHIS Never smoked tobacco (finding) [facility] Start: 10-03-2024 Sex Female (finding) [facility] Medical Equipment Procedure Code Equipment Code Equipment Origin al Text Equipment Identifier Dates Vaginal hysterectomy MESH, AXIS DERMIS FDA Start: 06-13-2020 Vaginal hysterectomy MESH, AXIS DERMIS FDA Start: 06-13-2020 Vaginal hysterectomy MESH, AXIS DERMIS FDA Start: 06-13-2020 Vaginal hysterectomy MESH, AXIS DERMIS FDA Start: 06-13-2020 Vaginal hysterectomy MESH, AXIS DERMIS FDA Start: 06-13-2020 Vaginal hysterectomy MESH, AXIS DERMIS FDA Start: 06-13-2020 Vaginal hysterectomy MESH, AXIS DERMIS FDA Start: 06-13-2020 Vaginal hysterectomy MESH, AXIS DERMIS FDA Start: 06-13-2020 Vaginal hysterectomy MESH, AXIS DERMIS FDA Start: 06-13-2020 Vaginal hysterectomy MESH, AXIS DERMIS FDA Start: 06-13-2020 Vaginal hysterectomy MESH, AXIS DERMIS FDA Start: 06-13-2020 Goals Date Patient Goal Desired Activity /State Functional Status Date Assessment Result Facility 09-20-2021 Functional status Bedrest [facility] Work Phone: Mental Status Date Assessment Result Facility 09-20-2021 Cognitive function Voice/Name [facility] Work Phone: Discharge summary 11-19-2022 Note Date & Type Note Facility 11-19-2022 Discharge summary Note Date/Time November 19, 2022 9:24am [facility] Physical Therapy [facility] [address] [place] [address] [address] [place] [address] / REHABILITATION SERVICES DISCHARGE SUMMARY MR#: [id number] Acct: [id number] Name: NUHA SAEED Rep #: [id number] : 1945 77 From: Natalia Medley PT, Cert. MDT Referring Dr.: ROCKY CORDERO MD Status: REG RCR Insurance: [employer]URANCE It has been my pleasure to treat NUHA SAEED referred by ROCKY CORDERO MD, with the diagnosis of CERVICAL DDD for a total of 7 visit(s). Discharge Date: 11/19/22 Please see the following information for a summary of their discharge status. Subjective: PATIENT REPORTS SHE IS DOING PRETTY GOOD. STATES SHE CAN USE HER ARM TO WORK OK NOW. PAIN STILL DISTURBS SLEEP AT TIMES BUT NOT EVERY NIGHT. LEFT NECK Pain Intensity (Out of 10): 0 L UE Pain Intensity (Out of 10): 0 % Improvement: 75 Objective/Function: PATIENT WAS SEEN TODAY FOR RE-ASSESSMENT OF PROGRESS TOWARD THE SET PT GOALS AND THE NEED FOR FURTHER PHYSICAL THERAPY VS READINESS FOR DISCHARGE. PATIENT HAS MADE GOOD PROGRESS WITH PT AND IS APPROPRIATE FOR DISCHARGE TO [facility] AT THIS TIME. UPON EXAM TODAY: AROM: R UE: FLEX 130 DEG L UE: FLEX 98 DEG (COMPARED TO 70 DEG AT EVAL). Motor deficit: DECREASED SIMON UESTRENGTH GROSSLY 4-/5. Cervical Mvmt Loss: Flex: NIL. Pro: NIL. Ext: MOD. Ret: ES. RSB: MOD. LSB: MOD. R Rot: MIN. L Rot: MIN. Palpation: NO ACUTE NECK OR SHLD TENDERNESS TODAY. PROGRESSION OF HEP WITH YTB MR'S, IR AND ER TODAY AND TOLERATED WELL. DECREASED PAIN AND INCREASED ROM POST SESSION. Goal 1:: DECREASE C/O NECK AND SIMON SHLD PAIN. Goal Progress: Goal Met Goal 2:: IMPROVE PERSONAL CARE, LIFTING, SLEEP, WORK, DRIVING AND RECREATIONAL FUNCTION. Goal Progress: Goal Met Goal 3:: INSTRUCT IN PROPHYLAXIS Goal Progress: Goal Met Plan: D/C TO HEP. PATIENT AGREEABLE. If there are questions or concerns regarding this patient's physical therapy, please feel free to call me at [phone]. Thank you for the referral of thispatient. Sincerely, Natalia Medley PT, Cert MDT Balance/Gait/Functional tests - Balance/Special Test Scores Oswestry Neck Score: 4 <Electronically signed by Albert Miramontes PT. MDT> 11/19/22 0936 CC: Dr. Vincent Dumont MD; ROCKY CORDERO MD ~ MAURICE Signed [facility] Work Phone: Evaluation note Note Date & Type Note Facility Evaluation note Diagnosis Onset Date Dysphagia resolved [facility] Work Phone: Evaluation note Note Date & Type Note Facility Evaluation note No assessment information availa ble [facility] Work Phone: Hospital Discharge instructions Note Date & Type Note Facility Hospital Discharge instructions [facility] Work Phone: Hospital Discharge instructions Note Date & Type Note Facility Hospital Discharge instructions [facility] Work Phone: Reason for referral (narrative) Note Date & Type Note Facility Reason for referral (narrative) No reason for referral information available [facility] Work Phone: Chief Complaint and Reason for Visit Chief Complaint DYSPHAGIA sob ABD PAIN, PELVIC/PERINEAL PAIN Reason for Visit Dysphagia Chief Complaint DYSPHAGIA sob ABD PAIN, PELVIC/PERINEAL PAIN sob Reason for Visit Dysphagia Chief Complaint sob SOB Shortness of breath Chief Complaint DDD/RX HERE Chief Complaint PHARYNGITIS Chief Complaint PHARYNGITIS CHRONIC SINUSITIS Chief Complaint CHRONIC SINUSITIS VESTIBULAR. RX HERE Chief Complaint Admit Date CHILLS, BURNING LIPS March 30, 2025 12:28pm Family History No Family History Records Found Relationship Condition Age at Onset Recorded Date/T elke mother Diabetes mellitus Unknown father Malignant neoplasm Unknown Malignant neoplasm of prostate Unknown sister Malignant neoplasm of breast Unknown Atrial fibrillation Unknown Kidney disorder Unknown brother Diabetes mellitus Unknown Advance Directives No Advanced Directives Records Found Advance Directive Response Recorded Date/ Time Living Will No September 20, 022 3:47am Power of Manager Of Pharmacy No September 20, 2021 3:47am Advance Directive Response Recorded Date/ Time Living Will No January 06, 2022 1:58pm Power of Manager Of Pharmacy No January 06 2 1:58pm Advance Directive Response Recorded Date/ Time Living Will No January 06, 2022 12:58pm Power of Manager Of Pharmacy No January 06 2 12:58pm Summary Purpose Additional Source Comments Goals (unrecognized section and content) Goals may be documented in a n alternate sectionGoals may be documented in an alternate sectionGoals may be documented in an alternate sectionGoals may be documented in an alternate sectionGoals may be documented in an alternate sectionGoals may be documented in an alternate sectionGoals may be documented in an alternate sectionGoals may be documented in an alternate sectionGoals may be documented in an alternate sectionGoals may be documented in an alternate section Source Comments (unrecognize d section and content) In the event this informatio n is protected by the Federal Confidentiality of Alcohol and Drug Abuse Patient Records regulations: The Federal rules restrict any use of the information to criminally investigate or prosecute any alcohol or drug abuse patient.[facility] the event this information is protected by the Federal Confidentiality of Alcohol and Drug Abuse Patient Records regulations: The Federal rules restrict any use of the information to criminally investigate or prosecute any alcohol or drug abuse patient.[facility] Care Teams (unrecognized sec tion and content) Team Status: Active Member Role Status Dates Rigoberto VERONICA Family Provider Active Dr. Vincent Dumont MD Primary Care Provider Active Team Status: Inactive Member Role Status Dates Dr. Vincent Dumont MD Primary Care Provider, Attending Provider Active Team Status: Inactive Member Role Status Dates Dr. Vincent Dumont MD Primary Care Provider Active ROCKY CORDERO MD Attending Provider, Referring Pro vider Active Team Status: Inactive Member Role Status Dates Dr. Vincent Dumont MD Primary Care Provider Active Dr. Martell Cerda MD Attending Provider, Refe rring Provider Active Team Status: Active Member Role Status Dates Rigoberto VERONICA Family Provider Active Dr. Chad Sheikh MD Primary Care Provider Active Team Status: Inactive Member Role Status Dates Dr. Chad Sheikh MD Primary Care Provider, Attend ing Provider Active Team Status: Inactive Member Role Status Dates Dr. Chad Sheikh MD Primary Care Provider Active Dr. Martell Cerda MD Attending Provider, Refe rring Provider Active Team Status: Active Member Role Status Dates Dr. Chad Sheikh MD Primary Care Pr ovider, Attending Provider, Referring Provider Active Team Status: Inactive Member Role Status Dates Dr. Chad Sheikh MD Primary Care Provider Active Start: September 19, 2024 End: September 19, 2024 Dr. Chad Sheikh MD Attending Provider Active Start: September 19, 2024 End: September 19, 2024 Dr. Chad Sheikh MD Referring Provider Active Start: September 19, 2024 End: September 19, 2024 Team Status: Active Member Role/Relationship Status Dates Rigoberto VERONICA Family Provider Active Dr. Chad Sheikh MD Primary Care Provider Active Team Status: Inactive Member Role/Relationship Status Dates Dr. Chad Sheikh MD Primary Care Provider Active Start: March 30, 2025 End: March 30, 2025 Dr. Chad Sheikh MD Referring Provider Active Start: March 30, 2025 End: March 30, 2025 KATHERINE Bynum Attending Provider Active Start: March 30, 2025 End: March 30, 2025 INFORMATION SOURCE (unrecogn ized section and content) DATE CREATED AUTHOR 04/09/2025 [facility] FOR RECORDS PERTAINING TO PATIENTS WHO ARE OR HAVE BEEN ENROLLED IN A CHEMICAL DEPENDENCY/SUBSTANCEABUSE PROGRAM, SOME INFORMATION MAY BE OMITTED. This clinical summary was aggregated from multiple sources. Caution should be exercised in using it in the provision of clinical care. This summary normalizes information from multiple sources, and as a consequence, information in this document may materially change the coding, format and clinical context of patient data. In addition, data may be omitted in some cases. CLINICAL DECISIONS SHOULD BE BASED ON THE PRIMARY CLINICAL RECORDS. [employer] provides no warranty or guarantee of the accuracy or completeness of information in this document.
== END | disposition home or self-care (01) ==
LOC: OPBI 10:02
PROVIDERS: PCP Family Medicine
DX: Z12.31 Encounter for screening mammogram for malignant neoplasm of breast (principal)
CPT/HCPCS: 77063; 77067